=== PATIENT | male | born 1965 | race Caucasian/White ===

== ENCOUNTER 2023-08-06 15:25 | Inpatient (IN) ==
--- NOTE | 2023-08-06 15:31 | ED Triage Note ---
Date of Service August 06, 2023 Provider in Triage Author: Jamie Griffin History of Present Illness This patient was briefly evaluated while in triage. An abbreviated physical exam was performed. This patient is a 58-year-old Male who presents to the ED for evaluation of blood in his urine. Patient has a history of bladder cancer. The patient was seen at [facility], and they recommended emergency surgery. The patient was admitted, and had multiple blood transfusions because of his blood loss, and was discharged on Thursday. Patient recently had a Montanez catheter placed this past Thursday night. Patient reports penis pain, rating his discomfort a 9 out of 10. Physical Exam CONSTITUTIONAL: Healthy and well nourished. HEENT: No scleral icterus or conjunctival injection. RESPIRATORY: Clear to auscultation bilaterally with no wheezing, crackles, rhonchi or stridor. CARDIOVASCULAR: Regular rate and rhythm with no murmurs, rubs or gallops. GASTROINTESTINAL: Bowel sounds present in all quadrants. INTEGUMENTARY: No rash or other significant dermatologic conditions noted. HEMATOLOGIC: No ecchymosis or petechiae. PSYCHIATRIC: Positive affect. NEUROLOGIC: No focal neurologic deficits noted. Initial orders for labs and / or imaging were placed and patient was placed in the waiting area until a bed is available. Please see further documentation for the full ED course.
[2023-08-06 17:02] LABS: Basophils # (auto) 0.12 K/uL (0.00-0.20); Basophils % (auto) 1.2 %; Eosinophils # (auto) 0.39 K/uL (0.00-0.50); Eosinophils % (auto) 3.7 %; Hematocrit (blood only) 34.2 % (42.0-52.0); Hemoglobin 10.9 g/dl (14.0-18.0); Immature Granulocytes # (auto) 0.02 K/uL (0.01-0.20); Immature Granulocytes % (auto) 0.2 %; Lymphocytes # (auto) 1.06 K/uL (1.20-3.40); Lymphocytes % (auto) 10.2 %; Mean Corpuscular Hemoglobin 27.9 pg (25.0-34.0); Mean Corpuscular Hgb Conc 31.9 g/dL (32.0-36.0); Mean Corpuscular Volume 87.7 fL (80.0-100.0); Monocytes # (auto) 1.08 K/uL (0.11-0.59); Monocytes % (auto) 10.4 %; Neutrophils # (auto) 7.75 K/uL (1.40-6.50); Neutrophils % (auto) 74.3 %; Platelet Count 376 K/uL (130-400); RDW Coefficient of Variation 15.4 % (11.5-14.5); RDW Standard Deviation 48.2 fL (36.4-46.3); White Blood Count 10.42 K/ul (4.8-10.8)
[2023-08-06 17:07] LABS: Albumin Globulin Ratio 1.3 (0.9-2); Albumin Level 4.1 gm/dl (3.4-5.0); Bilirubin,Total 0.4 mg/dl (0.2-1.0); Est GFR (African American) 76.3 ml/min; Est GFR (Non-African American) 65.8 ml/min; Globulin 3.1 gm/dl (2.5-4.0); Potassium 4.3 mmol/L (3.5-5.1); Total Protein 7.2 gm/dl (6.0-8.3)
[2023-08-06 17:17] LABS: Troponin I High Sensitivity 1300.4 pg/ml (0-20)
[2023-08-06 18:27] LABS: INR 0.9 (0.9-1.1); Partial Thromboplastin Time 28 Seconds (21-31); Prothrombin Time 10.3 Seconds (9.0-12.0)
[2023-08-06] MEDS ORDERED: HYDROCODONE/ACETAMOPHEN 5/325MG TAB PO STA (19:50)
[2023-08-06] MEDS ORDERED: LABETALOL HCL IV 5 MG/ML 20ML IV STA (19:50)
--- NOTE | 2023-08-06 20:07 | History & Physical Report ---
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 Elevated troponin Acute ECG Changes admit to PCU Patient presented withtroponin of 1300, 2-hour repeat was 1061 EKG with anterior lateral T wave inversion in V3 to V6 Recent hospitalization at [facility] with again troponin elevation at 35,000 and EKG change in setting of acute anemia with a hemoglobin of 5 requiring PRBC transfusion x 4 T wave inversion more pronounced ? If related to recent demand ischemia event Patient's last episode of chest pain was when he was hospitalized at [facility] on day of admission Since then he has not experienced any chest pain or shortness of breath Given hematuria unable to initiate IV heparin therapy He is on aspirin and Plavix at baseline due to ? PAD, this has been held for 6 days due to hematuria He remains on metoprolol and lisinopril Will obtain echocardiogram, cycle troponins and consult cardiology ED provider discussed with interventional cardiology as well as [facility] recommended further intermission and work up risks factors include, FH, HTN, HLD, T2DM Will place n.p.o. after midnight event procedure in a.m. Hematuria (ongoing for 3 months) Chronic Reyna catheter, POA Known bladder cancer Will need to obtain records from [facility] Patient wishes for a second opinion, states he previously underwent surgical treatment for bladder cancer but no further intervention Is being told he needs chemotherapy and is not sure he wants to go through with this Again requesting second opinion, will consult [facility] urology Insulin-dependent T2DM Unknown A1c, obtain in a.m. Lantus/NovoLog per protocol Acute blood loss anemia in setting of hematuria, POA Hemoglobin stable at 10 Recently received PRBC transfusion x 4 at OSH follow H/H HTN continue lisinopril, metoprolol give 5mg IV labetolol x 1 now in ED HLD continue statin lipid panel in a.m. ? PAD Hx of carotid endarterectomy in 2018 pt reports receiving an angioplasty type procedure at [facility] were numerous stents were placed he states he is currently on ASA/Plavix which has been on hold for 6 days due to hematuria Charcot Luma tooth Disease had leg braces he utilizes at bedside no acute issue DVT ppx: SCDS FULL CODE PCP: Juvencio Abebe, unassigned Dispo: admit to PCU Pt was seen and examined in collaboration with Dr. Alaniz, please see addendum A total of 95 minutes was spent coordinating, documenting, and providing care for this patient excluding time spent in the performance of separately billed services. This included personally viewing all current laboratories and imaging studies, medication reconciliation, outpatient chart review, and discussion with specialists. Will obtain records from [facility] in a.m. 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 Prior to today patient previously sought care at [facility]. He states over the last 3 months he has been having hematuria. He states that his urologist keeps telling him he needs chemotherapy, but he has been unhappy with his care and is currently pursuing a second opinion. 6 days ago on Thursday he noted significant blood clots coming out of his urinary catheter and also was experiencing some chest heaviness, nausea and shortness of breath. He therefore presented to [facility] emergency department where he was hospitalized and discharged 2 days ago on 08/04/2023. He was subsequently found to be significantly anemic with a hemoglobin of 5. He required transfer to [facility] in which he did receive 4 units of PRBCs. Per ED provider who has access to [facility] records patient had elevated troponin during this hospital stay but did not undergo any coronary intervention due to high risk and hematuria. He states he had a second episode of chest pain during ER evaluation in [place] whenever he was placed in CT scanner and was told to hold his breath for 7 seconds. He developed intense substernal chest pressure that did not resolve until he was receiving his second unit of PRBCs. Since being discharged from [facility] he initially did notice some clearance of his hematuria however over the last 2 days his urine has become more dark and did have a blood clot in his catheter this morning. He denies experiencing any chest pain since discharge from hospital. He denies any chest pain with exertion, shortness of breath at rest or with exertion, diaphoresis, nausea, vomiting, fever, chills, sweats, URI symptoms, abdominal pain, hematemesis, melena or hematochezia. In ED patient was significantly hypertensive on arrival. His hemoglobin is stable at 10.9. He did have significant elevation in troponin at 1300 with subsequent T wave inversions noted anterior laterally and V3 to V6. Again he denied any chest pain. ED provider did discuss with interventional cardiology as well as [facility] cardiology and given hematuria no heparin initiation was recommended. Patient also states that he has been off his aspirin and Plavix for 1 week as he was told to hold this medication. He states he takes this medication due to receiving stents in his lower extremities. Allergies Allergy/AdvReac Type Severity Reaction Status Date / Time No Known Allergies Allergy Unverified 08/06/23 18:57 Home Medications Medication Instructions Recorded Confirmed Type acetaminophen 300 mg-codeine 30 mg 1 tab PO Q6H PRN moderate to 08/06/23 08/06/23 History tablet severe pain aspirin 81 mg tablet,delayed 81 mg PO DAILY 08/06/23 08/06/23 History release atorvastatin 40 mg tablet 40 mg PO HS 08/06/23 08/06/23 History clopidogrel 75 mg tablet 75 mg PO DAILY 08/06/23 08/06/23 History insulin glargine 100 unit/mL (3 25 unit subcut HS 08/06/23 08/06/23 History mL) subcutaneous pen (Lantus Solostar U-100 Insulin) insulin glargine 100 unit/mL (3 40 unit subcut DAILY 08/06/23 08/06/23 History mL) subcutaneous pen (Lantus Solostar U-100 Insulin) levothyroxine 25 mcg tablet 25 mcg PO DAILY 08/06/23 08/06/23 History lisinopril 30 mg tablet 30 mg PO DAILY 08/06/23 08/06/23 History metoprolol succinate 50 mg 50 mg PO DAILY 08/06/23 08/06/23 History tablet,extended release 24 hr tamsulosin 0.4 mg capsule 0.4 mg PO PM 08/06/23 08/06/23 History Past Med/Surg History Medical History (Updated 08/06/23 @ 20:23 by Hali Salcedo PA-C) Hypothyroidism Bladder cancer 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 HLD (hyperlipidemia) HTN (hypertension) Xvkxtii-Avabt-Igcqe disease Surgical History (Updated 08/06/23 @ 20:01 by Hali Salcedo PA-C) History of laryngoscopy History of carotid endarterectomy Hx of hammer toe correction Family History (Updated 08/06/23 @ 20:01 by Hali Salcedo PA-C) Mother Coronary heart disease 50-60s CABG Father Coronary heart disease [place] in 40s Social History (Updated 08/06/23 @ 20:03 by Hali Salcedo PA-C) Smoking Status: Former smoker Smoking End Date: 2011; Hx Alcohol Use: Yes Alcohol type: hard liquor Alcohol Intake Frequency: 2-4 x/Month Hx Substance Use: Yes Non-Prescribed Medications: Marijuana Last Used Substance: Hours (ago) Preferred Language: Macedonian Communication Ability: Effective English Drawer Required: No Beliefs That Will Affect Care: None marital status: Single Current Living Situation: Family Current Living Situation Comment: lives with father and daughter current occupational status: disabled Other Information That Helps Us Care for You: No Feels Safe at Home: Yes Safety Concerns: Feels Safe At This Time Review of Systems Review of Systems: All systems reviewed & are unremarkable except as noted in HPI & below Physical Exam Physical Exam: Constitutional: WD/WN, vitals as above, NAD, sitting up in bed, pleasant, conversing easily Head: Normocephalic, Atraumatic Eyes: PERRL, conjunctivae normal, anicteric sclerae ENMT: external ear and nose normal, oropharynx normal Neck: trachea midline, no thyromegaly normal visual inspection Respiratory: normal respiratory effort, lungs clear to auscultation, no wheeze, rales, rhonchi. Normal insp/exp effort, no accessory muscle use Cardiovascular: RRR, no murmur, no edema Vessels: no JVD or carotid bruit Chest: normal inspection of chest Abdomen: normal bowel sounds, soft, nontender, no hepatosplenomegaly Musculoskeletal: no cyanosis or clubbing, +CMT deformities, AROM x 4 Skin: no rashes, warm and dry normal turgor Neurologic: PERRL, EOMI, accommodation nl, no face palsy, no dysarthria CN's II-XI intact bilaterally and moves all extremities Psychiatric: A+Ox3, euthymic affect Lymphatic: no cervical or axillary lymphadenopathy : +reyna cath with perez colored urine Results & Data Results & Data Vital Signs (Past 12 Hours) Vital Signs Temp Pulse Pulse Resp BP BP Pulse Ox 08/06/23 19:33 91 H 08/06/23 19:00 91 H 18 176/98 H 98 08/06/23 17:25 94 H 18 190/99 H 97 08/06/23 16:35 86 18 99 08/06/23 15:52 90 18 153/104 H 100 08/06/23 15:46 95 H 08/06/23 15:27 36.5 C 101 H 20 116/83 97 O2 Del Method 08/06/23 19:33 08/06/23 19:00 Room Air 08/06/23 17:25 08/06/23 16:35 08/06/23 15:52 08/06/23 15:46 08/06/23 15:27 Room Air ECG Additional Comments: I have independently reviewed and interpreted patient's admitting EKG which revealed: Normal sinus rhythm with a ventricular to 94 bpm, T wave depressions in leads V3 to V5, QTc 542 MS, flat ST segment in V6 COVID-19 Results Results COVID-19 Adm Lab Results: RBC 3.50 M/uL (4.70-6.10) L 08/07/23 WBC 8.28 K/ul (4.8-10.8) 08/07/23 Hgb 9.8 g/dl (14.0-18.0) L 08/07/23 Hct 30.5 % (42.0-52.0) L 08/07/23 Plt Count 314 K/uL (130-400) 08/07/23 Neutrophils (%) (Auto) 72.9 % 08/07/23 Lymphocytes (%) (Auto) 10.3 % 08/07/23 Monocytes # (Auto) 0.88 K/uL (0.11-0.59) H 08/07/23 Eosinophils # (Auto) 0.34 K/uL (0.00-0.50) 08/07/23 Immature Granulocyte % (Auto) 0.4 % 08/07/23 Neutrophils # (Auto) 6.04 K/uL (1.40-6.50) 08/07/23 Lymphocytes # (Auto) 0.85 K/uL (1.20-3.40) L 08/07/23 Monocytes # (Auto) 0.88 K/uL (0.11-0.59) H 08/07/23 Eosinophils # (Auto) 0.34 K/uL (0.00-0.50) 08/07/23 Basophils # (Auto) 0.14 K/uL (0.00-0.20) 08/07/23 Immature Granulocyte # (Auto) 0.03 K/uL (0.01-0.20) 4 Na 135 mmol/L (136-145) L 08/06/23 K 4.3 mmol/L (3.5-5.1) 08/06/23 Cl 102 mmol/L (98-107) 08/06/23 CO2 24 mmol/L (21-32) 08/06/23 Anion Gap 9 (3-11) 08/06/23 BUN 24 mg/dl (6-23) H 08/06/23 Creatinine 1.20 mg/dl (0.6-1.4) 08/06/23 BUN/Creatinine Ratio 20.0 (10-20) 08/06/23 Glucose Level 212 mg/dl (70-99(Fasting)) H 08/06/23 Ca 10.0 mg/dl (8.6-10.3) 08/06/23 Total Bilirubin 0.4 mg/dl (0.2-1.0) 08/06/23 AST/SGOT 21 U/L (13-39) 08/06/23 ALT/SGPT 18 U/L (7-52) 08/06/23 Alkaline Phosphatase 79 U/L (34-104) 08/06/23 Total Protein 7.2 gm/dl (6.0-8.3) 08/06/23 Albumin 4.1 gm/dl (3.4-5.0) 08/06/23 Globulin 3.1 gm/dl (2.5-4.0) 08/06/23 Albumin/Globulin Ratio 1.3 (0.9-2) 08/06/23 PTT 28 Seconds (21-31) 08/06/23 INR 0.9 (0.9-1.1) 08/06/23 Triglycerides Level Pending 08/07/23 Chest X-Ray 08/06/23 Code Status & VTE Plan Code Status FULL CODE VTE Prophylaxis Plan VTE Prophylaxis will be ordered: No Reason for no VTE drug order: Contraindicated Supervising Physician Co-Signing Physician Notes Pt seen and examined by myself, Oly Alaniz MD on the day of service. Care was coordinated with Hali Salcedo PA-C. 58yoM with PMHx significant for bladder cancer with chronic hematuria presenting for noted clots and found to have an elevated troponin. Pt states that he has been following with [facility] and was not satisfied with care there so he wanted to follow up with Dr. Méndez based on the advice of friends. States he has an appointment set up for followup but started noting that he had blood clots in his urine so presented to the ED. Reportedly, pt's troponin was very elevated at [facility] and per pt noted trop level today is actually a decrease. States he was told about this there and was evaluated by cardiologists. On exam, alert, oriented, no acute distress. RRR, abdomen tender. Elevated trop: Cardiology consulted, echo, will hold on IV heparin given hematuria. trend trop until downtrending. Obtain records Hematuria, bladder cancer[place] Urology consult per pt request, appreciate recs. Monitor H/H. Obtain records. Otherwise as above.
[2023-08-06] MEDS ORDERED: MAGNESIUM HYDROXIDE SUSP 30 ML UDC PO PRN (22:30)
[2023-08-06] MEDS ORDERED: ACETAMINOPHEN 325 MG TAB PO PRN (22:30)
[2023-08-06] MEDS ORDERED: ALUMINUM/MAGNESIUM SUSP 30 ML UDC PO PRN (22:30)
[2023-08-06] MEDS ORDERED: DEXTROSE 50% 50 ML SYRINGE IV PRN (22:30)
[2023-08-06] MEDS ORDERED: CARBOHYDRATES FOR HYPOGLYCEMIA PO PRN (22:30)
[2023-08-06] MEDS ORDERED: GLUCAGON FOR INJ 1 MG VIAL SQ PRN (22:30)
[2023-08-06] MEDS ORDERED: GLUCOSE 10 TAB/TUBE PO PRN (22:30)
[2023-08-06] MEDS ORDERED: POLYETHYLENE (MIRALAX) 17 GM PACK PO PRN (22:30)
[2023-08-06] MEDS ORDERED: ONDANSETRON INJ 2 MG/ML 2 ML VIAL IV PRN (22:30)
[2023-08-06] MEDS ORDERED: GLUCOSE 40% GEL 15 GM TUBE PO PRN (22:30)
[2023-08-06] MEDS: INSULIN ASPART PER UNIT CHARGE SC SCH (23:07)
[2023-08-06] MEDS: LANTUS PER UNIT CHARGE SQ SCH (23:08)
[2023-08-06] MEDS: ATORVASTATIN 40 MG TAB PO SCH (23:12)
[2023-08-06] MEDS: TAMSULOSIN HCL 0.4 MG CAP PO SCH (23:12)
[2023-08-07] MEDS: LEVOTHYROXINE SODIUM 25 MCG TABLET PO SCH (05:20)
[2023-08-07 06:39] LABS: Basophils # (auto) 0.14 K/uL (0.00-0.20); Basophils % (auto) 1.7 %; Eosinophils # (auto) 0.34 K/uL (0.00-0.50); Eosinophils % (auto) 4.1 %; Hematocrit (blood only) 30.5 % (42.0-52.0); Hemoglobin 9.8 g/dl (14.0-18.0); Immature Granulocytes # (auto) 0.03 K/uL (0.01-0.20); Immature Granulocytes % (auto) 0.4 %; Lymphocytes # (auto) 0.85 K/uL (1.20-3.40); Lymphocytes % (auto) 10.3 %; Mean Corpuscular Hgb Conc 32.1 g/dL (32.0-36.0); Mean Corpuscular Volume 87.1 fL (80.0-100.0); Mean Platelet Volume 10.5 fL (9.4-12.4); Monocytes # (auto) 0.88 K/uL (0.11-0.59); Monocytes % (auto) 10.6 %; Neutrophils # (auto) 6.04 K/uL (1.40-6.50); Neutrophils % (auto) 72.9 %; Platelet Count 314 K/uL (130-400); RDW Coefficient of Variation 15.3 % (11.5-14.5); RDW Standard Deviation 48.1 fL (36.4-46.3); White Blood Count 8.28 K/ul (4.8-10.8)
[2023-08-07 07:13] LABS: Albumin Globulin Ratio 1.5 (0.9-2); Albumin Level 3.5 gm/dl (3.4-5.0); BUN Creatinine Ratio 22.5 (10-20); Bilirubin,Total 0.4 mg/dl (0.2-1.0); Calcium 9.4 mg/dl (8.6-10.3); Chol HDL Ratio 2.6 (0-5); Creatinine Clr Calc Pharmacy 96.4 ml/min; Est GFR (African American) 92.8 ml/min; Est GFR (Non-African American) 80.1 ml/min; Globulin 2.3 gm/dl (2.5-4.0); Magnesium 1.7 mg/dl (1.7-2.4); Total Protein 5.8 gm/dl (6.0-8.3)
[2023-08-07 07:41] LABS: Estimated Average Glucose 123 mg/dl; Hemoglobin A1C 5.9 % (4.5-5.6)
[2023-08-07] MEDS: lisinopril 10 MG TAB PO SCH (08:03)
[2023-08-07] MEDS: METOPROLOL SUCC 50MG EXT REL TAB PO SCH (08:04)
--- NOTE | 2023-08-07 08:10 | XRay Report ---
SINGLE VIEW CHEST CLINICAL HISTORY: Elevated troponin. FINDINGS: An AP, portable, upright chest radiograph is correlated with PET/CT dated 10/22/2011. The ca rdiomediastinal silhouette is unremarkable. Emphysema and chronic interstitial thickening is similar to previous. There is bibasilar scarring/atelectasis. The lungs and pleural spaces are otherwise reed r. No pneumothorax is seen. The bony thorax is grossly intact. IMPRESSION: Emphysematous change with no active disease in the chest. ACT 112: Negative or not required by law. Electronically signed by: Christopher Mean M.D. 08/07/2023 8:08 AM
--- NOTE | 2023-08-07 09:09 | Urology Consultation ---
Date of Consultation August 07, 2023 Assessment & Plan (1) Hematuria: (2) Bladder cancer: 58 yo/M admitted for hematuria and elevated troponin. Urology consulted for hematuria, bladder cancer Patient has known bladder cancer status post resection, follows with Urology Ongoing hematuria for 3 months with recent worsening, clot burden and symptomatic [facility] Lab[facility] 1.02, no leukocytosis, hemoglobin 9.8recommend continue to trend H&H and transfuse as needed No UA or urine culture at this time Montanez catheter present on admissionpatent and draining yellow urine with slight blood tinge during exam today Urine appears to be clearing Okay for nursing to hand irrigate catheter as needed for clot obstruction Recommend monitor catheterif urine remains clear then can do voiding trial prior to discharge or can arrange outpatient voiding trial Regarding his bladder cancer, we will need prior urology records and pathology to reviewrecommend outpatient follow-up No acute intervention at this time Patient would like to transition his care to [facility] urologywill arrange f/u with our service will follow peripherally History of Present Illness Attending Physician: Cy Liu MD History of Present Illness This is a 58-year-old male with past medical history of type 2 diabetes, hypertension, hyperlipidemia, Keogsfl-Dygpz-Mwlbf disease, hypothyroidism, 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 On arrival, he was afebrile, hypertensive. Labs showed WBC 10.42, hemoglobin 10.9, sodium 135, creatinine 1.2, troponin 1300.4. Workup in the ED revealed elevated troponin and abnormal EKG. He was admitted to medicine for further evaluation and management. Urology is consulted for hematuria, bladder cancer. Patient reports hematuria ongoing for 3 months. He has known bladder cancer s/p resection in September 2022. He follows with [facility] urology, but has been unhappy with care and would like to transfer care to [facility]. Recently hospitalized at for difficulty voiding, hematuria and symptomatic anemia requiring transfusions, 4 units of PRBCs. He was also noted to have elevated troponin at . He had a 3 way Montanez catheter placed and was on CBI per his report. He was discharged from with Montanez catheter. He is on aspirin and Plavix which has been held for the past 6-7 days. He does not know the pathology of his bladder cancer. He was told he needed chemotherapy. He has not undergone any additional treatment since his resection. Currently denies flank, abdominal or suprapubic pain. Denies nausea, vomiting, fever or chills. Montanez patent and draining yellow urine with slight blood tinge. History of tobacco use: 2 ppd for 20+ years, quit in 2011. Now uses marijuana. Allergies Allergy/AdvReac Type Severity Reaction Status Date / Time No Known Allergies Allergy Unverified 08/06/23 18:57 Home Medications Medication Instructions Recorded Confirmed Type acetaminophen 300 mg-codeine 30 mg 1 tab PO Q6H PRN moderate to 08/06/23 08/06/23 History tablet severe pain aspirin 81 mg tablet,delayed 81 mg PO DAILY 08/06/23 08/06/23 History release atorvastatin 40 mg tablet 40 mg PO HS 08/06/23 08/06/23 History clopidogrel 75 mg tablet 75 mg PO DAILY 08/06/23 08/06/23 History insulin glargine 100 unit/mL (3 25 unit subcut HS 08/06/23 08/06/23 History mL) subcutaneous pen (Lantus Solostar U-100 Insulin) insulin glargine 100 unit/mL (3 40 unit subcut DAILY 08/06/23 08/06/23 History mL) subcutaneous pen (Lantus Solostar U-100 Insulin) levothyroxine 25 mcg tablet 25 mcg PO DAILY 08/06/23 08/06/23 History lisinopril 30 mg tablet 30 mg PO DAILY 08/06/23 08/06/23 History metoprolol succinate 50 mg 50 mg PO DAILY 08/06/23 08/06/23 History tablet,extended release 24 hr tamsulosin 0.4 mg capsule 0.4 mg PO PM 08/06/23 08/06/23 History Patient History Medical History Hypothyroidism Bladder cancer 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 HLD (hyperlipidemia) HTN (hypertension) Vwctudq-Gjglz-Jvcan disease Surgical History History of laryngoscopy History of carotid endarterectomy Hx of hammer toe correction Family History Mother Coronary heart disease 50-60s CABG Father Coronary heart disease [place] in 40s Social History Smoking Status: Former smoker Smoking End Date: 2011; Hx Alcohol Use: Yes Alcohol type: hard liquor Alcohol Intake Frequency: 2-4 x/Month Hx Substance Use: Yes Non-Prescribed Medications: Marijuana Last Used Substance: Hours (ago) Preferred Language: Malaysian Communication Ability: Effective Cephalometric Technician Required: No Beliefs That Will Affect Care: None marital status: Single Current Living Situation: Family Current Living Situation Comment: lives with father and daughter current occupational status: disabled Other Information That Helps Us Care for You: No Feels Safe at Home: Yes Safety Concerns: Feels Safe At This Time Review of Systems Review of Systems: All systems reviewed & are unremarkable except as noted in HPI & below Physical Exam Constitutional: well developed and well nourished; no acute distress Respiratory: normal respiratory effort; no respiratory distress and no labored breathing Gastrointestinal (Abdomen): Inspection/Auscultation: abdomen normal to ins pection Percussion/Palpation: abdomen soft; abdomen nontender Musculoskeletal: Head/Neck/Chest: normocephalic Neurologic: awake Psychiatric: Orientation: alert and oriented x 3 Genitourinary: Montanez patent and draining yellow urine with slight blood-tinge Results & Data Vital Signs (Past 12 Hours) Vital Signs Temp Pulse Pulse Resp BP Pulse Ox O2 Del Method 08/07/23 08:05 36.4 C L 61 19 116/76 96 Room Air 08/07/23 03:46 37.4 C 87 109/61 98 Room Air 08/06/23 23:02 37.1 C 88 141/74 H 98 Room Air 08/06/23 22:48 36.6 C 92 H 18 160/78 H 97 Room Air 08/06/23 21:59 96 H PG Care Time/CCT Total # of Minutes Spent Total Time Spent with Patient: Total time spent is greater than 50% in coordination of care (as documented) at patient's floor/unit and/or counseling patient: Coding Level of Care Code 03417 IN/OBS CONSULT LVL 4,60M Diagnoses Hematuria R31.9 Bladder cancer C67.9
[2023-08-07] MEDS: ACETAMINOPHEN W/CODEINE #3 1 TAB PO PRN ×3 (09:38→23:01)
[2023-08-07] MEDS: INSULIN ASPART PER UNIT CHARGE SC SCH ×4 (09:44→21:11)
[2023-08-07] MEDS: LANTUS PER UNIT CHARGE SQ SCH ×2 (09:45→21:12)
--- NOTE | 2023-08-07 12:23 | Cardiology Consultation ---
Date of Consultation August 07, 2023 Assessment & Plan (1) Abnormal ECG: (2) Elevated troponin: (3) Hematuria: (4) HTN (hypertension): (5) HLD (hyperlipidemia): Plan Assessment: Patient is a 58 year-old male with complex cancer history that presented for evaluation of ongoing hematuria. Recent hospitalization 1 week prior for gross hematuria and HgB of 5 requiring transfusion. Asked to be seen by cardiology due to ongoing elevated troponins and abnormal EKG findings. Plan: 1. Abnormal EKG 2.Elevated Troponin -Patient with reports of an abnormal EKG one week prior during a hospitalization at [facility] suggestive of inverted T waves. We have not been able to personally review this EKG. Repeat EKG shows NSR with ST-T wave changes suggestive of anterolateral ischemia. -No personal history of CAD, but significant family history of CAD -Troponin elevation here likely a continued downtrend to signficant elevation one week ago during prior hospitalization and s/t demand ischemia in regards to profound anemia. -discussed with patient concerns of EKG findings in conjunction with his other health issues and family history. -Given hematuria, his ASA and Plavix are on hold and complicate invasive management of potential CAD. -will obtain echocardiogram today to assess overall structrue and function, assessment of wall motion abnormality. -NPO until after echo to determine if invasive cardiac workup is indicated at this time or may be done at a later date. -continue Toprol xl, Lisinopril and Atorvastatin at this time as part of GDMT 3. HTN -At target. Continue Toprol xl and Lisinopril at this time. 4. HLD: -Continue Atorvastatin at this time. Will provide further recommendations pending echocardiogram. Case has been discussed with Dr. Daugherty. Further recommendations regarding plan of care as per his assessment. I spent a total of 30 minutes on the date of service in preparation, delivery, documentation of the care provided to the patient excluding any time spent in the performance of separately billed services. MARY Kraft [facility] Supervising Physician Co-Signing Physician Notes Attending attestation: Case reviewed with the advanced practitioner. I have personally performed a history and physical examination on the patient. I have reviewed the advanced practitioner's documentation on the date of service referenced in note, and I agree with, and take responsibility for the plan of care. Subjective: Patinet without chest discomfort since having experienced it while having a CT scan at within the [facility] a week ago. Exam: Cardiovascular: Regular rhythm, no murmurs, no edema Data: EKG tracing performed 08/07/2023 and interpret independently: Sinus rhythm 89 bpm with marked T wave abnormality in the precordial leads V1 to V6 consistent with anterolateral ischemia, more pronounced than the previous EKG. T wave inversions also noted in the high lateral leads I and aVL. Echocardiogram reveals a small focal apical wall motion abnormality, with preserved ejection fraction range of 55 to 60%. Mild aortic valve sclerosis without stenosis noted, grade 1 diastolic dysfunction, no previous available for comparison. Impression/ Plan: Recurrent bladder carcinoma with recent gross hematuria, has had indwelling Montanez catheter for 1 week Non-STEMI * Patient without anginal symptoms at present or since those observed last Thursday, 1 week ago * Patient notes both parents having had myocardial infarction's, his mother had bypass surgery and multiple coronary interventions per his description * He had previously been on dual antiplatelet therapy with aspirin and clopidogrel, presumably for treatment for his carotid disease having had previous carotid endarterectomy * Patient had presented a week ago with gross hematuria, profound anemia in the setting of dual antiplatelet therapy with aspirin clopidogrel, and he has been off of these agents for a week. * We do not have the patient's previous EKG available for comparison, but attempts are underway to obtain records and the patient has signed a records release consent. * Recommend ongoing conservative medication therapy. Cardiac catheterization and PCI would require the patient to go back on dual antiplatelet therapy and I would anticipate recurrent to severe symptomatic anemia would occur. * Continue metoprolol succinate 50 mg daily, lisinopril 30 mg daily, atorvastatin 40 mg daily. * Holding antiplatelet therapy. * Case discussed with Dr. Prado for the purpose of coordination of care I spent a total of 20minutes coordinating, documenting, and providing care for this patient excluding time spent in the performance of separately billed services or time spent by another provider. Fabian Daugherty DO History of Present Illness Reason for Consultation: Elevated troponin and EKG changes. 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 Patient's states that he has had hematuria for several weeks, but one week ago, he could visualize a large blood clot at the opening to her urethra and was not able to urinate. He initially presented to [facility] ER for further evaluation as well as chest pain that had started that day. He described the pain as a pressure and burning with no other associated symptoms. He was told that his troponin levels were elevated (35,000), had an "abnormal EKG" (not available for review) and a hemoglobin of 5 g/dl. Patient received two units of PRBC's prior to being transferred to [facility] where he received two additional units of blood (4 total). Patient reported that his chest pain resolved after the 2nd unit of blood. Patient denies any prior CAD, but has a significant family history of CAD both in parents and siblings. Review of telemetry demonstrates SR rates 80's-90's. EKG on admission demonstrates NSR with ST-T wave abnormality in anterolateral leads. Patient denies chest pain, pressure, palpations, shortness of breath, PND, pre- syncope, syncope or edema Allergies Allergy/AdvReac Type Severity Reaction Status Date / Time No Known Allergies Allergy Unverified 08/06/23 18:57 Home Medications Medication Instructions Recorded Confirmed Type acetaminophen 300 mg-codeine 30 mg 1 tab PO Q6H PRN moderate to 08/06/23 History tablet severe pain aspirin 81 mg tablet,delayed 81 mg PO DAILY 08/06/23 08/06/23 History release atorvastatin 40 mg tablet 40 mg PO HS 08/06/23 08/06/23 History clopidogrel 75 mg tablet 75 mg PO DAILY 08/06/23 08/06/23 History insulin glargine 100 unit/mL (3 25 unit subcut HS 08/06/23 08/06/23 History mL) subcutaneous pen (Lantus Solostar U-100 Insulin) insulin glargine 100 unit/mL (3 40 unit subcut DAILY 08/06/23 08/06/23 History mL) subcutaneous pen (Lantus Solostar U-100 Insulin) levothyroxine 25 mcg tablet 25 mcg PO DAILY 08/06/23 08/06/23 History lisinopril 30 mg tablet 30 mg PO DAILY 08/06/23 08/06/23 History metoprolol succinate 50 mg 50 mg PO DAILY 08/06/23 08/06/23 History tablet,extended release 24 hr tamsulosin 0.4 mg capsule 0.4 mg PO PM 08/06/23 08/06/23 History Patient History Medical History Hypothyroidism Bladder cancer 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 HLD (hyperlipidemia) HTN (hypertension) Porwpdk-Nsvoy-Nmpxi disease Surgical History History of laryngoscopy History of carotid endarterectomy Hx of hammer toe correction Family History Mother Coronary heart disease 50-60s CABG Father Coronary heart disease [place] in 40s Social History Smoking Status: Former smoker Smoking End Date: 2011; Hx Alcohol Use: Yes Alcohol type: hard liquor Alcohol Intake Frequency: 2-4 x/Month Hx Substance Use: Yes Non-Prescribed Medications: Marijuana Last Used Substance: Hours (ago) Preferred Language: Slovak Communication Ability: Effective Storage Battery Inspector And Tester Required: No Beliefs That Will Affect Care: None marital status: Single Current Living Situation: Family Current Living Situation Comment: lives with father and daughter current occupational status: disabled Other Information That Helps Us Care for You: No Feels Safe at Home: Yes Safety Concerns: Feels Safe At This Time Review of Systems Review of Systems: All systems reviewed & are unremarkable except as noted in HPI & below Physical Exam Constitutional: well developed and well nourished; no acute distress Neck: normal visual inspection and trachea midline Respiratory: normal respiratory effort, lungs clear to auscultation Cardiovascular: RRR, no murmur, no edema Heart Sounds: normal S1 and normal S2 Vessels: no JVD Skin: no rashes, warm and dry Psychiatric: A+Ox3, euthymic affect Genitourinary: perez tinge urine noted in the Montanez catheter Results & Data Vital Signs (Past 12 Hours) Vital Signs Temp Pulse Resp BP Pulse Ox O2 Del Method 08/07/23 11:44 37.1 C 76 18 109/64 99 Room Air 08/07/23 08:05 36.4 C L 61 19 116/76 96 Room Air 08/07/23 03:46 37.4 C 87 109/61 98 Room Air Laboratory Results Cardiac Enzymes 08/06/23 08/06/23 08/07/23 Range/Units 15:45 18:26 00:19 AST 21 (13-39) U/L Troponin I High Sens 1300.4 H* 1061.2 H* 993.9 H* (0-20) pg/ml 08/07/23 Range/Units 06:15 AST 13 (13-39) U/L Troponin I High Sens 974.4 H* (0-20) pg/ml Coagulation 08/06/23 Range/Units 17:31 PT 10.3 (9.0-12.0) Seconds APTT 28 (21-31) Seconds Lipids 08/07/23 Range/Units 06:15 Triglycerides 105 (0-150) mg/dl Cholesterol 88 (0-200) mg/dl HDL Cholesterol 34 mg/dl Cholesterol/HDL Ratio 2.6 (0-5) CBC 08/06/23 08/07/23 Range/Units 15:45 06:11 WBC 10.42 8.28 (4.8-10.8) K/ul RBC 3.90 L 3.50 L (4.70-6.10) M/uL Hgb 10.9 L 9.8 L (14.0-18.0) g/dl Hct 34.2 L 30.5 L (42.0-52.0) % Plt Count 376 314 (130-400) K/uL Neut # (Auto) 7.75 H 6.04 (1.40-6.50) K/uL Lymph # (Auto) 1.06 L 0.85 L (1.20-3.40) K/uL Leslie # (Auto) 1.08 H 0.88 H (0.11-0.59) K/uL Eos # (Auto) 0.39 0.34 (0.00-0.50) K/uL Baso # (Auto) 0.12 0.14 (0.00-0.20) K/uL Comprehensive Metabolic Panel 08/06/23 08/07/23 Range/Units 15:45 06:15 Sodium 135 L 140 (136-145) mmol/L Potassium 4.3 4.0 (3.5-5.1) mmol/L Chloride 102 108 H (98-107) mmol/L Carbon Dioxide 24 25 (21-32) mmol/L BUN 24 H 23 (6-23) mg/dl Creatinine 1.20 1.02 (0.6-1.4) mg/dl Glucose 212 H 107 H (70-99(Fasting)) mg/dl Calcium 10.0 9.4 (8.6-10.3) mg/dl AST 21 13 (13-39) U/L ALT 18 13 (7-52) U/L Alkaline Phosphatase 79 69 (34-104) U/L Total Protein 7.2 5.8 L (6.0-8.3) gm/dl Albumin 4.1 3.5 (3.4-5.0) gm/dl Intake and Output 08/06/23 08/07/23 08/07/23 22:59 06:59 14:59 Intake Total 250 / 250 Output Total 850 / 850 Balance -600 / -600 Intake: Oral 250 / 250 Output: Urine 200 / 200 Urine Amount (Catheter) 650 / 650 Montanez/Indwelling 650 / 650 Other: Weight 109.1 kg 109.1 kg Weight Measurement Method Chair Scale Built in [facility]
--- NOTE | 2023-08-07 14:44 | Hospitalist Progress Note ---
Date of Service August 07, 2023 Assessment & Plan (1) Elevated troponin: (2) Abnormal ECG: (3) Hematuria: (4) Bladder cancer: (5) Insulin dependent type 2 diabetes mellitus: (6) HLD (hyperlipidemia): (7) HTN (hypertension): (8) Dnmrjzv-Njaeu-Ltfyn disease: Plan This is a 58-year-old male who has significant past medical history 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 Elevated troponin NSTEMI Patient presented with hematuria. No chest pain or shortness of breath. High sensitive troponin on admission 1300; down trended. EKG admission personally reviewed; normal sinus rhythm with lateral T wave inversion in V3 to V6 Echocardiogram shows small focal wall motion abnormality limited to the left ventricular apex. EF of 55 to 60% Given hematuria, recent hospitalization with severe anemia requiring multiple transfusions; patient was started on anticoagulation. Aspirin and Plavix currently on hold; will likely restart aspirin tomorrow a.m. Continue on metoprolol, lisinopril and Lipitor. Continue telemonitoring. Repeat EKG in AM. Awaiting records from outside hospital. Hematuria (ongoing for 3 months) Chronic Reyna catheter, POA Known bladder cancer History of bladder cancer status post surgery last year. Patient started having hematuria in past 3 months. Urology evaluated the patient; no intervention at the moment. Recommended to monitor catheter; if urine remains clear; voiding trial prior to discharge. Urology service to arrange follow-up. Insulin-dependent T2DM HbA1c of 5.9% Well-controlled Continue insulin inpatient Acute blood loss anemia in setting of hematuria, POA Hemoglobin stable at 9-10 Recently received PRBC transfusion x 4 at OSH follow H/H HTN continue lisinopril, metoprolol HLD continue statin ? PAD Hx of carotid endarterectomy in 2018 pt reports receiving an angioplasty type procedure at [facility] were numerous stents were placed he states he is currently on ASA/Plavix which has been on hold for 6 days due to hematuria Charcot Luma tooth Disease had leg braces he utilizes at bedside no acute issue DVT ppx: SCDS FULL CODE PCP: Juvencio Abebe, unassigned Dispo: admit to PCU Time spent evaluating patient, direct bedside care, chart review, placing orders, interpretation of diagnostic studies, discussion with consultants, patient, and family members, as well as other required patient management activities is 50 minutes Please note the above document was generated using voice recognition software. It may contain grammatical, syntax or spelling errors. Any formal questions or concerns about the content, text or information contained within the body of this dictation should be directly addressed to the provider for clarification Admission and Anticipated Discharge Date Admission Date: August 06, 2023 Subjective Seen and examined at bedside. He is comfortably lying in the bed; not in distress. Reyna in place with clear reddish urine; no clots. Review of Systems Review of Systems: All systems reviewed & are unremarkable except as noted in Subjective Physical Exam Physical Exam: Constitutional: WD/WN, vitals as above, NAD, sitting up in bed, pleasant, conversing easily Respiratory: normal respiratory effort, lungs clear to auscultation, no wheeze, rales, rhonchi. Normal insp/exp effort, no accessory muscle use Cardiovascular: RRR, no murmur, no edema Vessels: no JVD or carotid bruit Chest: normal inspection of chest Abdomen: normal bowel sounds, soft, nontender, no hepatosplenomegaly Musculoskeletal: no cyanosis or clubbing, +CMT deformities, AROM x 4 Skin: no rashes, warm and dry normal turgor Neurologic: PERRL, EOMI, accommodation nl, no face palsy, no dysarthria CN's II-XI intact bilaterally and moves all extremities Psychiatric: A+Ox3, euthymic affect Lymphatic: no cervical or axillary lymphadenopathy : +reyna cath with perez colored urine Results & Data Results & Data Vital Signs (Past 12 Hours) Vital Signs Temp Pulse Resp BP Pulse Ox O2 Del Method 08/07/23 11:44 37.1 C 76 18 109/64 99 Room Air 08/07/23 08:05 36.4 C L 61 19 116/76 96 Room Air 08/07/23 03:46 37.4 C 87 109/61 98 Room Air
[2023-08-07] MEDS: TAMSULOSIN HCL 0.4 MG CAP PO SCH (21:12)
[2023-08-07] MEDS: ATORVASTATIN 40 MG TAB PO SCH (21:13)
[2023-08-08] MEDS: ACETAMINOPHEN W/CODEINE #3 1 TAB PO PRN ×2 (05:41→21:43)
[2023-08-08] MEDS: LEVOTHYROXINE SODIUM 25 MCG TABLET PO SCH (05:41)
[2023-08-08 06:19] LABS: Hematocrit (blood only) 30.6 % (42.0-52.0); Hemoglobin 9.9 g/dl (14.0-18.0); Mean Corpuscular Hgb Conc 32.4 g/dL (32.0-36.0); Mean Corpuscular Volume 86.7 fL (80.0-100.0); Platelet Count 320 K/uL (130-400); RDW Coefficient of Variation 15.2 % (11.5-14.5); RDW Standard Deviation 48.4 fL (36.4-46.3); Red Blood Count 3.53 M/uL (4.70-6.10); White Blood Count 6.34 K/ul (4.8-10.8)
[2023-08-08 06:20] LABS: Basophils # (auto) 0.13 K/uL (0.00-0.20); Basophils % (auto) 2.1 %; Eosinophils # (auto) 0.34 K/uL (0.00-0.50); Eosinophils % (auto) 5.4 %; Immature Granulocytes # (auto) 0.02 K/uL (0.01-0.20); Immature Granulocytes % (auto) 0.3 %; Lymphocytes # (auto) 1.11 K/uL (1.20-3.40); Lymphocytes % (auto) 17.5 %; Mean Platelet Volume 10.9 fL (9.4-12.4); Monocytes # (auto) 0.78 K/uL (0.11-0.59); Monocytes % (auto) 12.3 %; Neutrophils # (auto) 3.96 K/uL (1.40-6.50); Neutrophils % (auto) 62.4 %
--- NOTE | 2023-08-08 06:27 | Electrocardiogram Report ---
Test Reason : Blood Pressure : / mmHG Vent. Rate : 094 BPM Atrial Rate : 094 BPM P-R Int : 190 ms QRS Dur : 100 ms QT Int : 362 ms P-R-T Axes : 062 064 270 degrees QTc Int : 452 ms Normal sinus rhythm Abnormal ECG No previous ECGs available Confirmed by Benson Garcia ([id number]) on 08/08/2023 6:27:08 AM Referred By: REFERRED SELF Confirmed By:Benson Garcia
[2023-08-08 06:38] LABS: BUN Creatinine Ratio 26.3 (10-20); Calcium 9.1 mg/dl (8.6-10.3); Creatinine Clr Calc Pharmacy 103.5 ml/min; Est GFR (African American) 101.1 ml/min; Est GFR (Non-African American) 87.3 ml/min
[2023-08-08] MEDS: lisinopril 10 MG TAB PO SCH (08:00)
[2023-08-08] MEDS: METOPROLOL SUCC 50MG EXT REL TAB PO SCH (08:00)
--- NOTE | 2023-08-08 14:54 | Hospitalist Progress Note ---
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 Elevated troponin NSTEMI Patient presented with hematuria. He was recently admitted in outside hospital with high sensitive troponin of 36,000 on July 31, 2023. No chest pain or shortness of breath. High sensitive troponin on admission 1300; down trended. EKG admission personally reviewed; normal sinus rhythm with lateral T wave inversion in V3 to V6 Echocardiogram shows small focal wall motion abnormality limited to the left ventricular apex. EF of 55 to 60% Given hematuria, recent hospitalization with severe anemia requiring multiple transfusions; patient was not started on anticoagulation. Aspirin restarted. Plavix on hold. Continue on metoprolol, lisinopril and Lipitor. Continue telemonitoring. Hematuria History of bladder cancer Reviewed records from outside hospital History of bladder tumor; underwent TURBT in August 2022. 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 He was hospitalized recently at an outside hospital requiring multiple blood transfusions. Urology evaluated the patient; no intervention at the moment. Recommended to monitor catheter; if urine remains clear; voiding trial prior to discharge. Plan for voiding trial today. Bladder scan to rule out obstruction Possible discharge tomorrow a.m. Urology to arrange follow-up. Insulin-dependent T2DM HbA1c of 5.9% Well-controlled Continue insulin inpatient Acute blood loss anemia in setting of hematuria, POA Hemoglobin stable at 9-10 Recently received PRBC transfusion x 4 at OSH follow H/H HTN continue lisinopril, metoprolol HLD continue statin ? PAD Hx of carotid endarterectomy in 2018 pt reports receiving an angioplasty type procedure at [facility] were numerous stents were placed Resume aspirin. Charcot Luma tooth Disease had leg braces he utilizes at bedside no acute issue DVT ppx: SCDS FULL CODE PCP: Juvencio Abebe, unassigned Dispo: admit to PCU Time spent evaluating patient, direct bedside care, chart review, placing orders, interpretation of diagnostic studies, discussion with consultants, patient, and family members, as well as other required patient management activities is 50 minutes Please note the above document was generated using voice recognition software. It may contain grammatical, syntax or spelling errors. Any formal questions or concerns about the content, text or information contained within the body of this dictation should be directly addressed to the provider for clarification Admission and Anticipated Discharge Date Admission Date: August 06, 2023 Subjective Patient seen and examined at bedside. He is sitting up on the bed; not in distress. Denies abdominal pain, fever, chills or chest pain. Reyna in place draining clear urine. Review of Systems Review of Systems: All systems reviewed & are unremarkable except as noted in Subjective Physical Exam Physical Exam: Constitutional: WD/WN, vitals as above, NAD, sitting up in bed, pleasant, conversing easily Respiratory: normal respiratory effort, lungs clear to auscultation, no wheeze, rales, rhonchi. Normal insp/exp effort, no accessory muscle use Cardiovascular: RRR, no murmur, no edema Vessels: no JVD or carotid bruit Chest: normal inspection of chest Abdomen: normal bowel sounds, soft, nontender, no hepatosplenomegaly Musculoskeletal: no cyanosis or clubbing, +CMT deformities, AROM x 4 Skin: no rashes, warm and dry normal turgor Neurologic: PERRL, EOMI, accommodation nl, no face palsy, no dysarthria CN's II-XI intact bilaterally and moves all extremities Psychiatric: A+Ox3, euthymic affect Lymphatic: no cervical or axillary lymphadenopathy : +reyna cath with perez colored urine Results & Data Results & Data Vital Signs (Past 12 Hours) Vital Signs Temp Pulse Resp BP BP Pulse Ox O2 Del Method 08/08/23 12:37 36.5 C 72 18 154/73 H 98 Room Air 08/08/23 08:07 36.9 C 75 18 142/78 H 97 Room Air 08/08/23 03:08 36.9 C 82 18 114/60 99 Room Air
--- NOTE | 2023-08-08 15:12 | Cardiology Progress Note ---
Date of Service August 08, 2023 Assessment & Plan (1) Abnormal ECG: (2) Elevated troponin: (3) Hematuria: (4) HTN (hypertension): (5) HLD (hyperlipidemia): Plan Assessment: Patient is a 58 year-old male with complex cancer history that presented for evaluation of ongoing hematuria. Recent hospitalization 1 week prior for gross hematuria and HgB of 5 requiring transfusion. Asked to be seen by cardiology due to ongoing elevated troponins and abnormal EKG findings. Plan: 1. Abnormal EKG 2.Elevated Troponin -Patient with reports of an abnormal EKG one week prior during a hospitalization at [facility] suggestive of inverted T waves. We have not been able to personally review this EKG. Repeat EKG shows NSR with ST-T wave changes suggestive of anterolateral ischemia. -No personal history of CAD, but significant family history of CAD -Troponin elevation here likely a continued downtrend to signficant elevation one week ago during prior hospitalization and s/t demand ischemia in regards to profound anemia. -discussed with patient concerns of EKG findings in conjunction with his other health issues and family history. -Given hematuria, his ASA and Plavix are on hold and complicate invasive management of potential CAD. -will obtain echocardiogram today to assess overall structrue and function, assessment of wall motion abnormality. -NPO until after echo to determine if invasive cardiac workup is indicated at this time or may be done at a later date. -continue Toprol xl, Lisinopril and Atorvastatin at this time as part of GDMT 3. HTN -At target. Continue Toprol xl and Lisinopril at this time. 4. HLD: -Continue Atorvastatin at this time. MARY [facility] Cardiology [facility] 08/08/2023 Complex 58-year-old male with known peripheral vascular disease and suspected coronary artery disease after recent hospitalization with profound anemia, hemoglobin 5.2. Patient has had persistent hematuria following diagnosis of bladder carcinoma. Previously on dual antiplatelet therapy which has been on hold Last hospitalization at [facility] 07/31/2023 notable for profound elevation in troponin (greater than 30,000) consistent non-ST segment elevation myocardial infarction possibly demand based ischemia EKGs this admission with marked T wave inversion anteriorly leads with only mild reduction in LV systolic function High risk for recurrent bleeding Recommendations continue medical conservative management. Will increase metoprolol succinate to 50 mg a.m. 25 mg p.m. if blood pressure allows, add oral nitrates in a.m. Consider resumption of aspirin Continue statin Admission and Anticipated Discharge Date Admission Date: August 06, 2023 Subjective Patient was seen and personally examined, chart, telemetry reviewed. Patient denies chest pains or chest discomfort no shortness of breath. Hematuria still present but improving. Telemetry without arrhythmias EKG with persistent T wave inversion anterior precordial leads Physical Exam Constitutional: well developed and well nourished; no acute distress Neck: normal visual inspection and trachea midline Respiratory: normal respiratory effort, lungs clear to auscultation Cardiovascular: RRR, no murmur, no edema Heart Sounds: normal S1 and normal S2 Vessels: no JVD Skin: no rashes, warm and dry Psychiatric: A+Ox3, euthymic affect Results & Data Vital Signs (Past 12 Hours) Vital Signs Temp Pulse Resp BP Pulse Ox O2 Del Method 08/08/23 12:37 36.5 C 72 18 154/73 H 98 Room Air 08/08/23 08:07 36.9 C 75 18 142/78 H 97 Room Air Laboratory Results Laboratory Results - last 24 hr 08/07/23 08/07/23 08/08/23 17:06 20:30 05:26 WBC 6.34 RBC 3.53 L Hgb 9.9 L Hct 30.6 L MCV 86.7 MCH 28.0 MCHC 32.4 RDW Std Deviation 48.4 H RDW Coeff of Carlos Manuel 15.2 H Plt Count 320 MPV 10.9 Immature Gran % (Auto) 0.3 Neut % (Auto) 62.4 Lymph % (Auto) 17.5 [place] % (Auto) 12.3 Eos % (Auto) 5.4 Baso % (Auto) 2.1 Neut # (Auto) 3.96 Lymph # (Auto) 1.11 L [place] # (Auto) 0.78 H Eos # (Auto) 0.34 Baso # (Auto) 0.13 Immature Gran # (Auto) 0.02 Sodium 139 Potassium 4.0 Chloride 107 Carbon Dioxide 25 Anion Gap 7 BUN 25 H Creatinine 0.95 Est Cr Clr Drug Dosing 103.5 Est GFR ( Amer) 101.1 Est GFR (Non-Af Amer) 87.3 BUN/Creatinine Ratio 26.3 H Glucose 96 POC Glucose 162 H 146 H Calcium 9.1 08/08/23 08/08/23 07:58 12:05 WBC RBC Hgb Hct MCV MCH MCHC RDW Std Deviation RDW Coeff of Carlos Manuel Plt Count MPV Immature Gran % (Auto) Neut % (Auto) Lymph % (Auto) [place] % (Auto) Eos % (Auto) Baso % (Auto) Neut # (Auto) Lymph # (Auto) [place] # (Auto) Eos # (Auto) Baso # (Auto) Immature Gran # (Auto) Sodium Potassium Chloride Carbon Dioxide Anion Gap BUN Creatinine Est Cr Clr Drug Dosing Est GFR ( Amer) Est GFR (Non-Af Amer) BUN/Creatinine Ratio Glucose POC Glucose 104 H 186 H Calcium ECG Additional Comments: Normal sinus rhythm at [address] & T wave abnormality, consider anterolateral ischemia Prolonged QT Abnormal ECG When compared with ECG of 07-AUG-2023 05:16, (unconfirmed) No significant change was foun
[2023-08-08] MEDS: LANTUS PER UNIT CHARGE SQ SCH ×2 (16:16→21:44)
[2023-08-08] MEDS: INSULIN ASPART PER UNIT CHARGE SC SCH ×4 (16:16→21:44)
[2023-08-08] MEDS: ASPIRIN 81 MG ECTAB PO SCH (16:17)
--- NOTE | 2023-08-08 18:57 | Electrocardiogram Report ---
Test Reason : Blood Pressure : / mmHG Vent. Rate : 089 BPM Atrial Rate : 089 BPM P-R Int : 192 ms QRS Dur : 106 ms QT Int : 388 ms P-R-T Axes : 066 060 159 degrees QTc Int : 472 ms Poor data quality, interpretation may be adversely affected Normal sinus rhythm Prolonged QT Abnormal ECG When compared with ECG of 06-AUG-2023 15:37, Nonspecific T wave abnormality has replaced inverted T waves in Inferior leads Confirmed by Benson Garcia ([id number]) on 08/08/2023 6:57:05 PM Referred By: REFERRED SELF Confirmed By:Benson Garcia
[2023-08-08] MEDS: TAMSULOSIN HCL 0.4 MG CAP PO SCH (19:40)
[2023-08-08] MEDS: ATORVASTATIN 40 MG TAB PO SCH (19:40)
[2023-08-08] MEDS ORDERED: METOPROLOL SUCC 25MG EXT REL TAB PO SCH (21:00)
[2023-08-09] MEDS: LEVOTHYROXINE SODIUM 25 MCG TABLET PO SCH (05:49)
[2023-08-09 06:15] LABS: Basophils # (auto) 0.11 K/uL (0.00-0.20); Basophils % (auto) 1.8 %; Eosinophils # (auto) 0.29 K/uL (0.00-0.50); Eosinophils % (auto) 4.9 %; Hematocrit (blood only) 32.8 % (42.0-52.0); Hemoglobin 10.3 g/dl (14.0-18.0); Immature Granulocytes # (auto) 0.01 K/uL (0.01-0.20); Immature Granulocytes % (auto) 0.2 %; Lymphocytes # (auto) 1.18 K/uL (1.20-3.40); Lymphocytes % (auto) 19.8 %; Mean Corpuscular Hemoglobin 27.8 pg (25.0-34.0); Mean Corpuscular Hgb Conc 31.4 g/dL (32.0-36.0); Mean Corpuscular Volume 88.6 fL (80.0-100.0); Mean Platelet Volume 10.7 fL (9.4-12.4); Monocytes # (auto) 0.67 K/uL (0.11-0.59); Monocytes % (auto) 11.2 %; Neutrophils % (auto) 62.1 %; Platelet Count 306 K/uL (130-400); RDW Coefficient of Variation 14.8 % (11.5-14.5); RDW Standard Deviation 47.5 fL (36.4-46.3); White Blood Count 5.96 K/ul (4.8-10.8)
--- NOTE | 2023-08-09 06:23 | Electrocardiogram Report ---
Test Reason : Blood Pressure : / mmHG Vent. Rate : 076 BPM Atrial Rate : 076 BPM P-R Int : 184 ms QRS Dur : 104 ms QT Int : 418 ms P-R-T Axes : 053 051 140 degrees QTc Int : 470 ms Poor data quality, interpretation may be adversely affected Normal sinus rhythm Prolonged QT Abnormal ECG When compared with ECG of 07-AUG-2023 05:16, No significant change was found Confirmed by Benson Garcia ([id number]) on 08/09/2023 6:23:41 AM Referred By: REFERRED SELF Confirmed By:Benson Garcia
[2023-08-09 06:35] LABS: BUN Creatinine Ratio 27.7 (10-20); Calcium 9.4 mg/dl (8.6-10.3); Creatinine Clr Calc Pharmacy 99.6 ml/min; Est GFR (African American) 102.4 ml/min; Est GFR (Non-African American) 88.4 ml/min; Potassium 4.2 mmol/L (3.5-5.1)
[2023-08-09] MEDS: lisinopril 10 MG TAB PO SCH (07:57)
[2023-08-09] MEDS: ASPIRIN 81 MG ECTAB PO SCH (07:57)
[2023-08-09] MEDS: METOPROLOL SUCC 50MG EXT REL TAB PO SCH (07:57)
[2023-08-09] MEDS: ACETAMINOPHEN W/CODEINE #3 1 TAB PO PRN (09:16)
[2023-08-09] MEDS: LANTUS PER UNIT CHARGE SQ SCH (12:37)
[2023-08-09] MEDS: INSULIN ASPART PER UNIT CHARGE SC SCH ×2 (12:37→13:12)
--- NOTE | 2023-08-09 13:12 | Hospitalist Progress Note ---
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 Elevated troponin NSTEMI Patient presented with hematuria. He was recently admitted in outside hospital with high sensitive troponin of 36,000 on July 31, 2023. No chest pain or shortness of breath. High sensitive troponin on admission 1300; down trended. EKG admission personally reviewed; normal sinus rhythm with lateral T wave inversion in V3 to V6 Echocardiogram shows small focal wall motion abnormality limited to the left ventricular apex. EF of 55 to 60% Given hematuria, recent hospitalization with severe anemia requiring multiple transfusions; patient was not started on anticoagulation. Aspirin restarted. Plavix on hold. Continue on metoprolol, lisinopril and Lipitor. Continue telemonitoring. Hematuria History of bladder cancer Reviewed records from outside hospital History of bladder tumor; underwent TURBT in August 2022. 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 He was hospitalized recently at an outside hospital requiring multiple blood transfusions. Urology evaluated the patient; no intervention at the moment. Recommended to monitor catheter; if urine remains clear; voiding trial prior to discharge. Plan for voiding trial today. Bladder scan to rule out obstruction Possible discharge tomorrow a.m. Urology to arrange follow-up. Insulin-dependent T2DM HbA1c of 5.9% Well-controlled Continue insulin inpatient Acute blood loss anemia in setting of hematuria, POA Hemoglobin stable at 9-10 Recently received PRBC transfusion x 4 at OSH follow H/H HTN continue lisinopril, metoprolol HLD continue statin ? PAD Hx of carotid endarterectomy in 2018 pt reports receiving an angioplasty type procedure at [facility] were numerous stents were placed Resume aspirin. Charcot Luma tooth Disease had leg braces he utilizes at bedside no acute issue DVT ppx: SCDS FULL CODE PCP: Juvencio Abebe, unassigned Dispo: admit to PCU Time spent evaluating patient, direct bedside care, chart review, placing orders, interpretation of diagnostic studies, discussion with consultants, patient, and family members, as well as other required patient management activities is 50 minutes Please note the above document was generated using voice recognition software. It may contain grammatical, syntax or spelling errors. Any formal questions or concerns about the content, text or information contained within the body of this dictation should be directly addressed to the provider for clarification Admission and Anticipated Discharge Date Admission Date: August 06, 2023 Physical Exam Physical Exam: Constitutional: WD/WN, vitals as above, NAD, sitting up in bed, pleasant, conversing easily Respiratory: normal respiratory effort, lungs clear to auscultation, no wheeze, rales, rhonchi. Normal insp/exp effort, no accessory muscle use Cardiovascular: RRR, no murmur, no edema Vessels: no JVD or carotid bruit Chest: normal inspection of chest Abdomen: normal bowel sounds, soft, nontender, no hepatosplenomegaly Musculoskeletal: no cyanosis or clubbing, +CMT deformities, AROM x 4 Skin: no rashes, warm and dry normal turgor Neurologic: PERRL, EOMI, accommodation nl, no face palsy, no dysarthria CN's II-XI intact bilaterally and moves all extremities Psychiatric: A+Ox3, euthymic affect Lymphatic: no cervical or axillary lymphadenopathy : +reyna cath with perez colored urine Results & Data Results & Data Vital Signs (Past 12 Hours) Vital Signs Temp Pulse Resp BP Pulse Ox O2 Del Method 08/09/23 11:53 36.5 C 74 18 150/79 H 98 Room Air 08/09/23 07:53 36.5 C 71 18 134/73 99 Room Air 08/09/23 02:24 36.5 C 80 18 147/67 H 97 Room Air
--- NOTE | 2023-08-09 13:19 | Discharge Summary ---
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 Prior to today patient previously sought care at [facility]. He states over the last 3 months he has been having hematuria. He states that his urologist keeps telling him he needs chemotherapy, but he has been unhappy with his care and is currently pursuing a second opinion. 6 days ago on Thursday he noted significant blood clots coming out of his urinary catheter and also was experiencing some chest heaviness, nausea and shortness of breath. He therefore presented to [facility] emergency department where he was hospitalized and discharged 2 days ago on 08/04/2023. He was subsequently found to be significantly anemic with a hemoglobin of 5. He required transfer to [facility] in which he did receive 4 units of PRBCs. Per ED provider who has access to [facility] records patient had elevated troponin during this hospital stay but did not undergo any coronary intervention due to high risk and hematuria. He states he had a second episode of chest pain during ER evaluation in [place] whenever he was placed in CT scanner and was told to hold his breath for 7 seconds. He developed intense substernal chest pressure that did not resolve until he was receiving his second unit of PRBCs. Since being discharged from [facility] he initially did notice some clearance of his hematuria however over the last 2 days his urine has become more dark and did have a blood clot in his catheter this morning. He denies experiencing any chest pain since discharge from hospital. He denies any chest pain with exertion, shortness of breath at rest or with exertion, diaphoresis, nausea, vomiting, fever, chills, sweats, URI symptoms, abdominal pain, hematemesis, melena or hematochezia. In ED patient was significantly hypertensive on arrival. His hemoglobin is stable at 10.9. He did have significant elevation in troponin at 1300 with subsequent T wave inversions noted anterior laterally and V3 to V6. Again he denied any chest pain. ED provider did discuss with interventional cardiology as well as [facility] cardiology and given hematuria no heparin initiation was recommended. Patient also states that he has been off his aspirin and Plavix for 1 week as he was told to hold this medication. He states he takes this medication due to receiving stents in his lower extremities. Admission Exam Per Admitting Provider Constitutional: WD/WN, vitals as above, NAD, sitting up in bed, pleasant, conversing easily Head: Normocephalic, Atraumatic Eyes: PERRL, conjunctivae normal, anicteric sclerae ENMT: external ear and nose normal, oropharynx normal Neck: trachea midline, no thyromegaly normal visual inspection Respiratory: normal respiratory effort, lungs clear to auscultation, no wheeze, rales, rhonchi. Normal insp/exp effort, no accessory muscle use Cardiovascular: RRR, no murmur, no edema Vessels: no JVD or carotid bruit Chest: normal inspection of chest Abdomen: normal bowel sounds, soft, nontender, no hepatosplenomegaly Musculoskeletal: no cyanosis or clubbing, +CMT deformities, AROM x 4 Skin: no rashes, warm and dry normal turgor Neurologic: PERRL, EOMI, accommodation nl, no face palsy, no dysarthria CN's II-XI intact bilaterally and moves all extremities Psychiatric: A+Ox3, euthymic affect Lymphatic: no cervical or axillary lymphadenopathy : +reyna cath with perez colored urine Principal Diagnosis NSTEMI Hematuria Discharge Exam Constitutional: WD/WN, vitals as above, NAD, sitting up in bed, pleasant, conversing easily Respiratory: normal respiratory effort, lungs clear to auscultation, no wheeze, rales, rhonchi. Normal insp/exp effort, no accessory muscle use Cardiovascular: RRR, no murmur, no edema Vessels: no JVD or carotid bruit Chest: normal inspection of chest Abdomen: normal bowel sounds, soft, nontender, no hepatosplenomegaly Musculoskeletal: no cyanosis or clubbing, extremities motor strength 5/5 Skin: no rashes, warm and dry normal turgor Neurologic: PERRL, EOMI, accommodation nl, no face palsy, no dysarthria CN's II- XI intact bilaterally and moves all extremities Psychiatric: A+Ox3, euthymic affect Discharge Data Allergies Allergy/AdvReac Type Severity Reaction Status Date / Time No Known Allergies Allergy Unverified 08/06/23 18:57 Consultations 08/06/23 19:47 ED Decision to Admit Stat 08/06/23 19:48 Consult Cardiology Routine Consult Urology Routine 08/06/23 19:58 HIM [Consult Health Information Management] Stat Hospital Course (1) Elevated troponin: (2) Abnormal ECG: (3) Hematuria: (4) Bladder cancer: (5) Insulin dependent type 2 diabetes mellitus: (6) HLD (hyperlipidemia): (7) HTN (hypertension): (8) [id number]-Huksn disease: Plan This is a 58-year-old male who has significant past medical history 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 Elevated troponin NSTEMI Patient presented with hematuria. He was recently admitted in outside hospital with high sensitive troponin of 36,000 on July 31, 2023. No chest pain or shortness of breath. High sensitive troponin on admission 1300; down trended. EKG admission personally reviewed; normal sinus rhythm with lateral T wave inversion in V3 to V6 Echocardiogram shows small focal wall motion abnormality limited to the left ventricular apex. EF of 55 to 60% During the hospitalization;given hematuria, recent hospitalization with severe anemia requiring multiple transfusions; patient was not started on anticoagulation. Metoprolol, lisinopril and Lipitor were continued. Aspirin was restarted on August 08, 2023 Patient was discharged home with instruction to follow-up with PCP Hematuria History of bladder cancer Reviewed records from outside hospital History of bladder tumor; underwent TURBT in August 2022. 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 He was hospitalized recently at an outside hospital requiring multiple blood transfusions. Urology evaluated the patient; no intervention at the moment. Recommended to monitor catheter; if urine remains clear; voiding trial prior to discharge. During the hospitalization, Patient underwent a voiding trial which was successful. No hematuria/clot observed at discharge Patient to follow-up with urology as outpatient. Please note the above document was generated using voice recognition software. It may contain grammatical, syntax or spelling errors. Any formal questions or concerns about the content, text or information contained within the body of this dictation should be directly addressed to the provider for clarification Total Time Total Time Spent Total Time Spent (In Minutes): 45 Total Time Includes: Examination of the Patient, Discharge Planning, Medication Reconciliation, Communication With Other Providers and Other Discharge Plan Discharge Items Patient Disposition: Home - Home Health Services Reason For Visit: HEMATURIA Discharge Diagnosis: NSTEMI Hematuria Activity: Resume your previous activity Non-emergency contact: Primary Care Provider Call non-emergency contact if: you have any medication questions and your symptoms worsen Follow-up/Referrals: Juvencio Abebe [Primary Care Provider] - Diet: Regular Addtl Attending Provider Instructions: You were admitted to the hospital due to blood in your urine. You were evaluated by urology during the hospitalization. The urology PA who saw you in the hospital was Marly Welsh and the urologist was Jermain Andrews. You will need outpatient follow-up for further evaluation. They will call you with an appointment. If you do not receive any call from them; please call at [phone] to schedule appointment. If you start having clots in the urination and have trouble urinating; please seek medical care immediately. You were also evaluated by cardiology during the hospitalization. You were restarted back on aspirin. Please monitor any signs of bleeding while you are on it. The roofing machine operator also recommended that you start taking metoprolol 25 mg at night as well. Please follow-up with her primary care doctor next week. Pending Studies at Discharge: No Stand-Alone Forms: [employer], Smoking Cessation Medications and DC Order Prescriptions: New metoprolol succinate 25 mg Tablet Extended Release 24 Hr 25 mg PO QPM Qty: 30 0RF Continued aspirin [Aspir-81] 81 mg Tablet,Delayed Release (Dr/Ec) 81 mg PO DAILY Rx Instructions: currently on hold atorvastatin 40 mg tablet 40 mg PO HS metoprolol succinate 50 mg tablet extended release 24 hr 50 mg PO DAILY acetaminophen-codeine 300-30 mg tablet 1 tab PO Q6H PRN (Reason: moderate to severe pain) levothyroxine 25 mcg tablet 25 mcg PO DAILY tamsulosin 0.4 mg capsule 0.4 mg PO PM lisinopril 30 mg tablet 30 mg PO DAILY insulin glargine [Lantus Solostar U-100 Insulin] 100 unit/mL (3 mL) insulin pen 40 unit SUBCUT DAILY insulin glargine [Lantus Solostar U-100 Insulin] 100 unit/mL (3 mL) insulin pen 25 unit SUBCUT HS Discontinued clopidogrel 75 mg tablet 75 mg PO DAILY Rx Instructions: currently on hold Discharge Orders: Discharge Order (Routine); Ordered 08/09/23 Ordered By: Cy Liu Admission Data Admit Date/Time: 08/06/23 19:48 Attending Provider: Cy Liu Admit Provider: Oly Mcginnis Primary Care Provider: Juvencio Abebe Other Providers: Brenden Clemente; Cory Corbin; Oly Mcginnis Other Interventions: Discharge Summary Assessment (RN) Last Done: 08/09/23 13:17
--- NOTE | 2023-08-09 16:27 | Cardiology Progress Note ---
Date of Service August 09, 2023 Assessment & Plan (1) Abnormal ECG: (2) Elevated troponin: (3) Hematuria: (4) HTN (hypertension): (5) HLD (hyperlipidemia): Plan Assessment: Patient is a 58 year-old male with complex cancer history that presented for evaluation of ongoing hematuria. Recent hospitalization 1 week prior for gross hematuria and HgB of 5 requiring transfusion. Asked to be seen by cardiology due to ongoing elevated troponins and abnormal EKG findings. Plan: 1. Abnormal EKG 2.Elevated Troponin -Patient with reports of an abnormal EKG one week prior during a hospitalization at [facility] suggestive of inverted T waves. We have not been able to personally review this EKG. Repeat EKG shows NSR with ST-T wave changes suggestive of anterolateral ischemia. -No personal history of CAD, but significant family history of CAD -Troponin elevation here likely a continued downtrend to signficant elevation one week ago during prior hospitalization and s/t demand ischemia in regards to profound anemia. -discussed with patient concerns of EKG findings in conjunction with his other health issues and family history. -Given hematuria, his ASA and Plavix are on hold and complicate invasive management of potential CAD. -will obtain echocardiogram today to assess overall structrue and function, assessment of wall motion abnormality. -NPO until after echo to determine if invasive cardiac workup is indicated at this time or may be done at a later date. -continue Toprol xl, Lisinopril and Atorvastatin at this time as part of GDMT 3. HTN -At target. Continue Toprol xl and Lisinopril at this time. 4. HLD: -Continue Atorvastatin at this time. MARY Kraft [facility] Cardiology [facility] 08/08/2023 Complex 58-year-old male with known peripheral vascular disease and suspected coronary artery disease after recent hospitalization with profound anemia, hemoglobin 5.2. Patient has had persistent hematuria following diagnosis of bladder carcinoma. Previously on dual antiplatelet therapy which has been on hold Last hospitalization at [facility] 07/31/2023 notable for profound elevation in troponin (greater than 30,000) consistent non-ST segment elevation myocardial infarction possibly demand based ischemia EKGs this admission with marked T wave inversion anteriorly leads with only mild reduction in LV systolic function High risk for recurrent bleeding Recommendations continue medical conservative management. Will increase metoprolol succinate to 50 mg a.m. 25 mg p.m. if blood pressure allows, add oral nitrates in a.m. Consider resumption of aspirin Continue statin 08/09/2023 No acute complaints hemodynamically stable. 1. Markedly abnormal EKG ischemia versus stress mediated etiology: Significant troponin elevation during acute hospitalization 1 week prior. Inability to use antiplatelet and anticoagulant therapies limits intervention patient awar 2. Profound anemia secondary to ongoing hematuria, presenting hemoglobin 5.2 at [facility], required 4 unit transfusion Recommendations: Metoprolol succinate increased as 50 mg a.m., 25 mg p.m. Resume aspirin without clopidogrel Cardiology follow-up will be arranged. Patient declines further assessment at [facility] Continue lisinopril and atorvastatin Discussed briefly hematuria and ongoing anticipated issues given bladder carcinoma recommended patient reconsider approach Admission and Anticipated Discharge Date Admission Date: August 06, 2023 Subjective Patient seen and examined, chart, medications, telemetry reviewed Patient request to go home Denies any chest pain shortness of breath or dizziness Voiding trial worked this morning per report No overt bleeding No arrhythmias on telemetry Review of Systems Review of Systems: All systems reviewed & are unremarkable except as noted in Subjective Physical Exam Constitutional: well developed and well nourished; no acute distress Neck: normal visual inspection and trachea midline Respiratory: normal respiratory effort, lungs clear to auscultation Cardiovascular: RRR, no murmur, no edema Heart Sounds: normal S1 and normal S2 Vessels: no JVD Skin: no rashes, warm and dry Psychiatric: A+Ox3, euthymic affect Results & Data Vital Signs (Past 12 Hours) Vital Signs Temp Pulse Resp BP BP Pulse Ox O2 Del Method 08/09/23 13:17 36.5 C 74 18 114/60 150/79 H 98 08/09/23 11:53 36.5 C 74 18 150/79 H 98 Room Air 08/09/23 07:53 36.5 C 71 18 134/73 99 Room Air Laboratory Results Laboratory Results - last 24 hr 08/08/23 08/08/23 08/09/23 17:01 20:57 05:35 WBC 5.96 RBC 3.70 L Hgb 10.3 L Hct 32.8 L MCV 88.6 MCH 27.8 MCHC 31.4 L RDW Std Deviation 47.5 H RDW Coeff of Carlos Manuel 14.8 H Plt Count 306 MPV 10.7 Immature Gran % (Auto) 0.2 Neut % (Auto) 62.1 Lymph % (Auto) 19.8 Haines % (Auto) 11.2 Eos % (Auto) 4.9 Baso % (Auto) 1.8 Neut # (Auto) 3.70 Lymph # (Auto) 1.18 L Haines # (Auto) 0.67 H Eos # (Auto) 0.29 Baso # (Auto) 0.11 Immature Gran # (Auto) 0.01 Sodium 139 Potassium 4.2 Chloride 107 Carbon Dioxide 24 Anion Gap 8 BUN 26 H Creatinine 0.94 Est Cr Clr Drug Dosing 99.6 Est GFR ( Amer) 102.4 Est GFR (Non-Af Amer) 88.4 BUN/Creatinine Ratio 27.7 H Glucose 131 H POC Glucose 176 H 157 H Calcium 9.4 08/09/23 08/09/23 08:02 12:08 WBC RBC Hgb Hct MCV MCH MCHC RDW Std Deviation RDW Coeff of Carlos Manuel Plt Count MPV Immature Gran % (Auto) Neut % (Auto) Lymph % (Auto) Haines % (Auto) Eos % (Auto) Baso % (Auto) Neut # (Auto) Lymph # (Auto) Haines # (Auto) Eos # (Auto) Baso # (Auto) Immature Gran # (Auto) Sodium Potassium Chloride Carbon Dioxide Anion Gap BUN Creatinine Est Cr Clr Drug Dosing Est GFR ( Amer) Est GFR (Non-Af Amer) BUN/Creatinine Ratio Glucose POC Glucose 133 H 243 H Calcium
== END 2023-08-09 15:02 | disposition home health service (06) | DRG 686 ==
LOC: ED 15:25 → 4W 19:48 → SUATTDRO 19:48 → 4W 21:19
DX: Z79.4 Long term (current) use of insulin; R94.31 Abnormal electrocardiogram [ECG] [EKG]; Z93.0 Tracheostomy status; E78.5 Hyperlipidemia, unspecified; Z85.21 Personal history of malignant neoplasm of larynx; I21.4 Non-ST elevation (NSTEMI) myocardial infarction; E11.51 Type 2 diabetes mellitus with diabetic peripheral angiopathy without gangrene; C67.9 Malignant neoplasm of bladder, unspecified; D62 Acute posthemorrhagic anemia; I10 Essential (primary) hypertension; Z92.3 Personal history of irradiation; G60.0 Hereditary motor and sensory neuropathy; R31.0 Gross hematuria

== ENCOUNTER 2024-05-06 12:07 | Inpatient (IN) ==
[2024-05-06 13:13] LABS: Basophils # (auto) 0.09 K/uL (0.00-0.20); Basophils % (auto) 0.9 %; Eosinophils # (auto) 0.02 K/uL (0.00-0.50); Eosinophils % (auto) 0.2 %; Hematocrit (blood only) 40.7 % (42.0-52.0); Immature Granulocytes # (auto) 0.03 K/uL (0.01-0.20); Immature Granulocytes % (auto) 0.3 %; Mean Corpuscular Hemoglobin 30.2 pg (25.0-34.0); Mean Corpuscular Hgb Conc 34.4 g/dL (32.0-36.0); Mean Corpuscular Volume 87.7 fL (80.0-100.0); Mean Platelet Volume 11.7 fL (9.4-12.4); Monocytes # (auto) 0.66 K/uL (0.11-0.59); Monocytes % (auto) 6.6 %; Neutrophils # (auto) 8.41 K/uL (1.40-6.50); Platelet Count 305 K/uL (130-400); RDW Coefficient of Variation 13.4 % (11.5-14.5); RDW Standard Deviation 42.9 fL (36.4-46.3); Red Blood Count 4.64 M/uL (4.70-6.10); White Blood Count 10.01 K/ul (4.8-10.8)
--- NOTE | 2024-05-06 13:28 | Emergency Department Note ---
Impression & Plan HTN (hypertension) ADMIT ED Provider Note HPI: History obtained from patient. The patient is a 58-year-old gentleman with history of Qlskvvq-Spdas-Lnure disease, chronic ambulatory dysfunction, presents the emergency department with weakness and worsening ambulatory dysfunction over the past several weeks. Patient states that he is getting to the point where he cannot even get up and walk around his house. Patient states he has had a diminished appetite, he states he was at an outside hospital emergency room several days ago and ultimately was discharged home after an unremarkable workup. Patient states he does not feel that he is safe at home anymore as he states he worsened just over the past several days since he was at the outside hospital. On arrival here to the ED the patient is hypertensive at 232/130, but otherwise hemodynamically stable, he denies any focal complaint of pain aside from his tailbone where he states he has some pain after recent fall. ROS: - Per HPI Differential Diagnosis: Hypertensive emergency, hypertensive urgency, sepsis, urinary tract infection, pneumonia, acute on chronic ambulatory dysfunction with deconditioning secondary to Xiyyqkd-Oxrtf-Jixmc disease, amongst other potential pathologies. *Outpatient medications and allergy history reviewed. PE: General: Alert, frail-appearing, no acute distress HEENT: Normocephalic, trachea midline Eyes: Extraocular eye movement is intact, no scleral erythema Pulmonary: Clear to auscultation bilaterally, no wheezing Cardio: Regular rate and rhythm GI: Abdomen is soft to palpation : No suprapubic tenderness MSK: No evidence of trauma, lower extremities are slightly contracted with what appears to be mild muscle atrophy Skin: No evidence of rash Neuro: Alert, no focal deficits Psychiatric: Cooperative INDEPENDENT INTERPRETATIONS: monitor technician: (As interpreted by myself): - An order was placed for continuous cardiac monitoring - Patient was noted to be in sinus rhythm with a rate of 95 EKG: (As interpreted by myself): Rate: 121 Rhythm: Sinus tachycardia Intervals: Within normal limits ST changes: No ST elevation Time: 1216 Chest x-ray: (As interpreted by myself): No acute process Interventions provided in ED: -IV labetalol, IV hydralazine Medical Decision Making: IV was established and lab work obtained, patient was placed on potline monitor. Lab work shows no leukocytosis, hemoglobin is normal, platelet count is normal, CMP shows elevated glucose at 361, there is no anion gap elevation, magnesium is slightly low at 1.6, troponin is mildly elevated at 21 however this is lower than the patient's previous levels. Procalcitonin is low as well suggesting against systemic sepsis. Urinalysis is questionable for infection, will send for culture. Patient's blood pressure did downtrend somewhat here with IV labetalol and IV hydralazine however remains elevated. Chest x-ray does not show evidence of pneumonia, x-ray imaging of the pelvis does not show any evidence of fracture. Patient states that he does not feel comfortable with discharge home as he feels he needs admitted for PT/OT. Given this in addition to his hypertension, hypomagnesemia, and mildly elevated troponin, he will be placed for admission. His EKG does not show any acute ischemic changes, patient denies any chest pain, low suspicion for ACS. I discussed the patient's presentation with the on-call hospitalist for [facility], Dr. Thomas, and the patient was placed for admission in stable condition. Following our discussion, Dr. Thomas will add on antibiotics for presumed urinary tract infection upon admission. Consultants/Discussions held with other healthcare providers: -Hospitalist, Dr. Thomas Disposition discussion held by myself with: -Patient * CRITICAL CARE TIME: ( 37 ) minutes -Stabilization of hypertensive urgency requiring IV antihypertensives for improvement in initial blood pressure of 232/130, time spent the bedside, interpretation of diagnostic studies, discussion with other healthcare providers and arrangement of admission. Diagnosis: 1. Hypertensive urgency, acute 2. Acute on chronic ambulatory dysfunction 3. Elevated high-sensitivity troponin 4. Hypomagnesemia, acute Disposition: Admission Ori Enrique DO Emergency Medicine Past Med/Surg History Problem List (Updated 05/06/24 @ 18:01 by Ori Enrique DO) HTN (hypertension) (Acute) Peripheral artery disease History of non-ST elevation myocardial infarction (NSTEMI) DM type 2 (diabetes mellitus, type 2) Hyperglycemia Complicated UTI (urinary tract infection) Hypertensive urgency Lower extremity weakness Encounter for pre-operative examination Medical History History of carotid artery disease Left CEA listed per PAT RN phone interview but per review of [facility] records, Right CEA was done in 2018 (not left) Arthritis History of kidney stones Hematuria Ongoing issue Anemia NSTEMI (non-ST elevated myocardial infarction) 07/2023- medically managed Follows with S cardio Hypothyroidism Bladder cancer Follows with PCP 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 (A-port placed for chemo and feeding tube placed - subsequent removal) Insulin dependent type 2 diabetes mellitus HLD (hyperlipidemia) HTN (hypertension) Gybbmsr-Qvcvw-Ylhkp disease Surgical History History of esophagogastroduodenoscopy (EGD) History of colonoscopy History of removal of Port-a-Cath History of cystoscopy stone removal H/O transurethral resection of bladder tumor (TURBT) x2 History of tooth extraction History of cataract surgery R/L History of intravascular stent placement Bilateral legs PH Darrell Hx of tracheostomy (~2011) Subsequent reversal- 04/2012 History of bladder surgery Tumor removed, Dr. Hall - PHD Cysto, TURBT (09/22/23): LMA supreme + iGel attempted, unable to seal for ventilation > MAC#3, ETT 7.5 at [facility] History of laryngoscopy History of carotid endarterectomy Left side listed per PAT RN phone interview but per review of [facility] records, Right CEA was done in 2018 (not left) Hx of hammer toe correction Multiple toes (x7) Family History Mother Coronary heart disease 50-60s CABG Father Coronary heart disease [place] in 40s Other No family history of adverse response to anesthesia Social History Smoking Status: Never smoker Tobacco Type: Cigarettes Cigarettes Per Day: 2 PPD; Second Hand Exposure: Yes; Do You Dip or Chew Tobacco: No; Hx Alcohol Use: Yes Alcohol type: hard liquor Alcohol Intake Frequency: 2-4 x/Month Hx Substance Use: Yes Non-Prescribed Medications: Marijuana Last Used Substance: Hours (ago) Last Used Substance Other:: this morning>advised Preferred Language: Chilean Communication Ability: Effective Nuclear Medicine Physician Required: No Beliefs That Will Affect Care: None marital status: Single Current Living Situation: Family Current Living Situation Comment: father and daughter current occupational status: disabled Feels Safe at Home: Yes Assistive Devices: Brace/Splint/Immobilizer Allergies Allergies Allergy/AdvReac Type Severity Reaction Status Date / Time No Known Allergies Allergy Verified 02/09/24 07:01 Home Meds Home Medications Medication Instructions Recorded Confirmed insulin glargine 100 unit/mL (3 25 unit subcut HS 08/06/23 05/06/24 mL) subcutaneous pen (Lantus Solostar U-100 Insulin) insulin glargine 100 unit/mL (3 40 unit subcut QAM 08/06/23 05/06/24 mL) subcutaneous pen (Lantus Solostar U-100 Insulin) lisinopril 30 mg tablet 30 mg PO QAM 08/06/23 05/06/24 metoprolol succinate 50 mg 50 mg PO QAM 08/06/23 05/06/24 tablet,extended release 24 hr tamsulosin 0.4 mg capsule 0.4 mg PO PM 08/06/23 05/06/24 ferrous sulfate 325 mg (65 mg 325 mg PO UD 09/07/23 05/06/24 iron) tablet (Iron (ferrous sulfate)) Previous Rx's Medication Instructions Recorded metoprolol succinate 25 mg 25 mg PO QPM #30 tabs 08/09/23 tablet,extended release 24 hr Results & Data (ED) Vital Signs Vital Signs - 24 hr 05/06/24 11:56 05/06/24 11:56 05/06/24 11:56 Temperature 36.8 C Temperature Source Oral Pulse Rate 119 H Pulse Rate [Apical] Pulse Rhythm Regular Pulse Rhythm [Apical] Pulse Strength Normal Pulse Strength [Apical] Respiratory Rate 22 22 Respiratory Effort / Characteristics Non-Labored Spontaneous Non-Labored Spontaneous Respiratory Depth Normal Normal Respiratory Pattern Regular Blood Pressure 232/130 H Blood Pressure [Right Arm] Blood Pressure Mean 164 Blood Pressure Mean [Right Arm] Blood Pressure Position Lying Blood Pressure Position [Right Arm] Pulse Oximetry 99 99 99 Oxygen Delivery Method Room Air Room Air Room Air Sepsis Recent Fever Within 48 Hours No Sepsis New/Unexplained Change in Mental Status No Sepsis Action Taken by Nursing No Action Required 05/06/24 12:37 05/06/24 12:46 05/06/24 12:46 Temperature Temperature Source Pulse Rate 115 H 80 Pulse Rate [Apical] Pulse Rhythm Regular Pulse Rhythm [Apical] Pulse Strength Pulse Strength [Apical] Respiratory Rate 20 Respiratory Effort / Characteristics Respiratory Depth Respiratory Pattern Blood Pressure Blood Pressure [Right Arm] Blood Pressure Mean Blood Pressure Mean [Right Arm] Blood Pressure Position Blood Pressure Position [Right Arm] Pulse Oximetry 98 98 Oxygen Delivery Method Room Air Room Air Sepsis Recent Fever Within 48 Hours Sepsis New/Unexplained Change in Mental Status Sepsis Action Taken by Nursing 05/06/24 13:19 05/06/24 13:19 05/06/24 13:38 Temperature Temperature Source Pulse Rate 112 H 115 H Pulse Rate [Apical] Pulse Rhythm Regular Pulse Rhythm [Apical] Pulse Strength Pulse Strength [Apical] Respiratory Rate 20 20 Respiratory Effort / Characteristics Non-Labored Spontaneous Respiratory Depth Normal Respiratory Pattern Regular Blood Pressure 192/110 H Blood Pressure [Right Arm] 189/113 H Blood Pressure Mean Blood Pressure Mean [Right Arm] 138 Blood Pressure Position Blood Pressure Position [Right Arm] Lying Pulse Oximetry 96 96 Oxygen Delivery Method Room Air Room Air Sepsis Recent Fever Within 48 Hours Sepsis New/Unexplained Change in Mental Status Sepsis Action Taken by Nursing 05/06/24 14:01 05/06/24 14:03 05/06/24 14:15 Temperature Temperature Source Pulse Rate 86 Pulse Rate [Apical] 92 H 91 H Pulse Rhythm Pulse Rhythm [Apical] Pulse Strength Pulse Strength [Apical] Respiratory Rate 19 18 Respiratory Effort / Characteristics Non-Labored Spontaneous Non-Labored Respiratory Depth Normal Normal Respiratory Pattern Regular Regular Blood Pressure 196/106 H Blood Pressure [Right Arm] 175/101 H 197/99 H Blood Pressure Mean Blood Pressure Mean [Right Arm] 125 131 Blood Pressure Position Blood Pressure Position [Right Arm] Pulse Oximetry 99 97 Oxygen Delivery Method Room Air Sepsis Recent Fever Within 48 Hours Sepsis New/Unexplained Change in Mental Status Sepsis Action Taken by Nursing 05/06/24 14:30 05/06/24 14:33 05/06/24 16:00 Temperature Temperature Source Pulse Rate Pulse Rate [Apical] 86 98 H Pulse Rhythm Pulse Rhythm [Apical] Regular Regular Pulse Strength Pulse Strength [Apical] Normal Normal Respiratory Rate 18 22 Respiratory Effort / Characteristics Non-Labored Spontaneous Non-Labored Spontaneous Respiratory Depth Normal Normal Respiratory Pattern Regular Regular Blood Pressure Blood Pressure [Right Arm] 188/106 H 178/94 H Blood Pressure Mean Blood Pressure Mean [Right Arm] 133 122 Blood Pressure Position Blood Pressure Position [Right Arm] Lying Lying Pulse Oximetry 98 98 96 Oxygen Delivery Method Room Air Room Air Room Air Sepsis Recent Fever Within 48 Hours Sepsis New/Unexplained Change in Mental Status Sepsis Action Taken by Nursing 05/06/24 16:54 Temperature Temperature Source Pulse Rate 102 H Pulse Rate [Apical] Pulse Rhythm Pulse Rhythm [Apical] Pulse Strength Pulse Strength [Apical] Respiratory Rate Respiratory Effort / Characteristics Respiratory Depth Respiratory Pattern Blood Pressure Blood Pressure [Right Arm] Blood Pressure Mean Blood Pressure Mean [Right Arm] Blood Pressure Position Blood Pressure Position [Right Arm] Pulse Oximetry Oxygen Delivery Method Sepsis Recent Fever Within 48 Hours Sepsis New/Unexplained Change in Mental Status Sepsis Action Taken by Nursing Laboratory Data 05/06/24 12:46 05/06/24 12:46 Lab Results 05/06/24 05/06/24 05/06/24 Range/Units 12:46 13:45 14:13 WBC 10.01 (4.8-10.8) K/ul RBC 4.64 L (4.70-6.10) M/uL Hgb 14.0 (14.0-18.0) g/dl Hct 40.7 L (42.0-52.0) % MCV 87.7 (80.0-100.0) fL MCH 30.2 (25.0-34.0) pg MCHC 34.4 (32.0-36.0) g/dL RDW Std Deviation 42.9 (36.4-46.3) fL RDW Coeff of Carlos Manuel 13.4 (11.5-14.5) % Plt Count 305 (130-400) K/uL MPV 11.7 (9.4-12.4) fL Immature Gran % (Auto) 0.3 % Neut % (Auto) 84.0 % Lymph % (Auto) 8.0 % [place] % (Auto) 6.6 % Eos % (Auto) 0.2 % Baso % (Auto) 0.9 % Neut # (Auto) 8.41 H (1.40-6.50) K/uL Lymph # (Auto) 0.80 L (1.20-3.40) K/uL [place] # (Auto) 0.66 H (0.11-0.59) K/uL Eos # (Auto) 0.02 (0.00-0.50) K/uL Baso # (Auto) 0.09 (0.00-0.20) K/uL Immature Gran # (Auto) 0.03 (0.01-0.20) K/uL PT 10.3 (9.0-12.0) Seconds INR 0.9 (0.9-1.1) APTT 28 (21-31) Seconds PTT Ratio 1.0 Sodium 135 L (136-145) mmol/L Potassium 4.1 (3.5-5.1) mmol/L Chloride 102 (98-107) mmol/L Carbon Dioxide 23 (21-32) mmol/L Anion Gap 10 (3-11) BUN 30 H (6-23) mg/dl Creatinine 1.14 (0.6-1.4) mg/dl Est Cr Clr Drug Dosing 86.5 ml/min eGFR 74.09 BUN/Creatinine Ratio 26.3 H (10-20) Glucose 361 H* (70-99(Fasting)) mg/dl Lactate 1.3 (0.4-2.0) mmol/L Calcium 9.8 (8.6-10.3) mg/dl Magnesium 1.6 L (1.7-2.4) mg/dl Total Bilirubin 0.6 (0.2-1.0) mg/dl Direct Bilirubin 0.1 (0-0.2) mg/dl AST 15 (13-39) U/L ALT 15 (7-52) U/L Alkaline Phosphatase 135 H (34-104) U/L Troponin I High Sens 21.5 H (0-20) pg/ml Total Protein 7.7 (6.0-8.3) gm/dl Albumin 4.4 (3.4-5.0) gm/dl Globulin 3.3 (2.5-4.0) gm/dl Albumin/Globulin Ratio 1.3 (0.9-2) Procalcitonin 0.02 (0-0.5) ng/ml Urine Color Yellow Urine Appearance Clear (Clear) Urine pH 5.5 (4.5-7.5) Ur Specific [place] 1.025 (1.000-1.030) Urine Protein 2+ H (Negative) Urine Glucose (UA) 3+ H (Negative) Urine Ketones 1+ H (Negative) Urine Blood 3+ H (Negative) Urine Nitrite Negative (Negative) Urine Bilirubin Negative (Negative) Urine Urobilinogen Negative (Negative) Ur Leukocyte Esterase Trace H (Negative) Urine WBC (Auto) >50 H (0-5) /hpf Urine RBC (Auto) 11-20 H (0-2) /hpf U Hyaline Cast (Auto) 3-5 H (0-2) /lpf U Epithel Cells (Auto) 0-2 (0-2) /hpf Urine Bacteria (Auto) 2+ H (None Seen) 05/06/24 Range/Units 14:44 WBC (4.8-10.8) K/ul RBC (4.70-6.10) M/uL Hgb (14.0-18.0) g/dl Hct (42.0-52.0) % MCV (80.0-100.0) fL MCH (25.0-34.0) pg MCHC (32.0-36.0) g/dL RDW Std Deviation (36.4-46.3) fL RDW Coeff of Carlos Manuel (11.5-14.5) % Plt Count (130-400) K/uL MPV (9.4-12.4) fL Immature Gran % (Auto) % Neut % (Auto) % Lymph % (Auto) % [place] % (Auto) % Eos % (Auto) % Baso % (Auto) % Neut # (Auto) (1.40-6.50) K/uL Lymph # (Auto) (1.20-3.40) K/uL [place] # (Auto) (0.11-0.59) K/uL Eos # (Auto) (0.00-0.50) K/uL Baso # (Auto) (0.00-0.20) K/uL Immature Gran # (Auto) (0.01-0.20) K/uL PT (9.0-12.0) Seconds INR (0.9-1.1) APTT (21-31) Seconds PTT Ratio Sodium (136-145) mmol/L Potassium (3.5-5.1) mmol/L Chloride (98-107) mmol/L Carbon Dioxide (21-32) mmol/L Anion Gap (3-11) BUN (6-23) mg/dl Creatinine (0.6-1.4) mg/dl Est Cr Clr Drug Dosing ml/min eGFR BUN/Creatinine Ratio (10-20) Glucose (70-99(Fasting)) mg/dl Lactate (0.4-2.0) mmol/L Calcium (8.6-10.3) mg/dl Magnesium (1.7-2.4) mg/dl Total Bilirubin (0.2-1.0) mg/dl Direct Bilirubin (0-0.2) mg/dl AST (13-39) U/L ALT (7-52) U/L Alkaline Phosphatase (34-104) U/L Troponin I High Sens 24.9 H (0-20) pg/ml Total Protein (6.0-8.3) gm/dl Albumin (3.4-5.0) gm/dl Globulin (2.5-4.0) gm/dl Albumin/Globulin Ratio (0.9-2) Procalcitonin (0-0.5) ng/ml Urine Color Urine Appearance (Clear) Urine pH (4.5-7.5) Ur Specific [place] (1.000-1.030) Urine Protein (Negative) Urine Glucose (UA) (Negative) Urine Ketones (Negative) Urine Blood (Negative) Urine Nitrite (Negative) Urine Bilirubin (Negative) Urine Urobilinogen (Negative) Ur Leukocyte Esterase (Negative) Urine WBC (Auto) (0-5) /hpf Urine RBC (Auto) (0-2) /hpf U Hyaline Cast (Auto) (0-2) /lpf U Epithel Cells (Auto) (0-2) /hpf Urine Bacteria (Auto) (None Seen) Administered Medications Discontinued Medications Hydralazine HCl (Hydralazine Hcl 20 Mg/Ml Vial) 10 mg IV NOW STA Stop: 05/06/24 15:21 Last Admin: 05/06/24 15:34 Dose: 10 mg Documented By: STACIE Magnesium Sulfate/Dextrose (Magnesium Sulfate / D5w) 1 gm in 100 mls @ 100 mls/hr IV NOW STA Stop: 05/06/24 16:23 Last Infusion: 05/06/24 17:06 Dose: Infused Documented By: Admin: 05/06/24 15:37 Dose: 100 mls/hr Documented By: STACIE Labetalol HCl (Labetalol Hcl Iv 5 Mg/Ml 20ml) 10 mg IV NOW STA Stop: 05/06/24 13:26 Last Admin: 05/06/24 13:38 Dose: 10 mg Documented By: STACIE Imaging Data Radiologist's Impression: Chest X-Ray 05/06/24 13:19 XR chest 1V portable HISTORY: 58 years-old Male Sepsis COMPARISON: 08/06/2023 TECHNIQUE: AP view of the chest FINDINGS: Cardiac silhouette is normal. No pneumothorax or pleural effusion. Mild chronic interstitial coarsening at the lung bases. No airspace consolidation typical for pneumonia. Degenerative changes of the shoulders and spine. IMPRESSION: No acute process. ACT 112: Negative or not required by law. The above report was generated using voice recognition software. It may contain grammatical, syntax or spelling errors. Electronically signed by: Teo Zavaleta M.D. 05/06/2024 2:11 PM Pelvis X-Ray 05/06/24 13:28 XR pelvis 1-2V routine CLINICAL HISTORY: fall COMPARISON: PET/CT October 22, 2011. FINDINGS: Bilateral iliac stents are incidentally noted. Sacroiliac joints and symphysis pubis are intact. There are no fractures within the pelvis or hips. There is mild joint space narrowing and moderate osteophytosis of both hips. IMPRESSION: No fractures within the pelvis or hips. ACT 112: Negative or not required by law. Electronically signed by: Rolando Knowles M.D. 05/06/2024 1:54 PM Discharge Plan Visit Data Chief Complaint: Weakness Stated Complaint: WEAKNESS ED Provider: Ori Enrique Discharge Problem: HTN (hypertension) Patient Disposition: Admitted As Inpatient Discharge Instructions Interventions: ED Discharge Assessment Last Done: 05/06/24 17:47 Forms Stand Alone Forms: [facility] [place] Prescriptions Prescriptions: No Action ferrous sulfate [Iron (ferrous sulfate)] 325 mg (65 mg iron) Tablet 325 mg PO UD Rx Instructions: Mon-Thu-Thu metoprolol succinate 50 mg tablet extended release 24 hr 50 mg PO QAM tamsulosin 0.4 mg capsule 0.4 mg PO PM lisinopril 30 mg tablet 30 mg PO QAM insulin glargine [Lantus Solostar U-100 Insulin] 100 unit/mL (3 mL) insulin pen 40 unit SUBCUT QAM insulin glargine [Lantus Solostar U-100 Insulin] 100 unit/mL (3 mL) insulin pen 25 unit SUBCUT HS metoprolol succinate 25 mg Tablet Extended Release 24 Hr 25 mg PO QPM Qty: 30 0RF Referrals Referrals: Juvencio Abebe [Primary Care Provider] - Discharge Problem: HTN (hypertension) Qualifiers: Hypertension type: unspecified Qualified Code(s): I10 - Essential (primary) hypertension
[2024-05-06 13:29] LABS: Albumin Globulin Ratio 1.3 (0.9-2); Albumin Level 4.4 gm/dl (3.4-5.0); BUN Creatinine Ratio 26.3 (10-20); Bilirubin,Total 0.6 mg/dl (0.2-1.0); Calcium 9.8 mg/dl (8.6-10.3); Creatinine Clr Calc Pharmacy 86.5 ml/min; Globulin 3.3 gm/dl (2.5-4.0); Potassium 4.1 mmol/L (3.5-5.1); Total Protein 7.7 gm/dl (6.0-8.3)
[2024-05-06 13:37] LABS: INR 0.9 (0.9-1.1); Partial Thromboplastin Time 28 Seconds (21-31); Prothrombin Time 10.3 Seconds (9.0-12.0)
[2024-05-06] MEDS: LABETALOL HCL IV 5 MG/ML 20ML IV STA (13:38)
--- NOTE | 2024-05-06 13:56 | XRay Report ---
XR pelvis 1-2V routine CLINICAL HISTORY: fall COMPARISON: PET/CT October 22, 2011. FINDINGS: Bilateral iliac stents are incidentally noted. Sacroiliac joints and symphysis pubis are i ntact. There are no fractures within the pelvis or hips. There is mild joint space narrowing and mode rate osteophytosis of both hips. IMPRESSION: No fractures within the pelvis or hips. ACT 112: Negative or not required by law. Electronically signed by: Rolando Knowles M.D. 05/06/2024 1:54 PM
[2024-05-06 13:57] LABS: Appearance Urine Clear (Clear); Bacteria Urine Automated 2+ (None Seen); Bilirubin Urine Negative (Negative); Blood Urine 3+ (Negative); Color Urine Yellow; Epithelial Cell Urine Auto 0-2 /hpf (0-2); Glucose Urine UA 3+ (Negative); Ketones Urine 1+ (Negative); Leukocyte Esterase Urine Trace (Negative); Nitrite Urine Negative (Negative); Protein Urine 2+ (Negative); Specific Gravity Urine 1.025 (1.000-1.030); Urobilinogen Urine Negative (Negative); WBC Urine Automated >50 /hpf (0-5); pH Urine 5.5 (4.5-7.5)
[2024-05-06 13:57] LABS: Bilirubin Direct 0.1 mg/dl (0-0.2); Magnesium 1.6 mg/dl (1.7-2.4)
[2024-05-06 14:03] LABS: Troponin I High Sensitivity 21.5 pg/ml (0-20)
--- NOTE | 2024-05-06 14:12 | XRay Report ---
XR chest 1V portable HISTORY: 58 years-old Male Sepsis COMPARISON: 08/06/2023 TECHNIQUE: AP view of the chest FINDINGS: Cardiac silhouette is normal. No pneumothorax or pleural effusion. Mild chronic interstitial coarseni ng at the lung bases. No airspace consolidation typical for pneumonia. Degenerative changes of the sh oulders and spine. IMPRESSION: No acute process. ACT 112: Negative or not required by law. The above report was generated using voice recognition software. It may contain grammatical, syntax o r spelling errors. Electronically signed by: Teo Zavaleta M.D. 05/06/2024 2:11 PM
[2024-05-06] MEDS: hydrALAZINE HCL 20 MG/ML VIAL IV STA (15:34)
[2024-05-06] MEDS: MAGNESIUM SULFATE / D5W 1 GM/100 ML BAG IV STA (15:37)
--- NOTE | 2024-05-06 17:19 | History & Physical Report ---
Date of Service May 06, 2024 Assessment & Plan (1) Lower extremity weakness: (2) Hypertensive urgency: (3) Complicated UTI (urinary tract infection): (4) Hyperglycemia: (5) DM type 2 (diabetes mellitus, type 2): (6) History of non-ST elevation myocardial infarction (NSTEMI): (7) Peripheral artery disease: Plan: 58-year-old male with history of NSTEMI, peripheral artery disease, diabetes type 2, hypertension, RCA stenosis, Olibewm-Corqt-Ivwqr disease, bladder cancer, ongoing chemotherapy, status post resection, history of supraglottic cancer, hypothyroidism, presenting with generalized weakness times few days. Generalized weakness Mostly pronounced in the bilateral lower extremities Rule out CVA in light of hypertensive urgency CT head ordered Possible underlying urinary tract infection In the setting of bladder cancer, currently undergoing chemotherapy Urine culture: Pending Blood culture: Pending IV cefepime ordered Recurrent falls Likely secondary to underlying Gnvoitx-Fgijb-Uijmj disease Bilateral knee x-rays ordered Will need PT and OT evaluation Hypertensive urgency Has not been taking usual lisinopril and metoprolol due to nausea for the past few days Resume lisinopril and metoprolol As needed hydralazine Hyperglycemia History of diabetes type 2 Patient reports he has not been taking his usual insulin Lantus 40 units in a.m., 25 units at at bedtime due to weakness Resume above regimen Insulin sliding scale Pharmacy glycemic consult Mild troponin elevation History of NSTEMI earlier this year History of peripheral arterial disease, RCA stenosis Denies chest pain, cardiac symptoms Troponin 20, 24, third troponin ordered previously EKG no signs of acute ischemia or infarct Echocardiogram ordered Was prescribed with Lipitor 40 mg and aspirin 81 mg but was discontinued as per patient due to history of hematuria Bladder cancer Currently undergoing chemotherapy 5 out of 6 sessions Follows with [facility] urology group Missed appointment last Thursday due to weakness History of supraglottic cancer Resolved as per patient Hypothyroidism Patient supposed to be taking levothyroxine 25 mcg daily but has not been taking this medication for unknown reasons Check TSH History of Present Illness Chief Complaint: Weakness x few days Primary Care Provider: Juvencio Abebe 58-year-old male with history of NSTEMI, peripheral artery disease, diabetes type 2, hypertension, RCA stenosis, Aoamgzw-Rykbn-Easvl disease, bladder cancer, ongoing chemotherapy, status post resection, history of supraglottic cancer, hypothyroidism, presenting with generalized weakness times few days. Patient states he lives with his father at home, and is usually able to ambulate with no assistive device even with his Bztoyly-Smobm-Pketr disease. He is currently undergoing chemotherapy for bladder cancer at the [facility] physician prescription urology clinic. He has completed 5 out of 6 chemotherapy sessions. He had a fall 2 weeks ago after his right knee gave out which patient states has been flaring up intermittently after a ligament tear on that knee. He did not seek medical attention for that episode. However for the past few days, he has experienced progressive generalized weakness, more pronounced on his bilateral lower extremities. He was supposed to have a 6 to chemo session at the neurology clinic last Thursday but was unable to make it to that appointment due to weakness. Patient also not able to take his usual medications due to nausea. 2 days ago, patient presented to [facility] for above symptoms. As per patient, no clear cause of his weakness was found. He was offered inpatient observation but patient declined and was discharged home. Since that time, patient has had persistent lower extremity weakness prompting consult to [facility] ER. At the ER, patient received afebrile, with blood pressure of systolic 190s, blood glucose 360s. He was given labetalol and hydralazine IV. On my exam, patient seen resting in bed, comfortable, not in distress, pleasant, cooperative. Denies active headache, dizziness, shortness of breath, chest pain, palpitations, nausea. Denies any other new focal neurologic deficits. Allergies Allergy/AdvReac Type Severity Reaction Status Date / Time No Known Allergies Allergy Verified 02/09/24 07:01 Home Medications Medication Instructions Recorded Confirmed Type insulin glargine 100 unit/mL (3 25 unit subcut 08/06/23 05/06/24 History mL) subcutaneous pen (Lantus Solostar U-100 Insulin) insulin glargine 100 unit/mL (3 40 unit subcut QAM 08/06/23 05/06/24 History mL) subcutaneous pen (Lantus Solostar U-100 Insulin) lisinopril 30 mg tablet 30 mg PO QAM 08/06/23 05/06/24 History metoprolol succinate 50 mg 50 mg PO QAM 08/06/23 05/06/24 History tablet,extended release 24 hr tamsulosin 0.4 mg capsule 0.4 mg PO PM 08/06/23 05/06/24 History metoprolol succinate 25 mg 25 mg PO QPM #30 tabs 08/09/23 05/06/24 Rx tablet,extended release 24 hr ferrous sulfate 325 mg (65 mg 325 mg PO UD 09/07/23 05/06/24 History iron) tablet (Iron (ferrous sulfate)) Past Med/Surg History Problem List (Updated 05/06/24 @ 18:01 by Ori Enrique DO) HTN (hypertension) (Acute) Peripheral artery disease History of non-ST elevation myocardial infarction (NSTEMI) DM type 2 (diabetes mellitus, type 2) Hyperglycemia Complicated UTI (urinary tract infection) Hypertensive urgency Lower extremity weakness Encounter for pre-operative examination Medical History History of carotid artery disease Left CEA listed per PAT RN phone interview but per review of [facility] records, Right CEA was done in 2017 (not left) Arthritis History of kidney stones Hematuria Ongoing issue Anemia NSTEMI (non-ST elevated myocardial infarction) 07/2023- medically managed Follows with [facility] Hypothyroidism Bladder cancer Follows with PCP 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 (A-port placed for chemo and feeding tube placed - subsequent removal) Insulin dependent type 2 diabetes mellitus HLD (hyperlipidemia) HTN (hypertension) Kgnijqn-Optuc-Otwkj disease Surgical History History of esophagogastroduodenoscopy (EGD) History of colonoscopy History of removal of Port-a-Cath History of cystoscopy stone removal H/O transurethral resection of bladder tumor (TURBT) x2 History of tooth extraction History of cataract surgery R/L History of intravascular stent placement Bilateral legs PH Darrell Hx of tracheostomy (~2011) Subsequent reversal- 04/2012 History of bladder surgery Tumor removed, Dr. Hall - PHD Cysto, TURBT (09/22/23): LMA supreme + iGel attempted, unable to seal for ventilation > MAC#3, ETT 7.5 at [facility] History of laryngoscopy History of carotid endarterectomy Left side listed per PAT RN phone interview but per review of [facility] records, Right CEA was done in 2018 (not left) Hx of hammer toe correction Multiple toes (x7) Family History Mother Coronary heart disease 50-60s CABG Father Coronary heart disease MD in 40s Other No family history of adverse response to anesthesia Social History Smoking Status: Never smoker Tobacco Type: Cigarettes Cigarettes Per Day: 2 PPD; Second Hand Exposure: Yes; Do You Dip or Chew Tobacco: No; Hx Alcohol Use: Yes Alcohol type: hard liquor Alcohol Intake Frequency: 2-4 x/Month Hx Substance Use: Yes Non-Prescribed Medications: Marijuana Last Used Substance: Hours (ago) Last Used Substance Other:: this morning>advised Preferred Language: Welsh Communication Ability: Effective [employer] Required: No Beliefs That Will Affect Care: None marital status: Single Current Living Situation: Family Current Living Situation Comment: father and daughter current occupational status: disabled Feels Safe at Home: Yes Assistive Devices: Brace/Splint/Immobilizer Review of Systems Review of Systems: all noted and negative except for above Physical Exam Physical Exam: General- oriented x 3, not in distress, speaks in sentences with no effort or accessory muscle use Head- atraumatic Eyes- PERRL, EOMI, anicteric ENT- oropharynx clear Neck- supple, no JVD, no adenopathy, no thyromegaly; carotids +2/2, no bruits appreciated Lungs- clear to auscultation bilaterally, no rales/wheezes Heart- normal rate, regular rhythm; no murmur, no gallop, no rub appreciated Abdomen- normal bowel sounds, nondistended, soft, nontender, no masses or hepatosplenomegaly Extremities- no pretibial edema, no calf tenderness; peripheral pulses intact Neuro- alert, oriented x 3; CN 2-12 grossly intact; motor 5/5 bilaterally;sensation 100% on all extremities; no other gross focal neurologic deficits Skin- warm & dry Results & Data Results & Data Vital Signs (Past 12 Hours) Vital Signs Temp Pulse Pulse Resp BP BP Pulse Ox 05/06/24 16:54 102 H 05/06/24 16:00 98 H 22 178/94 H 96 05/06/24 14:33 98 05/06/24 14:30 86 18 188/106 H 98 05/06/24 14:15 91 H 18 197/99 H 97 05/06/24 14:03 92 H 19 175/101 H 99 05/06/24 14:01 86 196/106 H 05/06/24 13:38 115 H 192/110 H 05/06/24 13:19 20 189/113 H 96 05/06/24 13:19 112 H 20 96 05/06/24 12:46 80 20 98 05/06/24 12:46 98 05/06/24 12:37 115 H 05/06/24 11:56 22 99 05/06/24 11:56 99 05/06/24 11:56 36.8 C 119 H 22 232/130 H 99 O2 Del Method 05/06/24 16:54 05/06/24 16:00 Room Air 05/06/24 14:33 Room Air 05/06/24 14:30 Room Air 05/06/24 14:15 05/06/24 14:03 Room Air 05/06/24 14:01 05/06/24 13:38 05/06/24 13:19 Room Air 05/06/24 13:19 Room Air 05/06/24 12:46 Room Air 05/06/24 12:46 Room Air 05/06/24 12:37 05/06/24 11:56 Room Air 05/06/24 11:56 Room Air 05/06/24 11:56 Room Air all noted and reviewed including below Laboratory Results all noted and reviewed including below Code Status & VTE Plan VTE Prophylaxis Plan VTE Prophylaxis will be ordered: Yes
--- NOTE | 2024-05-06 17:55 | Electrocardiogram Report ---
Test Reason : Blood Pressure : */* mmHG Vent. Rate : 121 BPM Atrial Rate : 121 BPM P-R Int : 178 ms QRS Dur : 94 ms QT Int : 330 ms P-R-T Axes : 74 62 5 degrees QTcB Int : 468 ms Sinus tachycardia Nonspecific ST and T wave abnormality Abnormal ECG When compared with ECG of 08-Aug-2023 06:25, Vent. rate has increased by 45 bpm T wave inversion no longer evident in Anterolateral leads Confirmed by Low Shore ([id number]) on 05/06/2024 5:55:21 PM Referred By: Confirmed By: Low Shore
[2024-05-06] MEDS ORDERED: CARBOHYDRATES FOR HYPOGLYCEMIA PO PRN (18:14)
[2024-05-06] MEDS ORDERED: GLUCOSE 40% GEL 15 GM TUBE PO PRN (18:14)
[2024-05-06] MEDS ORDERED: PHARMACY GLYCEMIC MGMT CONSULT PRN (18:14)
[2024-05-06] MEDS ORDERED: GLUCAGON FOR INJ 1 MG VIAL SQ PRN (18:14)
[2024-05-06] MEDS ORDERED: DEXTROSE 50% 50 ML SYRINGE IV PRN (18:14)
[2024-05-06] MEDS ORDERED: GLUCOSE 10 TAB/TUBE PO PRN (18:14)
[2024-05-06] MEDS: INSULIN ASPART PER UNIT CHARGE SC STA (18:18)
[2024-05-06] MEDS: lisinopril 10 MG TAB PO STA (18:18)
[2024-05-06] MEDS ORDERED: INSULIN ASPART PER UNIT CHARGE SC SCH (18:25)
[2024-05-06] MEDS: CEFEPIME 2000MG 2,000 MG/20 ML SYR IV SCH (19:55)
[2024-05-06] MEDS: TAMSULOSIN HCL 0.4 MG CAP PO SCH (20:41)
[2024-05-06] MEDS: METOPROLOL SUCC 25MG EXT REL TAB PO SCH (20:41)
[2024-05-06] MEDS ORDERED: NON-FORMULARY MEDICATION (Insulin Glargine [Lantus Solostar U-100 Insulin] 100 unit/mL (3 SQ SCH (21:00)
[2024-05-06] MEDS: LANTUS PER UNIT CHARGE SC ONE (21:55)
[2024-05-06] MEDS: INSULIN ASPART PER UNIT CHARGE SC SCH (21:56)
[2024-05-07] MEDS: ACETAMINOPHEN 325 MG TAB PO PRN (01:21)
[2024-05-07] MEDS: oxyCODONE HCL IR 5 MG TAB (IMMEDIATE RELEASE) PO PRN (01:21)
[2024-05-07] MEDS: INSULIN ASPART PER UNIT CHARGE SC SCH (02:36)
[2024-05-07] MEDS: lisinopril 10 MG TAB PO SCH (07:39)
[2024-05-07] MEDS: METOPROLOL SUCC 50MG EXT REL TAB PO SCH (07:39)
[2024-05-07 08:47] LABS: Basophils # (auto) 0.07 K/uL (0.00-0.20); Eosinophils # (auto) 0.11 K/uL (0.00-0.50); Eosinophils % (auto) 1.6 %; Hematocrit (blood only) 38.5 % (42.0-52.0); Hemoglobin 12.9 g/dl (14.0-18.0); Immature Granulocytes # (auto) 0.02 K/uL (0.01-0.20); Immature Granulocytes % (auto) 0.3 %; Lymphocytes # (auto) 1.06 K/uL (1.20-3.40); Lymphocytes % (auto) 15.1 %; Mean Corpuscular Hemoglobin 30.1 pg (25.0-34.0); Mean Corpuscular Hgb Conc 33.5 g/dL (32.0-36.0); Mean Platelet Volume 11.2 fL (9.4-12.4); Monocytes # (auto) 0.55 K/uL (0.11-0.59); Monocytes % (auto) 7.8 %; Neutrophils # (auto) 5.23 K/uL (1.40-6.50); Neutrophils % (auto) 74.2 %; Platelet Count 282 K/uL (130-400); RDW Coefficient of Variation 13.9 % (11.5-14.5); RDW Standard Deviation 45.6 fL (36.4-46.3); Red Blood Count 4.28 M/uL (4.70-6.10); White Blood Count 7.04 K/ul (4.8-10.8)
[2024-05-07] MEDS ORDERED: NON-FORMULARY MEDICATION (Insulin Glargine [Lantus Solostar U-100 Insulin] 100 unit/mL (3 SQ SCH (09:00)
[2024-05-07 09:06] LABS: BUN Creatinine Ratio 28.3 (10-20); Calcium 9.2 mg/dl (8.6-10.3); Creatinine Clr Calc Pharmacy 91.4 ml/min; Potassium 3.9 mmol/L (3.5-5.1)
[2024-05-07 09:20] LABS: Thyroid Stimulating Hormone 3.793 uIu/ml (0.300-4.500)
[2024-05-07] MEDS: LANTUS PER UNIT CHARGE SC SCH (09:29)
--- NOTE | 2024-05-07 10:03 | Pharmacy Report ---
Pharmacy Glycemic Short Note 2 - Date of Service May 07, 2024 - Glycemic Short BSG Results (Last 24 hours): 05/06/24 05/06/24 05/07/24 12:46 20:49 02:19 Glucose 361 H* POC Glucose 306 H* 153 H 05/07/24 05/07/24 08:12 08:21 Glucose 239 H POC Glucose 219 H OUTPATIENT ANTIDIABETIC REGIMEN: * Lantus 40 units QAM, 25 units QHS * A1c 5.9% 08/07/23, repeat ordered ASSESSMENT: * 58 yo M, PMH of NSTEMI, PAD, DM type 2, HTN, RCA stenosis, Sozddve-Fkbtt-Xyyou disease, bladder cancer, ongoing chemotherapy, status post resection, history of supraglottic cancer, hypothyroidism, presenting with generalized weakness times few days. * Pt manages diabetes with basal insulin only, pt reports not taking lately d/t weakness. * Blood sugar of 306mg/dl on admission, received 20 units basal and 8 units bolus last night, blood sugar down to 153mg/dl at 0200, now up to 239mg/dl this AM. * Will continue basal bolus insulin and titrate to goal blood sugar. PLAN FOR INPATIENT GLYCEMIC CONTROL: * Basal insulin * Lantus 15 units SQ BID * Bolus insulin * NovoLog per scale ACHS or Q6hrs while NPO * Goal Range: Low 120 mg/dL - High 150 mg/dL - higher range d/t weakness * Correction Factor: 20 mg/dL/unit * Nutritional / Prandial insulin per carb ratio of 1 unit per 7 grams CHO consumed
[2024-05-07 10:05] LABS: A calco-baum cmplx NotReported Not Detected (NotDetected); Bact fragilis Not Reported Not Detected (NotDetected); Blood Culture Id Panel See PCR Comment (NotDetected); C auris Not Reported Not Detected (NotDetected); Calbicans Not Reported Not Detected (NotDetected); Candida glabrata Not Reported Not Detected (NotDetected); Candida krusei Not Reported Not Detected (NotDetected); Cneoformans/gatti Not Reported Not Detected (NotDetected); Cparapsilosis Not Reported Not Detected (NotDetected); E cloacae compx Not Reported Not Detected (NotDetected); Efaecalis Not Reported Not Detected (NotDetected); Efaecium Not Reported Not Detected (NotDetected); Enterobacterales Not Reported Not Detected (NotDetected); Escherichia coli Not Reported Not Detected (NotDetected); H influenzae Not Reported Not Detected (NotDetected); K aerogenes Not Reported Not Detected (NotDetected); Koxytoca Not Reported Not Detected (NotDetected); Kpneumoniae grp Not Reported Not Detected (NotDetected); Lmonocyt Not Reported Not Detected (NotDetected); N meningitidis Not Reported Not Detected (NotDetected); P aeruginosa Not Reported Not Detected (NotDetected); Proteus spp Not Reported Not Detected (NotDetected); Salmonella spp Not Reported Not Detected (NotDetected); Staph lugdunensis Not Reported Not Detected (NotDetected); Staph spp. Not Reported Not Detected (NotDetected); Staphaureus Not Reported Not Detected (NotDetected); Staphepi Not Reported Not Detected (NotDetected); Stenmaltophilia Not Reported Not Detected (NotDetected); Strep agal(GrpB) Not Reported Not Detected (NotDetected); Strep pneum Not Reported Not Detected (NotDetected); Strep pyog (GrpA) Not Reported Not Detected (NotDetected); Strep spp Not Reported DETECTED (NotDetected)
--- NOTE | 2024-05-07 10:09 | Hospitalist Progress Note ---
Date of Service May 07, 2024 Assessment & Plan (1) Lower extremity weakness: (2) Hypertensive urgency: (3) Complicated UTI (urinary tract infection): (4) Hyperglycemia: (5) DM type 2 (diabetes mellitus, type 2): (6) History of non-ST elevation myocardial infarction (NSTEMI): (7) Peripheral artery disease: Plan 58-year-old male with history of NSTEMI, peripheral artery disease, diabetes type 2, hypertension, RCA stenosis, Fhzxaas-Jagej-Svcia disease, bladder cancer, ongoing chemotherapy, status post resection, history of supraglottic cancer, hypothyroidism, presenting with generalized weakness for the past few days. Notes it feels like he is not able to walk. Complicated UTI Possible Bacteremia UA suggestive of infection Urine Cx currently growing E faecalis Blood cultures 1/4 bottles currently growing gram positive cocci, with serology noting strep. Likely contaminant IV Cefepime switched to IV Ampicillin Follow cx and adjust abx as needed Continue to monitor Generalized weakness Recurrent falls Mostly pronounced in the bilateral lower extremities Likely in setting of above and likely secondary to underlying Opkzyus-Rcprx-Vokkm disease Head CT unremarkable Knee xrays noting OA Pelvic xray without fracture PT/OT Hypertensive urgency BPs in 200s on admission Has not been taking usual lisinopril and metoprolol due to nausea for the past few days Resume lisinopril and metoprolol As needed hydralazine, with parameters Adjust as needed Hyperglycemia History of diabetes type 2 Patient reports he has not been taking his usual insulin Lantus 40 units in a.m., 25 units at at bedtime due to weakness Resume above regimen Insulin sliding scale Pharmacy glycemic consult Mild troponin elevation History of NSTEMI earlier this year History of peripheral arterial disease, RCA stenosis Denies chest pain, cardiac symptoms Troponin 20, 24,47, will trend until downtrending EKG no signs of acute ischemia or infarct Echocardiogram ordered on admission, pending Was prescribed with Lipitor 40 mg and aspirin 81 mg but was discontinued as per patient due to history of hematuria Bladder cancer Currently undergoing chemotherapy 5 out of 6 sessions Follows with [facility] Missed appointment last Thursday due to weakness Will need followup History of supraglottic cancer Resolved as per patient Hypothyroidism Patient supposed to be taking levothyroxine 25 mcg daily but has not been taking this medication for unknown reasons TSH normal Diet: DMII, HH DVT prophylaxis: heparin SQ Dispo: [facility] Admission and Anticipated Discharge Date Admission Date: May 06, 2024 Subjective pt was seen sitting up in bed. notes an extensive course of N/V and no appetite. States he is not able to tolerate food. Review of Systems Review of Systems: All systems reviewed & are unremarkable except as noted in Subjective Physical Exam Physical Exam: General: Alert, oriented. Psych: Appropriate mood and affect Neuro: difficulty with movements in the bed HEENT: NC/AT CV: RRR Resp: Breath sounds clear bilaterally, no increased effort of breathing Abdomen: Soft, nontender Extremities: No edema in lower extremities bilaterally. Results & Data Results & Data Vital Signs (Past 12 Hours) Vital Signs Temp Pulse Pulse Resp BP BP Pulse Ox 05/07/24 07:41 05/07/24 07:28 37.3 C 85 18 173/94 H 97 05/07/24 05:36 83 05/07/24 03:44 36.7 C 98 H 20 92/55 L 98 05/07/24 00:14 36.8 C 102 H 20 114/77 98 O2 Del Method 05/07/24 07:41 Room Air 05/07/24 07:28 Room Air 05/07/24 05:36 05/07/24 03:44 Room Air 05/07/24 00:14 Room Air Diagnostic Findings Chest X-Ray 05/06/24 13:19 XR chest 1V portable HISTORY: 58 years-old Male Sepsis COMPARISON: 08/06/2023 TECHNIQUE: AP view of the chest FINDINGS: Cardiac silhouette is normal. No pneumothorax or pleural effusion. Mild chronic interstitial coarsening at the lung bases. No airspace consolidation typical for pneumonia. Degenerative changes of the shoulders and spine. IMPRESSION: No acute process. ACT 112: Negative or not required by law. The above report was generated using voice recognition software. It may contain grammatical, syntax or spelling errors. Electronically signed by: Teo Zavaleta M.D. 05/06/2024 2:11 PM Pelvis X-Ray 05/06/24 13:28 XR pelvis 1-2V routine CLINICAL HISTORY: fall COMPARISON: PET/CT October 22, 2011. FINDINGS: Bilateral iliac stents are incidentally noted. Sacroiliac joints and symphysis pubis are intact. There are no fractures within the pelvis or hips. There is mild joint space narrowing and moderate osteophytosis of both hips. IMPRESSION: No fractures within the pelvis or hips. ACT 112: Negative or not required by law. Electronically signed by: Rolando Knowles M.D. 05/06/2024 1:[address] 05/06/24 16:52 CT head/brain wo con CLINICAL HISTORY: 58 years-old Male with weakness, r/o UTI. Acute weakness TECHNIQUE: Multiple axial CT images of the head were obtained without contrast. A dose lowering technique was utilized adhering to the principles of ALARA. CT DOSE: 625.8 mGy.cm COMPARISON: None. FINDINGS: No acute intracranial hemorrhage, midline shift, intracranial mass, hydrocephalus, territorial ischemia or abnormal extra-axial collection. Involutional changes with density suggestive of chronic microvascular ischemic disease. The calvarium is intact. Paranasal sinuses are generally clear. Small right mastoid effusion. IMPRESSION: No acute intracranial abnormality. ACT 112: Negative or not required by law. The above report was generated using voice recognition software. It may contain grammatical, syntax or spelling errors. Electronically signed by: Teo Zavaleta M.D. 05/07/2024 10:26 AM Knee X-Ray 05/06/24 16:52 XR knee RT 1 or 2V routine, XR knee LT 1 or 2V routine HISTORY: 58 years-old Male fall, r/o fracture acute bilateral knee pain status post fall COMPARISON: None TECHNIQUE: 2 views of the bilateral knees FINDINGS: Right-mild compartmental osteoarthritis. Demineralized appearance of the bones. Mild tricompartmental osteoarthritis with trace joint effusion. No acute fracture or dislocation identified. LEFT-mild tricompartmental osteoarthritis. Demineralized appearance of the bones. Mild tricompartmental osteoarthritis. No large joint effusion. IMPRESSION: Mild osteoarthritis without acute fracture or dislocation. ACT 112: Negative or not required by law. The above report was generated using voice recognition software. It may contain grammatical, syntax or spelling errors. Electronically signed by: Teo Zavaleta M.D. 05/07/2024 10:59 AM Knee X-Ray 05/06/24 16:52 XR knee RT 1 or 2V routine, XR knee LT 1 or 2V routine HISTORY: 58 years-old Male fall, r/o fracture acute bilateral knee pain status post fall COMPARISON: None TECHNIQUE: 2 views of the bilateral knees FINDINGS: Right-mild compartmental osteoarthritis. Demineralized appearance of the bones. Mild tricompartmental osteoarthritis with trace joint effusion. No acute fracture or dislocation identified. LEFT-mild tricompartmental osteoarthritis. Demineralized appearance of the bones. Mild tricompartmental osteoarthritis. No large joint effusion.
[2024-05-07 10:19] LABS: Streptococcus spp DETECTED (NotDetected)
--- NOTE | 2024-05-07 10:28 | CT Scan Report ---
CT head/brain wo con CLINICAL HISTORY: 58 years-old Male with weakness, r/o UTI. Acute weakness TECHNIQUE: Multiple axial CT images of the head were obtained without contrast. A dose lowering tech nique was utilized adhering to the principles of ALARA. CT DOSE: 625.8 mGy.cm COMPARISON: None. FINDINGS: No acute intracranial hemorrhage, midline shift, intracranial mass, hydrocephalus, territorial ischem ia or abnormal extra-axial collection. Involutional changes with density suggestive of chronic microv ascular ischemic disease. The calvarium is intact. Paranasal sinuses are generally clear. Small right mastoid effusion. IMPRESSION: No acute intracranial abnormality. ACT 112: Negative or not required by law. The above report was generated using voice recognition software. It may contain grammatical, syntax o r spelling errors. Electronically signed by: Teo Zavaleta M.D. 05/07/2024 10:26 AM
[2024-05-07 10:41] LABS: Estimated Average Glucose 192 mg/dl; Hemoglobin A1C 8.3 % (4.5-5.6)
--- NOTE | 2024-05-07 11:01 | XRay Report ---
XR knee RT 1 or 2V routine, XR knee LT 1 or 2V routine HISTORY: 58 years-old Male fall, r/o fracture acute bilateral knee pain status post fall COMPARISON: None TECHNIQUE: 2 views of the bilateral knees FINDINGS: Right-mild compartmental osteoarthritis. Demineralized appearance of the bones. Mild tricompartmental osteoarthritis with trace joint effusion. No acute fracture or dislocation identified. LEFT-mild tricompartmental osteoarthritis. Demineralized appearance of the bones. Mild tricompartment al osteoarthritis. No large joint effusion. IMPRESSION: Mild osteoarthritis without acute fracture or dislocation. ACT 112: Negative or not required by law. The above report was generated using voice recognition software. It may contain grammatical, syntax o r spelling errors. Electronically signed by: Teo Zavaleta M.D. 05/07/2024 10:59 AM
[2024-05-07 14:25] LABS: A calco-baum cmplx NotReported Not Detected (NotDetected); Bact fragilis Not Reported Not Detected (NotDetected); Blood Culture Id Panel See PCR Comment (NotDetected); C auris Not Reported Not Detected (NotDetected); Calbicans Not Reported Not Detected (NotDetected); Candida glabrata Not Reported Not Detected (NotDetected); Candida krusei Not Reported Not Detected (NotDetected); Cneoformans/gatti Not Reported Not Detected (NotDetected); Cparapsilosis Not Reported Not Detected (NotDetected); E cloacae compx Not Reported Not Detected (NotDetected); Efaecalis Not Reported Not Detected (NotDetected); Efaecium Not Reported Not Detected (NotDetected); Enterobacterales Not Reported Not Detected (NotDetected); Escherichia coli Not Reported Not Detected (NotDetected); H influenzae Not Reported Not Detected (NotDetected); K aerogenes Not Reported Not Detected (NotDetected); Koxytoca Not Reported Not Detected (NotDetected); Kpneumoniae grp Not Reported Not Detected (NotDetected); Lmonocyt Not Reported Not Detected (NotDetected); N meningitidis Not Reported Not Detected (NotDetected); P aeruginosa Not Reported Not Detected (NotDetected); Proteus spp Not Reported Not Detected (NotDetected); Salmonella spp Not Reported Not Detected (NotDetected); Staph lugdunensis Not Reported Not Detected (NotDetected); Staph spp. Not Reported DETECTED (NotDetected); Staphaureus Not Reported Not Detected (NotDetected); Staphepi Not Reported DETECTED (NotDetected); Staphylococcus spp. DETECTED (NotDetected); Stenmaltophilia Not Reported Not Detected (NotDetected); Strep agal(GrpB) Not Reported Not Detected (NotDetected); Strep pneum Not Reported Not Detected (NotDetected); Strep pyog (GrpA) Not Reported Not Detected (NotDetected); Strep spp Not Reported Not Detected (NotDetected); mecAC Resistant Gene Not Detected (NotDetected)
[2024-05-07 14:46] LABS: Staphylococcus epidermidis DETECTED (NotDetected)
[2024-05-07] MEDS ORDERED: AMPICILLIN 2,000 MG in SODIUM CHLORIDE 0.9% 50 ML IV SCH (15:00)
[2024-05-07] MEDS: AMPICILLIN 2,000 MG in SODIUM CHLOR 0.9% MINI-B 100 ML IV SCH (15:29)
[2024-05-07] MEDS: PROMETHAZINE 6.25 MG/50.25 ML BAG IV PRN (19:31)
[2024-05-07] MEDS: HEPARIN SOD 5,000 UNIT/0.5 ML VIAL SQ SCH (21:27)
[2024-05-08 04:14] LABS: Basophils # (auto) 0.09 K/uL (0.00-0.20); Basophils % (auto) 1.1 %; Eosinophils # (auto) 0.09 K/uL (0.00-0.50); Eosinophils % (auto) 1.1 %; Hematocrit (blood only) 36.6 % (42.0-52.0); Hemoglobin 12.2 g/dl (14.0-18.0); Immature Granulocytes # (auto) 0.03 K/uL (0.01-0.20); Immature Granulocytes % (auto) 0.4 %; Lymphocytes # (auto) 1.28 K/uL (1.20-3.40); Lymphocytes % (auto) 15.6 %; Mean Corpuscular Hemoglobin 30.1 pg (25.0-34.0); Mean Corpuscular Hgb Conc 33.3 g/dL (32.0-36.0); Mean Corpuscular Volume 90.4 fL (80.0-100.0); Mean Platelet Volume 11.3 fL (9.4-12.4); Monocytes # (auto) 0.73 K/uL (0.11-0.59); Monocytes % (auto) 8.9 %; Neutrophils # (auto) 5.98 K/uL (1.40-6.50); Neutrophils % (auto) 72.9 %; Platelet Count 244 K/uL (130-400); RDW Coefficient of Variation 14.2 % (11.5-14.5); RDW Standard Deviation 46.8 fL (36.4-46.3); Red Blood Count 4.05 M/uL (4.70-6.10)
[2024-05-08 04:29] LABS: Albumin Globulin Ratio 1.2 (0.9-2); Albumin Level 3.5 gm/dl (3.4-5.0); BUN Creatinine Ratio 29.4 (10-20); Bilirubin,Total 0.4 mg/dl (0.2-1.0); Calcium 9.1 mg/dl (8.6-10.3); Creatinine Clr Calc Pharmacy 81.4 ml/min; Globulin 2.9 gm/dl (2.5-4.0); Magnesium 1.8 mg/dl (1.7-2.4); Phosphorus 3.3 mg/dl (2.5-4.9); Potassium 3.8 mmol/L (3.5-5.1); Total Protein 6.4 gm/dl (6.0-8.3)
[2024-05-08 04:39] LABS: Troponin I High Sensitivity 22.7 pg/ml (0-20)
[2024-05-08] MEDS: LANTUS PER UNIT CHARGE SC SCH (08:42)
--- NOTE | 2024-05-08 09:40 | Pharmacy Report ---
Pharmacy Glycemic Short Note 2 - Date of Service May 08, 2024 - Glycemic Short BSG Results (Last 24 hours): 05/07/24 05/07/24 05/07/24 12:17 17:11 20:25 Glucose POC Glucose 203 H 124 H 76 05/08/24 05/08/24 03:30 08:18 Glucose 218 H POC Glucose 202 H OUTPATIENT ANTIDIABETIC REGIMEN: * Lantus 40 units QAM, 25 units QHS * A1c 5.9% 08/07/23, 8.3% 05/07/24 ASSESSMENT: 05/08 * Pt still very weak, feels he cannot walk. ID consult and echo ordered. * HS basal held last night for BSG 76mg/dl, resulting in hyperglycemia this morning. Will just give basal in AM only today, continue loosened NovoLog parameters. 05/07 * 58 yo M, PMH of NSTEMI, PAD, DM type 2, HTN, RCA stenosis, Vdbibbo-Dcyjy-Dwcuy disease, bladder cancer, ongoing chemotherapy, status post resection, history of supraglottic cancer, hypothyroidism, presenting with generalized weakness times few days. * Pt manages diabetes with basal insulin only, pt reports not taking lately d/t weakness. * Blood sugar of 306mg/dl on admission, received 20 units basal and 8 units bolus last night, blood sugar down to 153mg/dl at 0200, now up to 239mg/dl this AM. * Will continue basal bolus insulin and titrate to goal blood sugar. PLAN FOR INPATIENT GLYCEMIC CONTROL: * Basal insulin * Lantus 30 units SQ Daily * Bolus insulin * NovoLog per scale ACHS or Q6hrs while NPO * Goal Range: Low 120 mg/dL - High 150 mg/dL - higher range d/t weakness * Correction Factor: 25 mg/dL/unit * Nutritional / Prandial insulin per carb ratio of 1 unit per 8 grams CHO consumed
[2024-05-08] MEDS: cefTRIAXone SODIUM 2,000 MG/50 ML BAG IV SCH (09:51)
[2024-05-08] MEDS: DAPTOmycin 525 MG in SYRINGE 0 ML IV SCH (11:19)
--- NOTE | 2024-05-08 12:17 | Hospitalist Progress Note ---
Date of Service May 08, 2024 Assessment & Plan (1) Lower extremity weakness: (2) Hypertensive urgency: (3) Complicated UTI (urinary tract infection): (4) Hyperglycemia: (5) DM type 2 (diabetes mellitus, type 2): (6) History of non-ST elevation myocardial infarction (NSTEMI): (7) Peripheral artery disease: Plan 58-year-old male with history of NSTEMI, peripheral artery disease, diabetes type 2, hypertension, RCA stenosis, Wdmstuz-Snwel-Abjev disease, bladder cancer, ongoing chemotherapy, status post resection, history of supraglottic cancer, hypothyroidism, presenting with generalized weakness for the past few days. Notes it feels like he is not able to walk. Complicated UTI Gram Positive Bacteremia UA suggestive of infection Urine Cx currently growing E faecalis Blood cultures 1/4 bottles currently growing strep mitis/oralis, 2 out of 4 bottles growing staph epidermidis Repeat blood cultures ordered on 05/08/2024 Echo with noted EF 55 to 60%, mild concentric left ventricular hypertrophy, sigmoid septum, normal right ventricle function and size, no overt vegetations Consider DAPHNE IV Cefepime switched to IV Ampicillin before blood cultures further defined --> switched to IV daptomycin and Rocephin on 05/08/2024 Infectious disease consulted, appreciate further recs Patient currently hemodynamically stable Continue to monitor Generalized weakness Recurrent falls Mostly pronounced in the bilateral lower extremities Likely in setting of above and likely secondary to underlying Hyxydqg-Mfsnw-Ixosk disease Head CT unremarkable Knee xrays noting OA Pelvic xray without fracture PT/OT Hypertensive urgency BPs in 200s on admission Has not been taking usual lisinopril and metoprolol due to nausea for the past few days Resume lisinopril and metoprolol---> however will hold lisinopril in the setting of severe infection to avoid progression to a septic shock picture As needed hydralazine, with parameters Adjust as needed Hyperglycemia History of diabetes type 2 Patient reports he has not been taking his usual insulin Lantus 40 units in a.m., 25 units at at bedtime due to weakness Resume above regimen Insulin sliding scale Pharmacy glycemic consult Mild troponin elevation History of NSTEMI earlier this year History of peripheral arterial disease, RCA stenosis Denies chest pain, cardiac symptoms Troponin 20, 24,47, will trend until downtrending EKG no signs of acute ischemia or infarct Echocardiogram ordered on admission, pending Was prescribed with Lipitor 40 mg and aspirin 81 mg but was discontinued as per patient due to history of hematuria Bladder cancer Currently undergoing chemotherapy 5 out of 6 sessions Follows with [facility] Missed appointment last Thursday due to weakness Will need followup History of supraglottic cancer Resolved as per patient Hypothyroidism Patient supposed to be taking levothyroxine 25 mcg daily but has not been taking this medication for unknown reasons TSH normal Diet: DMII, HH DVT prophylaxis: heparin SQ Dispo: PT/OT ordered for further recs Admission and Anticipated Discharge Date Admission Date: May 06, 2024 Subjective Patient was seen laying in bed States he is still feeling weak and having difficulty with movements, even in bed Denies any fevers, chills or night sweats Also noting some new back pain but states he believes it is related to him laying in bed Discussion with patient that his blood cultures are now positive. Also discussed need to see cardiology and have an echo completed. Agreeable WAs already aware of his antibiotics were changed, lots of questions answered Review of Systems Review of Systems: All systems reviewed & are unremarkable except as noted in Subjective Physical Exam Physical Exam: General: Alert, oriented. Psych: Appropriate mood and affect Neuro: difficulty with movements in the bed HEENT: NC/AT CV: RRR Resp: Breath sounds clear bilaterally, no increased effort of breathing Abdomen: Soft, nontender Extremities: No edema in lower extremities bilaterally. Results & Data Results & Data Vital Signs (Past 12 Hours) Vital Signs Temp Pulse Pulse Resp BP Pulse Ox O2 Del Method 05/08/24 11:12 36.5 C 77 18 99/65 L 97 Room Air 05/08/24 07:35 Room Air 05/08/24 07:25 36.6 C 85 18 155/93 H 97 Room Air 05/08/24 05:44 71 05/08/24 03:44 37.1 C 82 20 119/76 98 Room Air
[2024-05-08] MEDS: SODIUM CHLORIDE 0.9% 1,000 ML IV SCH (14:33)
[2024-05-09] MEDS ORDERED: KETOROLAC TROMETHAMINE 15 MG/ML VIAL IV PRN (02:10)
--- NOTE | 2024-05-09 02:15 | Communication Note ---
Date of Service: May 09, 2024
[2024-05-09] MEDS: KETOROLAC TROMETHAMINE 15 MG/ML VIAL IV STA (02:34)
[2024-05-09] MEDS: OLANZapine 5 MG TABLET PO PRN (02:34)
[2024-05-09] MEDS ORDERED: MELATONIN 3 MG TAB PO PRN (04:05)
[2024-05-09 06:01] LABS: Basophils % (auto) 1.8 %; Eosinophils # (auto) 0.12 K/uL (0.00-0.50); Eosinophils % (auto) 2.1 %; Hemoglobin 11.7 g/dl (14.0-18.0); Immature Granulocytes # (auto) 0.02 K/uL (0.01-0.20); Immature Granulocytes % (auto) 0.4 %; Lymphocytes # (auto) 1.36 K/uL (1.20-3.40); Lymphocytes % (auto) 24.1 %; Mean Corpuscular Hemoglobin 30.4 pg (25.0-34.0); Mean Corpuscular Hgb Conc 33.4 g/dL (32.0-36.0); Mean Corpuscular Volume 90.9 fL (80.0-100.0); Mean Platelet Volume 11.3 fL (9.4-12.4); Monocytes # (auto) 0.57 K/uL (0.11-0.59); Monocytes % (auto) 10.1 %; Neutrophils # (auto) 3.47 K/uL (1.40-6.50); Neutrophils % (auto) 61.5 %; Platelet Count 243 K/uL (130-400); RDW Coefficient of Variation 14.2 % (11.5-14.5); RDW Standard Deviation 47.4 fL (36.4-46.3); Red Blood Count 3.85 M/uL (4.70-6.10); White Blood Count 5.64 K/ul (4.8-10.8)
[2024-05-09 06:27] LABS: Albumin Globulin Ratio 1.3 (0.9-2); Albumin Level 3.5 gm/dl (3.4-5.0); BUN Creatinine Ratio 27.6 (10-20); Bilirubin,Total 0.3 mg/dl (0.2-1.0); Calcium 8.7 mg/dl (8.6-10.3); Creatinine Clr Calc Pharmacy 72.3 ml/min; Globulin 2.6 gm/dl (2.5-4.0); Magnesium 1.7 mg/dl (1.7-2.4); Phosphorus 3.9 mg/dl (2.5-4.9); Total Protein 6.1 gm/dl (6.0-8.3)
[2024-05-09] MEDS: FERROUS SULFATE 325 MG TAB PO SCH (09:06)
[2024-05-09] MEDS: LORazepam 0.5 MG TAB PO PRN (09:06)
--- NOTE | 2024-05-09 11:38 | Hospitalist Progress Note ---
Date of Service May 09, 2024 Assessment & Plan (1) Lower extremity weakness: (2) Hypertensive urgency: (3) Complicated UTI (urinary tract infection): (4) Hyperglycemia: (5) DM type 2 (diabetes mellitus, type 2): (6) History of non-ST elevation myocardial infarction (NSTEMI): (7) Peripheral artery disease: Plan 58-year-old male with history of NSTEMI, peripheral artery disease, diabetes type 2, hypertension, RCA stenosis, Wximyga-Amhrp-Idbsg disease, bladder cancer, ongoing chemotherapy, status post resection, history of supraglottic cancer, hypothyroidism, presenting with generalized weakness for the past few days. Notes it feels like he is not able to walk. Complicated UTI Gram Positive Bacteremia UA suggestive of infection Urine Cx currently growing E faecalis Blood cultures 1/4 bottles currently growing strep mitis/oralis, 2 out of 4 bottles growing staph epidermidis Repeat blood cultures ordered on 05/08/2024, NGTD Echo with noted EF 55 to 60%, mild concentric left ventricular hypertrophy, sigmoid septum, normal right ventricle function and size, no overt vegetations Consider DAPHNE IV Cefepime switched to IV Ampicillin before blood cultures further defined --> switched to IV daptomycin and Rocephin on 05/08/2024 Infectious disease consulted, appreciate further recs. Recommended/stated the following: "I agree with IV daptomycin to cover the Staph epidermidis and strep mitis/oralis. Please discontinue IV ceftriaxone. We will follow up on the repeat blood culture from 05/08 by tomorrow and decide on final antibiotic plan. My concern for urinary tract infection remains low; regardless, the E faecalis will be covered by daptomycin. Thank you for consulting Infectious Disease. We will continue to follow." Patient currently hemodynamically stable Continue to monitor Generalized weakness Recurrent falls Charcot Luma Tooth disease Mostly pronounced in the bilateral lower extremities Likely in setting of above and likely secondary to underlying Xboqyug-Cuysv-Ygayc disease Head CT unremarkable Knee xrays noting OA Pelvic xray without fracture PT/OT Hypertensive urgency BPs in 200s on admission Has not been taking usual lisinopril and metoprolol due to nausea for the past few days Resume lisinopril and metoprolol---> however will hold lisinopril in the setting of severe infection to avoid progression to a septic shock picture As needed hydralazine, with parameters Adjust as needed Hyperglycemia History of diabetes type 2 Patient reports he has not been taking his usual insulin Lantus 40 units in a.m., 25 units at at bedtime due to weakness Resume above regimen Insulin sliding scale Pharmacy glycemic consult Mild troponin elevation History of NSTEMI earlier this year History of peripheral arterial disease, RCA stenosis Denies chest pain, cardiac symptoms Troponin 20, 24,47, will trend until downtrending EKG no signs of acute ischemia or infarct Echocardiogram ordered on admission, pending Was prescribed with Lipitor 40 mg and aspirin 81 mg but was discontinued as per patient due to history of hematuria Bladder cancer Currently undergoing chemotherapy 5 out of 6 sessions Follows with [facility] urology group Missed appointment last Thursday due to weakness Will need followup History of supraglottic cancer Resolved as per patient Hypothyroidism Patient supposed to be taking levothyroxine 25 mcg daily but has not been taking this medication for unknown reasons TSH normal Diet: DMII, HH DVT prophylaxis: heparin SQ Dispo: PT/OT ordered for further recs, recommending acute rehab Admission and Anticipated Discharge Date Admission Date: May 06, 2024 Subjective patient was seen in the a.m. States he was not happy with a particular nurses aide overnight. Per physician overnight, patient was asking to leave and that patient had listened in on [employer] discussion with his roommate and was now scared that providers and staff thought that he was going to . on further discussion with patient, he states that he is a fighter and that he wants to live. He does note that he is thinking about not continuing with chemotherapy. discussion with patient that his team is not "advising ". Discussion that he has a serious infection in his blood and that it would not be whittington to leave at this time. does not want to switch rooms at this time. Patient agreeable to staying at this time. Review of Systems Review of Systems: All systems reviewed & are unremarkable except as noted in Subjective Physical Exam Physical Exam: General: Alert, oriented. Psych: Appropriate mood and affect Neuro: difficulty with movements in the bed HEENT: NC/AT CV: RRR Resp: Breath sounds clear bilaterally, no increased effort of breathing Abdomen: Soft, nontender Extremities: No edema in lower extremities bilaterally. Results & Data Results & Data Vital Signs (Past 12 Hours) Vital Signs Temp Pulse Pulse Resp BP Pulse Ox O2 Del Method 05/09/24 09:31 Room Air 05/09/24 07:28 36.8 C 78 18 116/71 96 Room Air 05/09/24 07:16 76 05/09/24 02:50 36.7 C 76 20 132/79 97 Room Air
--- NOTE | 2024-05-09 14:23 | Infectious Disease Consult ---
Date of Service May 09, 2024 Telehealth Information I performed this visit using a real-time telehealth connection between my location and the patients location ([facility]). After connecting through interactive tele-video, patient was identified by name and date of and/or wristband check.Patient (or authorized healthcare pharmacy sales representative) was informed that this was a telemedicine visit and it was being conducted confidentially over secure lines. My office door was closed and no one else was present in the room with me.Patient (or authorized healthcare pharmacy sales representative) provided consent to proceed with the visit, expressed an understanding of privacy and security of the telemedicine visit, and gave permission to have a hospital pharmacy sales representative in the room in order to assist with the visit and to conduct portions of the visit, as needed. I informed the patient (or authorized healthcare pharmacy sales representative) that I reviewed their record and presented the opportunity for them to ask any questions regarding the visit today. The patient agreed to participate. Assessment & Plan (1) Coagulase negative Staphylococcus bacteremia: (2) Streptococcal bacteremia: (3) Prostate cancer: Plan: On Chemotherapy Plan I agree with IV daptomycin to cover the Staph epidermidis and strep mitis/oralis. Please discontinue IV ceftriaxone. We will follow up on the repeat blood culture from 05/08 by tomorrow and decide on final antibiotic plan. My concern for urinary tract infection remains low; regardless, the E faecalis will be covered by daptomycin. Thank you for consulting Infectious Disease. We will continue to follow. History of Present Illness History of Present Illness Mr. salazar is a 58-year-old man with medical history of CAD and non-STEMI, peripheral arterial disease, HTN, type 2 diabetes, Charcot Luma tooth disease and prostate cancer status post TURBT (and currently on chemotherapy) and history of supraglottic cancer who was admitted to [facility] on 05/06/2024 because of progressive generalized weakness for the last few days prior to presentation. Around 2 days prior to presentation, he presented to an outside hospital with workup showing no clear etiology of his weakness. He was offered to be admitted to complete workup; however, he declined. Since his weakness continued to worsen, he decided to come to the emergency department at [facility]. On presentation, he was afebrile but tachycardic at 119 and hypertensive at 232/130. His initial workup was not impressive except for UA showing more than 50 WBCs and 2+ bacteria. Soon after admission, blood culture came back positive for coagulase-negative Staph and Streptococcus. ID team was consulted for further recommendations and to help guide antibiotic treatment. Allergies Allergy/AdvReac Type Severity Reaction Status Date / Time No Known Allergies Allergy Verified 02/09/24 07:01 Home Medications Medication Instructions Recorded Confirmed Type insulin glargine 100 unit/mL (3 25 unit subcut HS 08/06/23 05/06/24 History mL) subcutaneous pen (Lantus Solostar U-100 Insulin) insulin glargine 100 unit/mL (3 40 unit subcut QAM 08/06/23 05/06/24 History mL) subcutaneous pen (Lantus Solostar U-100 Insulin) lisinopril 30 mg tablet 30 mg PO QAM 08/06/23 05/06/24 History metoprolol succinate 50 mg 50 mg PO QAM 08/06/23 05/06/24 History tablet,extended release 24 hr tamsulosin 0.4 mg capsule 0.4 mg PO PM 08/06/23 05/06/24 History metoprolol succinate 25 mg 25 mg PO QPM #30 tabs 08/09/23 05/06/24 Rx tablet,extended release 24 hr ferrous sulfate 325 mg (65 mg 325 mg PO UD 09/07/23 05/06/24 History iron) tablet (Iron (ferrous sulfate)) Patient History Medical History History of carotid artery disease Left CEA listed per PAT RN phone interview but per review of [facility] records, Right CEA was done in 2017 (not left) Arthritis History of kidney stones Hematuria Ongoing issue Anemia NSTEMI (non-ST elevated myocardial infarction) 07/2023- medically managed Follows with [facility] Hypothyroidism Bladder cancer Follows with PCP 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 (A-port placed for chemo and feeding tube placed - subsequent removal) Insulin dependent type 2 diabetes mellitus HLD (hyperlipidemia) HTN (hypertension) Iyvdzul-Ytlxx-Igrkq disease Surgical History History of esophagogastroduodenoscopy (EGD) History of colonoscopy History of removal of Port-a-Cath History of cystoscopy stone removal H/O transurethral resection of bladder tumor (TURBT) x2 History of tooth extraction History of cataract surgery R/L History of intravascular stent placement Bilateral legs PH Darrell Hx of tracheostomy (~2011) Subsequent reversal- 04/2012 History of bladder surgery Tumor removed, Dr. Hall - PHD Cysto, TURBT (09/22/23): LMA supreme + iGel attempted, unable to seal for ventilation > MAC#3, ETT 7.5 at [facility] History of laryngoscopy History of carotid endarterectomy Left side listed per PAT RN phone interview but per review of [facility] records, Right CEA was done in 2018 (not left) Hx of hammer toe correction Multiple toes (x7) Family History Mother Coronary heart disease 50-60s CABG Father Coronary heart disease SC in 40s Other No family history of adverse response to anesthesia Social History Smoking Status: Former smoker Tobacco Type: Cigarettes Cigarettes Per Day: 2 PPD; Smoking End Date: 04/16/2012; Second Hand Exposure: Yes; Do You Dip or Chew Tobacco: No; Hx Alcohol Use: No Hx Substance Use: Yes Non-Prescribed Medications: Marijuana Last Used Substance: Hours (ago) Last Used Substance Other:: this morning>advised Preferred Language: Upper Sorbian Communication Ability: Effective Poker Room Manager Required: No Beliefs That Will Affect Care: None marital status: Single Current Living Situation: Family Current Living Situation Comment: lives with dad and daughter current occupational status: disabled Other Information That Helps Us Care for You: No Feels Safe at Home: Yes Safety Concerns: Feels Safe At This Time Assistive Devices: Brace/Splint/Immobilizer, Cane and Walker Assistive Devices Comment: States he is normally able to ambulate but has not been able to since Thu. Review of Systems neg except for what was mentioned in H&P. Physical Exam Couldn't be performed as the encounter was conducted via telemed. Results & Data Vital Signs (Past 12 Hours) Vital Signs Temp Pulse Pulse Resp BP Pulse Ox O2 Del Method 05/09/24 14:00 89 05/09/24 11:45 36.5 C 95 H 20 100/61 98 Room Air 05/09/24 09:31 Room Air 05/09/24 07:28 36.8 C 78 18 116/71 96 Room Air 05/09/24 07:16 76 05/09/24 02:50 36.7 C 76 20 132/79 97 Room Air Laboratory Results Microbiology: 05/06: 2 of 4 bottles of blood culture growing staph epidermidis 05/06: 1 of 4 bottles of blood culture growing strep mitis/oralis 05/06: Urine culture growing Enterococcus faecalis Diagnostic Findings Echocardiogram on 05/08: Left ventricular systolic function within normal limits with ejection fraction 55-60%. No overt vegetations noted.
[2024-05-10 06:50] LABS: Basophils # (auto) 0.09 K/uL (0.00-0.20); Basophils % (auto) 1.6 %; Eosinophils # (auto) 0.19 K/uL (0.00-0.50); Eosinophils % (auto) 3.3 %; Hematocrit (blood only) 33.4 % (42.0-52.0); Hemoglobin 11.1 g/dl (14.0-18.0); Immature Granulocytes # (auto) 0.02 K/uL (0.01-0.20); Immature Granulocytes % (auto) 0.3 %; Lymphocytes # (auto) 1.36 K/uL (1.20-3.40); Lymphocytes % (auto) 23.4 %; Mean Corpuscular Hemoglobin 30.5 pg (25.0-34.0); Mean Corpuscular Hgb Conc 33.2 g/dL (32.0-36.0); Mean Corpuscular Volume 91.8 fL (80.0-100.0); Mean Platelet Volume 11.5 fL (9.4-12.4); Monocytes # (auto) 0.53 K/uL (0.11-0.59); Monocytes % (auto) 9.1 %; Neutrophils # (auto) 3.61 K/uL (1.40-6.50); Neutrophils % (auto) 62.3 %; Platelet Count 238 K/uL (130-400); RDW Coefficient of Variation 14.3 % (11.5-14.5); RDW Standard Deviation 48.3 fL (36.4-46.3); Red Blood Count 3.64 M/uL (4.70-6.10)
[2024-05-10 07:28] LABS: Albumin Globulin Ratio 1.4 (0.9-2); Albumin Level 3.3 gm/dl (3.4-5.0); BUN Creatinine Ratio 37.3 (10-20); Bilirubin,Total 0.3 mg/dl (0.2-1.0); Calcium 8.8 mg/dl (8.6-10.3); Creatinine Clr Calc Pharmacy 69.5 ml/min; Globulin 2.4 gm/dl (2.5-4.0); Magnesium 1.8 mg/dl (1.7-2.4); Phosphorus 4.1 mg/dl (2.5-4.9); Potassium 4.1 mmol/L (3.5-5.1); Total Protein 5.7 gm/dl (6.0-8.3)
--- NOTE | 2024-05-10 11:37 | Hospitalist Progress Note ---
Date of Service May 10, 2024 Assessment & Plan (1) Lower extremity weakness: (2) Hypertensive urgency: (3) Complicated UTI (urinary tract infection): (4) Hyperglycemia: (5) DM type 2 (diabetes mellitus, type 2): (6) History of non-ST elevation myocardial infarction (NSTEMI): (7) Peripheral artery disease: Plan 58-year-old male with history of NSTEMI, peripheral artery disease, diabetes type 2, hypertension, RCA stenosis, Ewelvts-Fcfol-Qatcz disease, bladder cancer, ongoing chemotherapy, status post resection, history of supraglottic cancer, hypothyroidism, presenting with generalized weakness for the past few days. Notes it feels like he is not able to walk. Complicated UTI Gram Positive Bacteremia UA suggestive of infection Urine Cx currently growing E faecalis Blood cultures 1/4 bottles currently growing strep mitis/oralis, 2 out of 4 bottles growing staph epidermidis Repeat blood cultures ordered on 05/08/2024, NGTD Echo with noted EF 55 to 60%, mild concentric left ventricular hypertrophy, sigmoid septum, normal right ventricle function and size, no overt vegetations Consider DAPHNE IV Cefepime switched to IV Ampicillin before blood cultures further defined --> switched to IV daptomycin and Rocephin on 05/08/2024 Infectious disease consulted, appreciate further recs. Recommended/stated the following: "I agree with IV daptomycin to cover the Staph epidermidis and strep mitis/oralis. Please discontinue IV ceftriaxone. We will follow up on the repeat blood culture from 05/08 by tomorrow and decide on final antibiotic plan. My concern for urinary tract infection remains low; regardless, the E faecalis will be covered by daptomycin. Thank you for consulting Infectious Disease. We will continue to follow." Patient currently hemodynamically stable Continue to monitor 05/10/2024: patient was threatening to leave AMA. Patient states that he wants to "go home and ." Patient is also upset that he was not able to void today because he was not a [facility] resident. States that he will not be able to live like this. Discussion with patient of risks of leaving AMA with a noted bacteremia requiring IV antibiotics at this time. Patient did sign AMA paperwork but later stated that he will stay. psychiatry consult placed. Palliative care consult also placed and discussed with palliative care provider who states she will see the patient tomorrow along with patient's family friend whose opinion patient states he respects. Generalized weakness Recurrent falls Charcot Luma Tooth disease Mostly pronounced in the bilateral lower extremities Likely in setting of above and likely secondary to underlying Gfvlzhp-Xbbjl-Coyiq disease Head CT unremarkable Knee xrays noting OA Pelvic xray without fracture PT/OT Hypertensive urgency BPs in 200s on admission Has not been taking usual lisinopril and metoprolol due to nausea for the past few days Resume lisinopril and metoprolol---> however will hold lisinopril in the setting of severe infection to avoid progression to a septic shock picture As needed hydralazine, with parameters Adjust as needed Hyperglycemia History of diabetes type 2 Patient reports he has not been taking his usual insulin Lantus 40 units in a.m., 25 units at at bedtime due to weakness Resume above regimen Insulin sliding scale Pharmacy glycemic consult Mild troponin elevation History of NSTEMI earlier this year History of peripheral arterial disease, RCA stenosis Denies chest pain, cardiac symptoms Troponin 20, 24,47, will trend until downtrending EKG no signs of acute ischemia or infarct Echocardiogram ordered on admission, pending Was prescribed with Lipitor 40 mg and aspirin 81 mg but was discontinued as per patient due to history of hematuria Bladder cancer Currently undergoing chemotherapy 5 out of 6 sessions Follows with [facility] Missed appointment last Thursday due to weakness Will need followup History of supraglottic cancer Resolved as per patient Hypothyroidism Patient supposed to be taking levothyroxine 25 mcg daily but has not been taking this medication for unknown reasons TSH normal Diet: DMII, HH DVT prophylaxis: heparin SQ Dispo: PT/OT ordered for further recs, recommending acute rehab Admission and Anticipated Discharge Date Admission Date: May 06, 2024 Subjective Patient was seen multiple times today Initially stating that he wanted to get up and start moving. States he is feeling better weakness has improved. Later called to bedside as patient was concerned that he had a stroke on admission because he feels weaker on one side or when compared to the other. Discussion with patient that admitting head CT did not show acute stroke. Later called back to bedside once more as patient was threatening to leave AMA. Patient states that he wants to "go home and ." Patient is also upset that he was not able to void today because he was not a [facility] resident. States that he will not be able to live like this. Discussion with patient of risks of leaving AMA with a noted bacteremia requiring IV antibiotics at this time. Patient did sign AMA paperwork but later stated that he will stay. Review of Systems Review of Systems: All systems reviewed & are unremarkable except as noted in Subjective Physical Exam Physical Exam: General: Alert, oriented. Psych: Appropriate mood and affect Neuro: difficulty with movements in the bed HEENT: NC/AT CV: RRR Resp: Breath sounds clear bilaterally, no increased effort of breathing Abdomen: Soft, nontender Extremities: No edema in lower extremities bilaterally. hand deformities noted Results & Data Results & Data Vital Signs (Past 12 Hours) Vital Signs Temp Pulse Pulse Resp BP Pulse Ox O2 Del Method 05/10/24 10:41 36.8 C 84 16 141/74 H 99 Room Air 05/10/24 08:18 Room Air 05/10/24 07:45 36.5 C 70 16 155/80 H 95 Room Air 05/10/24 07:03 66 05/10/24 03:04 36.4 C L 72 18 150/79 H 96 Room Air
--- NOTE | 2024-05-10 13:55 | Pharmacy Report ---
Pharmacy Glycemic Short Note 2 - Date of Service May 10, 2024 - Glycemic Short BSG Results (Last 24 hours): 05/09/24 05/09/24 05/10/24 16:58 20:04 06:17 Glucose 168 H POC Glucose 114 H 120 H 05/10/24 05/10/24 07:55 12:15 Glucose POC Glucose 157 H 232 H OUTPATIENT ANTIDIABETIC REGIMEN: * Lantus 40 units QAM, 25 units QHS * A1c 5.9% 08/07/23, 8.3% 05/07/24 ASSESSMENT: 05/10 * 47 units of insulin total were given yesterday--30units were basal and 17 units were bolus. * Fasting BSG this morning was 157mg/dL so the basal insulin is to remain the same. * Lunch BSG has been elevated so the breakfast bolus parameters were tightened starting tomorrow. The remaining meals/hs bolus parameters will remain as is. * Blood cultures grew Strep and Staph--ID consulted and recommended Daptomycin for treatment (day #3). * Weakness and appetite appear to be improving so BSG goal range decreased back to 110-140 mg/dL 05/08 * Pt still very weak, feels he cannot walk. ID consult and echo ordered. * HS basal held last night for BSG 76mg/dl, resulting in hyperglycemia this morning. Will just give basal in AM only today, continue loosened NovoLog parameters. 05/07 * 58 yo M, PMH of NSTEMI, PAD, DM type 2, HTN, RCA stenosis, Zprcgza-Sphoi-Aqgqf disease, bladder cancer, ongoing chemotherapy, status post resection, history of supraglottic cancer, hypothyroidism, presenting with generalized weakness times few days. * Pt manages diabetes with basal insulin only, pt reports not taking lately d/t weakness. * Blood sugar of 306mg/dl on admission, received 20 units basal and 8 units bolus last night, blood sugar down to 153mg/dl at 0200, now up to 239mg/dl this AM. * Will continue basal bolus insulin and titrate to goal blood sugar. PLAN FOR INPATIENT GLYCEMIC CONTROL: * Basal insulin * Lantus 30 units SQ Daily * Bolus insulin * NovoLog per scale ACHS or Q6hrs while NPO * Goal Range: Low 110 mg/dL - High 140mg/dL * Breakfast Correction Factor: 20 mg/dL/unit; Lunch, dinner, and HS correction factor 25 mg/dL/unit * Breakfast Nutritional / Prandial insulin per carb ratio of 1 unit per 6 grams CHO consumed; Lunch, dinner, and HS 1 units per 8 gramc CHO consumed.
[2024-05-10] MEDS: INSULIN ASPART PER UNIT CHARGE SC SCH (18:03)
[2024-05-11] MEDS: hydrALAZINE HCL 20 MG/ML VIAL IV PRN (02:59)
[2024-05-11] MEDS: INSULIN ASPART PER UNIT CHARGE SC SCH (09:07)
[2024-05-11] MEDS: LANTUS PER UNIT CHARGE SC SCH (09:07)
--- NOTE | 2024-05-11 13:51 | Pharmacy Report ---
Pharmacy Glycemic Short Note 2 - Date of Service May 11, 2024 - Glycemic Short BSG Results (Last 24 hours): 05/10/24 05/10/24 05/11/24 17:06 20:20 08:01 POC Glucose 128 H 184 H 191 H 05/11/24 12:11 POC Glucose 142 H OUTPATIENT ANTIDIABETIC REGIMEN: * Lantus 40 units QAM, 25 units QHS * A1c 5.9% 08/07/23, 8.3% 05/07/24 ASSESSMENT: 05/21 * Patient received total of 56 units of insulin yesterday, of which 30 units were basal insulin * Fasting BSG elevated at 191 mg/dL - will titrate up basal insulin to 35 units daily * No change to CF/CR - will continue with tighter parameters for breakfast and looser rest of the day 05/10 * 47 units of insulin total were given yesterday--30units were basal and 17 units were bolus. * Fasting BSG this morning was 157mg/dL so the basal insulin is to remain the same. * Lunch BSG has been elevated so the breakfast bolus parameters were tightened starting tomorrow. The remaining meals/hs bolus parameters will remain as is. * Blood cultures grew Strep and Staph--ID consulted and recommended Daptomycin for treatment (day #3). * Weakness and appetite appear to be improving so BSG goal range decreased back to 110-140 mg/dL 05/08 * Pt still very weak, feels he cannot walk. ID consult and echo ordered. * HS basal held last night for BSG 76mg/dl, resulting in hyperglycemia this morning. Will just give basal in AM only today, continue loosened NovoLog parameters. 05/07 * 58 yo M, PMH of NSTEMI, PAD, DM type 2, HTN, RCA stenosis, Bnekcwk-Lupfh-Aqvwp disease, bladder cancer, ongoing chemotherapy, status post resection, history of supraglottic cancer, hypothyroidism, presenting with generalized weakness times few days. * Pt manages diabetes with basal insulin only, pt reports not taking lately d/t weakness. * Blood sugar of 306mg/dl on admission, received 20 units basal and 8 units bolus last night, blood sugar down to 153mg/dl at 0200, now up to 239mg/dl this AM. * Will continue basal bolus insulin and titrate to goal blood sugar. PLAN FOR INPATIENT GLYCEMIC CONTROL: * Basal insulin * Lantus 35 units SQ Daily * Bolus insulin * NovoLog per scale ACHS or Q6hrs while NPO * Goal Range: Low 110 mg/dL - High 140mg/dL * Breakfast Correction Factor: 20 mg/dL/unit; Lunch, dinner, and HS correction factor 25 mg/dL/unit * Breakfast Nutritional / Prandial insulin per carb ratio of 1 unit per 6 grams CHO consumed; Lunch, dinner, and HS 1 units per 8 grams CHO consumed.
--- NOTE | 2024-05-11 14:55 | Hospitalist Progress Note ---
Date of Service May 11, 2024 Assessment & Plan (1) Lower extremity weakness: (2) Hypertensive urgency: (3) Complicated UTI (urinary tract infection): (4) Hyperglycemia: (5) DM type 2 (diabetes mellitus, type 2): (6) History of non-ST elevation myocardial infarction (NSTEMI): (7) Peripheral artery disease: Plan Mr. Hardy is a 58-year-old male with history of NSTEMI, peripheral artery disease, diabetes type 2, hypertension, RCA stenosis, Vbjessc-Rhuss-Rfzin disease, bladder cancer, ongoing chemotherapy, status post resection, history of supraglottic cancer, hypothyroidism, presenting with generalized weakness for the past few days. Patient found with stap epi bacteremia and UA + for e faecalis. Patient reports R>L LE weakness. Will obtain repeat CT head to assess for subacute stroke given timeline/chronicity. No other neurologic symptoms. Pending ID final recs for dispo to SNF. #Complicated UTI #Staph epidermidis/strep mitis/oralis bacteremia UA suggestive of infection, Urine Cx currently growing E faecalis Blood cultures 1/4 bottles currently growing strep mitis/oralis, 2 out of 4 bottles growing staph epidermidis Repeat blood cultures ordered on 05/08/2024, NGTD Echo with noted EF 55 to 60%, mild concentric left ventricular hypertrophy, sigmoid septum, normal right ventricle function and size, no overt vegetations Infectious disease consulted Continued on Daptomycin IV Pending final recommendations CPK in am #Generalized weakness #Recurrent falls #Charcot Luma Tooth disease Mostly pronounced in the bilateral lower extremities, reports R>L Likely in setting of above and likely secondary to underlying Ioosmbo-Dpnwb-Arvfl disease Head CT unremarkable Knee xrays noting OA Pelvic xray without fracture PT/OT #Hypertensive urgency *resolved BPs in 200s on admission Has not been taking usual lisinopril and metoprolol due to nausea for the past few days Continue Metoprolol 50mg/25mg Continue lisinopril 30mg qam #Uncontrolled DMTII A1C 8.2 Patient reports he has not been taking his usual insulin Lantus 40 units in a.m., 25 units at at bedtime due to weakness glargine 35U qdaily SSI; Pharmacy glycemic consult #Mild troponin elevation History of NSTEMI earlier this year History of peripheral arterial disease, RCA stenosis Denies chest pain, cardiac symptoms Troponin 20, 24,47, will trend until downtrending EKG no signs of acute ischemia or infarct Echocardiogram 55-60%, no vegetations noted #Bladder cancer Currently undergoing chemotherapy 5 out of 6 sessions Follows with [facility] Missed appointment last Thursday due to weakness Will need followup #History of supraglottic cancer Resolved as per patient #Hypothyroidism Patient supposed to be taking levothyroxine 25 mcg daily but has not been taking this medication for unknown reasons TSH normal Diet: DMII, HH DVT prophylaxis: heparin SQ Dispo: PT/OT ordered for further recs, recommending acute rehab Admission and Anticipated Discharge Date Admission Date: May 06, 2024 Subjective NAEO Reports feeling somewhat better, but weak in his left leg Physical Exam Constitutional: WD/WN, vitals as above Respiratory: normal respiratory effort, lungs clear to auscultation Cardiovascular: RRR, no murmur, no edema Neurologic: LLE 5/5, RLE 4-5/5--seemingly effort Results & Data Results & Data Vital Signs (Past 12 Hours) Vital Signs Temp Pulse Pulse Resp BP BP Pulse Ox 05/11/24 14:00 97 H 05/11/24 12:17 36.5 C 97 H 20 133/75 97 05/11/24 07:35 36.3 C L 91 H 16 144/76 H 97 05/11/24 07:00 81 05/11/24 03:40 76 116/70 O2 Del Method 05/11/24 14:00 05/11/24 12:17 Room Air 05/11/24 07:35 Room Air 05/11/24 07:00 05/11/24 03:40 Medications Administered Home Medications Medication Instructions Recorded Confirmed Last Taken insulin glargine 100 unit/mL (3 25 unit subcut 08/06/23 05/06/24 02/08/24 21:00 mL) subcutaneous pen (Lantus 25 units Solostar U-100 Insulin) insulin glargine 100 unit/mL (3 40 unit subcut [facility] 08/06/23 05/06/24 02/08/24 07:30 mL) subcutaneous pen (Lantus 40 units Solostar U-100 Insulin) lisinopril 30 mg tablet 30 mg PO [facility] 08/06/23 05/06/24 02/08/24 07:30 metoprolol succinate 50 mg 50 mg PO QAM 08/06/23 05/06/24 02/09/24 05:30 tablet,extended release 24 hr tamsulosin 0.4 mg capsule 0.4 mg PO PM 08/06/23 05/06/24 02/08/24 21:00 metoprolol succinate 25 mg 25 mg PO QPM #30 tabs 08/09/23 05/06/24 02/08/24 21:00 tablet,extended release 24 hr ferrous sulfate 325 mg (65 mg 325 mg PO UD 09/07/23 05/06/24 02/08/24 21:00 iron) tablet (Iron (ferrous sulfate)) Active Medications Generic Name Dose Route Start Last Admin Trade Name Freq PRN Reason Stop Dose Admin Acetaminophen 650 mg 05/06/24 18:14 05/09/24 09:59 Acetaminophen 325 Mg Tab PO 06/05/24 18:13 650 mg Q4H PRN Administration Pain or Fever Ferrous Sulfate 325 mg 05/09/24 09:00 05/11/24 07:37 Ferrous Sulfate 325 Mg Tab PO 06/08/24 08:59 325 mg [id number] LAURENT Administration Heparin Sodium (Porcine) 5,000 units 05/07/24 21:00 05/11/24 07:42 Heparin Sod 5,000 Unit/0.5 Ml Vial SQ 06/06/24 20:59 5,000 units Q12 LAURENT Administration Hydralazine HCl 5 mg 05/06/24 18:14 05/11/24 02:59 Hydralazine Hcl 20 Mg/Ml Vial IV 06/05/24 18:13 5 mg Q6H PRN Administration systolic bp > 160 Promethazine HCl 6.25 mg in 50.25 mls @ 201 mls/hr 05/07/24 14:36 05/08/24 14:07 Phenergan IV 06/06/24 14:35 Infused Q6H PRN Infusion Nausea And Vomiting Daptomycin 525 mg/ Syringe 10.5 mls @ 5.25 mls/min 05/08/24 10:00 05/11/24 07:40 IV 05/22/24 09:59 5.25 mls/min Q24H LAURENT Administration Protocol Insulin Aspart 0 units 05/11/24 07:30 05/11/24 09:07 Insulin Aspart Per Unit Charge SC 06/10/24 07:29 13 units [id number] LAURENT Administration Insulin Aspart 0 units 05/10/24 16:30 05/11/24 12:39 Insulin Aspart Per Unit Charge ND 06/09/24 16:29 5 units 1130,1630,2100 LAURENT Administration Insulin Glargine 35 units 05/11/24 09:00 05/11/24 09:07 Lantus Per Unit Charge ND 06/10/24 08:59 35 units DAILY LAURENT Administration Protocol Lisinopril 30 mg 05/07/24 09:00 05/08/24 07:54 Lisinopril 10 Mg Tab PO 06/06/24 08:59 30 mg QAM LAURENT Administration Lorazepam 0.5 mg 05/09/24 04:05 05/09/24 09:06 Lorazepam 0.5 Mg Tab PO 06/08/24 04:04 0.5 mg TID PRN Administration Anxiety Metoprolol Succinate 50 mg 05/07/24 09:00 05/11/24 07:37 Metoprolol Succ 50mg Ext Rel Tab PO 06/06/24 08:59 50 mg QAM LAURENT Administration Metoprolol Succinate 25 mg 05/06/24 21:00 05/10/24 19:23 Metoprolol Succ 25mg Ext Rel Tab PO 06/05/24 20:59 25 mg QPM LAURENT Administration Tamsulosin HCl 0.4 mg 05/06/24 21:00 05/10/24 19:23 Tamsulosin Hcl 0.4 Mg Cap PO 06/05/24 20:59 0.4 mg PM LAURENT Administration
--- NOTE | 2024-05-11 15:26 | CT Scan Report ---
CT OF THE HEAD WITHOUT CONTRAST CLINICAL HISTORY: weakness/intermittent confusion COMPARISON STUDY: Head CT May 06, 2024. CT DOSE: 688.24 mGy.cm TECHNIQUE: Helical axial images of the head were obtained without IV contrast. Automated exposure con trol was utilized for the study. A dose lowering technique was utilized adhering to the principles o f ALARA. FINDINGS: No acute intracranial hemorrhage, midline shift or mass effect is present. The ventricular system is unremarkable. The basal cisterns are patent. No extra-axial collections are present. There are no findings to suggest acute dural sinus thrombosis or acute territorial infarct. No significant calvarial abnormalities are present. A small amount of fluid within the right mastoid air cells is un changed. IMPRESSION: No acute intracranial findings. ACT 112: Negative or not required by law. Electronically signed by: Rolando Knowles M.D. 05/11/2024 3:24 PM
--- NOTE | 2024-05-11 15:54 | Infectious Disease Progress Nt ---
Date of Service May 11, 2024 Telehealth Information This is a non-billable note Assessment & Plan (1) Streptococcal bacteremia: (2) Coagulase negative Staphylococcus bacteremia: (3) Complicated UTI (urinary tract infection): Plan: I have discussed the case w/ Kyra who I is taking care of the patient at [facility]. The patient does not have any obvious source to explain coagulase negative Staphylococcal bacteremia: perhaps, this simply represents contamination. Is the Streptococcus (1 of 4 bottles) a real pathogen? Not sure but it can be a pathogen but again w/ no obvious source. Per Kyra, the patient does not have any obvious source including the oropharyngeal area. The patient recevied cefepime since admission (05/06) which was later changed to daptomycin on 05/08 to cover the amp-S Enterococcus in urine as well. Although it is unclear if the patient truly has UTI, pyuria was noted on admission. The patient does not have any evidence of skin infection or odontogenic infection per chart review. TTE un remarkable. He does not have any vascular device in place. Bacteremia clearly promptly on 05/08. I recommend the followin. Stop daptomycin 2. Start augmentin ER 2000 mg po bid w/ last dose on 05/19/24 Augmentin will cover all the bacteria found. Results & Data Vital Signs (Past 12 Hours) Vital Signs Temp Pulse Pulse Resp BP BP Pulse Ox 05/11/24 15:46 36.6 C 97 H 18 187/78 H 96 05/11/24 14:00 97 H 05/11/24 12:17 36.5 C 97 H 20 133/75 97 05/11/24 07:35 36.3 C L 91 H 16 144/76 H 97 05/11/24 07:00 81 O2 Del Method 05/11/24 15:46 Room Air 05/11/24 14:00 05/11/24 12:17 Room Air 05/11/24 07:35 Room Air 05/11/24 07:00
[2024-05-11] MEDS: oxyCODONE HCL IR 5 MG TAB (IMMEDIATE RELEASE) PO PRN (16:27)
[2024-05-11] MEDS: AMOXICILLIN/CLAVULANATE 500 MG TAB PO SCH (17:21)
--- NOTE | 2024-05-11 19:49 | Palliative Care Consultation ---
Date of Consultation May 11, 2024 Assessment & Plan (1) Cancer related pain: oxycodone 10mg po q4h prn/Hold for somnolence or RR less than 14; please document RR with each dose administration. bowel regimen reinforced (2) Advanced care planning/counseling discussion: Met with Christian at bedside face to face for 30min for acp discussion He is struggling with his cancer and tells me the cancer keeps coming back and chemo is not really helping. he feels he does not want to continue more chemo because he thinks it is fruitless. However he also notes that he is more depressed and frustrated by politics. We discussed some options for the future before rushing to a "no more chemo" decision and he agreed to a trial of rehab vs home PT if he is felt to be safe for home DC. we discussed pain mgt and he expressed worry of addiction but struggles with severe pain. We spoke about addiction and signs/symptoms. I reassured him that uncontrolled cancer pain is not an addiction risk and the goal of therapy is to relieve pain and improve QOL. He was agreeable to following in OP Pall med clinic. (3) Lower extremity weakness: (4) Prostate cancer: (5) Weakness generalized: Plan As above Thank you for allowing us to participate in the ongoing care of this patient. Please page with any additional concerns. Brian Quesada DNP Director, Palliative Medicine History of Present Illness Reason for Consultation: cancer pain, goals of care Attending Physician: Kyra Haque MD History of Present Illness Mr. Hardy has been admitted with weakness and severe cancer pain He has bladder cancer, along with Luma Charcot Tooth disease. He is struggling with weakness, cancer pain, depression He has been using hydrocodone 1 tab BID at home but says it does not relieve pain but he was told if "he takes more than 2 tabs daily then he will be an addict and need drug rehab" he has some issues with constipation and does not use a bowel regimen Appetite is ok some near falls feels he does not want more chemo Allergies Allergy/AdvReac Type Severity Reaction Status Date / Time No Known Allergies Allergy Verified 02/09/24 07:01 Home Medications Medication Instructions Recorded Confirmed Type insulin glargine 100 unit/mL (3 25 unit subcut HS 08/06/23 05/06/24 History mL) subcutaneous pen (Lantus Solostar U-100 Insulin) insulin glargine 100 unit/mL (3 40 unit subcut QAM 08/06/23 05/06/24 History mL) subcutaneous pen (Lantus Solostar U-100 Insulin) lisinopril 30 mg tablet 30 mg PO QAM 08/06/23 05/06/24 History metoprolol succinate 50 mg 50 mg PO QAM 08/06/23 05/06/24 History tablet,extended release 24 hr tamsulosin 0.4 mg capsule 0.4 mg PO PM 08/06/23 05/06/24 History metoprolol succinate 25 mg 25 mg PO QPM #30 tabs 08/09/23 05/06/24 Rx tablet,extended release 24 hr ferrous sulfate 325 mg (65 mg 325 mg PO UD 09/07/23 05/06/24 History iron) tablet (Iron (ferrous sulfate)) Patient History Medical History History of carotid artery disease Left CEA listed per PAT RN phone interview but per review of [facility] records, Right CEA was done in 2017 (not left) Arthritis History of kidney stones Hematuria Ongoing issue Anemia NSTEMI (non-ST elevated myocardial infarction) 07/2023- medically managed Follows with [facility] cardio Hypothyroidism Bladder cancer Follows with PCP 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 (A-port placed for chemo and feeding tube placed - subsequent removal) Insulin dependent type 2 diabetes mellitus HLD (hyperlipidemia) HTN (hypertension) Lnqefat-Hquqg-Nmtkm disease Surgical History History of esophagogastroduodenoscopy (EGD) History of colonoscopy History of removal of Port-a-Cath History of cystoscopy stone removal H/O transurethral resection of bladder tumor (TURBT) x2 History of tooth extraction History of cataract surgery R/L History of intravascular stent placement Bilateral legs PH Darrell Hx of tracheostomy (~2011) Subsequent reversal- 04/2012 History of bladder surgery Tumor removed, Dr. Hall - PHD Cysto, TURBT (09/22/23): LMA supreme + iGel attempted, unable to seal for ventilation > MAC#3, ETT 7.5 at [facility] History of laryngoscopy History of carotid endarterectomy Left side listed per PAT RN phone interview but per review of [facility] records, Right CEA was done in 2018 (not left) Hx of hammer toe correction Multiple toes (x7) Family History Mother Coronary heart disease 50-60s CABG Father Coronary heart disease [place] in 40s Other No family history of adverse response to anesthesia Social History Smoking Status: Former smoker Tobacco Type: Cigarettes Cigarettes Per Day: 2 PPD; Smoking End Date: 04/16/2012; Second Hand Exposure: Yes; Do You Dip or Chew Tobacco: No; Hx Alcohol Use: No Hx Substance Use: Yes Non-Prescribed Medications: Marijuana Last Used Substance: Hours (ago) Last Used Substance Other:: this morning>advised Preferred Language: Chinese Communication Ability: Effective Melting Operator Required: No Beliefs That Will Affect Care: None marital status: Single Current Living Situation: Family Current Living Situation Comment: lives with dad and daughter current occupational status: disabled Other Information That Helps Us Care for You: No Feels Safe at Home: Yes Safety Concerns: Feels Safe At This Time Assistive Devices: Brace/Splint/Immobilizer, Cane and Walker Assistive Devices Comment: States he is normally able to ambulate but has not been able to since Thu. Review of Systems Review of Systems: All systems reviewed & are unremarkable except as noted in Subjective Physical Exam Physical Exam: chronically ill NCAT, perrla, eomi's neck supple, no gross JVD Chest diminished S1s2 abd distended, BS+, generalized TTP BLE weakness, +edema +contractures, joint deformities skin pale, sactt ecchymoses AAOx3 Results & Data Vital Signs (Past 12 Hours) Vital Signs Temp Pulse Pulse Resp BP BP Pulse Ox 05/11/24 19:26 36.5 C 88 18 159/76 H 96 05/11/24 16:37 164/94 H 05/11/24 16:25 180/98 H 05/11/24 15:46 36.6 C 97 H 18 187/78 H 96 05/11/24 14:00 97 H 05/11/24 12:17 36.5 C 97 H 20 133/75 97 O2 Del Method 05/11/24 19:26 Room Air 05/11/24 16:37 05/11/24 16:25 05/11/24 15:46 Room Air 05/11/24 14:00 05/11/24 12:17 Room Air Laboratory Results 05/11/24 05/11/24 05/11/24 Range/Units 19:58 17:00 12:11 WBC (4.8-10.8) K/ul RBC (4.70-6.10) M/uL Hgb (14.0-18.0) g/dl Hct (42.0-52.0) % MCV (80.0-100.0) fL MCH (25.0-34.0) pg MCHC (32.0-36.0) g/dL RDW Std Deviation (36.4-46.3) fL RDW Coeff of Carlos Manuel (11.5-14.5) % Plt Count (130-400) K/uL MPV (9.4-12.4) fL Immature Gran % (Auto) % Neut % (Auto) % Lymph % (Auto) % Moore % (Auto) % Eos % (Auto) % Baso % (Auto) % Neut # (Auto) (1.40-6.50) K/uL Lymph # (Auto) (1.20-3.40) K/uL Moore # (Auto) (0.11-0.59) K/uL Eos # (Auto) (0.00-0.50) K/uL Baso # (Auto) (0.00-0.20) K/uL Immature Gran # (Auto) (0.01-0.20) K/uL PT (9.0-12.0) Seconds INR (0.9-1.1) APTT (21-31) Seconds PTT Ratio Sodium (136-145) mmol/L Potassium (3.5-5.1) mmol/L Chloride (98-107) mmol/L Carbon Dioxide (21-32) mmol/L Anion Gap (3-11) BUN (6-23) mg/dl Creatinine (0.6-1.4) mg/dl Est Cr Clr Drug Dosing ml/min eGFR BUN/Creatinine Ratio (10-20) Glucose (70-99(Fasting)) mg/dl POC Glucose 132 H 134 H 142 H (70-99) mg/dl Estimat Average Glucose mg/dl Hemoglobin A1c (4.5-5.6) % Lactate (0.4-2.0) mmol/L Calcium (8.6-10.3) mg/dl Phosphorus (2.5-4.9) mg/dl Magnesium (1.7-2.4) mg/dl Total Bilirubin (0.2-1.0) mg/dl Direct Bilirubin (0-0.2) mg/dl AST (13-39) U/L ALT (7-52) U/L Alkaline Phosphatase (34-104) U/L Troponin I High Sens (0-20) pg/ml Total Protein (6.0-8.3) gm/dl Albumin (3.4-5.0) gm/dl Globulin (2.5-4.0) gm/dl Albumin/Globulin Ratio (0.9-2) Procalcitonin (0-0.5) ng/ml TSH (0.300-4.500) uIu/ml Urine Color Urine Appearance (Clear) Urine pH (4.5-7.5) Ur Specific [place] (1.000-1.030) Urine Protein (Negative) Urine Glucose (UA) (Negative) Urine Ketones (Negative) Urine Blood (Negative) Urine Nitrite (Negative) Urine Bilirubin (Negative) Urine Urobilinogen (Negative) Ur Leukocyte Esterase (Negative) Urine WBC (Auto) (0-5) /hpf Urine RBC (Auto) (0-2) /hpf U Hyaline Cast (Auto) (0-2) /lpf U Epithel Cells (Auto) (0-2) /hpf Urine Bacteria (Auto) (None Seen) Staphylococcus sp PCR (NotDetected) mecA/C-Methicil Resis Gene (NotDetected) Staph epidermidis (PCR) (NotDetected) Streptococcus sp PCR (NotDetected) Bld Cult ID Panel PCR (NotDetected) 05/11/24 05/10/24 05/10/24 Range/Units 08:01 20:20 17:06 WBC (4.8-10.8) K/ul RBC (4.70-6.10) M/uL Hgb (14.0-18.0) g/dl Hct (42.0-52.0) % MCV (80.0-100.0) fL MCH (25.0-34.0) pg MCHC (32.0-36.0) g/dL RDW Std Deviation (36.4-46.3) fL RDW Coeff of Carlos Manuel (11.5-14.5) % Plt Count (130-400) K/uL MPV (9.4-12.4) fL Immature Gran % (Auto) % Neut % (Auto) % Lymph % (Auto) % Moore % (Auto) % Eos % (Auto) % Baso % (Auto) % Neut # (Auto) (1.40-6.50) K/uL Lymph # (Auto) (1.20-3.40) K/uL Moore # (Auto) (0.11-0.59) K/uL Eos # (Auto) (0.00-0.50) K/uL Baso # (Auto) (0.00-0.20) K/uL Immature Gran # (Auto) (0.01-0.20) K/uL PT (9.0-12.0) Seconds INR (0.9-1.1) APTT (21-31) Seconds PTT Ratio Sodium (136-145) mmol/L Potassium (3.5-5.1) mmol/L Chloride (98-107) mmol/L Carbon Dioxide (21-32) mmol/L Anion Gap (3-11) BUN (6-23) mg/dl Creatinine (0.6-1.4) mg/dl Est Cr Clr Drug Dosing ml/min eGFR BUN/Creatinine Ratio (10-20) Glucose (70-99(Fasting)) mg/dl POC Glucose 191 H 184 H 128 H (70-99) mg/dl Estimat Average Glucose mg/dl Hemoglobin A1c (4.5-5.6) % Lactate (0.4-2.0) mmol/L Calcium (8.6-10.3) mg/dl Phosphorus (2.5-4.9) mg/dl Magnesium (1.7-2.4) mg/dl Total Bilirubin (0.2-1.0) mg/dl Direct Bilirubin (0-0.2) mg/dl AST (13-39) U/L ALT (7-52) U/L Alkaline Phosphatase (34-104) U/L Troponin I High Sens (0-20) pg/ml Total Protein (6.0-8.3) gm/dl Albumin (3.4-5.0) gm/dl Globulin (2.5-4.0) gm/dl Albumin/Globulin Ratio (0.9-2) Procalcitonin (0-0.5) ng/ml TSH (0.300-4.500) uIu/ml Urine Color Urine Appearance (Clear) Urine pH (4.5-7.5) Ur Specific [place] (1.000-1.030) Urine Protein (Negative) Urine Glucose (UA) (Negative) Urine Ketones (Negative) Urine Blood (Negative) Urine Nitrite (Negative) Urine Bilirubin (Negative) Urine Urobilinogen (Negative) Ur Leukocyte Esterase (Negative) Urine WBC (Auto) (0-5) /hpf Urine RBC (Auto) (0-2) /hpf U Hyaline Cast (Auto) (0-2) /lpf U Epithel Cells (Auto) (0-2) /hpf Urine Bacteria (Auto) (None Seen) Staphylococcus sp PCR (NotDetected) mecA/C-Methicil Resis Gene (NotDetected) Staph epidermidis (PCR) (NotDetected) Streptococcus sp PCR (NotDetected) Bld Cult ID Panel PCR (NotDetected) 05/10/24 05/10/24 05/10/24 Range/Units 12:15 07:55 06:17 WBC 5.80 (4.8-10.8) K/ul RBC 3.64 L (4.70-6.10) M/uL Hgb 11.1 L (14.0-18.0) g/dl Hct 33.4 L (42.0-52.0) % MCV 91.8 (80.0-100.0) fL MCH 30.5 (25.0-34.0) pg MCHC 33.2 (32.0-36.0) g/dL RDW Std Deviation 48.3 H (36.4-46.3) fL RDW Coeff of Carlos Manuel 14.3 (11.5-14.5) % Plt Count 238 (130-400) K/uL MPV 11.5 (9.4-12.4) fL Immature Gran % (Auto) 0.3 % Neut % (Auto) 62.3 % Lymph % (Auto) 23.4 % Moore % (Auto) 9.1 % Eos % (Auto) 3.3 % Baso % (Auto) 1.6 % Neut # (Auto) 3.61 (1.40-6.50) K/uL Lymph # (Auto) 1.36 (1.20-3.40) K/uL Moore # (Auto) 0.53 (0.11-0.59) K/uL Eos # (Auto) 0.19 (0.00-0.50) K/uL Baso # (Auto) 0.09 (0.00-0.20) K/uL Immature Gran # (Auto) 0.02 (0.01-0.20) K/uL PT (9.0-12.0) Seconds INR (0.9-1.1) APTT (21-31) Seconds PTT Ratio Sodium 138 (136-145) mmol/L Potassium 4.1 (3.5-5.1) mmol/L Chloride 107 (98-107) mmol/L Carbon Dioxide 22 (21-32) mmol/L Anion Gap 9 (3-11) BUN 53 H (6-23) mg/dl Creatinine 1.42 H (0.6-1.4) mg/dl Est Cr Clr Drug Dosing 69.5 ml/min eGFR 56.92 BUN/Creatinine Ratio 37.3 H (10-20) Glucose 168 H (70-99(Fasting)) mg/dl POC Glucose 232 H 157 H (70-99) mg/dl Estimat Average Glucose mg/dl Hemoglobin A1c (4.5-5.6) % Lactate (0.4-2.0) mmol/L Calcium 8.8 (8.6-10.3) mg/dl Phosphorus 4.1 (2.5-4.9) mg/dl Magnesium 1.8 (1.7-2.4) mg/dl Total Bilirubin 0.3 (0.2-1.0) mg/dl Direct Bilirubin (0-0.2) mg/dl AST 10 L (13-39) U/L ALT 9 (7-52) U/L Alkaline Phosphatase 87 (34-104) U/L Troponin I High Sens (0-20) pg/ml Total Protein 5.7 L (6.0-8.3) gm/dl Albumin 3.3 L (3.4-5.0) gm/dl Globulin 2.4 L (2.5-4.0) gm/dl Albumin/Globulin Ratio 1.4 (0.9-2) Procalcitonin (0-0.5) ng/ml TSH (0.300-4.500) uIu/ml Urine Color Urine Appearance (Clear) Urine pH (4.5-7.5) Ur Specific [place] (1.000-1.030) Urine Protein (Negative) Urine Glucose (UA) (Negative) Urine Ketones (Negative) Urine Blood (Negative) Urine Nitrite (Negative) Urine Bilirubin (Negative) Urine Urobilinogen (Negative) Ur Leukocyte Esterase (Negative) Urine WBC (Auto) (0-5) /hpf Urine RBC (Auto) (0-2) /hpf U Hyaline Cast (Auto) (0-2) /lpf U Epithel Cells (Auto) (0-2) /hpf Urine Bacteria (Auto) (None Seen) Staphylococcus sp PCR (NotDetected) mecA/C-Methicil Resis Gene (NotDetected) Staph epidermidis (PCR) (NotDetected) Streptococcus sp PCR (NotDetected) Bld Cult ID Panel PCR (NotDetected) 05/09/24 05/09/24 05/09/24 Range/Units 20:04 16:58 12:04 WBC (4.8-10.8) K/ul RBC (4.70-6.10) M/uL Hgb (14.0-18.0) g/dl Hct (42.0-52.0) % MCV (80.0-100.0) fL MCH (25.0-34.0) pg MCHC (32.0-36.0) g/dL RDW Std Deviation (36.4-46.3) fL RDW Coeff of Carlos Manuel (11.5-14.5) % Plt Count (130-400) K/uL MPV (9.4-12.4) fL Immature Gran % (Auto) % Neut % (Auto) % Lymph % (Auto) % Moore % (Auto) % Eos % (Auto) % Baso % (Auto) % Neut # (Auto) (1.40-6.50) K/uL Lymph # (Auto) (1.20-3.40) K/uL Moore # (Auto) (0.11-0.59) K/uL Eos # (Auto) (0.00-0.50) K/uL Baso # (Auto) (0.00-0.20) K/uL Immature Gran # (Auto) (0.01-0.20) K/uL PT (9.0-12.0) Seconds INR (0.9-1.1) APTT (21-31) Seconds PTT Ratio Sodium (136-145) mmol/L Potassium (3.5-5.1) mmol/L Chloride (98-107) mmol/L Carbon Dioxide (21-32) mmol/L Anion Gap (3-11) BUN (6-23) mg/dl Creatinine (0.6-1.4) mg/dl Est Cr Clr Drug Dosing ml/min eGFR BUN/Creatinine Ratio (10-20) Glucose (70-99(Fasting)) mg/dl POC Glucose 120 H 114 H 200 H (70-99) mg/dl Estimat Average Glucose mg/dl Hemoglobin A1c (4.5-5.6) % Lactate (0.4-2.0) mmol/L Calcium (8.6-10.3) mg/dl Phosphorus (2.5-4.9) mg/dl Magnesium (1.7-2.4) mg/dl Total Bilirubin (0.2-1.0) mg/dl Direct Bilirubin (0-0.2) mg/dl AST (13-39) U/L ALT (7-52) U/L Alkaline Phosphatase (34-104) U/L Troponin I High Sens (0-20) pg/ml Total Protein (6.0-8.3) gm/dl Albumin (3.4-5.0) gm/dl Globulin (2.5-4.0) gm/dl Albumin/Globulin Ratio (0.9-2) Procalcitonin (0-0.5) ng/ml TSH (0.300-4.500) uIu/ml Urine Color Urine Appearance (Clear) Urine pH (4.5-7.5) Ur Specific [place] (1.000-1.030) Urine Protein (Negative) Urine Glucose (UA) (Negative) Urine Ketones (Negative) Urine Blood (Negative) Urine Nitrite (Negative) Urine Bilirubin (Negative) Urine Urobilinogen (Negative) Ur Leukocyte Esterase (Negative) Urine WBC (Auto) (0-5) /hpf Urine RBC (Auto) (0-2) /hpf U Hyaline Cast (Auto) (0-2) /lpf U Epithel Cells (Auto) (0-2) /hpf Urine Bacteria (Auto) (None Seen) Staphylococcus sp PCR (NotDetected) mecA/C-Methicil Resis Gene (NotDetected) Staph epidermidis (PCR) (NotDetected) Streptococcus sp PCR (NotDetected) Bld Cult ID Panel PCR (NotDetected) 05/09/24 05/09/24 05/08/24 Range/Units 07:56 05:20 20:13 WBC 5.64 (4.8-10.8) K/ul RBC 3.85 L (4.70-6.10) M/uL Hgb 11.7 L (14.0-18.0) g/dl Hct 35.0 L (42.0-52.0) % MCV 90.9 (80.0-100.0) fL MCH 30.4 (25.0-34.0) pg MCHC 33.4 (32.0-36.0) g/dL RDW Std Deviation 47.4 H (36.4-46.3) fL RDW Coeff of Carlos Manuel 14.2 (11.5-14.5) % Plt Count 243 (130-400) K/uL MPV 11.3 (9.4-12.4) fL Immature Gran % (Auto) 0.4 % Neut % (Auto) 61.5 % Lymph % (Auto) 24.1 % Moore % (Auto) 10.1 % Eos % (Auto) 2.1 % Baso % (Auto) 1.8 % Neut # (Auto) 3.47 (1.40-6.50) K/uL Lymph # (Auto) 1.36 (1.20-3.40) K/uL Moore # (Auto) 0.57 (0.11-0.59) K/uL Eos # (Auto) 0.12 (0.00-0.50) K/uL Baso # (Auto) 0.10 (0.00-0.20) K/uL Immature Gran # (Auto) 0.02 (0.01-0.20) K/uL PT (9.0-12.0) Seconds INR (0.9-1.1) APTT (21-31) Seconds PTT Ratio Sodium 138 (136-145) mmol/L Potassium 4.0 (3.5-5.1) mmol/L Chloride 107 (98-107) mmol/L Carbon Dioxide 23 (21-32) mmol/L Anion Gap 8 (3-11) BUN 37 H (6-23) mg/dl Creatinine 1.34 (0.6-1.4) mg/dl Est Cr Clr Drug Dosing 72.3 ml/min eGFR 61.02 BUN/Creatinine Ratio 27.6 H (10-20) Glucose 166 H (70-99(Fasting)) mg/dl POC Glucose 162 H 208 H (70-99) mg/dl Estimat Average Glucose mg/dl Hemoglobin A1c (4.5-5.6) % Lactate (0.4-2.0) mmol/L Calcium 8.7 (8.6-10.3) mg/dl Phosphorus 3.9 (2.5-4.9) mg/dl Magnesium 1.7 (1.7-2.4) mg/dl Total Bilirubin 0.3 (0.2-1.0) mg/dl Direct Bilirubin (0-0.2) mg/dl AST 11 L (13-39) U/L ALT 10 (7-52) U/L Alkaline Phosphatase 98 (34-104) U/L Troponin I High Sens (0-20) pg/ml Total Protein 6.1 (6.0-8.3) gm/dl Albumin 3.5 (3.4-5.0) gm/dl Globulin 2.6 (2.5-4.0) gm/dl Albumin/Globulin Ratio 1.3 (0.9-2) Procalcitonin (0-0.5) ng/ml TSH (0.300-4.500) uIu/ml Urine Color Urine Appearance (Clear) Urine pH (4.5-7.5) Ur Specific [place] (1.000-1.030) Urine Protein (Negative) Urine Glucose (UA) (Negative) Urine Ketones (Negative) Urine Blood (Negative) Urine Nitrite (Negative) Urine Bilirubin (Negative) Urine Urobilinogen (Negative) Ur Leukocyte Esterase (Negative) Urine WBC (Auto) (0-5) /hpf Urine RBC (Auto) (0-2) /hpf U Hyaline Cast (Auto) (0-2) /lpf U Epithel Cells (Auto) (0-2) /hpf Urine Bacteria (Auto) (None Seen) Staphylococcus sp PCR (NotDetected) mecA/C-Methicil Resis Gene (NotDetected) Staph epidermidis (PCR) (NotDetected) Streptococcus sp PCR (NotDetected) Bld Cult ID Panel PCR (NotDetected) 05/08/24 05/08/24 05/08/24 Range/Units 17:16 13:35 12:12 WBC (4.8-10.8) K/ul RBC (4.70-6.10) M/uL Hgb (14.0-18.0) g/dl Hct (42.0-52.0) % MCV (80.0-100.0) fL MCH (25.0-34.0) pg MCHC (32.0-36.0) g/dL RDW Std Deviation (36.4-46.3) fL RDW Coeff of Carlos Manuel (11.5-14.5) % Plt Count (130-400) K/uL MPV (9.4-12.4) fL Immature Gran % (Auto) % Neut % (Auto) % Lymph % (Auto) % Moore % (Auto) % Eos % (Auto) % Baso % (Auto) % Neut # (Auto) (1.40-6.50) K/uL Lymph # (Auto) (1.20-3.40) K/uL Moore # (Auto) (0.11-0.59) K/uL Eos # (Auto) (0.00-0.50) K/uL Baso # (Auto) (0.00-0.20) K/uL Immature Gran # (Auto) (0.01-0.20) K/uL PT (9.0-12.0) Seconds INR (0.9-1.1) APTT (21-31) Seconds PTT Ratio Sodium (136-145) mmol/L Potassium (3.5-5.1) mmol/L Chloride (98-107) mmol/L Carbon Dioxide (21-32) mmol/L Anion Gap (3-11) BUN (6-23) mg/dl Creatinine (0.6-1.4) mg/dl Est Cr Clr Drug Dosing ml/min eGFR BUN/Creatinine Ratio (10-20) Glucose (70-99(Fasting)) mg/dl POC Glucose 197 H 137 H 144 H (70-99) mg/dl Estimat Average Glucose mg/dl Hemoglobin A1c (4.5-5.6) % Lactate (0.4-2.0) mmol/L Calcium (8.6-10.3) mg/dl Phosphorus (2.5-4.9) mg/dl Magnesium (1.7-2.4) mg/dl Total Bilirubin (0.2-1.0) mg/dl Direct Bilirubin (0-0.2) mg/dl AST (13-39) U/L ALT (7-52) U/L Alkaline Phosphatase (34-104) U/L Troponin I High Sens (0-20) pg/ml Total Protein (6.0-8.3) gm/dl Albumin (3.4-5.0) gm/dl Globulin (2.5-4.0) gm/dl Albumin/Globulin Ratio (0.9-2) Procalcitonin (0-0.5) ng/ml TSH (0.300-4.500) uIu/ml Urine Color Urine Appearance (Clear) Urine pH (4.5-7.5) Ur Specific [place] (1.000-1.030) Urine Protein (Negative) Urine Glucose (UA) (Negative) Urine Ketones (Negative) Urine Blood (Negative) Urine Nitrite (Negative) Urine Bilirubin (Negative) Urine Urobilinogen (Negative) Ur Leukocyte Esterase (Negative) Urine WBC (Auto) (0-5) /hpf Urine RBC (Auto) (0-2) /hpf U Hyaline Cast (Auto) (0-2) /lpf U Epithel Cells (Auto) (0-2) /hpf Urine Bacteria (Auto) (None Seen) Staphylococcus sp PCR (NotDetected) mecA/C-Methicil Resis Gene (NotDetected) Staph epidermidis (PCR) (NotDetected) Streptococcus sp PCR (NotDetected) Bld Cult ID Panel PCR (NotDetected) 05/08/24 05/08/24 05/07/24 Range/Units 08:18 03:30 20:25 WBC 8.20 (4.8-10.8) K/ul RBC 4.05 L (4.70-6.10) M/uL Hgb 12.2 L (14.0-18.0) g/dl Hct 36.6 L (42.0-52.0) % MCV 90.4 (80.0-100.0) fL MCH 30.1 (25.0-34.0) pg MCHC 33.3 (32.0-36.0) g/dL RDW Std Deviation 46.8 H (36.4-46.3) fL RDW Coeff of Carlos Manuel 14.2 (11.5-14.5) % Plt Count 244 (130-400) K/uL MPV 11.3 (9.4-12.4) fL Immature Gran % (Auto) 0.4 % Neut % (Auto) 72.9 % Lymph % (Auto) 15.6 % Moore % (Auto) 8.9 % Eos % (Auto) 1.1 % Baso % (Auto) 1.1 % Neut # (Auto) 5.98 (1.40-6.50) K/uL Lymph # (Auto) 1.28 (1.20-3.40) K/uL Moore # (Auto) 0.73 H (0.11-0.59) K/uL Eos # (Auto) 0.09 (0.00-0.50) K/uL Baso # (Auto) 0.09 (0.00-0.20) K/uL Immature Gran # (Auto) 0.03 (0.01-0.20) K/uL PT (9.0-12.0) Seconds INR (0.9-1.1) APTT (21-31) Seconds PTT Ratio Sodium 136 (136-145) mmol/L Potassium 3.8 (3.5-5.1) mmol/L Chloride 105 (98-107) mmol/L Carbon Dioxide 23 (21-32) mmol/L Anion Gap 8 (3-11) BUN 35 H (6-23) mg/dl Creatinine 1.19 (0.6-1.4) mg/dl Est Cr Clr Drug Dosing 81.4 ml/min eGFR 70.37 BUN/Creatinine Ratio 29.4 H (10-20) Glucose 218 H (70-99(Fasting)) mg/dl POC Glucose 202 H 76 (70-99) mg/dl Estimat Average Glucose mg/dl Hemoglobin A1c (4.5-5.6) % Lactate (0.4-2.0) mmol/L Calcium 9.1 (8.6-10.3) mg/dl Phosphorus 3.3 (2.5-4.9) mg/dl Magnesium 1.8 (1.7-2.4) mg/dl Total Bilirubin 0.4 (0.2-1.0) mg/dl Direct Bilirubin (0-0.2) mg/dl AST 11 L (13-39) U/L ALT 11 (7-52) U/L Alkaline Phosphatase 105 H (34-104) U/L Troponin I High Sens 22.7 H D (0-20) pg/ml Total Protein 6.4 (6.0-8.3) gm/dl Albumin 3.5 (3.4-5.0) gm/dl Globulin 2.9 (2.5-4.0) gm/dl Albumin/Globulin Ratio 1.2 (0.9-2) Procalcitonin (0-0.5) ng/ml TSH (0.300-4.500) uIu/ml Urine Color Urine Appearance (Clear) Urine pH (4.5-7.5) Ur Specific [place] (1.000-1.030) Urine Protein (Negative) Urine Glucose (UA) (Negative) Urine Ketones (Negative) Urine Blood (Negative) Urine Nitrite (Negative) Urine Bilirubin (Negative) Urine Urobilinogen (Negative) Ur Leukocyte Esterase (Negative) Urine WBC (Auto) (0-5) /hpf Urine RBC (Auto) (0-2) /hpf U Hyaline Cast (Auto) (0-2) /lpf U Epithel Cells (Auto) (0-2) /hpf Urine Bacteria (Auto) (None Seen) Staphylococcus sp PCR (NotDetected) mecA/C-Methicil Resis Gene (NotDetected) Staph epidermidis (PCR) (NotDetected) Streptococcus sp PCR (NotDetected) Bld Cult ID Panel PCR (NotDetected) 05/07/24 05/07/24 05/07/24 Range/Units 17:11 12:17 08:21 WBC (4.8-10.8) K/ul RBC (4.70-6.10) M/uL Hgb (14.0-18.0) g/dl Hct (42.0-52.0) % MCV (80.0-100.0) fL MCH (25.0-34.0) pg MCHC (32.0-36.0) g/dL RDW Std Deviation (36.4-46.3) fL RDW Coeff of Carlos Manuel (11.5-14.5) % Plt Count (130-400) K/uL MPV (9.4-12.4) fL Immature Gran % (Auto) % Neut % (Auto) % Lymph % (Auto) % Moore % (Auto) % Eos % (Auto) % Baso % (Auto) % Neut # (Auto) (1.40-6.50) K/uL Lymph # (Auto) (1.20-3.40) K/uL Moore # (Auto) (0.11-0.59) K/uL Eos # (Auto) (0.00-0.50) K/uL Baso # (Auto) (0.00-0.20) K/uL Immature Gran # (Auto) (0.01-0.20) K/uL PT (9.0-12.0) Seconds INR (0.9-1.1) APTT (21-31) Seconds PTT Ratio Sodium (136-145) mmol/L Potassium (3.5-5.1) mmol/L Chloride (98-107) mmol/L Carbon Dioxide (21-32) mmol/L Anion Gap (3-11) BUN (6-23) mg/dl Creatinine (0.6-1.4) mg/dl Est Cr Clr Drug Dosing ml/min eGFR BUN/Creatinine Ratio (10-20) Glucose (70-99(Fasting)) mg/dl POC Glucose 124 H 203 H 219 H (70-99) mg/dl Estimat Average Glucose mg/dl Hemoglobin A1c (4.5-5.6) % Lactate (0.4-2.0) mmol/L Calcium (8.6-10.3) mg/dl Phosphorus (2.5-4.9) mg/dl Magnesium (1.7-2.4) mg/dl Total Bilirubin (0.2-1.0) mg/dl Direct Bilirubin (0-0.2) mg/dl AST (13-39) U/L ALT (7-52) U/L Alkaline Phosphatase (34-104) U/L Troponin I High Sens (0-20) pg/ml Total Protein (6.0-8.3) gm/dl Albumin (3.4-5.0) gm/dl Globulin (2.5-4.0) gm/dl Albumin/Globulin Ratio (0.9-2) Procalcitonin (0-0.5) ng/ml TSH (0.300-4.500) uIu/ml Urine Color Urine Appearance (Clear) Urine pH (4.5-7.5) Ur Specific [place] (1.000-1.030) Urine Protein (Negative) Urine Glucose (UA) (Negative) Urine Ketones (Negative) Urine Blood (Negative) Urine Nitrite (Negative) Urine Bilirubin (Negative) Urine Urobilinogen (Negative) Ur Leukocyte Esterase (Negative) Urine WBC (Auto) (0-5) /hpf Urine RBC (Auto) (0-2) /hpf U Hyaline Cast (Auto) (0-2) /lpf U Epithel Cells (Auto) (0-2) /hpf Urine Bacteria (Auto) (None Seen) Staphylococcus sp PCR (NotDetected) mecA/C-Methicil Resis Gene (NotDetected) Staph epidermidis (PCR) (NotDetected) Streptococcus sp PCR (NotDetected) Bld Cult ID Panel PCR (NotDetected) 05/07/24 05/07/24 05/06/24 Range/Units 08:12 02:19 21:38 WBC 7.04 (4.8-10.8) K/ul RBC 4.28 L (4.70-6.10) M/uL Hgb 12.9 L (14.0-18.0) g/dl Hct 38.5 L (42.0-52.0) % MCV 90.0 (80.0-100.0) fL MCH 30.1 (25.0-34.0) pg MCHC 33.5 (32.0-36.0) g/dL RDW Std Deviation 45.6 (36.4-46.3) fL RDW Coeff of Carlos Manuel 13.9 (11.5-14.5) % Plt Count 282 (130-400) K/uL MPV 11.2 (9.4-12.4) fL Immature Gran % (Auto) 0.3 % Neut % (Auto) 74.2 % Lymph % (Auto) 15.1 % Moore % (Auto) 7.8 % Eos % (Auto) 1.6 % Baso % (Auto) 1.0 % Neut # (Auto) 5.23 (1.40-6.50) K/uL Lymph # (Auto) 1.06 L (1.20-3.40) K/uL Moore # (Auto) 0.55 (0.11-0.59) K/uL Eos # (Auto) 0.11 (0.00-0.50) K/uL Baso # (Auto) 0.07 (0.00-0.20) K/uL Immature Gran # (Auto) 0.02 (0.01-0.20) K/uL PT (9.0-12.0) Seconds INR (0.9-1.1) APTT (21-31) Seconds PTT Ratio Sodium 136 (136-145) mmol/L Potassium 3.9 (3.5-5.1) mmol/L Chloride 105 (98-107) mmol/L Carbon Dioxide 22 (21-32) mmol/L Anion Gap 9 (3-11) BUN 30 H (6-23) mg/dl Creatinine 1.06 (0.6-1.4) mg/dl Est Cr Clr Drug Dosing 91.4 ml/min eGFR 80.84 BUN/Creatinine Ratio 28.3 H (10-20) Glucose 239 H (70-99(Fasting)) mg/dl POC Glucose 153 H (70-99) mg/dl Estimat Average Glucose 192 mg/dl Hemoglobin A1c 8.3 H (4.5-5.6) % Lactate (0.4-2.0) mmol/L Calcium 9.2 (8.6-10.3) mg/dl Phosphorus (2.5-4.9) mg/dl Magnesium (1.7-2.4) mg/dl Total Bilirubin (0.2-1.0) mg/dl Direct Bilirubin (0-0.2) mg/dl AST (13-39) U/L ALT (7-52) U/L Alkaline Phosphatase (34-104) U/L Troponin I High Sens 47.3 H D (0-20) pg/ml Total Protein (6.0-8.3) gm/dl Albumin (3.4-5.0) gm/dl Globulin (2.5-4.0) gm/dl Albumin/Globulin Ratio (0.9-2) Procalcitonin (0-0.5) ng/ml TSH 3.793 (0.300-4.500) uIu/ml Urine Color Urine Appearance (Clear) Urine pH (4.5-7.5) Ur Specific [place] (1.000-1.030) Urine Protein (Negative) Urine Glucose (UA) (Negative) Urine Ketones (Negative) Urine Blood (Negative) Urine Nitrite (Negative) Urine Bilirubin (Negative) Urine Urobilinogen (Negative) Ur Leukocyte Esterase (Negative) Urine WBC (Auto) (0-5) /hpf Urine RBC (Auto) (0-2) /hpf U Hyaline Cast (Auto) (0-2) /lpf U Epithel Cells (Auto) (0-2) /hpf Urine Bacteria (Auto) (None Seen) Staphylococcus sp PCR (NotDetected) mecA/C-Methicil Resis Gene (NotDetected) Staph epidermidis (PCR) (NotDetected) Streptococcus sp PCR (NotDetected) Bld Cult ID Panel PCR (NotDetected) 05/06/24 05/06/24 05/06/24 Range/Units 20:49 18:34 18:22 WBC (4.8-10.8) K/ul RBC (4.70-6.10) M/uL Hgb (14.0-18.0) g/dl Hct (42.0-52.0) % MCV (80.0-100.0) fL MCH (25.0-34.0) pg MCHC (32.0-36.0) g/dL RDW Std Deviation (36.4-46.3) fL RDW Coeff of Carlos Manuel (11.5-14.5) % Plt Count (130-400) K/uL MPV (9.4-12.4) fL Immature Gran % (Auto) % Neut % (Auto) % Lymph % (Auto) % Moore % (Auto) % Eos % (Auto) % Baso % (Auto) % Neut # (Auto) (1.40-6.50) K/uL Lymph # (Auto) (1.20-3.40) K/uL Moore # (Auto) (0.11-0.59) K/uL Eos # (Auto) (0.00-0.50) K/uL Baso # (Auto) (0.00-0.20) K/uL Immature Gran # (Auto) (0.01-0.20) K/uL PT (9.0-12.0) Seconds INR (0.9-1.1) APTT (21-31) Seconds PTT Ratio Sodium (136-145) mmol/L Potassium (3.5-5.1) mmol/L Chloride (98-107) mmol/L Carbon Dioxide (21-32) mmol/L Anion Gap (3-11) BUN (6-23) mg/dl Creatinine (0.6-1.4) mg/dl Est Cr Clr Drug Dosing ml/min eGFR BUN/Creatinine Ratio (10-20) Glucose (70-99(Fasting)) mg/dl POC Glucose 306 H* (70-99) mg/dl Estimat Average Glucose mg/dl Hemoglobin A1c (4.5-5.6) % Lactate (0.4-2.0) mmol/L Calcium (8.6-10.3) mg/dl Phosphorus (2.5-4.9) mg/dl Magnesium (1.7-2.4) mg/dl Total Bilirubin (0.2-1.0) mg/dl Direct Bilirubin (0-0.2) mg/dl AST (13-39) U/L ALT (7-52) U/L Alkaline Phosphatase (34-104) U/L Troponin I High Sens (0-20) pg/ml Total Protein (6.0-8.3) gm/dl Albumin (3.4-5.0) gm/dl Globulin (2.5-4.0) gm/dl Albumin/Globulin Ratio (0.9-2) Procalcitonin (0-0.5) ng/ml TSH (0.300-4.500) uIu/ml Urine Color Urine Appearance (Clear) Urine pH (4.5-7.5) Ur Specific [place] (1.000-1.030) Urine Protein (Negative) Urine Glucose (UA) (Negative) Urine Ketones (Negative) Urine Blood (Negative) Urine Nitrite (Negative) Urine Bilirubin (Negative) Urine Urobilinogen (Negative) Ur Leukocyte Esterase (Negative) Urine WBC (Auto) (0-5) /hpf Urine RBC (Auto) (0-2) /hpf U Hyaline Cast (Auto) (0-2) /lpf U Epithel Cells (Auto) (0-2) /hpf Urine Bacteria (Auto) (None Seen) Staphylococcus sp PCR DETECTED A (NotDetected) mecA/C-Methicil Resis Gene Not Detected (NotDetected) Staph epidermidis (PCR) DETECTED A (NotDetected) Streptococcus sp PCR DETECTED A (NotDetected) Bld Cult ID Panel PCR See PCR Comment See PCR Comment (NotDetected) 05/06/24 05/06/24 05/06/24 Range/Units 14:44 14:13 13:45 WBC (4.8-10.8) K/ul RBC (4.70-6.10) M/uL Hgb (14.0-18.0) g/dl Hct (42.0-52.0) % MCV (80.0-100.0) fL MCH (25.0-34.0) pg MCHC (32.0-36.0) g/dL RDW Std Deviation (36.4-46.3) fL RDW Coeff of Carlos Manuel (11.5-14.5) % Plt Count (130-400) K/uL MPV (9.4-12.4) fL Immature Gran % (Auto) % Neut % (Auto) % Lymph % (Auto) % Moore % (Auto) % Eos % (Auto) % Baso % (Auto) % Neut # (Auto) (1.40-6.50) K/uL Lymph # (Auto) (1.20-3.40) K/uL Moore # (Auto) (0.11-0.59) K/uL Eos # (Auto) (0.00-0.50) K/uL Baso # (Auto) (0.00-0.20) K/uL Immature Gran # (Auto) (0.01-0.20) K/uL PT (9.0-12.0) Seconds INR (0.9-1.1) APTT (21-31) Seconds PTT Ratio Sodium (136-145) mmol/L Potassium (3.5-5.1) mmol/L Chloride (98-107) mmol/L Carbon Dioxide (21-32) mmol/L Anion Gap (3-11) BUN (6-23) mg/dl Creatinine (0.6-1.4) mg/dl Est Cr Clr Drug Dosing ml/min eGFR BUN/Creatinine Ratio (10-20) Glucose (70-99(Fasting)) mg/dl POC Glucose (70-99) mg/dl Estimat Average Glucose mg/dl Hemoglobin A1c (4.5-5.6) % Lactate 1.3 (0.4-2.0) mmol/L Calcium (8.6-10.3) mg/dl Phosphorus (2.5-4.9) mg/dl Magnesium (1.7-2.4) mg/dl Total Bilirubin (0.2-1.0) mg/dl Direct Bilirubin (0-0.2) mg/dl AST (13-39) U/L ALT (7-52) U/L Alkaline Phosphatase (34-104) U/L Troponin I High Sens 24.9 H (0-20) pg/ml Total Protein (6.0-8.3) gm/dl Albumin (3.4-5.0) gm/dl Globulin (2.5-4.0) gm/dl Albumin/Globulin Ratio (0.9-2) Procalcitonin 0.02 (0-0.5) ng/ml TSH (0.300-4.500) uIu/ml Urine Color Yellow Urine Appearance Clear (Clear) Urine pH 5.5 (4.5-7.5) Ur Specific [place] 1.025 (1.000-1.030) Urine Protein 2+ H (Negative) Urine Glucose (UA) 3+ H (Negative) Urine Ketones 1+ H (Negative) Urine Blood 3+ H (Negative) Urine Nitrite Negative (Negative) Urine Bilirubin Negative (Negative) Urine Urobilinogen Negative (Negative) Ur Leukocyte Esterase Trace H (Negative) Urine WBC (Auto) >50 H (0-5) /hpf Urine RBC (Auto) 11-20 H (0-2) /hpf U Hyaline Cast (Auto) 3-5 H (0-2) /lpf U Epithel Cells (Auto) 0-2 (0-2) /hpf Urine Bacteria (Auto) 2+ H (None Seen) Staphylococcus sp PCR (NotDetected) mecA/C-Methicil Resis Gene (NotDetected) Staph epidermidis (PCR) (NotDetected) Streptococcus sp PCR (NotDetected) Bld Cult ID Panel PCR (NotDetected) 05/06/24 Range/Units 12:46 WBC 10.01 (4.8-10.8) K/ul RBC 4.64 L (4.70-6.10) M/uL Hgb 14.0 (14.0-18.0) g/dl Hct 40.7 L (42.0-52.0) % MCV 87.7 (80.0-100.0) fL MCH 30.2 (25.0-34.0) pg MCHC 34.4 (32.0-36.0) g/dL RDW Std Deviation 42.9 (36.4-46.3) fL RDW Coeff of Carlos Manuel 13.4 (11.5-14.5) % Plt Count 305 (130-400) K/uL MPV 11.7 (9.4-12.4) fL Immature Gran % (Auto) 0.3 % Neut % (Auto) 84.0 % Lymph % (Auto) 8.0 % Moore % (Auto) 6.6 % Eos % (Auto) 0.2 % Baso % (Auto) 0.9 % Neut # (Auto) 8.41 H (1.40-6.50) K/uL Lymph # (Auto) 0.80 L (1.20-3.40) K/uL Moore # (Auto) 0.66 H (0.11-0.59) K/uL Eos # (Auto) 0.02 (0.00-0.50) K/uL Baso # (Auto) 0.09 (0.00-0.20) K/uL Immature Gran # (Auto) 0.03 (0.01-0.20) K/uL PT 10.3 (9.0-12.0) Seconds INR 0.9 (0.9-1.1) APTT 28 (21-31) Seconds PTT Ratio 1.0 Sodium 135 L (136-145) mmol/L Potassium 4.1 (3.5-5.1) mmol/L Chloride 102 (98-107) mmol/L Carbon Dioxide 23 (21-32) mmol/L Anion Gap 10 (3-11) BUN 30 H (6-23) mg/dl Creatinine 1.14 (0.6-1.4) mg/dl Est Cr Clr Drug Dosing 86.5 ml/min eGFR 74.09 BUN/Creatinine Ratio 26.3 H (10-20) Glucose 361 H* (70-99(Fasting)) mg/dl POC Glucose (70-99) mg/dl Estimat Average Glucose mg/dl Hemoglobin A1c (4.5-5.6) % Lactate (0.4-2.0) mmol/L Calcium 9.8 (8.6-10.3) mg/dl Phosphorus (2.5-4.9) mg/dl Magnesium 1.6 L (1.7-2.4) mg/dl Total Bilirubin 0.6 (0.2-1.0) mg/dl Direct Bilirubin 0.1 (0-0.2) mg/dl AST 15 (13-39) U/L ALT 15 (7-52) U/L Alkaline Phosphatase 135 H (34-104) U/L Troponin I High Sens 21.5 H (0-20) pg/ml Total Protein 7.7 (6.0-8.3) gm/dl Albumin 4.4 (3.4-5.0) gm/dl Globulin 3.3 (2.5-4.0) gm/dl Albumin/Globulin Ratio 1.3 (0.9-2) Procalcitonin (0-0.5) ng/ml TSH (0.300-4.500) uIu/ml Urine Color Urine Appearance (Clear) Urine pH (4.5-7.5) Ur Specific [place] (1.000-1.030) Urine Protein (Negative) Urine Glucose (UA) (Negative) Urine Ketones (Negative) Urine Blood (Negative) Urine Nitrite (Negative) Urine Bilirubin (Negative) Urine Urobilinogen (Negative) Ur Leukocyte Esterase (Negative) Urine WBC (Auto) (0-5) /hpf Urine RBC (Auto) (0-2) /hpf U Hyaline Cast (Auto) (0-2) /lpf U Epithel Cells (Auto) (0-2) /hpf Urine Bacteria (Auto) (None Seen) Staphylococcus sp PCR (NotDetected) mecA/C-Methicil Resis Gene (NotDetected) Staph epidermidis (PCR) (NotDetected) Streptococcus sp PCR (NotDetected) Bld Cult ID Panel PCR (NotDetected) Diagnostic Findings Chest X-Ray 05/06/24 13:19 XR chest 1V portable HISTORY: 58 years-old Male Sepsis COMPARISON: 08/06/2023 TECHNIQUE: AP view of the chest FINDINGS: Cardiac silhouette is normal. No pneumothorax or pleural effusion. Mild chronic interstitial coarsening at the lung bases. No airspace consolidation typical for pneumonia. Degenerative changes of the shoulders and spine. IMPRESSION: No acute process. ACT 112: Negative or not required by law. The above report was generated using voice recognition software. It may contain grammatical, syntax or spelling errors. Electronically signed by: Teo Zavaleta M.D. 05/06/2024 2:11 PM Pelvis X-Ray 05/06/24 13:28 XR pelvis 1-2V routine CLINICAL HISTORY: fall COMPARISON: PET/CT October 22, 2011. FINDINGS: Bilateral iliac stents are incidentally noted. Sacroiliac joints and symphysis pubis are intact. There are no fractures within the pelvis or hips. There is mild joint space narrowing and moderate osteophytosis of both hips. IMPRESSION: No fractures within the pelvis or hips. ACT 112: Negative or not required by law. Electronically signed by: Rolando Knowles M.D. 05/06/2024 1:[address] 05/06/24 16:52 CT head/brain wo con CLINICAL HISTORY: 58 years-old Male with weakness, r/o UTI. Acute weakness TECHNIQUE: Multiple axial CT images of the head were obtained without contrast. A dose lowering technique was utilized adhering to the principles of ALARA. CT DOSE: 625.8 mGy.cm COMPARISON: None. FINDINGS: No acute intracranial hemorrhage, midline shift, intracranial mass, hydrocephalus, territorial ischemia or abnormal extra-axial collection. Involutional changes with density suggestive of chronic microvascular ischemic disease. The calvarium is intact. Paranasal sinuses are generally clear. Small right mastoid effusion. IMPRESSION: No acute intracranial abnormality. ACT 112: Negative or not required by law. The above report was generated using voice recognition software. It may contain grammatical, syntax or spelling errors. Electronically signed by: Teo Zavaleta M.D. 05/07/2024 10:26 AM Knee X-Ray 05/06/24 16:52 XR knee RT 1 or 2V routine, XR knee LT 1 or 2V routine HISTORY: 58 years-old Male fall, r/o fracture acute bilateral knee pain status post fall COMPARISON: None TECHNIQUE: 2 views of the bilateral knees FINDINGS: Right-mild compartmental osteoarthritis. Demineralized appearance of the bones. Mild tricompartmental osteoarthritis with trace joint effusion. No acute fracture or dislocation identified. LEFT-mild tricompartmental osteoarthritis. Demineralized appearance of the bones. Mild tricompartmental osteoarthritis. No large joint effusion. IMPRESSION: Mild osteoarthritis without acute fracture or dislocation. ACT 112: Negative or not required by law. The above report was generated using voice recognition software. It may contain grammatical, syntax or spelling errors. Electronically signed by: Teo Zavaleta M.D. 05/07/2024 10:59 AM Knee X-Ray 05/06/24 16:52 XR knee RT 1 or 2V routine, XR knee LT 1 or 2V routine HISTORY: 58 years-old Male fall, r/o fracture acute bilateral knee pain status post fall COMPARISON: None TECHNIQUE: 2 views of the bilateral knees FINDINGS: Right-mild compartmental osteoarthritis. Demineralized appearance of the bones. Mild tricompartmental osteoarthritis with trace joint effusion. No acute fracture or dislocation identified. LEFT-mild tricompartmental osteoarthritis. Demineralized appearance of the bones. Mild tricompartmental osteoarthritis. No large joint effusion. IMPRESSION: Mild osteoarthritis without acute fracture or dislocation. ACT 112: Negative or not required by law. The above report was generated using voice recognition software. It may contain grammatical, syntax or spelling errors. Electronically signed by: Teo Zavaleta M.D. 05/07/2024 10:[address] 05/11/24 14:13 CT OF THE HEAD WITHOUT CONTRAST CLINICAL HISTORY: weakness/intermittent confusion COMPARISON STUDY: Head CT May 06, 2024. CT DOSE: 688.24 mGy.cm TECHNIQUE: Helical axial images of the head were obtained without IV contrast. Automated exposure control was utilized for the study. A dose lowering technique was utilized adhering to the principles of ALARA. FINDINGS: No acute intracranial hemorrhage, midline shift or mass effect is present. The ventricular system is unremarkable. The basal cisterns are patent. No extra-axial collections are present. There are no findings to suggest acute dural sinus thrombosis or acute territorial infarct. No significant calvarial abnormalities are present. A small amount of fluid within the right mastoid air cells is unchanged. IMPRESSION: No acute intracranial findings. ACT 112: Negative or not required by law. Electronically signed by: Rolando Knowles M.D. 05/11/2024 3:24 PM PG Care Time/CCT Total # of Minutes Spent Total Time Spent with Patient: Total time spent is greater than 50% in coordination of care (as documented) at patient's floor/unit and/or counseling patient: I spent 90 minutes overall addressing this case: 15 min in medical data review/discussion with referring provider(s) and/or preparation for the visit 15 min in direct interaction with the patient/exam 30 min in Advance Care Planning/Goals of Care discussions as detailed above in note (must be >16min) 15 min in subsequent review and synthesis of assessment and plan 15 min communicating with other providers regarding the patient's case:primary team Advanced Care Planning [id number] Advanced Care Planning 30 [place] [address] IN/OBS CONSULT LVL 4,60M (25 - SIGNIFICANT, SEPARATELY IDENTIFIABLE ) Patient Type New Medical Decision Making High Complexity Diagnoses Cancer related pain G89.3 Advanced care planning/counseling discussion Z71.89 Lower extremity weakness R29.898 Prostate cancer C61 Weakness generalized R53.1 Additional Codes Advanced Care Planning - 49998 Advanced Care Planning 30 Min: [id number] Advanced Care Planning 30 Min ([id number])
[2024-05-12 05:49] LABS: Hematocrit (blood only) 34.4 % (42.0-52.0); Hemoglobin 11.3 g/dl (14.0-18.0); Mean Corpuscular Hemoglobin 30.2 pg (25.0-34.0); Mean Corpuscular Hgb Conc 32.8 g/dL (32.0-36.0); Mean Platelet Volume 11.6 fL (9.4-12.4); Platelet Count 265 K/uL (130-400); RDW Coefficient of Variation 14.5 % (11.5-14.5); RDW Standard Deviation 48.8 fL (36.4-46.3); Red Blood Count 3.74 M/uL (4.70-6.10); White Blood Count 5.29 K/ul (4.8-10.8)
[2024-05-12 06:05] LABS: Albumin Globulin Ratio 1.4 (0.9-2); Albumin Level 3.6 gm/dl (3.4-5.0); BUN Creatinine Ratio 39.1 (10-20); Bilirubin,Total 0.3 mg/dl (0.2-1.0); Calcium 9.6 mg/dl (8.6-10.3); Creatinine Clr Calc Pharmacy 75.7 ml/min; Globulin 2.6 gm/dl (2.5-4.0); Potassium 4.4 mmol/L (3.5-5.1); Total Protein 6.2 gm/dl (6.0-8.3)
[2024-05-12 07:58] VITALS: RESP 16; TEMP 97.5
[2024-05-12 11:55] VITALS: BP 108/78; O2SAT 96
--- NOTE | 2024-05-12 12:27 | Hospitalist Progress Note ---
Date of Service May 12, 2024 Assessment & Plan (1) Lower extremity weakness: (2) Hypertensive urgency: (3) Complicated UTI (urinary tract infection): (4) Hyperglycemia: (5) DM type 2 (diabetes mellitus, type 2): (6) History of non-ST elevation myocardial infarction (NSTEMI): (7) Peripheral artery disease: Plan Mr. Hardy is a 58-year-old male with history of NSTEMI, peripheral artery disease, diabetes type 2, hypertension, RCA stenosis, Vlzurfe-Vyajw-Hpadg disease, bladder cancer, ongoing chemotherapy, status post resection, history of supraglottic cancer, hypothyroidism, presenting with generalized weakness for the past few days. Patient found with stap epi bacteremia and UA + for e faecalis. Patient reports R>L LE weakness. CT head without signs of stoke development. Patient otherwise unchanged. Portacath removed 02/2024. Unclear etiology of bacteremia, no obvious source. Discussed case extensively over phone with Dr. Larson on 05/11 with plans for high dose Augmentin until 05/19/2024. Pending dispo plans with CM #Complicated UTI #Staph epidermidis/strep mitis/oralis bacteremia UA suggestive of infection, Urine Cx currently growing E faecalis Blood cultures 1/4 bottles currently growing strep mitis/oralis, 2 out of 4 bottles growing staph epidermidis Repeat blood cultures ordered on 05/08/2024, NGTD Echo with noted EF 55 to 60%, mild concentric left ventricular hypertrophy, sigmoid septum, normal right ventricle function and size, no overt vegetations Infectious disease consulted Discontinue dapto Started PO augmentin 2000mg BIDM 05/11-05/19 #Generalized weakness #Recurrent falls #Charcot Luma Tooth disease Mostly pronounced in the bilateral lower extremities, reports R>L Likely in setting of above and likely secondary to underlying Pnthuwh-Icrdi-Quqai disease Head CT unremarkable Knee xrays noting OA Pelvic xray without fracture PT/OT: rehab #Hypertensive urgency *resolved BPs in 200s on admission Has not been taking usual lisinopril and metoprolol due to nausea for the past few days Continue Metoprolol 50mg/25mg hold lisinopril 30mg qam #Uncontrolled DMTII A1C 8.2 Patient reports he has not been taking his usual insulin Lantus 40 units in a.m., 25 units at at bedtime due to weakness glargine 35U qdaily SSI; Pharmacy glycemic consult #Mild troponin elevation History of NSTEMI earlier this year History of peripheral arterial disease, RCA stenosis Denies chest pain, cardiac symptoms Troponin 20, 24,47, will trend until downtrending EKG no signs of acute ischemia or infarct Echocardiogram 55-60%, no vegetations noted #Bladder cancer Currently undergoing chemotherapy 5 out of 6 sessions Follows with [facility] Missed appointment last Thursday due to weakness Will need followup #History of supraglottic cancer Resolved as per patient #Hypothyroidism Patient supposed to be taking levothyroxine 25 mcg daily but has not been taking this medication for unknown reasons TSH normal Diet: DMII, HH DVT prophylaxis: heparin SQ Dispo: PT/OT ordered for further recs, recommending acute rehab Admission and Anticipated Discharge Date Admission Date: May 06, 2024 Subjective NAEO Reports a little unsettled stomach after meds this am but otherwise no other acute concerns Physical Exam Constitutional: WD/WN, vitals as above Respiratory: normal respiratory effort, lungs clear to auscultation Cardiovascular: RRR, no murmur, no edema Results & Data Results & Data Vital Signs (Past 12 Hours) Vital Signs Temp Pulse Pulse Resp BP Pulse Ox O2 Del Method 05/12/24 11:54 36.4 C L 84 16 108/78 96 Room Air 05/12/24 07:57 36.4 C L 71 16 130/70 95 Room Air 05/12/24 07:00 72 05/12/24 03:44 36.9 C 79 18 97/62 L 97 Room Air Laboratory Results Short CBC 05/12/24 Range/Units 05:23 WBC 5.29 (4.8-10.8) K/ul Hgb 11.3 L (14.0-18.0) g/dl Hct 34.4 L (42.0-52.0) % Plt Count 265 (130-400) K/uL BMP 05/12/24 05:23 Sodium 138 Potassium 4.4 Chloride 108 H Carbon Dioxide 22 BUN 50 H Creatinine 1.28 Glucose 171 H Calcium 9.6 Liver Function 05/12/24 Range/Units 05:23 Total Bilirubin 0.3 (0.2-1.0) mg/dl AST 14 (13-39) U/L ALT 11 (7-52) U/L Alkaline Phosphatase 96 (34-104) U/L Albumin 3.6 (3.4-5.0) gm/dl Medications Administered Home Medications Medication Instructions Recorded Confirmed Last Taken insulin glargine 100 unit/mL (3 25 unit subcut 08/06/23 05/06/24 02/08/24 21:00 mL) subcutaneous pen (Lantus 25 units Solostar U-100 Insulin) insulin glargine 100 unit/mL (3 40 unit subcut [facility] 08/06/23 05/06/24 02/08/24 07:30 mL) subcutaneous pen (Lantus 40 units Solostar U-100 Insulin) lisinopril 30 mg tablet 30 mg PO [facility] 08/06/23 05/06/24 02/08/24 07:30 metoprolol succinate 50 mg 50 mg PO [facility] 08/06/23 05/06/24 02/09/24 05:30 tablet,extended release 24 hr tamsulosin 0.4 mg capsule 0.4 mg PO PM 08/06/23 05/06/24 02/08/24 21:00 metoprolol succinate 25 mg 25 mg PO QPM #30 tabs 08/09/23 05/06/24 02/08/24 21:00 tablet,extended release 24 hr ferrous sulfate 325 mg (65 mg 325 mg PO UD 09/07/23 05/06/24 02/08/24 21:00 iron) tablet (Iron (ferrous sulfate)) Active Medications Generic Name Dose Route Start Last Admin Trade Name Freq PRN Reason Stop Dose Admin Acetaminophen 650 mg 05/06/24 18:14 05/09/24 09:59 Acetaminophen 325 Mg Tab PO 06/05/24 18:13 650 mg Q4H PRN Administration Pain or Fever Amoxicillin/Clavulanate Potassium 4 tab 05/11/24 17:00 05/12/24 07:29 Amoxicillin/Clavulanate 500 Mg Tab PO 05/19/24 16:59 4 tab BIDM [facility] Administration Protocol Ferrous Sulfate 325 mg 05/09/24 09:00 05/11/24 07:37 Ferrous Sulfate 325 Mg Tab PO 06/08/24 08:59 325 mg [id number]@[id number] [facility] Administration Heparin Sodium (Porcine) 5,000 units 05/07/24 21:00 05/12/24 07:32 Heparin Sod 5,000 Unit/0.5 Ml Vial SQ 06/06/24 20:59 5,000 units Q12 [facility] Administration Hydralazine HCl 5 mg 05/06/24 18:14 05/11/24 16:28 Hydralazine Hcl 20 Mg/Ml Vial IV 06/05/24 18:13 5 mg Q6H PRN Administration systolic bp > 160 Promethazine HCl 6.25 mg in 50.25 mls @ 201 mls/hr 05/07/24 14:36 05/12/24 08:55 Phenergan IV 06/06/24 14:35 Infused Q6H PRN Infusion Nausea And Vomiting Insulin Aspart 0 units 05/11/24 07:30 05/12/24 08:52 Insulin Aspart Per Unit Charge SC 06/10/24 07:29 3 units DAILY@0730 [facility] Administration Insulin Aspart 0 units 05/10/24 16:30 05/12/24 12:36 Insulin Aspart Per Unit Charge SC 06/09/24 16:29 8 units 1130,1630,2100 [facility] Administration Insulin Glargine 35 units 05/11/24 09:00 05/12/24 08:51 Lantus Per Unit Charge SC 06/10/24 08:59 35 units DAILY [facility] Administration Protocol Lisinopril 30 mg 05/07/24 09:00 05/08/24 07:54 Lisinopril 10 Mg Tab PO 06/06/24 08:59 30 mg QAM [facility] Administration Lorazepam 0.5 mg 05/09/24 04:05 05/09/24 09:06 Lorazepam 0.5 Mg Tab PO 06/08/24 04:04 0.5 mg TID PRN Administration Anxiety Metoprolol Succinate 50 mg 05/07/24 09:00 05/12/24 07:29 Metoprolol Succ 50mg Ext Rel Tab PO 06/06/24 08:59 50 mg QAM [facility] Administration Metoprolol Succinate 25 mg 05/06/24 21:00 05/11/24 20:01 Metoprolol Succ 25mg Ext Rel Tab PO 06/05/24 20:59 25 mg QPM [facility] Administration Oxycodone HCl 10 mg 05/11/24 12:54 05/12/24 00:03 Oxycodone Hcl Ir 5 Mg Tab (Immediate Release) PO 05/21/24 01:01 10 mg Q4H PRN Administration Pain,dyspnea Tamsulosin HCl 0.4 mg 05/06/24 21:00 05/11/24 20:01 Tamsulosin Hcl 0.4 Mg Cap PO 06/05/24 20:59 0.4 mg PM [facility] Administration
--- NOTE | 2024-05-12 14:50 | Discharge Summary ---
Discharge Summary Date of Service May 12, 2024 Principal Dx & Hospital Course #1 = Principal Diagnosis (1) Lower extremity weakness: (2) Hypertensive urgency: (3) Complicated UTI (urinary tract infection): (4) Hyperglycemia: (5) DM type 2 (diabetes mellitus, type 2): (6) History of non-ST elevation myocardial infarction (NSTEMI): (7) Peripheral artery disease: Plan Mr. Hardy is a 58-year-old male with history of NSTEMI, peripheral artery disease, diabetes type 2, hypertension, RCA stenosis, Ujjshjh-Vfwqg-Xobdb disease, bladder cancer, ongoing chemotherapy, status post resection, history of supraglottic cancer, hypothyroidism, presenting with generalized weakness for the past few days. Patient found with stap epi bacteremia and UA + for e faecalis. Patient also reports R>L LE weakness. CT head without signs of stoke development. Portacath removed 02/2024. Unclear etiology of bacteremia, no obvious source. Discussed case extensively over phone with Dr. Larson on 05/11 with plans for high dose Augmentin until 05/19/2024. Patient with liable blood pressures. Home lisinorpil held. Patient with better glucose control--home glargine adjusted to 25U BID. Patient to discharge to SNF for rehab. #Complicated UTI #Staph epidermidis/strep mitis/oralis bacteremia UA suggestive of infection, Urine Cx currently growing E faecalis Blood cultures 1/4 bottles currently growing strep mitis/oralis, 2 out of 4 bottles growing staph epidermidis Repeat blood cultures ordered on 05/08/2024, NGTD Echo with noted EF 55 to 60%, mild concentric left ventricular hypertrophy, sigmoid septum, normal right ventricle function and size, no overt vegetations Infectious disease consulted Discontinue dapto continue PO augmentin 2000mg BIDM 05/11-05/19 #Generalized weakness #Recurrent falls #Charcot Luma Tooth disease Mostly pronounced in the bilateral lower extremities, reports R>L Likely in setting of above and likely secondary to underlying Uwtmqbn-Ulxlh-Pyjre disease Head CT unremarkable Knee xrays noting OA Pelvic xray without fracture PT/OT: rehab #Hypertensive urgency *resolved BPs in 200s on admission Has not been taking usual lisinopril and metoprolol due to nausea for the past few days Continue Metoprolol 50mg/25mg hold lisinopril 30mg qam #Uncontrolled DMTII A1C 8.2 discharged with 25mg BID glargine #Mild troponin elevation History of NSTEMI earlier this year History of peripheral arterial disease, RCA stenosis Denies chest pain, cardiac symptoms Troponin 20, 24,47, will trend until downtrending EKG no signs of acute ischemia or infarct Echocardiogram 55-60%, no vegetations noted #Bladder cancer Currently undergoing chemotherapy 5 out of 6 sessions Follows with [facility] urology group Missed appointment last Thursday due to weakness Will need followup #History of supraglottic cancer Resolved as per patient #Hypothyroidism Patient supposed to be taking levothyroxine 25 mcg daily but has not been taking this medication for unknown reasons TSH normal Notes For Next Care Provider Medication Changes From Visit Hold lisinopril 30mg daily--consider resumption of lower dose if necessary Reduced glargine to 25U BID Admission HPI Per Admitting Provider 58-year-old male with history of NSTEMI, peripheral artery disease, diabetes type 2, hypertension, RCA stenosis, Lrnkrmz-Cjskh-Bpiev disease, bladder cancer, ongoing chemotherapy, status post resection, history of supraglottic cancer, hypothyroidism, presenting with generalized weakness times few days. Patient states he lives with his father at home, and is usually able to ambulate with no assistive device even with his Jfjwkek-Jrssx-Omzjg disease. He is currently undergoing chemotherapy for bladder cancer at the [facility] physician prescription urology clinic. He has completed 5 out of 6 chemotherapy sessions. He had a fall 2 weeks ago after his right knee gave out which patient states has been flaring up intermittently after a ligament tear on that knee. He did not seek medical attention for that episode. However for the past few days, he has experienced progressive generalized weakness, more pronounced on his bilateral lower extremities. He was supposed to have a 6 to chemo session at the neurology clinic last Thursday but was unable to make it to that appointment due to weakness. Patient also not able to take his usual medications due to nausea. 2 days ago, patient presented to [facility] for above symptoms. As per patient, no clear cause of his weakness was found. He was offered inpatient observation but patient declined and was discharged home. Since that time, patient has had persistent lower extremity weakness prompting consult to [facility] ER. At the ER, patient received afebrile, with blood pressure of systolic 190s, blood glucose 360s. He was given labetalol and hydralazine IV. On my exam, patient seen resting in bed, comfortable, not in distress, pleasant, cooperative. Denies active headache, dizziness, shortness of breath, chest pain, palpitations, nausea. Denies any other new focal neurologic deficits. Admission Exam Per Admitting Provider General- oriented x 3, not in distress, speaks in sentences with no effort or accessory muscle use Head- atraumatic Eyes- PERRL, EOMI, anicteric ENT- oropharynx clear Neck- supple, no JVD, no adenopathy, no thyromegaly; carotids +2/2, no bruits appreciated Lungs- clear to auscultation bilaterally, no rales/wheezes Heart- normal rate, regular rhythm; no murmur, no gallop, no rub appreciated Abdomen- normal bowel sounds, nondistended, soft, nontender, no masses or hepatosplenomegaly Extremities- no pretibial edema, no calf tenderness; peripheral pulses intact Neuro- alert, oriented x 3; CN 2-12 grossly intact; motor 5/5 bilaterally;sensation 100% on all extremities; no other gross focal neurologic deficits Skin- warm & dry Discharge Exam Constitutional WD/WN, vitals as above Respiratory normal respiratory effort, lungs clear to auscultation Cardiovascular RRR, no murmur, no edema Updated Medication List Medication Instructions Recorded Confirmed Type insulin glargine 100 unit/mL (3 25 unit subcut HS 08/06/23 05/06/24 History mL) subcutaneous pen (Lantus Solostar U-100 Insulin) lisinopril 30 mg tablet 30 mg PO QAM 08/06/23 05/06/24 History metoprolol succinate 50 mg 50 mg PO QAM 08/06/23 05/06/24 History tablet,extended release 24 hr tamsulosin 0.4 mg capsule 0.4 mg PO PM 08/06/23 05/06/24 History metoprolol succinate 25 mg 25 mg PO QPM #30 tabs 08/09/23 05/06/24 Rx tablet,extended release 24 hr ferrous sulfate 325 mg (65 mg 325 mg PO UD 09/07/23 05/06/24 History iron) tablet (Iron (ferrous sulfate)) amoxicillin 500 mg-potassium 4 tab PO BIDM 7 days #56 tabs 05/12/24 Rx clavulanate 125 mg tablet insulin glargine 100 unit/mL (3 25 unit (0.25 mL) subcut QAM #0 mL 05/12/24 05/06/24 Rx mL) subcutaneous pen (Lantus Solostar U-100 Insulin) lorazepam 0.5 mg tablet 0.5 mg PO TID PRN anxiety 7 days 05/12/24 Rx #21 tabs oxycodone 5 mg tablet 10 mg (2 x 5 mg) PO Q4H PRN pain 05/12/24 Rx 15 days #84 tabs Hospital Stay Data Consultations 05/06/24 15:35 ED Decision to Admit Stat 05/08/24 08:30 Consult Infectious Diseases Routine 05/10/24 11:36 Consult Palliative Care Routine 05/11/24 09:11 Consult Behavioral Health Liaison Routine Diagnostic Imagining Performed 05/06/24 16:52 CT head/brain wo con Stat 05/11/24 14:13 CT head/brain wo con Routine Pending Results Patient Have Any Pending Studies at Discharge: No Discharge Instructions Given to Patient (Per Discharging Provider) You were admitted for weakness and found to have infection in urine and concern for blood infection. You were treated with IV antibiotics and then transitioned to oral Augmentin. You will continued Augmentin 2000mg (4 tablets) two times a day until 05/19/2024. Change your insulin 25U two times daily. Please hold your lisinopril at this time. Total Time Total Time Spent Total Time Spent (In Minutes): 45
[2024-05-12 14:56] VITALS: PULSE 98
== END 2024-05-12 15:57 | DRG 690 ==
LOC: ED 12:07 → 2W 16:52 → SUATTDRO 16:52 → 2W 17:47
DX: R53.1 Weakness; C61 Malignant neoplasm of prostate; I10 Essential (primary) hypertension; Z85.89 Personal history of malignant neoplasm of other organs and systems; C67.9 Malignant neoplasm of bladder, unspecified; E03.9 Hypothyroidism, unspecified; E11.610 Type 2 diabetes mellitus with diabetic neuropathic arthropathy; G60.0 Hereditary motor and sensory neuropathy; I16.0 Hypertensive urgency; G89.3 Neoplasm related pain (acute) (chronic); I25.2 Old myocardial infarction; E11.51 Type 2 diabetes mellitus with diabetic peripheral angiopathy without gangrene; R29.6 Repeated falls; Z79.4 Long term (current) use of insulin; R79.89 Other specified abnormal findings of blood chemistry; B95.7 Other staphylococcus as the cause of diseases classified elsewhere; R26.2 Difficulty in walking, not elsewhere classified; B95.5 Unspecified streptococcus as the cause of diseases classified elsewhere; N39.0 Urinary tract infection, site not specified; E83.42 Hypomagnesemia; R78.81 Bacteremia; E11.65 Type 2 diabetes mellitus with hyperglycemia

== ENCOUNTER 2024-05-27 11:35 | Inpatient (IN) ==
--- NOTE | 2024-05-27 11:46 | Emergency Department Note ---
Impression & Plan Elevated troponin ADMIT ED Provider Note HPI: History obtained from patient. The patient is a 59-year-old gentleman with history of hypertension, peripheral vascular disease, Eqhzgcy-Rkcvz-Homue disease, type 2 diabetes, presents the emergency department with a chief complaint of nausea and vomiting that began last evening. Patient is currently at an inpatient rehabilitation facility and became ill last night. Patient states he has had tended 15 episodes of yellow- colored emesis since his symptoms began. Patient states he has also been having darker colored urine. Patient denies any current abdominal pain. Patient denies any chest pain or shortness of breath. Per EMS report the patient was hypoxic at 88% in the field and was placed on nasal cannula oxygen. On arrival here to the ED the patient is stable on 2 L nasal cannula oxygen, patient is initially hypertensive but otherwise hemodynamically stable. ROS: - Per HPI Differential Diagnosis: Viral gastroenteritis, acute cholecystitis, small bowel obstruction, acute appendicitis, diverticulitis, acute coronary syndrome, amongst other potential pathologies. *Outpatient medications and allergy history reviewed. 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 Lab work shows a mild leukocytosis at 13.12, hemoglobin is stable at 13.2, platelet count is normal, CMP does not show any evidence of any critical findings, glucose is mildly elevated at 231, there is no evidence of any anion gap elevation, initial high-sensitivity troponin is mildly elevated at 40.5, EKG per my interpretation shows sinus tachycardia without any acute ischemic changes. Delta troponin is elevated at 65.6. On my reassessment patient was taken off of nasal cannula oxygen without any evidence of hypoxia, he denies any current chest pain or shortness of breath, will add chest x-ray given elevation in troponin and reported hypoxia in the field. Will also add viral panel testing. CT imaging of the abdomen pelvis here in the ED does not show any evidence of any bowel obstruction or acute surgical pathology. There is mention of some bladder wall thickening on CT imaging, urinalysis was obtained and does not show any evidence of infection. Given the patient's underlying history of peripheral vascular disease with uptrending troponin in the setting of nausea and vomiting, I feel he should be admitted for observation. I believe at this point his symptoms are possibly secondary to a viral gastroenteritis and troponin may be secondary to demand ischemia but given his history and believe he warrants admission. I discussed the patient's presentation with the on-call midlevel provider for [facility] and the patient was admitted to the hospitalist service of Dr. Ontiveros for further management. Patient was in agreement for admission and he was admitted in stable condition. Consultants/Discussions held with other healthcare providers: -Hospitalist, Dr. Ontiveros Disposition discussion held by myself with: -Patient Diagnosis: 1. Nausea and vomiting, acute 2. Elevated high-sensitivity troponin level, acute 3. History of peripheral vascular disease 4. Leukocytosis, acute, nonspecific Disposition: Admission Ori Enrique DO Emergency Medicine Past Med/Surg History Problem List (Updated 05/27/24 @ 14:56 by Ori Enrique DO) Elevated troponin (Acute) Advanced care planning/counseling discussion Cancer related pain Prostate cancer Streptococcal bacteremia Coagulase negative Staphylococcus bacteremia HTN (hypertension) (Acute) Peripheral artery disease History of non-ST elevation myocardial infarction (NSTEMI) DM type 2 (diabetes mellitus, type 2) Hyperglycemia Complicated UTI (urinary tract infection) Hypertensive urgency Lower extremity weakness Encounter for pre-operative examination Medical History History of carotid artery disease Left CEA listed per PAT RN phone interview but per review of [facility] records, Right CEA was done in 2018 (not left) Arthritis History of kidney stones Hematuria Ongoing issue Anemia NSTEMI (non-ST elevated myocardial infarction) 07/2023- medically managed Follows with S cardio Hypothyroidism Bladder cancer Follows with PCP 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 (A-port placed for chemo and feeding tube placed - subsequent removal) Insulin dependent type 2 diabetes mellitus HLD (hyperlipidemia) HTN (hypertension) Tssgind-Gaypn-Aaabp disease Surgical History History of esophagogastroduodenoscopy (EGD) History of colonoscopy History of removal of Port-a-Cath History of cystoscopy stone removal H/O transurethral resection of bladder tumor (TURBT) x2 History of tooth extraction History of cataract surgery R/L History of intravascular stent placement Bilateral legs PH Darrell Hx of tracheostomy (~2011) Subsequent reversal- 04/2012 History of bladder surgery Tumor removed, Dr. Hall - PHD Cysto, TURBT (09/22/23): LMA supreme + iGel attempted, unable to seal for ventilation > MAC#3, ETT 7.5 at [facility] History of laryngoscopy History of carotid endarterectomy Left side listed per PAT RN phone interview but per review of [facility] records, Right CEA was done in 2018 (not left) Hx of hammer toe correction Multiple toes (x7) Family History Mother Coronary heart disease 50-60s CABG Father Coronary heart disease ID in 40s Other No family history of adverse response to anesthesia Social History Smoking Status: Former smoker Tobacco Type: Cigarettes Cigarettes Per Day: 2 PPD; Second Hand Exposure: Yes; Do You Dip or Chew Tobacco: No; Hx Alcohol Use: No Hx Substance Use: Yes Non-Prescribed Medications: Marijuana Last Used Substance: Hours (ago) Last Used Substance Other:: this morning>advised Preferred Language: Romansh Communication Ability: Effective Returner Required: No Beliefs That Will Affect Care: None marital status: Single Current Living Situation: Family Current Living Situation Comment: lives with dad and daughter current occupational status: disabled Feels Safe at Home: Yes Assistive Devices: Brace/Splint/Immobilizer, Cane and Walker Allergies Allergies Allergy/AdvReac Type Severity Reaction Status Date / Time No Known Allergies Allergy Verified 02/09/24 07:01 Home Meds Home Medications Medication Instructions Recorded Confirmed insulin glargine 100 unit/mL (3 25 unit subcut HS 08/06/23 05/06/24 mL) subcutaneous pen (Lantus Solostar U-100 Insulin) lisinopril 30 mg tablet 30 mg PO QAM 08/06/23 05/06/24 metoprolol succinate 50 mg 50 mg PO QAM 08/06/23 05/06/24 tablet,extended release 24 hr tamsulosin 0.4 mg capsule 0.4 mg PO PM 08/06/23 05/06/24 ferrous sulfate 325 mg (65 mg 325 mg PO UD 09/07/23 05/06/24 iron) tablet (Iron (ferrous sulfate)) Previous Rx's Medication Instructions Recorded metoprolol succinate 25 mg 25 mg PO QPM #30 tabs 08/09/23 tablet,extended release 24 hr insulin glargine 100 unit/mL (3 25 unit (0.25 mL) subcut QAM #0 mL 05/12/24 mL) subcutaneous pen (Lantus Solostar U-100 Insulin) Results & Data (ED) Vital Signs Vital Signs - 24 hr 05/27/24 11:46 05/27/24 11:47 05/27/24 12:13 Temperature 37.6 C Temperature Source Oral Pulse Rate 118 H 117 H 107 H Pulse Rate [Apical] Pulse Rhythm [Apical] Respiratory Rate 24 25 H Respiratory Effort / Characteristics Respiratory Depth Blood Pressure 178/97 H Blood Pressure [Right Arm] Blood Pressure Mean 124 Blood Pressure Mean [Right Arm] Pulse Oximetry 94 97 Oxygen Delivery Method Room Air Room Air Oxygen Flow Rate 3 Sepsis Recent Fever Within 48 Hours No Sepsis New/Unexplained Change in Mental Status N/A Sepsis Action Taken by Nursing Physician Notified 05/27/24 13:18 05/27/24 15:00 Temperature Temperature Source Pulse Rate Pulse Rate [Apical] 92 H 86 Pulse Rhythm [Apical] Regular Respiratory Rate 19 20 Respiratory Effort / Characteristics Non-Labored Respiratory Depth Normal Blood Pressure Blood Pressure [Right Arm] 179/100 H 161/83 H Blood Pressure Mean Blood Pressure Mean [Right Arm] 126 109 Pulse Oximetry 98 94 Oxygen Delivery Method Nasal Cannula Room Air Oxygen Flow Rate 2 Sepsis Recent Fever Within 48 Hours Sepsis New/Unexplained Change in Mental Status Sepsis Action Taken by Nursing Laboratory Data 05/27/24 12:02 11/22/24 12:02 Lab Results 05/27/24 05/27/24 05/27/24 Range/Units 12:02 12:10 13:47 WBC 13.12 H (4.8-10.8) K/ul RBC 4.39 L (4.70-6.10) M/uL Hgb 13.2 L (14.0-18.0) g/dl Hct 38.7 L (42.0-52.0) % MCV 88.2 (80.0-100.0) fL MCH 30.1 (25.0-34.0) pg MCHC 34.1 (32.0-36.0) g/dL RDW Std Deviation 44.9 (36.4-46.3) fL RDW Coeff of Carlos Manuel 13.8 (11.5-14.5) % Plt Count 221 (130-400) K/uL MPV 11.4 (9.4-12.4) fL Immature Gran % (Auto) 0.4 % Neut % (Auto) 95.1 % Lymph % (Auto) 1.7 % [place] % (Auto) 2.5 % Eos % (Auto) 0.0 % Baso % (Auto) 0.3 % Neut # (Auto) 12.48 H (1.40-6.50) K/uL Lymph # (Auto) 0.22 L (1.20-3.40) K/uL [place] # (Auto) 0.33 (0.11-0.59) K/uL Eos # (Auto) 0.00 (0.00-0.50) K/uL Baso # (Auto) 0.04 (0.00-0.20) K/uL Immature Gran # (Auto) 0.05 (0.01-0.20) K/uL Toxic Vacuolation 2+ PT 10.9 (9.0-12.0) Seconds INR 1.0 (0.9-1.1) Sodium 137 (136-145) mmol/L Potassium 3.6 (3.5-5.1) mmol/L Chloride 100 (98-107) mmol/L Carbon Dioxide 26 (21-32) mmol/L Anion Gap 11 (3-11) BUN 20 (6-23) mg/dl Creatinine 0.92 (0.6-1.4) mg/dl Est Cr Clr Drug Dosing 108.1 ml/min eGFR 95.23 BUN/Creatinine Ratio 21.7 H (10-20) Glucose 231 H (70-99(Fasting)) mg/dl Calcium 9.5 (8.6-10.3) mg/dl Total Bilirubin 1.0 (0.2-1.0) mg/dl AST 14 (13-39) U/L ALT 13 (7-52) U/L Alkaline Phosphatase 86 (34-104) U/L Troponin I High Sens 40.1 H 65.6 H* D (0-20) pg/ml Total Protein 7.3 (6.0-8.3) gm/dl Albumin 3.9 (3.4-5.0) gm/dl Globulin 3.4 (2.5-4.0) gm/dl Albumin/Globulin Ratio 1.1 (0.9-2) Lipase 5 L (11-82) U/L Urine Color Urine Appearance (Clear) Urine pH (4.5-7.5) Ur Specific [place] (1.000-1.030) Urine Protein (Negative) Urine Glucose (UA) (Negative) Urine Ketones (Negative) Urine Blood (Negative) Urine Nitrite (Negative) Urine Bilirubin (Negative) Urine Urobilinogen (Negative) Ur Leukocyte Esterase (Negative) Urine WBC (Auto) (0-5) /hpf Urine RBC (Auto) (0-2) /hpf U Hyaline Cast (Auto) (0-2) /lpf U Epithel Cells (Auto) (0-2) /hpf Urine Bacteria (Auto) (None Seen) SARS-CoV-2, RNA, NAAT NEGATIVE (NEGATIVE) 05/27/24 Range/Units 14:40 WBC (4.8-10.8) K/ul RBC (4.70-6.10) M/uL Hgb (14.0-18.0) g/dl Hct (42.0-52.0) % MCV (80.0-100.0) fL MCH (25.0-34.0) pg MCHC (32.0-36.0) g/dL RDW Std Deviation (36.4-46.3) fL RDW Coeff of Carlos Manuel (11.5-14.5) % Plt Count (130-400) K/uL MPV (9.4-12.4) fL Immature Gran % (Auto) % Neut % (Auto) % Lymph % (Auto) % [place] % (Auto) % Eos % (Auto) % Baso % (Auto) % Neut # (Auto) (1.40-6.50) K/uL Lymph # (Auto) (1.20-3.40) K/uL [place] # (Auto) (0.11-0.59) K/uL Eos # (Auto) (0.00-0.50) K/uL Baso # (Auto) (0.00-0.20) K/uL Immature Gran # (Auto) (0.01-0.20) K/uL Toxic Vacuolation PT (9.0-12.0) Seconds INR (0.9-1.1) Sodium (136-145) mmol/L Potassium (3.5-5.1) mmol/L Chloride (98-107) mmol/L Carbon Dioxide (21-32) mmol/L Anion Gap (3-11) BUN (6-23) mg/dl Creatinine (0.6-1.4) mg/dl Est Cr Clr Drug Dosing ml/min eGFR BUN/Creatinine Ratio (10-20) Glucose (70-99(Fasting)) mg/dl Calcium (8.6-10.3) mg/dl Total Bilirubin (0.2-1.0) mg/dl AST (13-39) U/L ALT (7-52) U/L Alkaline Phosphatase (34-104) U/L Troponin I High Sens (0-20) pg/ml Total Protein (6.0-8.3) gm/dl Albumin (3.4-5.0) gm/dl Globulin (2.5-4.0) gm/dl Albumin/Globulin Ratio (0.9-2) Lipase (11-82) U/L Urine Color Yellow Urine Appearance Clear (Clear) Urine pH 7.5 (4.5-7.5) Ur Specific [place] 1.041 H (1.000-1.030) Urine Protein 3+ H (Negative) Urine Glucose (UA) 2+ H (Negative) Urine Ketones 1+ H (Negative) Urine Blood Negative (Negative) Urine Nitrite Negative (Negative) Urine Bilirubin Negative (Negative) Urine Urobilinogen Negative (Negative) Ur Leukocyte Esterase Negative (Negative) Urine WBC (Auto) 0-5 (0-5) /hpf Urine RBC (Auto) 0-2 (0-2) /hpf U Hyaline Cast (Auto) 0-2 (0-2) /lpf U Epithel Cells (Auto) 0-2 (0-2) /hpf Urine Bacteria (Auto) None Seen (None Seen) SARS-CoV-2, RNA, NAAT (NEGATIVE) Administered Medications Discontinued Medications Sodium Chloride (Nss) 1,000 mls @ 999 mls/hr IV .Q1H1M ONE Stop: 05/27/24 12:44 Last Infusion: 05/27/24 13:48 Dose: Infused Documented By: Admin: 05/27/24 12:39 Dose: 999 mls/hr Documented By: MAU Ioversol (Optiray 320 100ml) 94 ml IV ONCE ONE Stop: 05/27/24 13:11 Last Admin: 05/27/24 13:10 Dose: 94 ml Documented By: EDK Imaging Data Radiologist's Impression: Abdomen/Pelvis CT 05/27/24 12:07 CT OF THE ABDOMEN AND PELVIS WITH CONTRAST CLINICAL HISTORY: Nausea and vomiting. COMPARISON STUDY: PET/CT October 22, 2011. TECHNIQUE: Following IV administration of 94 mL of Optiray, axial images of the abdomen and pelvis were obtained from the lung bases to the proximal femurs. Images were reviewed in the axial, sagittal, and coronal planes. IV contrast was administered without complication. Automated exposure control was utilized for the study. A dose lowering technique was utilized adhering to the principles of ALARA. CT DOSE: 1462.64 mGy.cm FINDINGS: No pneumatosis, free air or portal venous gas is present. There are gallstones within the gallbladder. There is no evidence for acute cholecystitis. Liver, spleen, adrenal glands and pancreas are unremarkable. Water attenuation 2.5 cm left renal lesion represents a cyst. A few subcentimeter left renal lesions are too small to characterize. There are symmetric bilateral perinephric fluid. There is no hydronephrosis. There are no urinary calculi. There is no evidence for a bowel obstruction. The appendix is normal. There is a large amount stool within the rectum and moderate amount of stool within the colon. There is extensive aortoiliac atherosclerotic plaque. Although suboptimally assessed on this exam, the bilateral iliac artery stents appear patent. There is no lymphadenopathy. There are no fluid collections. IMPRESSION: 1. No evidence for a bowel obstruction. No bowel wall thickening. 2. Large amount of stool within the rectum and moderate amount of stool within the colon. 3. Cholelithiasis. No evidence for acute cholecystitis. 4. Symmetric bilateral perinephric fluid which is of doubtful significance. Mild body wall edema. ACT 112: Negative or not required by law. Electronically signed by: Rolando Knowles M.D. 05/27/2024 1:39 PM Discharge Plan Visit Data Chief Complaint: Vomiting Stated Complaint: VOMITING ED Provider: Ori Enrique Discharge Problem: Elevated troponin Forms Stand Alone Forms: [facility] [employer] Prescriptions Prescriptions: No Action ferrous sulfate [Iron (ferrous sulfate)] 325 mg (65 mg iron) Tablet 325 mg PO UD Rx Instructions: Mon-Thu-Thu insulin glargine [Lantus Solostar U-100 Insulin] 100 unit/mL (3 mL) insulin pen 25 unit SUBCUT QAM Qty: 0 0RF metoprolol succinate 50 mg tablet extended release 24 hr 50 mg PO QAM tamsulosin 0.4 mg capsule 0.4 mg PO PM lisinopril 30 mg tablet 30 mg PO QAM Hold Instructions: resume if BP consistently greater than 140 insulin glargine [Lantus Solostar U-100 Insulin] 100 unit/mL (3 mL) insulin pen 25 unit SUBCUT HS metoprolol succinate 25 mg Tablet Extended Release 24 Hr 25 mg PO QPM Qty: 30 0RF Referrals Referrals: Juvencio Abebe [Primary Care Provider] -
[2024-05-27 12:26] LABS: Hematocrit (blood only) 38.7 % (42.0-52.0); Hemoglobin 13.2 g/dl (14.0-18.0); Mean Corpuscular Hemoglobin 30.1 pg (25.0-34.0); Mean Corpuscular Hgb Conc 34.1 g/dL (32.0-36.0); Mean Corpuscular Volume 88.2 fL (80.0-100.0); Mean Platelet Volume 11.4 fL (9.4-12.4); Platelet Count 221 K/uL (130-400); RDW Coefficient of Variation 13.8 % (11.5-14.5); RDW Standard Deviation 44.9 fL (36.4-46.3); Red Blood Count 4.39 M/uL (4.70-6.10); White Blood Count 13.12 K/ul (4.8-10.8)
[2024-05-27] MEDS: SODIUM CHLORIDE 0.9% 1,000 ML IV ONE (12:39)
[2024-05-27 12:43] LABS: Albumin Globulin Ratio 1.1 (0.9-2); Albumin Level 3.9 gm/dl (3.4-5.0); BUN Creatinine Ratio 21.7 (10-20); Calcium 9.5 mg/dl (8.6-10.3); Creatinine Clr Calc Pharmacy 108.1 ml/min; Globulin 3.4 gm/dl (2.5-4.0); Potassium 3.6 mmol/L (3.5-5.1); Total Protein 7.3 gm/dl (6.0-8.3)
[2024-05-27 12:44] LABS: Basophils # (auto) 0.04 K/uL (0.00-0.20); Basophils % (auto) 0.3 %; Immature Granulocytes # (auto) 0.05 K/uL (0.01-0.20); Immature Granulocytes % (auto) 0.4 %; Lymphocytes # (auto) 0.22 K/uL (1.20-3.40); Lymphocytes % (auto) 1.7 %; Monocytes # (auto) 0.33 K/uL (0.11-0.59); Monocytes % (auto) 2.5 %; Neutrophils # (auto) 12.48 K/uL (1.40-6.50); Neutrophils % (auto) 95.1 %; Toxic Vacuolation 2+
[2024-05-27 12:48] LABS: Troponin I High Sensitivity 40.1 pg/ml (0-20)
[2024-05-27 12:50] LABS: Prothrombin Time 10.9 Seconds (9.0-12.0)
[2024-05-27] MEDS: OPTIRAY 320 100ml IV ONE (13:10)
--- NOTE | 2024-05-27 13:40 | CT Scan Report ---
CT OF THE ABDOMEN AND PELVIS WITH CONTRAST CLINICAL HISTORY: Nausea and vomiting. COMPARISON STUDY: PET/CT October 22, 2011. TECHNIQUE: Following IV administration of 94 mL of Optiray, axial images of the abdomen and pelvis we re obtained from the lung bases to the proximal femurs. Images were reviewed in the axial, sagittal, and coronal planes. IV contrast was administered without complication. Automated exposure control wa s utilized for the study. A dose lowering technique was utilized adhering to the principles of ALARA . CT DOSE: 1462.64 mGy.cm FINDINGS: No pneumatosis, free air or portal venous gas is present. There are gallstones within the g allbladder. There is no evidence for acute cholecystitis. Liver, spleen, adrenal glands and pancreas are unremarkable. Water attenuation 2.5 cm left renal lesion represents a cyst. A few subcentimeter l eft renal lesions are too small to characterize. There are symmetric bilateral perinephric fluid. The re is no hydronephrosis. There are no urinary calculi. There is no evidence for a bowel obstruction. The appendix is normal. There is a large amount stool within the rectum and moderate amount of stool within the colon. There is extensive aortoiliac atherosclerotic plaque. Although suboptimally assesse d on this exam, the bilateral iliac artery stents appear patent. There is no lymphadenopathy. There a re no fluid collections. IMPRESSION: 1. No evidence for a bowel obstruction. No bowel wall thickening. 2. Large amount of stool within the rectum and moderate amount of stool within the colon. 3. Cholelithiasis. No evidence for acute cholecystitis. 4. Symmetric bilateral perinephric fluid which is of doubtful significance. Mild body wall edema. ACT 112: Negative or not required by law. Electronically signed by: Rolando Knowles M.D. 05/27/2024 1:39 PM
--- NOTE | 2024-05-27 14:40 | Electrocardiogram Report ---
Test Reason : Blood Pressure : */* mmHG Vent. Rate : 116 BPM Atrial Rate : 116 BPM P-R Int : 170 ms QRS Dur : 96 ms QT Int : 332 ms P-R-T Axes : 66 55 96 degrees QTcB Int : 461 ms Sinus tachycardia Nonspecific ST and T wave abnormality Abnormal ECG When compared with ECG of 06-May-2024 12:16, ST more depressed Lateral leads Nonspecific T wave abnormality no longer evident in Inferior leads Confirmed by Besnon Garcia ([id number]) on 05/27/2024 2:40:03 PM Referred By: Confirmed By: Benson Garcia
[2024-05-27 15:05] LABS: Appearance Urine Clear (Clear); Bacteria Urine Automated None Seen (None Seen); Bilirubin Urine Negative (Negative); Blood Urine Negative (Negative); Cast Urine Automated 0-2 /lpf (0-2); Color Urine Yellow; Epithelial Cell Urine Auto 0-2 /hpf (0-2); Glucose Urine UA 2+ (Negative); Ketones Urine 1+ (Negative); Leukocyte Esterase Urine Negative (Negative); Nitrite Urine Negative (Negative); Protein Urine 3+ (Negative); RBC Urine Automated 0-2 /hpf (0-2); Specific Gravity Urine 1.041 (1.000-1.030); Urobilinogen Urine Negative (Negative); WBC Urine Automated 0-5 /hpf (0-5); pH Urine 7.5 (4.5-7.5)
--- NOTE | 2024-05-27 15:07 | History & Physical Report ---
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 Nausea/Vomiting, Possible Viral Gastroenteritis: Technically meets SIRS criteria given tachycardia, transient tachypnea and WBC>12k. BioFire, CXR negative. CTAP notes mild bladder wall thickening however UA is negative. No overt source of infection at this time however his procalcitonin is significantly elevated at 18.9 on admission. Lactate pending. Urine and blood cultures pending. Chest CTA pending. S/p 1L NSS in the ED. Will give an additional 1L NSS. Continue symptomatic manag ement, hold off on ABX for now. Liquid diet ordered, however can advance MYRIAM. Repeat CXR in AM. 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 He was previously on 2L via nasal cannula upon arrival to the ED but has since been saturating well on room air. Patient without any respiratory complaints except for a mild nonproductive cough. CXR personally reviewed and unremarkable except for mild atelectasis. Encourage incentive spirometry. Venous doppler US BLE pending given 1-2+ BLE edema on exam. Chest CTA also pending as per above. Elevated Troponin: Initial troponin 40.1 --> repeat troponin 65.6; EKG personally reviewed and without any overt ischemic changes. Likely demand ischemia at this time. Echo from prior admission reviewed. Patient is without chest pain/cardiac complaints. Will obtain limited echo and trend troponin Q6H. Daily EKG x 2. EKG with chest pain PRN. Stool Retention on CTAP: Large amount of stool burden in the rectum/colon on CTAP. Bowel regimen on board; continue to monitor, maybe benefit from repeat imaging. Uncontrolled Insulin-Dependent DM Type II: Basal/bolus regimen while inpatient. BSG checks ACHS. Most recent Hgb A1c was 8.3% last admission. Glycemic pharmacy consulted. Bladder Cancer: Patient follows with [facility]; he has decided to NOT undergo his last session of chemotherapy. He has an upcoming appointment with Dr. Méndez on 06/08/2024. Other Chronic Medical Conditions: BPH/HTN --> Can continue home medications for these specific conditions, including his lisinopril as his BP has been mildly elevated since arrival. DVT Prophylaxis: SQ Heparin Code Status: FULL CODE PCP: Juvencio Abebe MD Disposition: Admit to Med/Tele - Patient is coming in from [facility], anticipated discharge date uncertain at this time depending on the patient's clinical progression. PT/OT evals pending. Patient seen in collaboration with Dr. Ontiveros. Please see addendum. I spent a total of 75 minutes coordinating, documenting, and providing care for this patient excluding time spent in the performance of separately billed services. This included personally reviewing all current laboratories and imaging studies, medical reconciliation, outpatient chart review and discussion with specialists. This chart was completed in part utilizing Speech Voice Recognition Software. Grammatical errors, random word insertions, pronoun errors, and incomplete sentences are an occasional consequence of this system due to software limitations, ambient noise, and hardware issues. Any formal questions or concerns about the content, text, or information contained within the body of this dictation should be directly addressed to the provider for clarification. 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 History obtained from the patient and associated chart review. Of note, patient was recently admitted under our service (05/06/2024-05/12/2024) prior to being discharged to [facility] for rehabilitation services. He had presented at the time of generalized weakness and was found to have a complicated UTI in addition to bacteremia. Urine culture from 05/06/2024 grew Enterococcus faecalis and 2/4 blood cultures grew Staphylococcus epidermis. 1/4 blood cultures grew Streptococcus mitis/oralis grp (repeat blood cultures on 05/08/2024 were negative). He was seen and evaluated by infectious disease. He was on IV antibiotics before being transitioned to a high-dose oral Augmentin course at time of discharge. He completed the Augmentin course on 05/19/2024. Patient has been experiencing nausea and vomiting since last night after dinner, he reports approximately 15 or more episodes of vomiting with his last one being earlier this morning around 11AM. Denies any abdominal pain or fever, but does endorse some mild chills. However, according to documentation from [facility], the patient reportedly had a fever of 102F this morning. He has been tolerating some sips of water since this morning. He denies any hematemesis or diarrhea. His WBC count is elevated at 13k on admission. Also of note, his troponin was initially elevated at 40.1 --> repeat troponin bumped up to 65.6; patient denies any chest pain or cardiac symptoms at this time. He was noted to be mildly hypoxic (unsure of exact SpO2) per EMS en route to the ED and was placed on 2L via nasal cannula. Patient denies ever being short of breath. He is now saturating well on room air in the ED. He has a mild cough but it is nonproductive. He denies any sinus or chest congestion. He reports that he has been feeling good up until now following his most recent discharge as per above. He does have chronic back pain at baseline for which he is on chronic opioids for. He endorses regular bowel movements over the past couple of days although his CTAP notes a good amount of stool retention. Last bowel movement was this morning. Allergies Allergy/AdvReac Type Severity Reaction Status Date / Time No Known Allergies Allergy Verified 02/09/24 07:01 Home Medications Medication Instructions Recorded Confirmed Type insulin glargine 100 unit/mL (3 25 unit subcut HS 08/06/23 05/27/24 History mL) subcutaneous pen (Lantus Solostar U-100 Insulin) lisinopril 30 mg tablet 30 mg PO QAM 08/06/23 05/27/24 History metoprolol succinate 50 mg 50 mg PO QAM 08/06/23 05/27/24 History tablet,extended release 24 hr tamsulosin 0.4 mg capsule 0.4 mg PO PM 08/06/23 05/27/24 History metoprolol succinate 25 mg 25 mg PO QPM #30 tabs 08/09/23 05/27/24 Rx tablet,extended release 24 hr ferrous sulfate 325 mg (65 mg 325 mg PO UD 09/07/23 05/27/24 History iron) tablet (Iron (ferrous sulfate)) insulin glargine 100 unit/mL (3 25 unit (0.25 mL) subcut QAM #0 mL 05/12/24 05/27/24 Rx mL) subcutaneous pen (Lantus Solostar U-100 Insulin) Past Med/Surg History Problem List Hypoxia Nausea and vomiting Elevated troponin (Acute) Advanced care planning/counseling discussion Cancer related pain Prostate cancer Streptococcal bacteremia Coagulase negative Staphylococcus bacteremia HTN (hypertension) (Acute) Peripheral artery disease History of non-ST elevation myocardial infarction (NSTEMI) DM type 2 (diabetes mellitus, type 2) Hyperglycemia Complicated UTI (urinary tract infection) Hypertensive urgency Lower extremity weakness Encounter for pre-operative examination Medical History Weakness generalized History of carotid artery disease Left CEA listed per PAT RN phone interview but per review of [facility] records, Right CEA was done in 2018 (not left) Arthritis History of kidney stones Hematuria Ongoing issue Anemia NSTEMI (non-ST elevated myocardial infarction) 07/2023- medically managed Follows with [facility] Hypothyroidism Bladder cancer Follows with PCP 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 (A-port placed for chemo and feeding tube placed - subsequent removal) Insulin dependent type 2 diabetes mellitus HLD (hyperlipidemia) HTN (hypertension) Wzjjvgh-Bzujo-Zwqex disease Surgical History History of esophagogastroduodenoscopy (EGD) History of colonoscopy History of removal of Port-a-Cath History of cystoscopy stone removal H/O transurethral resection of bladder tumor (TURBT) x2 History of tooth extraction History of cataract surgery R/L History of intravascular stent placement Bilateral legs PH Darrell Hx of tracheostomy (~2011) Subsequent reversal- 04/2012 History of bladder surgery Tumor removed, Dr. Hall - PHD Cysto, TURBT (09/22/23): LMA supreme + iGel attempted, unable to seal for ventilation > MAC#3, ETT 7.5 at [facility] History of laryngoscopy History of carotid endarterectomy Left side listed per PAT RN phone interview but per review of [facility] records, Right CEA was done in 2018 (not left) Hx of hammer toe correction Multiple toes (x7) Family History Mother Coronary heart disease 50-60s CABG Father Coronary heart disease OR in 40s Other No family history of adverse response to anesthesia Social History Smoking Status: Former smoker Tobacco Type: Cigarettes Cigarettes Per Day: 2 PPD; Second Hand Exposure: Yes; Do You Dip or Chew Tobacco: No; Hx Alcohol Use: No Hx Substance Use: Yes Non-Prescribed Medications: Marijuana Last Used Substance: Hours (ago) Last Used Substance Other:: this morning>advised Preferred Language: German Communication Ability: Effective Pickling Operator Required: No Beliefs That Will Affect Care: None marital status: Single Current Living Situation: Family Current Living Situation Comment: lives with dad and daughter current occupational status: disabled Feels Safe at Home: Yes Assistive Devices: Brace/Splint/Immobilizer, Cane and Walker Review of Systems Review of Systems: At least ten systems reviewed and negative, except as noted in the HPI. Physical Exam Physical Exam: General: NAD, sitting up in bed, pleasant, appears rather tired but conversing appropriately. A+Ox3, euthymic affect. HEENT: Normocephalic, atraumatic. Conjunctivae normal, anicteric sclerae. External ear and nose normal, oropharynx somewhat dry. Respiratory: Normal respiratory effort, lungs clear to auscultation throughout, no wheeze/rales/rhonchi. No accessory muscle use. Cardiovascular: Regular rate, rhythm, normal peripheral pulses, 1-2+ BLE edema. Vessels: No JVD. Abdomen/GI: Normal bowel sounds, mildly distended but soft, nontender to palpation in all quadrants. Extremities/Musculoskeletal: No cyanosis or clubbing, extremities motor strength not tested, moves all extremities. Neurologic: No overt focal deficits, CN's II-XI not formally tested but appear grossly intact bilaterally. Skin: No rashes, mildly pale skin coloration, warm/dry. Results & Data Results & Data Vital Signs (Past 12 Hours) Vital Signs Temp Pulse Pulse Resp BP BP Pulse Ox 05/27/24 15:00 86 20 161/83 H 94 05/27/24 13:18 92 H 19 179/100 H 98 05/27/24 12:13 107 H 25 H 97 05/27/24 11:47 37.6 C 117 H 24 178/97 H 94 05/27/24 11:46 118 H O2 Del Method O2 Flow Rate 05/27/24 15:00 Room Air 05/27/24 13:18 Nasal Cannula 2 05/27/24 12:13 Room Air 3 05/27/24 11:47 Room Air 05/27/24 11:46 Laboratory Results Short CBC 05/27/24 Range/Units 12:02 WBC 13.12 H (4.8-10.8) K/ul Hgb 13.2 L (14.0-18.0) g/dl Hct 38.7 L (42.0-52.0) % Plt Count 221 (130-400) K/uL BMP 05/27/24 12:02 Sodium 137 Potassium 3.6 Chloride 100 Carbon Dioxide 26 BUN 20 Creatinine 0.92 Glucose 231 H Calcium 9.5 Liver Function 05/27/24 Range/Units 12:02 Total Bilirubin 1.0 (0.2-1.0) mg/dl AST 14 (13-39) U/L ALT 13 (7-52) U/L Alkaline Phosphatase 86 (34-104) U/L Albumin 3.9 (3.4-5.0) gm/dl Urine 05/27/24 Range/Units 14:40 Urine Color Yellow Urine Appearance Clear (Clear) Urine pH 7.5 (4.5-7.5) Ur Specific Huger 1.041 H (1.000-1.030) Urine Protein 3+ H (Negative) Urine Glucose (UA) 2+ H (Negative) Diagnostic Findings Abdomen/Pelvis CT 05/27/24 12:07 CT OF THE ABDOMEN AND PELVIS WITH CONTRAST CLINICAL HISTORY: Nausea and vomiting. COMPARISON STUDY: PET/CT October 22, 2011. TECHNIQUE: Following IV administration of 94 mL of Optiray, axial images of the abdomen and pelvis were obtained from the lung bases to the proximal femurs. Images were reviewed in the axial, sagittal, and coronal planes. IV contrast was administered without complication. Automated exposure control was utilized for the study. A dose lowering technique was utilized adhering to the principles of ALARA. CT DOSE: 1462.64 mGy.cm FINDINGS: No pneumatosis, free air or portal venous gas is present. There are gallstones within the gallbladder. There is no evidence for acute cholecystitis. Liver, spleen, adrenal glands and pancreas are unremarkable. Water attenuation 2.5 cm left renal lesion represents a cyst. A few subcentimeter left renal lesions are too small to characterize. There are symmetric bilateral perinephric fluid. There is no hydronephrosis. There are no urinary calculi. There is no evidence for a bowel obstruction. The appendix is normal. There is a large amount stool within the rectum and moderate amount of stool within the colon. There is extensive aortoiliac atherosclerotic plaque. Although suboptimally assessed on this exam, the bilateral iliac artery stents appear patent. There is no lymphadenopathy. There are no fluid collections. IMPRESSION: 1. No evidence for a bowel obstruction. No bowel wall thickening. 2. Large amount of stool within the rectum and moderate amount of stool within the colon. 3. Cholelithiasis. No evidence for acute cholecystitis. 4. Symmetric bilateral perinephric fluid which is of doubtful significance. Mild body wall edema. ACT 112: Negative or not required by law. Electronically signed by: Rolando Knowles M.D. 05/27/2024 1:39 PM Medications Administered Discontinued Medications Sodium Chloride (Nss) 1,000 mls @ 999 mls/hr IV .Q1H1M ONE Stop: 05/27/24 12:44 Last Infusion: 05/27/24 13:48 Dose: Infused Documented By: Admin: 05/27/24 12:39 Dose: 999 mls/hr Documented By: MAU Ioversol (Optiray 320 100ml) 94 ml IV ONCE ONE Stop: 05/27/24 13:11 Last Admin: 05/27/24 13:10 Dose: 94 ml Documented By: EDK Code Status & VTE Plan Code Status FULL CODE Supervising Physician Co-Signing Physician Notes Attending addendum: The patient was seen and examined in emergency room He has been complaining of nausea and vomiting since last night after dinner without any abdominal pain and/or distention. She has a documented fever in [facility] of 10 troponins Fahrenheit and compla ins to mild chills Denies any shortness of breath but initially required 2 L to maintain saturation No other significant symptoms On examination Lying in bed without any acute distress Hemodynamically stable Chestclear to auscultate bilaterally Abdomenbenign, soft, bowel sound present and no masses Extremitiesno edema CNSalert, awake and oriented x 3. No focal sensory and motor deficit appre ciated His admission labs, EKG and imaging studies reviewed No CT evidence of embolism and/or consolidation. CTA showed possible anterior bladder wall abnormality with evidence of urachus Nausea vomiting could be secondary to gastritis/bladder wall abnormality with UTI/cystitis Procalcitonin remains elevated without any definitive infection at this time Blood and urine cultures have been sent will await report before starting any antibiotic Agree with assessment and plan as outlined above by Celeste Nevarez PA-C and take the full responsibility of the care in the hospital Dr Obie Ontiveros (1) Nausea and vomiting Vomiting type: unspecified Qualified Code(s): R11.2 - Nausea with vomiting, unspecified
--- NOTE | 2024-05-27 15:32 | XRay Report ---
XR chest 1V portable CLINICAL HISTORY: N/V, hypoxia COMPARISON STUDY: Chest radiograph May 06, 2024. FINDINGS: There is no pneumothorax or pleural effusion. Mild left basilar opacities favor atelectasis . There is no consolidation to suggest pneumonia. Cardiomediastinal silhouette is stable. There is no evidence for pulmonary edema. IMPRESSION: No acute cardiopulmonary findings. No change in appearance of the chest. ACT 112: Negative or not required by law. Electronically signed by: Rolando Knowles M.D. 05/27/2024 3:30 PM
[2024-05-27 16:22] LABS: Adenovirus PCR Not Detected (NotDetected); Bordetella parapertussis PCR Not Detected (NotDetected); Bordetella pertussis PCR Not Detected (NotDetected); Chlamydia pneumoniae PCR Not Detected (NotDetected); Coronavirus 229E PCR Not Detected (NotDetected); Coronavirus CoV-2 (COVID19)PCR Not Detected (NotDetected); Coronavirus HKU1 PCR Not Detected (NotDetected); Coronavirus NL63 PCR Not Detected (NotDetected); Coronavirus OC43PCR Not Detected (NotDetected); Human Metapneumovirus PCR Not Detected (NotDetected); Influenza A PCR Not Detected (NotDetected); Influenza B PCR Not Detected (NotDetected); Mycoplasma pneumoniae PCR Not Detected (NotDetected); Parainfluenza Virus 1 PCR Not Detected (NotDetected); Parainfluenza Virus 2 PCR Not Detected (NotDetected); Parainfluenza Virus 3 PCR Not Detected (NotDetected); Parainfluenza Virus 4 PCR Not Detected (NotDetected); Respiratory Syncytial VirusPCR Not Detected (NotDetected); Rhinovirus/Enterovirus PCR Not Detected (NotDetected)
[2024-05-27] MEDS: OPTIRAY 320 125ml IV ONE (17:07)
[2024-05-27] MEDS: SODIUM CHLORIDE 0.9% 1,000 ML IV SCH (17:31)
[2024-05-27] MEDS: lisinopril 10 MG TAB PO ONE (17:33)
--- NOTE | 2024-05-27 17:45 | CT Scan Report ---
EXAM: CT Angiography Chest With Intravenous Contrast INDICATION: Hypoxia. TECHNIQUE: Axial computed tomographic angiography images of the chest with intravenous contrast. Sagittal and coronal reformatted images were created and reviewed. This CT exam was performed using one or more of the following dose reduction techniques: automated exposure control, adjustment of the mA and/or kV according to patient size, and/or use of iterative reconstruction technique. MIP reconstructed images were created and reviewed. CONTRAST: 116ml of Optiray 320 was administered intravenously. COMPARISON: No relevant prior studies available. FINDINGS: Pulmonary arteries: No abnormality noted. No pulmonary embolism. Aorta: There is mild scattered atherosclerotic calcification in the aorta and branches. The mid to distal left common carotid artery is narrowed by approximately 50% with circumferential mixed plaque. Lungs and pleural spaces: 3 mm right upper lobe noncalcified pulmonary nodule series 3 image 60. There is a 2 mm pleural-based right upper lobe nodule image 61. 3 mm right middle lobe noncalcified nodule image 37. There is minimal scattered zonal hyperinflation and airway thickening typical of chronic obstructive disease. There is linear atelectasis in the lung bases. No significant effusion. Heart: There is left ventricular hypertrophy and mild cardiomegaly. There is dense left anterior coronary calcification. There is mild calcification of the aortic valve. No significant pericardial effusion. No evidence of RV dysfunction. Bones/joints: There is a left C7 vertebral body sclerotic nodule. Similar noted left T2. Degenerative changes noted in the spine. Soft tissues: No abnormality noted. Lymph nodes: No abnormality noted. No enlarged lymph nodes. IMPRESSION: 1. No pulmonary embolus or aortic dissection. 2. Left ventricular hypertrophy and dense left anterior coronary calcification. 3. There is significant mixed plaque with approximately 50% luminal narrowing of the mid to distal left common carotid artery. ACT 112: Negative or not required by law. Electronically signed by Taniya Gonzales 05-27-2024 5:45 PM
--- NOTE | 2024-05-27 18:59 | Ultrasound Report ---
EXAM: US Duplex Bilateral Lower Extremities Veins INDICATION: Hypoxia. TECHNIQUE: Real-time duplex ultrasound scan of the bilateral lower extremity veins integrating B-mode two-dimensional vascular structure, Doppler spectral analysis, color flow Doppler imaging and compression. COMPARISON: No relevant prior studies available. FINDINGS: Right deep veins: No DVT in the right common femoral, femoral or popliteal veins. The veins demonstrate normal color flow, are normally compressible, with normal phasic flow and/or augmentation response. Right superficial veins: No abnormality noted. No thrombus in the visualized right great saphenous vein. Left deep veins: No DVT in the left common femoral, femoral or popliteal veins. The veins demonstrate normal color flow, are normally compressible, with normal phasic flow and/or augmentation response. Left superficial veins: No abnormality noted. No thrombus in the visualized left great saphenous vein. Soft tissues: Mild diffuse bilateral subcutaneous edema noted. No fluid collection identified. Lymph nodes: There are shotty reactive bilateral inguinal lymph nodes. IMPRESSION: No deep venous thrombosis of either lower extremity. ACT 112: Negative or not required by law. Electronically signed by Tanyia Gonzales 05-27-2024 6:58 PM
[2024-05-27] MEDS ORDERED: GLUCAGON FOR INJ 1 MG VIAL SQ PRN (19:35)
[2024-05-27] MEDS ORDERED: DEXTROSE 50% 50 ML SYRINGE IV PRN (19:35)
[2024-05-27] MEDS ORDERED: ONDANSETRON INJ 2 MG/ML 2 ML VIAL IV PRN (19:35)
[2024-05-27] MEDS ORDERED: PHARMACY GLYCEMIC MGMT CONSULT PRN (19:35)
[2024-05-27] MEDS ORDERED: GLUCOSE 10 TAB/TUBE PO PRN (19:35)
[2024-05-27] MEDS ORDERED: GLUCOSE 40% GEL 15 GM TUBE PO PRN (19:35)
[2024-05-27] MEDS ORDERED: ACETAMINOPHEN 325 MG TAB PO PRN (19:35)
[2024-05-27] MEDS ORDERED: MAGNESIUM HYDROXIDE SUSP 30 ML UDC PO PRN (19:35)
[2024-05-27] MEDS ORDERED: CARBOHYDRATES FOR HYPOGLYCEMIA PO PRN (19:35)
[2024-05-27] MEDS: HEPARIN SOD 5,000 UNIT/0.5 ML VIAL SQ SCH (20:26)
[2024-05-27] MEDS: DOCUSATE SODIUM 100 MG CAP PO SCH (20:26)
[2024-05-27] MEDS: TAMSULOSIN HCL 0.4 MG CAP PO SCH (20:26)
[2024-05-27] MEDS: METOPROLOL SUCC 25MG EXT REL TAB PO SCH (20:26)
[2024-05-27] MEDS: FERROUS SULFATE 325 MG TAB PO SCH (20:26)
[2024-05-27] MEDS: INSULIN ASPART PER UNIT CHARGE SC SCH (20:55)
--- NOTE | 2024-05-27 21:04 | Pharmacy Report ---
Pharmacy Glycemic Short Note 2 - Date of Service May 27, 2024 - Glycemic Short BSG Results (Last 24 hours): 05/27/24 05/27/24 12:02 20:42 Glucose 231 H POC Glucose 156 H OUTPATIENT ANTIDIABETIC REGIMEN: * LANTUS 25 UNITS BID ASSESSMENT: * 05/27 59 year old male came to the hospital because of hypoxia, nausea and vomiting. patient is DM type 2 PLAN FOR INPATIENT GLYCEMIC CONTROL: * Hold outpatient oral diabetes medications * Basal insulin * Lantus 16 units SQ BID * Bolus insulin * NovoLog per scale ACHS or Q6hrs while NPO * Goal Range: Low 110 mg/dL - High 160 mg/dL * Correction Factor: 20 mg/dL/unit * Nutritional / Prandial insulin per carb ratio of 1 unit per 6 grams CHO consumed
[2024-05-27] MEDS: LANTUS PER UNIT CHARGE SQ SCH (21:37)
[2024-05-28 02:37] LABS: BUN Creatinine Ratio 23.7 (10-20); Calcium 8.9 mg/dl (8.6-10.3); Creatinine Clr Calc Pharmacy 106.9 ml/min; Magnesium 1.6 mg/dl (1.7-2.4); Phosphorus 2.9 mg/dl (2.5-4.9); Potassium 3.5 mmol/L (3.5-5.1)
[2024-05-28 06:33] LABS: Hematocrit (blood only) 34.5 % (42.0-52.0); Hemoglobin 11.8 g/dl (14.0-18.0); Mean Corpuscular Hemoglobin 30.4 pg (25.0-34.0); Mean Corpuscular Hgb Conc 34.2 g/dL (32.0-36.0); Mean Corpuscular Volume 88.9 fL (80.0-100.0); Mean Platelet Volume 11.8 fL (9.4-12.4); Platelet Count 223 K/uL (130-400); RDW Coefficient of Variation 13.9 % (11.5-14.5); RDW Standard Deviation 45.6 fL (36.4-46.3); Red Blood Count 3.88 M/uL (4.70-6.10); White Blood Count 11.45 K/ul (4.8-10.8)
--- NOTE | 2024-05-28 07:21 | Electrocardiogram Report ---
Test Reason : Blood Pressure : */* mmHG Vent. Rate : 83 BPM Atrial Rate : 83 BPM P-R Int : 180 ms QRS Dur : 98 ms QT Int : 392 ms P-R-T Axes : 61 38 71 degrees QTcB Int : 460 ms Normal sinus rhythm Normal ECG When compared with ECG of 27-May-2024 11:41, ST no longer depressed in Lateral leads Confirmed by [place] ([id number]) on 05/28/2024 7:21:14 AM Referred By: [facility] Confirmed By: Low Shore
--- NOTE | 2024-05-28 07:36 | XRay Report ---
XR chest 1V portable CLINICAL HISTORY: Repeat s/p IVF resuscitation COMPARISON STUDY: Chest radiograph and chest CT May 27, 2024. FINDINGS: Lung volumes are normal. Left basilar densities represent atelectasis. There is no pneumoth orax or pleural effusion. Cardiac size is normal. Mediastinal contours are normal. There is no eviden ce for pulmonary edema. IMPRESSION: No acute cardiopulmonary findings. No evidence for pulmonary edema. ACT 112: Negative or not required by law. Electronically signed by: Rolando Knowles M.D. 05/28/2024 7:34 AM
[2024-05-28] MEDS: POLYETHYLENE (MIRALAX) 17 GM PACK PO SCH (08:34)
[2024-05-28] MEDS: METOPROLOL SUCC 50MG EXT REL TAB PO SCH (08:34)
[2024-05-28] MEDS: lisinopril 10 MG TAB PO SCH (08:34)
--- OUTSIDE RECORDS SUMMARY | 2024-05-28 11:25 | External Medical Summary | Summary of Care ---
Author Name Unknown Organization [facility] Address [address] [place] [address] Phone [phone] Care Team Providers Care Pediatric Clinical Dietician Name Role Phone Juvencio Abebe MD Primary Care Provider + [phone] Encounter Details Date Type Department Care Team (Late st Contact Info) Description 05/27/2024 Orders Only [facility] [address] [place] [address] Genoveva Fisher PA-C [address] [place] [address] Allergies No known active allergiesdocumented as of this encounter (statuses as of 05/27/2024) Medications Lantus SoloStar 100 UNIT/ML Subcutaneous Solution Pen-injector Inject 25 Units under the skin in the morning and 25 Units before bedtime. 15 mL 4 Active Metoprolol Succinate ER 25 MG Oral Tablet Extended Release 24 Hour (Toprol XL) Take 1 Tablet by mouth every evening. 30 Tablet 4 Active Metoprolol Succinate ER 50 MG Oral Tablet Extended Release 24 Hour (toPROL XL) Take 1 Tablet by mouth in the morning. 30 Tablet 4 Active Ondansetron HCl 4 MG Oral Tablet Take 1 Tablet by mouth every 6 hours as needed for Nausea. 20 Tablet 4 Active oxyCODONE HCl 10 MG Oral Tablet (Roxicodone) Take 1 Tablet by mouth every 4 hours as needed for Pain, Severe. 30 Tablet 4 Active Tamsulosin HCl 0.4 MG Oral Capsule (Flomax) Take 1 Capsule by mouth in the morning. 30 Capsule 4 Active Ferrous Sulfate 324 (65 Fe) MG Oral Tablet Delayed Release Take 1 Tablet by mouth once a day on Thursday, Thursday, and Thursday only. 39 Tablet 3 4 Active Tamsulosin HCl 0.4 MG Oral Capsule (Flomax) Take 1 Capsule by mouth in the morning. 05/27/20 Discontinu ed(Refill) Metoprolol Succinate ER 50 MG Oral Tablet Extended Release 24 Hour (toPROL XL) Take 1 Tablet by mouth in the morning. 05/27/20 Discontinu ed(Refill) Ferrous Sulfate 324 (65 Fe) MG Oral Tablet Delayed Release Take 1 Tablet by mouth once a day on Thursday, Thursday, and Thursday only. 39 Tablet 3 4 05/27/20 Discontinu ed(Refill) oxyCODONE HCl 10 MG Oral Tablet (Roxicodone) Take 1 Tablet by mouth every 4 hours as needed for Pain, Severe. 05/27/20 Discontinu ed(Refill) Metoprolol Succinate ER 25 MG Oral Tablet Extended Release 24 Hour (Toprol XL) Take by mouth every evening. 05/27/20 Discontinu ed(Refill) Amoxicillin-Pot Clavulanate ER 1000-62.5 MG Oral Tablet Extended Release 12 Hour (Augmentin XR) Take 2 Tablets by mouth in the morning and 2 Tablets before bedtime. 05/27/20 Discontinu ed(Medicat ion List Clean Up) Lantus SoloStar 100 UNIT/ML Subcutaneous Solution Pen-injector Inject 25 Units under the skin in the morning and 25 Units before bedtime. 4 05/27/20 Discontinu ed(Refill) Ondansetron HCl 4 MG Oral Tablet Take 1 Tablet by mouth every 6 hours as needed for Nausea. 4 05/27/20 Discontinu ed(Refill) documented as of this encounter (statuses as of 05/27/2024) Active Problems Problem Noted Date Diagnosed Date Full code status 05/18/2024 Type 2 diabetes mellitus with diabetic polyneuro tamiko 05/17/2024 Gastro-esophageal reflux disease without esophag itis 05/17/2024 Opioid use, unspecified, uncomplicated Pressure injury of left foot, unstageable 2023 History of non-ST elevation myocardial infarctio n (NSTEMI) 05/13/2024 PVD (peripheral vascular disease) 05/13/2024 Bladder cancer 05/13/2024 Acquired hypothyroidism 05/13/2024 Prostate cancer 05/13/2024 Coronary artery disease invo lving [place] coronary artery of [place] heart without angina pectoris 05/13/2024 HTN, goal below 140/90 2024 Type 2 diabetes mellitus wit h hemoglobin A1c goal of less than 8.0% 2024 Renal calculus 2024 History of tobacco use 2024 Marijuana use 2024 History of alcohol use 2024 History of carotid endarterectomy 2024 Iron deficiency anemia 2024 Food insecurity 08/17/2023 Overview: Per [facility] Protocol Asymptomatic stenosis of right carotid artery 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:Clinical:Stage III(T3, N1, M0) - Signed by Stevan Cook MD on 05/24/2013 Zjwzvuk-Wefiq-Pwgkx disease 10/29/2011 documented as of this encounter (statuses as of 05/27/2024) Resolved Problems Problem Noted Date Diagnosed Date Resolved Date Tracheostomy status 03/02/2012 11/27/19 16 Malignant neoplasm of supraglottis 12/17/2011 2024 Dehydration 12/17/2011 2024 CINV (chemotherapy-induced n ausea and vomiting) 12/17/2011 11/27/2015 Encounter for antineoplastic chemotherapy 11/18/2011 11/27/2015 ADVANCE DIRECTIVE INFORMATION 11/13/2011 05/09/2024 Overview (11/13/2011): Pt does not have AD, has info HTN, goal to be determined 10/29/2011 1 07/12/2023 Diabetes mellitus 10/29/2011 2024 documented as of this encounter (statuses as of 05/27/2024) Social History Tobacco Use Types Packs/Day Years Used Date Smoking Tobacco: Former Cigarettes 2 32 0 10/16/1979 - 10/16/2011 Smokeless Tobacco: Never Alcohol Use Standard Drinks/Week Comments Yes 0 (1 standard drink = 0.6 oz pur e alcohol) occasionally PHQ-2 Answer Date Recorded PHQ Adult Total Score 0 08/10/2023 Hunger Vital Sign Answer Date Recorded Within the past 12 months, y ou worried that your food would run out before you got the money to buy more. Sometimes true Within the past 12 months, t he food you bought just didn't last and you didn't have money to get more. Never true 11/2023 Childcare Answer Date Recorded Do you feel overwhelmed with taking care of a child, family member or friend? No 08/10/2023 Does your family need help f inding childcare? (Household - for ages 0-17 years) Not on file 08/10/2023 Clothing Answer Date Recorded Have you been unable to get clothing when it was really needed? No 08/10/2023 Is your family able to get c lothes or diapers when needed? (Household - for ages 0-17 years) Not on file 08/10/2023 Personal Safety Answer Date Recorded Do you feel unsafe or have concerns for your saf ety? No 08/10/2023 Do you have concerns for you r family's safety? (Household - for ages 0-17 years) Not on file 08/10/2023 Utilities Answer Date Recorded Do you have trouble paying y our heating, water, or electric bill? Yes 08/10/2023 Is your family able to pay t he heat, water, or electric bill? (Household - for ages 0-17 years) Not on file 08/10/2023 Does your family have access to good internet? (Household - for ages 0-17 years) Not on file 08/10/2023 Employment Status Answer Date Recorded Are you unemployed or without regular income? No 08/10/2023 Does the household have a re gular source of income? (Household - for ages 0-17 years) Not on file 08/10/2023 Social Connections Answer Date Recorded How often do you feel lonely or isolated from th ose around you? Never 08/10/2023 Financial Resource Strain Answer Date R ecorded Do you have any trouble payi ng for your medications, or do you think you might in the future? No 08/10/2023 Does your family have troubl e paying for medicine? (Household - for ages 0-17 years) Not on file 08/10/2023 Transportation Needs Answer Date Record ed READ ONLY Do you have troubl e getting a ride to medical visits or work? Never True 08/10/2023 Does your family have a hard time getting a ride to doctors visits? (Household - for ages 0-17 years) Not on file 08/10/2023 Has lack of transportation k ept you from medical appointments, meetings, work, or from getting things needed for daily living? Check all that apply. (Adult - for ages 18 years and over) Not on file 08/10/2023 Do you (or your family) have trouble finding or paying for a ride (transportation)? (Household - for ages 0-17 years) Not on file 08/10/2023 Housing Stability Answer Date Recorded Do you currently live in a s helter or have no steady place to sleep at night? No 08/10/2023 READ ONLY Do you think you a re at risk of becoming homeless? No 08/10/2023 Does your family worry about paying for your home or becoming homeless? (Household - for ages 0-17 years) Not on file 0 08/10/2023 Are you homeless or worried that you might be in the future? (Adult - for ages 18 years and over) Not on file Are you (or your family) shelley eless or worried that you might be in the future? (Household - for ages 0-17 years) Not on file Food Insecurity Answer Date Recorded Do you need food for this week? Yes 08/10/2023 Are you able to get enough f ood for your family? (Household - for ages 0-17 years) Not on file 08/10/2023 Does your family need food t his week? (Household - for ages 0-17 years) Not on file 08/10/2023 Do you always have enough fo od for your family? (Household - for ages 0-17 years) Not on file 08/10/2023 Sex and Gender Information Value Date Recorded Sex Assigned at Not on file Legal Sex Male 5:13 AM EST Gender Identity Not on file Sexual Orientation Not on file documented as of this encounter Functional Status * Are you deaf or do you have serious difficulty hearing? Answer Date of Assessment Author No 07/30/2016 10:41 PM Ilda Dodd RN * Are you blind or do you have serious difficulty seeing, even when wearing glasses? Answer Date of Assessment Author No 07/30/2016 10:41 PM Ilda Dodd RN * Do you have serious difficulty walking or climbing stairs? (5 years old or older) Answer Date of Assessment Author No 07/30/2016 10:41 PM Ilda Dodd RN * Do you have difficulty dressing or bathing? (5 years old or older) Answer Date of Assessment Author No 07/30/2016 10:41 PM Ilda Dodd RN * Because of a physical, mental, or emotional condition, do you have difficulty doing errands alone such as visiting a doctors office or shopping? (15 years old or older) Answer Date of Assessment Author No 07/30/2016 10:41 PM Ilda Dodd RN documented as of this encounter Mental Status * Because of a physical, mental, or emotional condition, do you have serious difficulty concentrating, remembering, or making decisions? (5 years old or older) Answer Entry Date Author No 07/30/2016 10:41 PM Ilda Dodd RN documented in this encounter Plan of Treatment Health Maintenance Due Date Last Done Comments HbA1c 1970 HIV Screening 1979 Albumin/Creatinine Ratio 1982 Diabetic Eye Exam 1982 Diabetic Foot Exam 1982 Hepatitis C Screening 1982 Pneumococcal Vaccine: Pediatrics (0 to 5 Years) and At-Risk Patients (6 to 64 Years) (2 of 2 - PCV) 08/05/2008 08/05/2007 Cologuard 2009 Colonoscopy 2009 Colorectal Cancer Screening 2009 Fecal Occult Blood Test 2009 Sigmoidoscopy 2009 Zoster Vaccines (1 of 2) 2014 COVID-19 Vaccine ( season) 2024 Influenza Vaccine (FLU shot) (#1) 2024 05/17/2008 Depression Screening 08/10/2024 08/10/2023 GFR 05/20/2025 05/20/2024, 05/06, 05/16/2024, Additional history exists DTap/Tdap Vaccines (2 - Td or Tdap) 01/29/2031 01/29/2021 Lung Cancer Screening Completed 03/27/2017 , 11/15/2014, 12/08/2013, Additional history exists HPV (Gardasil) Vaccine Aged Out No lo nger eligible based on patient's age to complete this topic Hepatitis B Vaccine Aged Out No longe r eligible based on patient's age to complete this topic MENINGOCOCCAL (MENACTRA/MENVEO) Aged Out No longer eligible based on patient's age to complete this topic documented as of this encounter Medical Devices Implanted Type Area Moveman Device Identifier Shelf Expiration Date Model / Serial / Lot Patch Xenosure [id number] - [id number] Implanted:Qty: 1 on 07/30/2016 by Ailyn Williamson [place] [facility] [place] Carotid [employer] 12/31/2018 [id number] / / [id number] Description:portion used documented as of this encounter Advance Directives * Full Code (Latest Code Status on File) Date Activated Date Inactivated Comments 07/30/2016 5:33 PM 07/31/2016 2:56 PM This order r eflects the patients wishes and were consensually agreed upon. Care Teams Pediatric Clinical Dietician Relationship Specialty Start Date End Date Juvencio Abebe MD [address] [place] [address] PCP - General Family Medicine 05/05/24 documented as of this encounter
--- OUTSIDE RECORDS SUMMARY | 2024-05-28 11:25 | External Medical Summary | Summary of Care ---
Author Name Unknown Organization [facility] Address [address] [place] [address] Phone [phone] Care Team Providers Care Diesel Engine Fitter Name Role Phone Juvencio Abebe MD Primary Care Provider + [phone] Reason for Visit * Reason Onset Date Comments Skilled Visit 05/24/2024 Encounter Details Date Type Department Care Team (Latest Contact Info) Description 05/24/2024 9:30 AM EST [facility] Visit [facility] [address] [place] [address] Genoveva Fisher PA-C [address] [place] [address] Bacteremia due to Streptococcus*; Coronary artery disease involving [place] coronary artery of [place] heart without angina pectoris; Grhjyqm-Mdvgg-Sichy disease; Bilateral impacted cerumen; Acute otitis externa of left ear, unspecified type Allergies No known active allergiesdocumented as of this encounter (statuses as of 05/24/2024) Medications Tamsulosin HCl 0.4 MG Oral Capsule (Flomax) Take 1 Capsule by mouth in the morning. Active Metoprolol Succinate ER 50 MG Oral Tablet Extended Release 24 Hour (toPROL XL) Take 1 Tablet by mouth in the morning. Active Ferrous Sulfate 324 (65 Fe) MG Oral Tablet Delayed Release Take 1 Tablet by mouth once a day on Thursday, Thursday, and Thursday only. 39 Tablet 3 4 Active oxyCODONE HCl 10 MG Oral Tablet (Roxicodone) Take 1 Tablet by mouth every 4 hours as needed for Pain, Severe. Active Metoprolol Succinate ER 25 MG Oral Tablet Extended Release 24 Hour (Toprol XL) Take by mouth every evening. Active Amoxicillin-Pot Clavulanate ER 1000-62.5 MG Oral Tablet Extended Release 12 Hour (Augmentin XR) Take 2 Tablets by mouth in the morning and 2 Tablets before bedtime. Active Lantus SoloStar 100 UNIT/ML Subcutaneous Solution Pen-injector Inject 25 Units under the skin in the morning and 25 Units before bedtime. 4 Active Ondansetron HCl 4 MG Oral Tablet Take 1 Tablet by mouth every 6 hours as needed for Nausea. 4 Active documented as of this encounter (statuses as of 05/24/2024) Active Problems Problem Noted Date Diagnosed Date [...] cancer 05/13/2024 Coronary artery disease invo lving [place] coronary artery of [place] heart without angina pectoris 05/13/2024 HTN, goal below 140/90 2024 Type 2 diabetes mellitus wit h hemoglobin A1c goal of less than 8.0% 2024 Renal calculus 2024 History of tobacco use 2024 Marijuana use 2024 History of alcohol use 2024 History of carotid endarterectomy 2024 Iron deficiency anemia 2024 Food insecurity 08/17/2023 Overview: Per [facility] Protocol Asymptomatic stenosis of right carotid artery 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:Clinical:Stage III(T3, N1, M0) - Signed by Stevan Cook MD on 05/24/2013 Ydikzbi-Tjmxj-Gnwkt disease 10/29/2011 documented as of this encounter (statuses as of 05/24/2024) Resolved Problems Problem Noted Date Diagnosed Date [...] as of this encounter (statuses as of 05/24/2024) Social History Tobacco Use Types Packs/Day Years [...] Vaccines (1 of 2) 2014 COVID-19 Vaccine (1 - season) 2024 Influenza Vaccine (FLU shot) (#1) [...] this encounter Medical Devices Implanted Type Area Home Care Giver Device Identifier Shelf Expiration Date Model / Serial / Lot Patch Xenosure [id number] - [id number] Implanted:Qty: 1 on 07/30/2016 [place] Ailyn Williamson [place] [facility] [place] Carotid [employer] 12/31/2018 [id number] / / [id number] Description:portion used documented as of this encounter Visit Diagnoses Diagnosis Bacteremia due to Streptococcus- Primary Bacteremia Coronary artery disease involving [place] coronary artery of [place] heart without angina pectoris Dykyyhs-Qkgsj-Fuaau disease Peroneal muscular atrophy Bilateral impacted cerumen Impacted cerumen Acute otitis externa of left ear, unspecified type documented in this encounter Advance Directives * Full Code (Latest Code Status on File) Date Activated Date Inactivated Comments 07/30/2016 5:33 PM 07/31/2016 2:56 PM This order r eflects the patients wishes and were consensually agreed upon. Care Teams Diesel Engine Fitter Relationship Specialty Start Date End Date Juvencio Abebe MD [address] [place] [address] PCP - General Family Medicine 05/05/24 documented as of this encounter
--- OUTSIDE RECORDS SUMMARY | 2024-05-28 11:26 | External Medical Summary ---
Author Name Unknown Address Unknown Organization [id number] [address] [place] [address] Laboratory Report Ordering Provider Test Date Status ELIANE DOWNING 05/20/2024 06:20:00 Final Observation Date Value Abnormality Reference (Units ) Status BUN 05/20/2024 06:20:00 27 Above high normal 6-20 (mg/dL) Final Creatinine 05/20/2024 06:20:00 1.1 0.6-1.2 (mg/dL) Final Glomerular filtration rate/1.73 sq M.predicted [Volume Rate/Area] in Serum, Plasma or Blood by Creatinine-based formula (CKD-EPI) 05/20/2024 06:20:00 80 >=60 (mL/min) Final eGFR is calculated based on the CKD-EPI 2020 equation. Sodium 05/20/2024 06:20:00 139 135-146 (m mol/L) Final Potassium 05/20/2024 06:20:00 5.0 3.5-5.1 (m mol/L) Final Cl 05/20/2024 06:20:00 106 98-107 (mm ol/L) Final CO2 05/20/2024 06:20:00 26 22-32 (mmo l/L) Final Anion gap 05/20/2024 06:20:00 7 7-15 (mmol /L) Final Glucose 05/20/2024 06:20:00 88 70-120 (mg /dL) Final Calcium 05/20/2024 06:20:00 9.7 8.4-10.2 ( mg/dL) Final Performing Location [facility] [address] [place] [address]
--- OUTSIDE RECORDS SUMMARY | 2024-05-28 11:26 | External Medical Summary | Summary of Care ---
Author Name Unknown Organization [facility] Address [address] [place] [address] Phone [phone] Care Team Providers Care Asset Protection Detective Name Role Phone Juvencio Abebe MD Primary Care Provider + [phone] Encounter Details Date Type Department Care Team (Late st Contact Info) Description 05/13/2024 Abstract [facility] [address] [place] [address] Genoveva Fisher PA-C [address] [place] [address] Allergies No known active allergiesdocumented as of this encounter (statuses as of 05/13/2024) Medications Aspirin 81 MG Tablet Take 1 Tablet by mouth in the morning. Active Tamsulosin HCl 0.4 MG Oral Capsule [...] hours as needed for Pain, Severe. Active LORazepam 0.5 MG Oral Tablet (Ativan) Take 1 Tablet by mouth 3 times a day as needed for Anxiety. 4 Active Lantus SoloStar 100 UNIT/ML Subcutaneous Solution Pen-injector Inject 25 Units under the skin at bedtime. Active Metoprolol Succinate ER 25 MG Oral Tablet Extended Release 24 Hour (Toprol XL) Take by mouth every evening. Active Lisinopril 30 MG Oral Tablet Take 1 Tablet by mouth in the morning. Active Amoxicillin-Pot Clavulanate ER 1000-62.5 MG Oral Tablet Extended Release 12 Hour (Augmentin XR) Take 2 Tablets by mouth in the morning and 2 Tablets before bedtime. Active documented as of this encounter (statuses as of 05/13/2024) Active Problems Problem Noted Date Diagnosed Date Non-STEMI (non-ST elevated myocardial infarction ) 05/13/2024 PVD (peripheral vascular disease) 05/13/2024 Bladder cancer 05/13/2024 Acquired hypothyroidism 05/13/2024 Prostate cancer 05/13/2024 Coronary artery disease invo lving [place] coronary artery of [place] heart without angina pectoris 05/13/2024 HTN, goal below 140/90 2024 Type 2 diabetes mellitus wit h hemoglobin A1c goal of less than 8.0% 2024 Renal calculus 2024 History of tobacco use 2024 History of marijuana use 2024 History of alcohol use 2024 History of carotid endarterectomy 2024 Iron deficiency anemia 2024 Food insecurity 08/17/2023 Overview: Per [facility] Protocol Asymptomatic stenosis of right carotid artery 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:Clinical:Stage III(T3, N1, M0) - Signed by Stevan Cook MD on 05/24/2013 Ewfidtw-Jdjvh-Celgc disease 10/29/2011 documented as of this encounter (statuses as of 05/13/2024) Resolved Problems Problem Noted Date Diagnosed Date [...] as of this encounter (statuses as of 05/13/2024) Social History Tobacco Use Types Packs/Day Years [...] of 2) 2014 COVID-19 Vaccine (1 - 2023- season) 2024 Influenza Vaccine (FLU shot) (#1) 2024 05/17/2008 Depression Screening 08/10/2024 08/10/2023 GFR 05/13/2025 05/13/2024, 08/06, 03/30/2017, Additional history exists DTap/Tdap Vaccines (2 - [...] this encounter Medical Devices Implanted Type Area Plush Brusher Device Identifier Shelf Expiration Date Model / Serial / Lot Patch Xenosure [id number] - [id number] Implanted:Qty: 1 on 07/30/2016 by Ailyn Williamson MD at [place] [facility] [place] Right: Carotid [employer] 12/31/2018 E0.8P8 / / [id number] Description:portion used documented as of this encounter Advance Directives * Full Code (Latest Code Status on File) Date Activated Date Inactivated Comments 07/30/2016 5:33 PM 07/31/2016 2:56 PM This order r eflects the patients wishes and were consensually agreed upon. Care Teams Asset Protection Detective Relationship Specialty Start Date End Date Juvencio Abebe MD [address] [place] [id number] PCP - General Family Medicine 05/05/24 documented as of this encounter
--- OUTSIDE RECORDS SUMMARY | 2024-05-28 11:26 | External Medical Summary ---
Author Name Unknown Address Unknown Organization [id number] [address] [place] [address] Laboratory Report Ordering Provider Test Date Status ELIANE DOWNING 05/18/2024 05:26:00 Final Observation Date Value Abnormality Reference (Units ) Status WBC, Total 05/18/2024 05:26:00 5.78 4.00-10.8 0 (K/uL) Final RBC 05/18/2024 05:26:00 3.74 4.50-5.25 (M/uL) Final Hemoglobin 05/18/2024 05:26:00 11.4 Below low normal 14 .0-16.8 (g/dL) Final HCT 05/18/2024 05:26:00 35.8 Below low normal 40. 0-48.4 (%) Final MCV 05/18/2024 05:26:00 95.7 82.0-99.5 (fL) Final MCH 05/18/2024 05:26:00 30.5 27.0-34.0 (pg) Final MCHC 05/18/2024 05:26:00 31.8 32.0-36.0 (g/dL) Final RDW 05/18/2024 05:26:00 14.5 11.5-15.5 (%) Final Platelets 05/18/2024 05:26:00 268 140-400 (K /uL) Final MPV 05/18/2024 05:26:00 13.1 6.6-11.1 ( fL) Final Performing Location [facility] [address] [place] [address]
--- OUTSIDE RECORDS SUMMARY | 2024-05-28 11:26 | External Medical Summary ---
Author Name Unknown Address Unknown Organization [id number] [address] [place] [address] Laboratory Report Ordering Provider Test Date Status ELIANE DOWNING 05/18/2024 05:26:00 Final Observation Date Value Abnormality Reference (Units ) Status BUN 05/18/2024 05:26:00 40 Above high normal 6-20 (mg/dL) Final Creatinine 05/18/2024 05:26:00 1.3 Above high normal 0.6-1.2 (mg/dL) Final Glomerular filtration rate/1.73 sq M.predicted [Volume Rate/Area] in Serum, Plasma or Blood by Creatinine-based formula (CKD-EPI) 05/18/2024 05:26:00 65 >=60 (mL/min) Final eGFR is calculated based on the CKD-EPI 2020 equation. Sodium 05/18/2024 05:26:00 143 135-146 (m mol/L) Final Potassium 05/18/2024 05:26:00 5.2 Above high normal 3. 5-5.1 (mmol/L) Final Cl 05/18/2024 05:26:00 108 Above high normal 98 -107 (mmol/L) Final CO2 05/18/2024 05:26:00 24 22-32 (mmo l/L) Final Anion gap 05/18/2024 05:26:00 11 7-15 (mmol /L) Final Glucose 05/18/2024 05:26:00 127 Above high normal 70 -120 (mg/dL) Final Calcium 05/18/2024 05:26:00 9.8 8.4-10.2 ( mg/dL) Final Performing Location [facility] [address] [place] [address]
--- OUTSIDE RECORDS SUMMARY | 2024-05-28 11:26 | External Medical Summary | Summary of Care ---
Author Name Unknown Organization [facility] Address [address] [place] [address] Phone [phone] Care Team Providers Care Authorization Specialist Name Role Phone Juvencio Abebe MD Primary Care Provider + [phone] Encounter Details Date Type Department Care Team (Late st Contact Info) Description 05/16/2024 Orders Only Lab Mobile Phlebotomy [facility] [address] [place] [address] Ridge Baker MD [address] [place] [address] [place] [address] Anemia*; Bladder cancer (HCC) Allergies No known active allergiesdocumented as of this encounter (statuses as of 05/16/2024) Medications Aspirin 81 MG Tablet Take 1 [...] 25 Units under the skin at bedtime. 4 Active Metoprolol Succinate ER 25 MG [...] as of this encounter (statuses as of 05/16/2024) Active Problems Problem Noted Date Diagnosed Date Non-STEMI (non-ST elevated myocardial infarction ) 05/13/2024 PVD (peripheral vascular disease) 05/13/2024 Bladder cancer 05/13/2024 Acquired hypothyroidism 05/13/2024 Prostate cancer 05/13/2024 Coronary artery disease invo lving [place] coronary artery of [place] heart without angina pectoris 05/13/2024 HTN, goal below 140/90 2024 Type 2 diabetes mellitus wit h hemoglobin A1c goal of less than 8.0% 2024 Renal calculus 2024 History of tobacco use 2024 History of marijuana use 2024 History of alcohol use 2024 History of carotid endarterectomy 2024 Iron deficiency anemia 2024 Food insecurity 08/17/2023 Overview: Per [facility] Protocol Asymptomatic stenosis of right carotid artery 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:Clinical:Stage III(T3, N1, M0) - Signed by Stevan Cook MD on 05/24/2013 Wyzzodu-Dwkxr-Ofbsg disease 10/29/2011 documented as of this encounter (statuses as of 05/16/2024) Resolved Problems Problem Noted Date Diagnosed Date [...] as of this encounter (statuses as of 05/16/2024) Social History Tobacco Use Types Packs/Day Years [...] documented in this encounter Plan of Treatment Upcoming Encounters Date Type Department Care Team (Late st Contact Info) Description 05/16/2024 5:00 AM EST Laboratory Lab Mobile Phlebotomy [facility] [address] [place] [address] [place] [address] Anemia; Bladder cancer (HCC) Scheduled Orders Name Type Priority Associated Diagnoses Orde r Schedule CBC Lab Routine Anemia Bladder cancer (HCC) Expected: 05/16/2024, Expires: 05/16/2025 Health Maintenance Due Date Last Done Comments [...] this encounter Medical Devices Implanted Type Area Optometric Assistant Device Identifier Shelf Expiration Date Model / Serial / Lot Patch Xenosure [id number] - [id number] Implanted:Qty: 1 on 07/30/2016 by Ailyn Williamson MD at [place] [facility] [place] Right: Carotid [employer] 12/31/2018 E0.8P8 / / [id number] Description:portion used documented as of this encounter Visit Diagnoses Diagnosis Anemia Anemia, unspecified Bladder cancer (HCC) Malignant neoplasm of bladder, part unspecified Anemia- Primary Anemia, unspecified Bladder cancer (HCC) Malignant neoplasm of bladder, part unspecified documented in this encounter Advance Directives * Full Code (Latest Code Status on File) Date Activated Date Inactivated Comments 07/30/2016 5:33 PM 07/31/2016 2:56 PM This order r eflects the patients wishes and were consensually agreed upon. Care Teams Authorization Specialist Relationship Specialty Start Date End Date Juvencio Abebe MD [address] [place] [address] PCP - General Family Medicine 05/05/24 documented as of this encounter
--- OUTSIDE RECORDS SUMMARY | 2024-05-28 11:26 | External Medical Summary ---
Author Name Unknown Address Unknown Organization [facility]ORY [place] [address] [place] [address] Laboratory Report Ordering Provider Test Date Status ELIANE DOWNING 05/13/2024 05:34:00 Final Observation Date Value Abnormality Reference (Units ) Status BUN 05/13/2024 05:34:00 42 Above high normal 6-20 (mg/dL) Final Creatinine 05/13/2024 05:34:00 1.0 0.6-1.2 (mg/dL) Final Glomerular filtration rate/1.73 sq M.predicted [Volume Rate/Area] in Serum, Plasma or Blood by Creatinine-based formula (CKD-EPI) 05/13/2024 05:34:00 84 >=60 (mL/min) Final eGFR is calculated based on the CKD-EPI 2020 equation. Sodium 05/13/2024 05:34:00 138 135-146 (m mol/L) Final Potassium 05/13/2024 05:34:00 4.5 3.5-5.1 (m mol/L) Final Cl 05/13/2024 05:34:00 103 98-107 (mm ol/L) Final CO2 05/13/2024 05:34:00 21 Below low normal 22- 32 (mmol/L) Final Anion gap 05/13/2024 05:34:00 14 7-15 (mmol /L) Final Glucose 05/13/2024 05:34:00 142 Above high normal 70 -120 (mg/dL) Final Calcium 05/13/2024 05:34:00 10.4 Above high normal 8. 4-10.2 (mg/dL) Final Performing Location LAB[facility]ATORY [facility] [address] [place] [address]
--- OUTSIDE RECORDS SUMMARY | 2024-05-28 11:26 | External Medical Summary | Summary of Care ---
Author Name Unknown Organization [facility] Address [address] [place] [address] Phone [phone] Care Team Providers Care Laborer Sawmill Name Role Phone Juvencio Abebe MD Primary Care Provider [phone] Encounter Details Date Type Department Care Team (Late st Contact Info) Description 05/13/2024 Orders Only Lab Mobile Phlebotomy [facility] [address] [employer] [place] [address] Ridge Baker MD [address] [place] [address] [place] [address] Anemia* Allergies No known active allergiesdocumented as of [...] 1 Tablet by mouth in the morning. 4 Active documented as of this encounter (statuses as of 05/13/2024) Active Problems Problem Noted Date Diagnosed Date HTN, goal below 140/90 2024 Type 2 [...] Signed by Stevan Cook MD on 05/24/2013 Rajixwc-Yflgz-Jvagy disease 10/29/2011 documented as of this encounter [...] Team (Late st Contact Info) Description 05/13/2024 5:00 AM EST Laboratory Lab Mobile Phlebotomy [facility] [address] [facility] [place] [address] [place] [address] Arrived 05/13/2024 8:00 AM EST Intermediate Visit [address] [place] [address] Genoveva Fisher PA-C [address] [facility] [place] [address] Scheduled Orders Name Type Priority Associated Diagnoses Orde r Schedule CBC WITH WBC DIFFERENTIAL Lab Routine Anemia Expected: 05/13/2024, Expires: 05/13/2025 BASIC METABOLIC PANEL Lab Routine Anemia Expected: 05/13/2024, Expires: 05/13/2025 Health Maintenance Due Date Last Done Comments [...] (1 of 2) 2014 COVID-19 Vaccine ( - season) 2024 Influenza Vaccine (FLU shot) (#1) 2024 05/17/2008 Depression Screening 08/10/2024 08/10/2023 GFR 08/24/2024 08/24/2023, 03/07, 03/24/2017, Additional history exists DTap/Tdap Vaccines (2 - [...] this encounter Medical Devices Implanted Type Area Marketing Underwriter Device Identifier Shelf Expiration Date Model / Serial / Lot Patch Xenosure [id number] - [id number] Implanted:Qty: 1 on 07/30/2016 by Ailyn Williamson MD at OR [facility] [place] Right: Carotid [employer] 12/31/2018 E0.8P8 / / [id number] Description:portion used documented as of this encounter Visit Diagnoses Diagnosis Anemia- Primary Anemia, unspecified documented in this encounter Advance Directives * Full Code (Latest Code Status on File) Date Activated Date Inactivated Comments 07/30/2016 5:33 PM 07/31/2016 2:56 PM This order r eflects the patients wishes and were consensually agreed upon. Care Teams Laborer Sawmill Relationship Specialty Start Date End Date Juvencio Abebe MD [address] [place] [address] PCP - General Family Medicine 05/05/24 documented as of this encounter
--- OUTSIDE RECORDS SUMMARY | 2024-05-28 11:26 | External Medical Summary | Summary of Care ---
Author Name Unknown Organization [facility] Address [address] [place] [address] Phone [phone] Care Team Providers Care Exceptional Student Education Aide Name Role Phone Juvencio Abebe MD Primary Care Provider [phone] Encounter Details Date Type Department Care Team (Late st Contact Info) Description 05/20/2024 Orders Only Lab Mobile Phlebotomy [facility] [address] [facility] [place] [address] Ridge Baker MD [address] [place] [address] [place] [address] Anemia* Allergies No known active allergiesdocumented as of this encounter (statuses as of 05/20/2024) Medications Tamsulosin HCl 0.4 MG Oral Capsule [...] the morning and 25 Units before bedtime. Active Ondansetron HCl 4 MG Oral Tablet Take 1 Tablet by mouth every 6 hours as needed for Nausea. Active documented as of this encounter (statuses as of 05/20/2024) Active Problems Problem Noted Date Diagnosed Date [...] cancer 05/13/2024 Coronary artery disease invo lving [place] coronary artery of [place] heart without angina pectoris 05/13/2024 HTN, goal [...] Signed by Stevan Cook MD on 05/24/2013 Xuswkbr-Qxrvv-Pwoer disease 10/29/2011 documented as of this encounter (statuses as of 05/20/2024) Resolved Problems Problem Noted Date Diagnosed Date [...] as of this encounter (statuses as of 05/20/2024) Social History Tobacco Use Types Packs/Day Years [...] Care Team (Late st Contact Info) Description 05/20/2024 5:20 AM EST Laboratory Lab Mobile Phlebotomy [facility] [address] [facility] [place] [address] [place] [address] Arrived Scheduled Orders Name Type Priority Associated Diagnoses Orde r Schedule BASIC METABOLIC PANEL Lab Routine Anemia Expected: 05/20/2024, Expires: 05/20/2025 Health Maintenance Due Date Last Done Comments [...] 2024 05/17/2008 Depression Screening 08/10/2024 08/10/2023 GFR 05/18/2025 05/18/2024, 05/06, 05/13/2024, Additional history exists DTap/Tdap Vaccines (2 - [...] this encounter Medical Devices Implanted Type Area Review Scheduling Coordinator Device Identifier Shelf Expiration Date Model / Serial / Lot Patch Xenosure [id number] - [id number] Implanted:Qty: 1 on 07/30/2016 by Ailyn Williamson MD at [place] [facility] [place] Right: Carotid [employer] 12/31/2018 E0.8P8 / / [id number] Description:portion used documented as of this encounter Visit Diagnoses Diagnosis Anemia- Primary Anemia, unspecified documented in this encounter Advance Directives * Full Code (Latest Code Status on File) Date Activated Date Inactivated Comments 07/30/2016 5:33 PM 07/31/2016 2:56 PM This order r eflects the patients wishes and were consensually agreed upon. Care Teams Exceptional Student Education Aide Relationship Specialty Start Date End Date Juvencio Abebe MD [address] [place] [address] PCP - General Family Medicine 05/05/24 documented as of this encounter
--- OUTSIDE RECORDS SUMMARY | 2024-05-28 11:26 | External Medical Summary | Summary of Care ---
Author Name Unknown Organization [facility] Address [address] [place] [address] Phone [phone] Care Team Providers Care Public Works Supervisor Name Role Phone Juvencio Abebe MD Primary Care Provider + [phone] Encounter Details Date Type Department Care Team (Late st Contact Info) Description 05/09/2024 Population Health External Data Unspecified Department Allergies No known active allergiesdocumented as of this encounter (statuses as of 05/09/2024) Medications Medication Sig Dispensed Refills Start Date End Date Status Lisinopril 30 MG Oral Tablet Take 1 Tablet by mouth in the morning. 4 05/13/2016 Active LANTUS SOLOSTAR 100 UNIT/ML SOPN Inject 40 Units under the skin in the morning and 40 Units before bedtime. 25 units at night. 6 02/22/2016 Active Aspirin 81 MG Tablet Take 1 Tablet by mouth in the morning. Active HYDROcodone-Acetamin ophen 5-325 MG Oral Tablet Take 1 Tablet by mouth 2 times a day as needed for Pain, Breakthrough. 0 08/19/2016 Active NOVOLOG FLEXPEN 100 UNIT/ML SOPN 3 01/12/2017 Active ULTICARE MINI PEN NEEDLES 31G X 6 MM MISC USE 3 TIMES A DAILY 3 01/12/2017 Active ONETOUCH ULTRA BLUE STRP TEST 4 TIMES PER DAY (E11.65) 5 02/04/2017 Active Levothyroxine Sodium 25 MCG Oral Tablet (Levoxyl) Take 1 Tablet by mouth daily first thing in the morning. (at least 30 min prior to breakfast or other meds) Active Atorvastatin Calcium 40 MG Oral Tablet (Lipitor) Take 1 Tablet by mouth every evening. Active Tamsulosin HCl 0.4 MG Oral Capsule (Flomax) Take 1 Capsule by mouth in the morning. Active Metoprolol Succinate ER 25 MG Oral Tablet Extended Release 24 Hour (toPROL XL) Take 1 Tablet by mouth every evening. 08/09/2023 Active Metoprolol Succinate ER 50 MG Oral Tablet Extended Release 24 Hour (toPROL XL) Take 1 Tablet by mouth in the morning. Active Ferrous Sulfate 324 (65 Fe) MG Oral Tablet Delayed Release Take 1 Tablet by mouth once a day on Thursday, Thursday, and Thursday only. 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:Clinical:Stage III(T3, N1, M0) - Signed by Stevan Cook MD on 05/24/2013 Cuzchzq-Qyexd-Aobsk disease 10/29/2011 HTN, goal to be determined 10/29/2011 Diabetes mellitus 10/29/2011 documented as of this encounter (statuses as of 05/09/2024) Resolved Problems Problem Noted Date Diagnosed Date Resolved Date Tracheostomy status 03/02/2012 11/27/19 16 CINV (chemotherapy-induced n ausea and vomiting) 12/17/2011 11/27/2015 Encounter for antineoplastic chemotherapy 11/18/2011 11/27/2015 documented as of this encounter (statuses as of 05/09/2024) Social History Tobacco Use Types Packs/Day Years [...] Recorded Sex Assigned at Not on file Gender Identity Not on file Sexual Orientation Not on file Job Start Date Occupation Industry Not on file Not on file Not on file documented as of this encounter Functional Status Functional Status Response Date of Assess ment Are you deaf or do you have serious difficulty h earing? No 07/30/2016 Are you blind or do you have serious difficulty seeing, even when wearing glasses? No 07/30/2016 Do you have serious difficul ty walking or climbing stairs? (5 years old or older) No 07/30/2016 Do you have difficulty dress ing or bathing? (5 years old or older) No 07/30/2016 Because of a physical, menta l, or emotional condition, do you have difficulty doing errands alone such as visiting a doctor s office or shopping? (15 years old or older) No 07/30/19 17 Cognitive Status Response Date of Assessm ent Because of a physical, menta l, or emotional condition, do you have serious difficulty concentrating, remembering, or making decisions? (5 years old or older) No 07/30/2016 documented as of this encounter Plan of Treatment Health Maintenance Due Date Last Done Comments HbA1c 1970 HIV Screening 1979 Albumin/Creatinine Ratio 1982 Diabetic Eye Exam 1982 Diabetic Foot Exam 1982 Hepatitis C Screening 1982 Hepatitis B Vaccine (1 of 3 - 19+ 3-dose series) 1983 Pneumococcal Vaccine: Pediatrics (0 to 5 Years) and At-Risk Patients (6 to 64 Years) (2 of 2 - PCV) 08/05/2008 08/05/2007 Cologuard 2009 Colonoscopy 2009 Colorectal Cancer Screening 2009 Fecal Occult Blood Test 2009 Sigmoidoscopy 2009 Zoster Vaccines (1 of 2) 2014 TSH 11/26/2016 11/27/2015, 11/03, 11/21/2013, Additional history exists COVID-19 Vaccine ( season) 2024 Influenza Vaccine [...] this encounter Medical Devices Implanted Type Area Strap Cutting Machine Operator Device Identifier Shelf Expiration Date Model / Serial / Lot Patch Xenosure [id number] - [id number] Implanted:Qty: 1 on 07/30/2016 by Ailyn Williamson MD at OR [facility] [place] Right: Carotid [employer] 12/31/2018 E0.8P8 / / [id number] Description:portion used documented as of this encounter Advance Directives * Full Code (Latest Code Status on File) Date Activated Date Inactivated Comments 07/30/2016 5:33 PM 07/31/2016 2:56 PM This order r eflects the patients wishes and were consensually agreed upon. Care Teams Public Works Supervisor Relationship Specialty Start Date End Date Juvencio Abebe MD [address] [place] [address] PCP - General Family Medicine 05/05/24 documented as of this encounter
--- OUTSIDE RECORDS SUMMARY | 2024-05-28 11:26 | External Medical Summary ---
Author Name Unknown Address Unknown Organization [facility] [address] [place] [address] Laboratory Report Ordering Provider Test Date Status ELIANE DOWNING 05/16/2024 05:32:00 Final Observation Date Value Abnormality Reference (Units ) Status BUN 05/16/2024 05:32:00 53 Above high normal 6- 20 (mg/dL) Final Results rechecked Creatinine 05/16/2024 05:32:00 2.0 Above high normal 0 .6-1.2 (mg/dL) Final Glomerular filtration rate/1.73 sq M.predicted [Volume Rate/Area] in Serum, Plasma or Blood by Creatinine-based formula (CKD-EPI) 05/16/2024 05:32:00 39 Below low normal >=60 (mL/min ) Final eGFR is calculated based on the CKD-EPI 2020 equation. Sodium 05/16/2024 05:32:00 139 135-146 (m mol/L) Final Potassium 05/16/2024 05:32:00 4.5 3.5-5.1 (m mol/L) Final Cl 05/16/2024 05:32:00 105 98-107 (mm ol/L) Final CO2 05/16/2024 05:32:00 24 22-32 (mmo l/L) Final Anion gap 05/16/2024 05:32:00 10 7-15 (mmol /L) Final Glucose 05/16/2024 05:32:00 110 70-120 (mg /dL) Final Calcium 05/16/2024 05:32:00 9.2 8.4-10.2 ( mg/dL) Final Performing Location LABORATORY [facility] [address] [place] [address]
--- OUTSIDE RECORDS SUMMARY | 2024-05-28 11:26 | External Medical Summary ---
Author Name Unknown Address Unknown Organization [id number] [address] [place] [address] Laboratory Report Ordering Provider Test Date Status ELIANE DOWNING 05/13/2024 05:34:00 Final Observation Date Value Abnormality Reference (Units ) Status WBC, Total 05/13/2024 05:34:00 6.44 4.00-10.8 0 (K/uL) Final RBC 05/13/2024 05:34:00 3.92 4.50-5.25 (M/uL) Final Hemoglobin 05/13/2024 05:34:00 11.8 Below low normal 14 .0-16.8 (g/dL) Final HCT 05/13/2024 05:34:00 36.4 Below low normal 40. 0-48.4 (%) Final MCV 05/13/2024 05:34:00 92.9 82.0-99.5 (fL) Final MCH 05/13/2024 05:34:00 30.1 27.0-34.0 (pg) Final MCHC 05/13/2024 05:34:00 32.4 32.0-36.0 (g/dL) Final RDW 05/13/2024 05:34:00 14.6 11.5-15.5 (%) Final Platelets 05/13/2024 05:34:00 276 140-400 (K /uL) Final MPV 05/13/2024 05:34:00 12.7 6.6-11.1 ( fL) Final Performing Location [facility] [address] [place] [address]
--- OUTSIDE RECORDS SUMMARY | 2024-05-28 11:26 | External Medical Summary ---
Author Name Unknown Address Unknown Organization [facility] [place] [address] [place] [address] Laboratory Report Ordering Provider Test Date Status ELIANE DOWNING 05/18/2024 05:26:00 Final Observation Date Value Abnormality Reference (Units ) Status SYNC LEUKOCYTES IN BLOOD BY AUTOMATED COUNT 05/18/2024 05:26:00 5.78 4.00-10.80 (K/uL) Final Segs 05/18/2024 05:26:00 59.7 40.0-75.0 (%) Final Lymphs % 05/18/2024 05:26:00 24.2 18.0-42.0 (%) Final Monos 05/18/2024 05:26:00 12.3 Above high normal 1.0-11.0 (%) Final Eosinophils 05/18/2024 05:26:00 3.1 0.0-6.0 (%) Final Basos 05/18/2024 05:26:00 0.7 0.0-2.0 (%) Final Absolute Segs 05/18/2024 05:26:00 3.45 1.80-7.70 (K/uL) Final Lymphs, absolute 05/18/2024 05:26:00 1.40 1.00-4.80 (K/ul) Final Monos, Abs 05/18/2024 05:26:00 0.71 0.00-1.10 (K/uL) Final Eos, Abs 05/18/2024 05:26:00 0.18 0.00-0.70 (K/uL) Final Basos, Abs 05/18/2024 05:26:00 0.04 0.00-0.20 (K/uL) Final Performing Location LAB[facility]ATORY [facility] [address] [place] [address]
--- OUTSIDE RECORDS SUMMARY | 2024-05-28 11:26 | External Medical Summary | Summary of Care ---
Author Name Unknown Organization [facility] Address [address] [place] [address] Phone [phone] Care Team Providers Care Bell Ringer Name Role Phone Juvencio Abebe MD Primary Care Provider [phone] Encounter Details Date Type Department Care Team (Late st Contact Info) Description 05/18/2024 Orders Only Lab Mobile Phlebotomy [facility] [address] [place] [address] Ridge Baker MD [address] [place] [address] [place] [address] Anemia*; Bladder cancer (HCC); Malignant neoplasm of urinary bladder (HCC) Allergies No known active allergiesdocumented as of this encounter (statuses as of 05/18/2024) Medications Tamsulosin HCl 0.4 MG Oral Capsule [...] day as needed for Anxiety. 4 Active Metoprolol Succinate ER 25 MG [...] as of this encounter (statuses as of 05/18/2024) Active Problems Problem Noted Date Diagnosed Date Type 2 diabetes mellitus with diabetic polyneuro tamiko 05/17/2024 Gastro-esophageal reflux disease without esophag itis 05/17/2024 Opioid use, unspecified, uncomplicated Pressure injury of left foot, unstageable 2023 History of non-ST elevation myocardial infarctio n (NSTEMI) 05/13/2024 PVD (peripheral vascular disease) 05/13/2024 Bladder cancer 05/13/2024 Acquired hypothyroidism 05/13/2024 Prostate cancer 05/13/2024 Coronary artery disease invo lving [place] coronary artery of [place] heart without angina pectoris 05/13/2024 HTN, goal below 140/90 2024 Type 2 diabetes mellitus wit h hemoglobin A1c goal of less than 8.0% 2024 Renal calculus 2024 History of tobacco use 2024 Marijuana use 2024 History of alcohol use 2024 History of carotid endarterectomy 2024 Iron deficiency anemia 2024 Food insecurity 08/17/2023 Overview: Per [facility] Protocol Asymptomatic stenosis of right carotid artery 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 (Household - for ages [...] Care Team (Late st Contact Info) Description 05/18/2024 5:00 AM EST Laboratory Lab Mobile Phlebotomy [facility] [address] [facility] [place], [place] [id number] [address] [place] [address] Arrived Scheduled Orders Name Type Priority Associated Diagnoses Orde r Schedule CBC WITH WBC DIFFERENTIAL Lab Routine Anemia Bladder cancer (HCC) Malignant neoplasm of urinary bladder (HCC) Expected: 05/18/2024, Expires: 05/18/2025 BASIC METABOLIC PANEL Lab Routine Anemia Bladder cancer (HCC) Malignant neoplasm of urinary bladder (HCC) Expected: 05/18/2024, Expires: 05/18/2025 Health Maintenance Due Date Last Done Comments [...] 2024 05/17/2008 Depression Screening 08/10/2024 08/10/2023 GFR 05/16/2025 05/16/2024, 02/2024, 08/24/2023, Additional history exists DTap/Tdap Vaccines (2 - [...] this encounter Medical Devices Implanted Type Area Senior Business Development Analyst Device Identifier Shelf Expiration Date Model / Serial / Lot Patch Xenosure [id number] - [id number] Implanted:Qty: 1 on 07/30/2016 by Ailyn Williamson MD [place] [facility] [place] Right: Carotid [employer] 12/31/2018 E0.8P8 / / [id number] Description:portion used documented as of this encounter Visit Diagnoses Diagnosis Anemia- Primary Anemia, unspecified Bladder cancer (HCC) Malignant neoplasm of bladder, part unspecified Malignant neoplasm of urinary bladder (HCC) Malignant neoplasm of bladder, part unspecified documented in this encounter Advance Directives * Full Code (Latest Code Status on File) Date Activated Date Inactivated Comments 07/30/2016 5:33 PM 07/31/2016 2:56 PM This order r eflects the patients wishes and were consensually agreed upon. Care Teams Bell Ringer Relationship Specialty Start Date End Date Juvencio Abebe MD [address] [place] [address] PCP - General Family Medicine 05/05/24 documented as of this encounter
--- OUTSIDE RECORDS SUMMARY | 2024-05-28 11:26 | External Medical Summary | Summary of Care ---
Author Name Unknown Organization [facility] Address [address] [place] [address] Phone [phone] Care Team Providers Care Binding End Stitcher Name Role Phone Juvencio Abebe MD Primary Care Provider + [phone] Reason for Visit * Reason Onset Date Comments Skilled Visit 05/18/2024 Encounter Details Date Type Department Care Team (Latest Contact Info) Description 05/18/2024 11:00 AM [facility] Visit [facility] [address] [place] [address] Genoveva Fisher PA-C [address] [place] [address] Bacteremia due to Streptococcus*; RENEE (acute kidney injury) ([facility]); Type 2 diabetes mellitus with diabetic polyneuropathy, with long-term current use of insulin ([facility]); Bbswtxp-Oaprk-Okcdi disease; Malignant neoplasm of urinary bladder, unspecified site ([facility]); Bilateral impacted cerumen Allergies No known active allergiesdocumented as of [...] 6 hours as needed for Nausea. Active LORazepam 0.5 MG Oral Tablet (Ativan) Take 1 Tablet by mouth 3 times a day as needed for Anxiety. 4 05/18/20 24 Discontinu ed(Medicat ion List Clean Up) documented as of this encounter (statuses as [...] cancer 05/13/2024 Coronary artery disease invo lving [place] coronary artery of [place] heart without angina pectoris 05/13/2024 HTN, goal below 140/90 2024 Type 2 diabetes mellitus wit h hemoglobin A1c goal of less than 8.0% 2024 Renal calculus 2024 History of tobacco use 2024 Marijuana use 2024 History of alcohol use 2024 History of carotid endarterectomy 2024 Iron deficiency anemia 2024 Food insecurity 08/17/2023 Overview: Per [facility] Protocol Asymptomatic stenosis of right carotid artery 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 Please see facility medical record for original note. This note is not to be edited or addended in [facility] MD. Editing or addending needs to occur in the facilities medical record. Subjective: Christian Hardy III is a 59 year old male. Patient being seen for skilled visit Chief Complaint Patient presents with Skilled Visit HPI: here for rehabilitation following hospital admission due to bacteremia due to streptococcus. Completing Augmentin course per ID specialty. Afebrile. Pt tolerating Therapy. Vital signs stable. Pthad creatinine Thursday and it was elevated 2.0. with baseline 1.0. repeat creatinine today 1.3. Glucoses remaining stable so far. BP's stable so far Pt frequently complains about not being able to use marijuana which he uses chronically at home. Has CMT which causes him significant symptoms. Pt has hx of active bladder cancer. Went through five treatments so far but did not complete the sixth treatment due to being in hospital and too weak to complete. He is considering whether he wants to pursue last treatment. Follows with Dr Méndez. Pt c/o right ear pain since admitted. Blocked sensation. No otorrhea, chills or fever. CBC Results: Results for orders placed or performed in visit on 05/18/24 CBC Result Value Ref Range WBC 5.78 4.00 - 10.80 K/uL RBC 3.74 4.50 - 5.25 M/uL HGB 11.4 (L) 14.0 - 16.8 g/dL HCT 35.8 (L) 40.0 - 48.4 % MCV 95.7 82.0 - 99.5 fL MCH 30.5 27.0 - 34.0 pg MCHC 31.8 32.0 - 36.0 g/dL RDW 14.5 11.5 - 15.5 % PLT 268 140 - 400 K/uL MPV 13.1 6.6 - 11.1 fL Hemoglobin Results: Lab Results Component Value Date/Time HGB 11.4 (L) 05/18/2024 05:26 AM HGB 10.2 (L) 05/16/2024 05:32 AM HGB 11.8 (L) 05/13/2024 05:34 AM HGB 13.0 (L) 07/22/2016 11:36 AM HGB 14.4 11/27/2015 12:34 PM HGB 13.6 (L) 11/15/2014 09:58 AM Basic Panel Results: Results for orders placed or performed in visit on 05/18/24 BASIC METABOLIC PANEL Result Value Ref Range BUN 40 (H) 6 - 20 mg/dL CREATININE 1.3 (H) 0.6 - 1.2 mg/dL EGFR 65 >=60 mL/min SODIUM 143 135 - 146 mmol/L POTASSIUM 5.2 (H) 3.5 - 5.1 mmol/L CHLORIDE 108 (H) 98 - 107 mmol/L CO2 24 22 - 32 mmol/L ANION GAP 11 7 - 15 mmol/L GLUCOSE 127 (H) 70 - 120 mg/dL CALCIUM 9.8 8.4 - 10.2 mg/dL Creatinine Results: Lab Results Component Value Date/Time CREATININE - [facility] 1.3 (H) 05/18/2024 05:26 AM CREATININE - [facility] 2.0 (H) 05/16/2024 05:32 AM CREATININE - [facility] 1.0 05/13/2024 05:34 AM CREATININE - [facility] 0.9 03/24/2017 11:00 AM CREATININE - [facility] 0.7 07/30/2016 05:45 PM CREATININE - [facility] 0.7 07/22/2016 11:36 AM CREATININE POCT - [facility] 0.8 03/30/2017 02:08 PM Potassium Results: Lab Results Component Value Date/Time POTASSIUM - [facility] 5.2 (H) 05/18/2024 05:26 AM POTASSIUM - [facility] 4.5 05/16/2024 05:32 AM POTASSIUM - [facility] 4.5 05/13/2024 05:34 AM POTASSIUM - [facility] 4.5 03/24/2017 11:00 AM POTASSIUM - [facility] 3.8 07/30/2016 05:45 PM POTASSIUM - [facility] 4.5 07/22/2016 11:36 AM Sodium Results: Lab Results Component Value Date/Time SODIUM - [facility] 143 05/18/2024 05:26 AM SODIUM - [facility] 139 05/16/2024 05:32 AM SODIUM - [facility] 138 05/13/2024 05:34 AM SODIUM - [facility] 140 03/24/2017 11:00 AM SODIUM - [facility] 138 07/30/2016 05:45 PM SODIUM - [facility] 138 07/22/2016 11:36 AM Patient Active Problem List Diagnosis Malignant neoplasm of supraglottis (HCC) Ktrcrul-Tnhjc-Yrhyk disease Asymptomatic stenosis of right carotid artery Food insecurity HTN, goal below 140/90 Type 2 diabetes mellitus with hemoglobin A1c goal of less than 8.0% (HCC) Renal calculus History of tobacco use Marijuana use History of alcohol use History of carotid endarterectomy Iron deficiency anemia History of non-ST elevation myocardial infarction (NSTEMI) PVD (peripheral vascular disease) (HCC) Bladder cancer (HCC) Acquired hypothyroidism Prostate cancer (HCC) Coronary artery disease involving [place] coronary artery of [place] heart without angina pectoris Type 2 diabetes mellitus with diabetic polyneuropathy (HCC) Gastro-esophageal reflux disease without esophagitis Opioid use, unspecified, uncomplicated Pressure injury of left foot, unstageable (HCC) Past Medical History: Diagnosis Date Htpkzvb-Thxdz-Dskza disease 10/29/2011 Diabetes mellitus (HCC) 10/29/2011 HTN, goal to be determined 10/29/2011 Malignant neoplasm of supraglottis (HCC) 10/29/2011 Past Surgical History: Procedure Laterality Date ALVEOPLASTY W/ EXTRACTION 11/14/2011 ALVEOLOPL IN CONJ W EXTRAC - PER QUAD performed by ELINOR FERNÁNDEZ at OR [facility] COLONOSCOPY EGD, FLEXIBLE, PLACE GASTRO TUBE 12/10/2011 UPPER GI ENDOSCOPY WITH PERCUTANEOUS GASTROSTOMY INSERTION performed by YASMEEN WARD at ENDOSCOPY [facility] FOOT/TOE SURGERY NEC HAMMERTYOES RECONSTRUCTED HC TRANSCATH PLACEMENT INTRAVASCULAR STENT,OPEN OR PERC, INC ANGIOPLASTY SAME VESSEL, ADDL VEIN Bilateral INCISION OF WINDPIPE, PLANNED 10/17/2011 INSER TUNN ACC DEV;5 YRS/OLDER 12/02/2011 INSERT TUNNELED CENTRAL VENOUS ACCESS WITH SUBQ PORT performed by MARY JANE HARRISON at RADIOLOGY [facility] INSERTION OF LENS PROSTHESIS Bilateral LARYNGOSCOPY BIOPSY W/SCOPE 10/17/2011 IA CYSTO W/REMOVAL OF LESIONS SMALL REMOV ROLY TYSON FOX ACC DEV,WITH 06/30/2012 REMOVAL TUNNELED CENTRAL VENOUS ACCESS W/WO PORT performed by Jw Galloway MD at RADIOLOGY [facility] REMOVAL OF KIDNEY STONE SURGICAL REMOVAL, ERUPTED TOOTH AND BONE 11/14/2011 SURGICAL EXTRACTION ERUPTED TOOTH performed by ELINOR FERNÁNDEZ at OR [facility] THROMBOENDARECTOMY W/PATCH,NECK INCISION Right 07/30/2016 CAROTID ENDARTERECTOMY performed by Ailyn Williamson MD at OR [facility] Family History Problem Relation Name Age of Onset Coronary Artery disease Mother Coronary Artery disease Father Other (AAA) Other No FmHx of AAA Family Status Relation Status Mo Fa Other (Not Specified) Social History Socioeconomic History Marital status: Single Spouse name: Not on file Number of children: Not on file Years of education: Not on file Highest education level: Not on file Occupational History Not on file Tobacco Use Smoking status: Former Current packs/day: 0.00 Average packs/day: 2.0 packs/day for 32.0 years (64.0 ttl pk-yrs) Types: Cigarettes Start date: 10/16/1979 Quit date: 10/16/2011 Years since quittin.5 Smokeless tobacco: Never Vaping Use Vaping status: Every Day Substances: THC Substance and Sexual Activity Alcohol use: Yes Comment: occasionally Drug use: Yes Types: Marijuana Comment: Per patient - used for pain control. Last use 08/10/23 Sexual activity: Not on file Other Topics Concern Not on file Social History Narrative Not on file Social Needs Financial Resource Strain: Low Risk (08/10/2023) Financial Resource Strain Do you have any trouble paying for your medications, or do you think you might in the future? (Adult - for ages 18 years and over): No Does your family have trouble paying for medicine? (Household - for ages 0-17 years): Not on file Food Insecurity: Food Insecurity Present (08/10/2023) Food Insecurity Do you need food for this week? (Adult - for ages 18 years and over): Yes Are you able to get enough food for your family? (Household - for ages 0-17 years): Not on file Does your family need food this week? (Household - for ages 0-17 years): Not on file Do you always have enough food for your family? (Household - for ages 0-17 years): Not on file Transportation Needs: No Transportation Needs (08/10/2023) Transportation Needs Do you have trouble getting a ride to medical visits or work? (Adult - for ages 18 years and over):Never True Does your family have a hard time getting a ride to doctors visits? (Household - for ages 0-17 years): Not on file Has lack of transportation kept you from medical appointments, meetings, work, or from getting things needed for daily living? Check all that apply. (Adult - for ages 18 years and over): Not on file Do you (or your family) have trouble finding or paying for a ride (transportation)? (Household - for ages 0-17 years): Not on file Social Connections: Socially Integrated (08/10/2023) Social Connections How often do you feel lonely or isolated from those around you? (Adult - for ages 18 years and over): Never Housing Stability: Low Risk (08/10/2023) Housing Stability Do you currently live in a [place] or have no steady place to sleep at night? (Adult - for ages 18 years and over): No Do you think you are at risk of becoming homeless? (Adult - for ages 18 years and over): No Does your family worry about paying for your home or becoming homeless? (Household - for ages 0-17 years): Not on file Are you homeless or worried that you might be in the future? (Adult - for ages 18 years and over): Not on file Are you (or your family) homeless or worried that you might be in the future? (Household - for ages0-17 years): Not on file Review of patient's allergies indicates: No Known Allergies I have reviewed medications and allergies. Please refer to MAR in the facility's medical record forthe most up-to-date medication list as this cannot be edited in EPIC. Review of Systems: Constitutional ROS: No change in weight, less weakness, less fatigue and No fevers, sweats, or chills Eye ROS: No recent significant change in vision, No eye pain, redness, discharge and No diplopia Ear ROS: see HPI Nose ROS: No nasal stuffiness and No significant epistaxis Mouth/Throat ROS: No thrush or No sore throat Neck ROS: No lumps or masses, No swollen glands, No recent swelling in thyroid area and No significant pain in neck Pulmonary ROS: No cough, sputum, or hemoptysis, No wheezing, No shortness of breath and No recent change in breathing Cardiovascular ROS: No chest pain, No shortness of breath, No edema, No palpitations and No syncope Gastrointestinal ROS: No abdominal pain, No change in bowel habits, No significant change in appetite, No nausea, vomiting, diarrhea, or constipation and No dysphagia Musculoskeletal/Extremities ROS: see HPI Skin/Integumentary ROS: No rash and No itching Neurologic ROS: No headaches and No seizures Psychiatric ROS: No depression, No anxiety and No psychosis Sleep: No sleep disorders OBJECTIVE: PHYSICALEXAM: I reviewed the most recent facilities vitals. General: alert, no distress, well nourished and well developed Head: Normocephalic, No masses, lesions, tenderness or abnormalities Eye Exam: Conjunctiva are pink and non-injected, sclera clear Ears: External ears normal. Both canals blocked with cerumen Nose: no mucosal erythema, no mucosal edema, no purulent discharge Oropharynx: no exudate, no erythema, lips, buccal mucosa, and tongue normal and mucous membranes are moist Neck: supple, no adenopathy, non-tender, neck veins flat, trachea midline Lymph: no palpable lymphadenopathy Heart: regular rate & rhythm, no murmurs and no gallops Lungs: normal respiratory rate and rhythm, no chest wall tenderness, lungs clear to auscultation Abdomen: abdomen soft, non-tender, normal bowel sounds and no masses or organomegaly Extremities: CMT both LEs, no edema, no clubbing, no cyanosis Neuro Exam: alert with fluent speech, Skin: skin color, texture, turgor are normal, no rashes or significant lesions ASSESSMENT: Bacteremia due to Streptococcus (Primary) Stable CBC stable Complete Augmentin course as directed Follow with ID as directed RENEE (acute kidney injury) (HCC) Improved creatinine today Repeat BMP on Thursday Type 2 diabetes mellitus with diabetic polyneuropathy, with long-term current use of insulin (HCC) Stable glucoses Continue insulin as directed Sinmcuo-Dlepe-Zjbjv disease Stable Continue with Therapy Malignant neoplasm of urinary bladder, unspecified site (HCC) Completed five courses of chemo Considering whether to complete the sixth course Bilateral impacted cerumen Debrox otic both ears times two days followed by ear irrigation as directed PLAN: Reviewed CBC, BMP, Lytes and Continue present medication(s):as ordered. Usp Home Treatment Given: as above Electronically signed by: Genoveva Fisher PA-C Over 35 minutes were spent in this visit more than half the time was spent counselling or coordinating care. Cosigned by Ridge Baker MD at 05/18/2024 2:08 PM EST documented in this encounter Plan of Treatment [...] this encounter Medical Devices Implanted Type Area General Foundry Worker Device Identifier Shelf Expiration Date Model / Serial / Lot Patch Xenosure [id number] - [id number] Implanted:Qty: 1 on 07/30/2016 by Ailyn Williamson MD at OR [facility] Right: Carotid [employer] 12/31/2018 E0.8P8 / / [id number] Description:portion used documented as of this encounter Visit Diagnoses Diagnosis Bacteremia due to Streptococcus- Primary Bacteremia RENEE (acute kidney injury) (HCC) Acute kidney failure, unspecified Type 2 diabetes mellitus with diabetic polyneuropathy, with long-term current use of insulin (HCC) Evjeiif-Otujx-Suugr disease Peroneal muscular atrophy Malignant neoplasm of urinary bladder, unspecified site (HCC) Bilateral impacted cerumen Impacted cerumen documented in this encounter Advance Directives * Full Code (Latest Code Status on File) Date Activated Date Inactivated Comments 07/30/2016 5:33 PM 07/31/2016 2:56 PM This order r eflects the patients wishes and were consensually agreed upon. Care Teams Binding End Stitcher Relationship Specialty Start Date End Date Juvencio Abebe MD [address] [place] [address] PCP - General Family Medicine 05/05/24 documented as of this encounter
--- OUTSIDE RECORDS SUMMARY | 2024-05-28 11:26 | External Medical Summary | Summary of Care ---
Author Name Unknown Organization [facility] Address [address] [place] [address] Phone [phone] Care Team Providers Care Composite Worker Name Role Phone Juvencio Abebe MD Primary Care Provider + [phone] Reason for Visit * Reason Onset Date Comments Group Home Visit 05/13/2024 Encounter Details Date Type Department Care Team (Latest Contact Info) Description 05/13/2024 8:00 AM EST Group Home Visit [facility] [address] [place] [address] Genoveva Fisher PA-C [address] [place] [address] Bacteremia due to Streptococcus*; Complicated UTI (urinary tract infection); Hypertensive urgency; Coronary artery disease involving [place] coronary artery of [place] heart without angina pectoris; H/O non-ST elevation myocardial infarction (NSTEMI); Sricqds-Buzom-Psmpy disease; Malignant neoplasm of supraglottis (HCC); Prostate cancer ([facility]); Type 2 diabetes mellitus with hemoglobin A1c goal of less than 8.0% ([facility]); History of alcohol use; History of marijuana use; Malignant neoplasm of urinary bladder, unspecified site (HCC); Acquired hypothyroidism Allergies No known active allergiesdocumented as of [...] times a day as needed for Anxiety. 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 (Household - for ages [...] of 2) 2014 COVID-19 Vaccine ( - 2023- season) 2024 Influenza Vaccine (FLU [...] this encounter Medical Devices Implanted Type Area Cloth Printer Device Identifier Shelf Expiration Date Model / Serial / Lot Patch Xenosure [id number] - [id number] Implanted:Qty: 1 on 07/30/2016 by Ailyn Williamson MD at [place] [facility] Right: Carotid [employer] 12/31/2018 E0.8P8 / / [id number] Description:portion used documented as of this encounter Visit Diagnoses Diagnosis Bacteremia due to Streptococcus- Primary Bacteremia Complicated UTI (urinary tract infection) Urinary tract infection, site not specified Hypertensive urgency Unspecified essential hypertension Coronary artery disease involving [place] coronary artery of [place] heart without angina pectoris H/O non-ST elevation myocardial infarction (NSTEMI) Old myocardial infarction Cqdbhox-Nukwn-Uncgx disease 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 Care Teams Composite Worker Relationship Specialty Start Date End Date Juvencio Abebe MD [address] [place] [address] PCP - General Family Medicine 05/05/24 documented as of this encounter
--- OUTSIDE RECORDS SUMMARY | 2024-05-28 11:26 | External Medical Summary ---
Author Name Unknown Address Unknown Organization [id number]:[facility] [address] [place] [address] Laboratory Report Ordering Provider Test Date Status ELIANE DOWNING 05/13/2024 05:34:00 Final Observation Date Value Abnormality Reference (Units ) Status SYNC LEUKOCYTES IN BLOOD BY AUTOMATED COUNT 05/13/2024 05:34:00 6.44 4.00-10.80 (K/uL) Final Segs 05/13/2024 05:34:00 68.3 40.0-75.0 (%) Final Lymphs % 05/13/2024 05:34:00 15.4 Below low normal 18.0-42.0 (%) Final Monos 05/13/2024 05:34:00 12.9 Above high normal 1.0-11.0 (%) Final Eosinophils 05/13/2024 05:34:00 2.2 0.0-6.0 (%) Final Basos 05/13/2024 05:34:00 1.2 0.0-2.0 (%) Final Absolute Segs 05/13/2024 05:34:00 4.40 1.80-7.70 (K/uL) Final Lymphs, absolute 05/13/2024 05:34:00 0.99 Below low normal 1.00-4.80 (K/ul) Final Monos, Abs 05/13/2024 05:34:00 0.83 0.00-1.10 (K/uL) Final Eos, Abs 05/13/2024 05:34:00 0.14 0.00-0.70 (K/uL) Final Basos, Abs 05/13/2024 05:34:00 0.08 0.00-0.20 (K/uL) Final Performing Location [facility] [address] [place] [address]
--- OUTSIDE RECORDS SUMMARY | 2024-05-28 11:26 | External Medical Summary | Summary of Care ---
Author Name Unknown Organization [facility] Address [address] [place] [address] Phone [phone] Care Team Providers Care Supervisor Spinning Name Role Phone Juvencio Abebe MD Primary Care Provider + [phone] Encounter Details Date Type Department Care Team (Late st Contact Info) Description 05/16/2024 Orders Only Lab Mobile [facility]lebot[facility] [address] [facility] [place] [address] Ridge Baker MD [address] [place] [address] [place] [address] Malignant neoplasm of urinary bladder, unspecified site (HCC)*; Iron deficiency anemia Allergies No known active allergiesdocumented as of [...] cancer 05/13/2024 Coronary artery disease invo lving [place] coronary artery of [place] heart without angina pectoris 05/13/2024 HTN, goal [...] Signed by Stevan Cook MD on 05/24/2013 Oyrtrhe-Ffoxp-Dthyz disease 10/29/2011 documented as of this encounter [...] documented in this encounter Plan of Treatment Scheduled Orders Name Type Priority Associated Diagnoses Orde r Schedule BASIC METABOLIC PANEL Lab Routine Malignant neoplasm of urinary bladder, unspecified site (HCC) Iron deficiency anemia Expected: 05/16/2024, Expires: 05/16/2025 Health Maintenance Due [...] this encounter Medical Devices Implanted Type Area Tool Crib Supervisor Device Identifier Shelf Expiration Date Model / Serial / Lot Patch Xenosure [id number] - [id number] Implanted:Qty: 1 on 07/30/2016 by Ailyn Williamson MD [place] [facility] Right: Carotid [employer] 12/31/2018 E0.8P8 / / [id number] Description:portion used documented as of this encounter Visit Diagnoses Diagnosis Malignant neoplasm of urinary bladder, unspecified site (HCC)- Primary Iron deficiency anemia Iron deficiency anemia, unspecified documented in this encounter Advance Directives * Full Code (Latest Code Status on File) Date Activated Date Inactivated Comments 07/30/2016 5:33 PM 07/31/2016 2:56 PM This order r eflects the patients wishes and were consensually agreed upon. Care Teams Supervisor Spinning Relationship Specialty Start Date End Date Juvencio Abebe MD [address] [place] [address] PCP - General Family Medicine 05/05/24 documented as of this encounter
--- OUTSIDE RECORDS SUMMARY | 2024-05-28 11:26 | External Medical Summary | Summary of Care ---
Author Name Unknown Organization [facility] Address [address] [place] [address] Phone [phone] Care Team Providers Care Global Account Executive Name Role Phone Juvencio Abebe MD Primary Care Provider + [phone] Reason for Visit * Reason Onset Date Comments Skilled Visit 05/20/2024 Encounter Details Date Type Department Care Team (Latest Contact Info) Description 05/20/2024 7:30 AM EST Fpc Visit [facility] [address] [place] [address] Genoveva Fisher PA-C [address] [place] [address] Bacteremia due to Streptococcus*; RENEE (acute kidney injury) (HCC); Coronary artery disease involving [place] coronary artery of [place] heart without angina pectoris; Bilateral impacted cerumen; Benqojl-Rnbum-Umvfg disease Allergies No known active allergiesdocumented as of [...] cancer 05/13/2024 Coronary artery disease invo lving [place] coronary artery of [place] heart without angina pectoris 05/13/2024 HTN, goal below 140/90 2024 Type 2 diabetes mellitus wit h hemoglobin A1c goal of less than 8.0% 2024 Renal calculus 2024 History of tobacco use 2024 Marijuana use 2024 History of alcohol use 2024 History of carotid endarterectomy 2024 Iron deficiency anemia 2024 Food insecurity 08/17/2023 Overview: Per [facility] Protocol Asymptomatic stenosis of right carotid artery 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:Clinical:Stage III(T3, N1, M0) - Signed by Stevan Cook MD on 05/24/2013 Tunrmbn-Pjjxr-Onduv disease 10/29/2011 documented as of this encounter [...] this encounter Medical Devices Implanted Type Area Lawn Sprinkler Servicer Device Identifier Shelf Expiration Date Model / Serial / Lot Patch Xenosure [id number] - [id number] Implanted:Qty: 1 on 07/30/2016 by Ailyn Williamson [place] [facility] [place]: Carotid [employer] 12/31/2018 [id number] / / [id number] Description:portion used documented as of this encounter Visit Diagnoses Diagnosis Bacteremia due to Streptococcus- Primary Bacteremia RENEE (acute kidney injury) (HCC) Acute kidney failure, unspecified Coronary artery disease involving [place] coronary artery of [place] heart without angina pectoris Bilateral impacted cerumen Impacted cerumen Pkawvje-Yycqw-Beska disease Peroneal muscular atrophy documented in this encounter Advance Directives * Full Code (Latest Code Status on File) Date Activated Date Inactivated Comments 07/30/2016 5:33 PM 07/31/2016 2:56 PM This order r eflects the patients wishes and were consensually agreed upon. Care Teams Global Account Executive Relationship Specialty Start Date End Date Juvencio Abebe MD [address] [place] [address] PCP - General Family Medicine 05/05/24 documented as of this encounter
--- OUTSIDE RECORDS SUMMARY | 2024-05-28 11:26 | External Medical Summary ---
Author Name Unknown Address Unknown Organization [id number]:[facility]ORY [facility] [address] [place] [address] Laboratory Report Ordering Provider Test Date Status ELIANE DOWNING 05/16/2024 05:32:00 Final Observation Date Value Abnormality Reference (Units ) Status WBC, Total 05/16/2024 05:32:00 5.07 4.00-10.8 0 (K/uL) Final RBC 05/16/2024 05:32:00 3.39 4.50-5.25 (M/uL) Final Hemoglobin 05/16/2024 05:32:00 10.2 Below low normal 14 .0-16.8 (g/dL) Final HCT 05/16/2024 05:32:00 32.4 Below low normal 40. 0-48.4 (%) Final MCV 05/16/2024 05:32:00 95.6 82.0-99.5 (fL) Final MCH 05/16/2024 05:32:00 30.1 27.0-34.0 (pg) Final MCHC 05/16/2024 05:32:00 31.5 32.0-36.0 (g/dL) Final RDW 05/16/2024 05:32:00 14.8 11.5-15.5 (%) Final Platelets 05/16/2024 05:32:00 228 140-400 (K /uL) Final MPV 05/16/2024 05:32:00 12.7 6.6-11.1 ( fL) Final [facility] [address] [place] [address]
--- OUTSIDE RECORDS SUMMARY | 2024-05-28 11:26 | External Medical Summary | Summary of Care ---
Author Name Unknown Organization [facility] Address [address] [place] [address] Phone [phone] Care Team Providers Care Account Executive Trainee Name Role Phone Juvencio Abebe MD Primary Care Provider + [phone] Reason for Visit * Reason Onset Date Comments [facility] Visit - Admission 05/17/2024 Encounter Details Date Type Department Care Team (Latest Contact Info) Description 05/17/2024 8:00 AM EST [facility] Visit [address] [place] [address] Ridge Baker MD [address] [place] [address] [place] [address] Bacteremia due to Streptococcus*; RENEE (acute kidney injury) ([facility]); Type 2 diabetes mellitus with diabetic polyneuropathy, with long-term current use of insulin ([facility]); Malignant neoplasm of urinary bladder, unspecified site ([facility]); Malignant neoplasm of supraglottis ([facility]); Opioid use, unspecified, uncomplicated; PVD (peripheral vascular disease) ([facility]); Osaafvv-Ypryr-Taqub disease; HTN, goal below 140/90; Pressure injury of left foot, unstageable ([facility]); History of non-ST elevation myocardial infarction (NSTEMI); Iron deficiency anemia, unspecified iron deficiency anemia type; Marijuana use; Coronary artery disease involving apache coronary artery of apache heart without angina pectoris; Gastro-esophageal reflux disease without esophagitis Allergies No known active allergiesdocumented as of this encounter (statuses as of 05/17/2024) Medications Tamsulosin HCl 0.4 MG Oral Capsule [...] Thursday, and Thursday only. 39 Tablet 3 08/26/19 Active oxyCODONE HCl 10 MG Oral Tablet (Roxicodone) Take 1 Tablet by mouth every 4 hours as needed for Pain, Severe. Active LORazepam 0.5 MG Oral Tablet (Ativan) Take 1 Tablet by mouth 3 times a day as needed for Anxiety. 05/12/20 Active Metoprolol Succinate ER 25 MG Oral [...] the morning and 25 Units before bedtime. 05/17/20 Active Ondansetron HCl 4 MG Oral Tablet Take 1 Tablet by mouth every 6 hours as needed for Nausea. 05/17/20 Active Aspirin 81 MG Tablet Take 1 Tablet by mouth in the morning. Discontinued([place] rm preference/disc ontinuation) Lantus SoloStar 100 UNIT/ML Subcutaneous Solution Pen-injector Inject 25 Units under the skin at bedtime. 05/12/20 024 Discontinued Lisinopril 30 MG Oral Tablet Take 1 Tablet by mouth in the morning. 05/12/20 Discontinued documented as of this encounter (statuses as of 05/17/2024) Active Problems Problem Noted Date Diagnosed Date Type 2 diabetes mellitus with diabetic polyneuro tamiko 05/17/2024 Gastro-esophageal reflux disease without esophag itis 05/17/2024 Opioid use, unspecified, uncomplicated Pressure injury of left foot, unstageable 2023 History of non-ST elevation myocardial infarctio n (NSTEMI) 05/13/2024 PVD (peripheral vascular disease) 05/13/2024 Bladder cancer 05/13/2024 Acquired hypothyroidism 05/13/2024 Prostate cancer 05/13/2024 Coronary artery disease invo lving apache coronary artery of apache heart without angina pectoris 05/13/2024 HTN, goal [...] Signed by Stevan Cook MD on 05/24/2013 Akdodcm-Jttso-Ooqyh disease 10/29/2011 documented as of this encounter (statuses as of 05/17/2024) Resolved Problems Problem Noted Date Diagnosed Date [...] as of this encounter (statuses as of 05/17/2024) Social History Tobacco Use Types Packs/Day Years [...] documented in this encounter Progress Notes * Ridge Baker MD - 05/17/2024 10:12 AM EST ADMISSION HISTORY and PHYSICAL TRANSITION EVENT: Type: SNF admission Date: May 12 Code Status: Full Code Name: Christian Hardy III Date of : 1965 This note pertains to care provided at [facility]. Please see facility medical record for original note. This note is not to be edited or addended in [employer]. Editing or addending needs to occur in the facilities medical record. S: Christian Hardy III had been admitted to [facility] from [facility] for PT and OT. Recently admitted to [facility] on 05/06/24 because of complicated UTI, bacteremia with Streptococcus, weakness, and hypertensive urgency and was transferred here and admitted on 2024. Patient of Dr. Juvencio Abebe with complicated PMH of CMT, bladder cancer s/p multiple recurrence and recent chemotherapy treatment, h/o of supraglottic cancer and h/o tracheostomy in 2011 with reversal,h/o prostate cancer, PVD, s/p carotid endarterectomy, hypertension, type 2 diabetes mellitus on insulin, ongoing marijuana use, h/o ETOH use, CAD, GERD, history of kidney stones, and chronic opioid use who presented to the ED with generalized weakness for a few days. Patient lives at home with his elderly father and adult son. Patient begun chemotherapy in March for recurrent bladder cancer at the [facility] urology clinic (sees Dr. Méndez) and his last treatment was 04/26/24. Patient states hewas to undergo one more treatment but is not going to have it done because it makes him feel too ill and he was to weak to get to the 6th and final treatment. He was seen at [place] 2 days prior to admission and discharged to home after unrevealing work up. On arrival to the ED, his BP was 190 systolic and his blood sugar was 360. He did report he had not been taking his insulin as prescribed. In the ED, Labs showed WBC of 10.01, Hemoglobin of 14.0, platelets 305, creatinine was 1.14, UA wasgrossly positive, and troponin was 21.5. CXR was negative for acute process. Pelvis x-ray was negative for fractures. Head CT was negative for acute findings. Bilateral knee x-rays showed mild osteoarthritis but otherwise negative. Patient was admitted and started on IV cefepime and then Daptomycin for probable UTI. Urine culturewas positive for Enterococcus faecalis. His blood cultures ended up growing Streptococcus mitis/oralis group and Staphylococcus epidermidis. Repeat blood cultures from 05/08/24 were negative. Echo showed EF 55-60%, mild concentric LVH, sigmoid septum, and no overt vegetations. He was seen by ID and was continued on Daptomycin. On discharge, he was recommended to take Augmentin ER 2000/125 twice daily for 7 more days. His hypertensive urgency resolved and he became hypotensive. His lisinopril was discontinued. His A1C was noted to be 8.2 and he had reportedly not been taking his insulin properly. His sugars became low and his Lantus was changed to 25 units twice daily (instead of 25 units QHS and 40 units QAM). Patient had not been taking levothyroxine 25 mcg for a while and his TSH was normal so it was discontinued. Patient had another head CT on 05/11/24 due to confusion that was again negative for acute changes. Patient was did state he was going to leave AMA on 05/10/24 upon being upset about not being able to vote. He signed AMA paperwork but then decided to stay. Patient was seen by palliative care as he reported he did not want to complete chemotherapy. Patient is not planning on having the last treatment but he remains a full code and is now admitted for PT/OT with plans to return home when able. Along with the antibiotic he was also given lorazepam PRN anxiety, which was a new medication, and oxycodone for pain. Patient does take hydrocodone long-term through his PCP per the PDMP. Patient has expressed to staff some frustration with not being able tosmoke marijuana while admitted here. Patient has podiatry appointment today with Dr. Patel, who he has seen for many years. He notes he has some chronic ulcers of his toes. Labs from yesterday reviewed with patient. His creatinine was 2.0 and was 1.0 on 05/13/24. Patient states he is eating and drinking OK. He denies h/o kidney problems other than kidney stones. He denies any swelling, fevers or sweats but felt cold this morning. Vital signs have been stable. Results for orders placed or performed in visit on 05/16/24 CBC Result Value Ref Range WBC 5.07 4.00 - 10.80 K/uL RBC 3.39 4.50 - 5.25 M/uL HGB 10.2 (L) 14.0 - 16.8 g/dL HCT 32.4 (L) 40.0 - 48.4 % MCV 95.6 82.0 - 99.5 fL MCH 30.1 27.0 - 34.0 pg MCHC 31.5 32.0 - 36.0 g/dL RDW 14.8 11.5 - 15.5 % PLT 228 140 - 400 K/uL MPV 12.7 6.6 - 11.1 fL BASIC METABOLIC PANEL Result Value Ref Range BUN 53 (H) 6 - 20 mg/dL CREATININE 2.0 (H) 0.6 - 1.2 mg/dL EGFR 39 (L) >=60 mL/min SODIUM 139 135 - 146 mmol/L POTASSIUM 4.5 3.5 - 5.1 mmol/L CHLORIDE 105 98 - 107 mmol/L CO2 24 22 - 32 mmol/L ANION GAP 10 7 - 15 mmol/L GLUCOSE 110 70 - 120 mg/dL CALCIUM 9.2 8.4 - 10.2 mg/dL Creatinine Results: Lab Results Component Value Date/Time CREATININE - [facility] 2.0 (H) 05/16/2024 05:32 AM CREATININE - [facility] 1.0 05/13/2024 05:34 AM CREATININE - [facility] 0.9 08/24/2023 11:17 AM CREATININE - [facility] 0.9 03/24/2017 11:00 AM CREATININE - [facility] 0.7 07/30/2016 05:45 PM CREATININE - [facility] 0.7 07/22/2016 11:36 AM CREATININE POCT - [facility] 0.8 03/30/2017 02:08 PM Past Medical History: Patient Active Problem List Diagnosis Malignant neoplasm of supraglottis (HCC) Imjmlve-Jyrde-Cmtxb disease Asymptomatic stenosis of right carotid artery [...] Prostate cancer (HCC) Coronary artery disease involving apache coronary artery of apache heart without angina pectoris Type 2 diabetes mellitus with diabetic polyneuropathy (HCC) Gastro-esophageal reflux disease without esophagitis Opioid use, unspecified, uncomplicated Current Outpatient Medications Medication Sig Dispense Refill Lantus SoloStar 100 UNIT/ML Subcutaneous Solution Pen-injector Inject 25 Units under the skin in the morning and 25 Units before bedtime. Ondansetron HCl 4 MG Oral Tablet Take 1 Tablet by mouth every 6 hours as needed for Nausea. Tamsulosin HCl 0.4 MG Oral Capsule (Flomax) Take 1 Capsule by mouth in the morning. Metoprolol Succinate ER 50 MG Oral Tablet Extended Release 24 Hour (toPROL XL) Take 1 Tablet by mouth in the morning. Ferrous Sulfate 324 (65 Fe) MG Oral Tablet Delayed Release Take 1 Tablet by mouth once a day on Thursday, Thursday, and Thursday only. 39 Tablet 3 oxyCODONE HCl 10 MG Oral Tablet (Roxicodone) Take 1 Tablet by mouth every 4 hours as needed for Pain, Severe. LORazepam 0.5 MG Oral Tablet (Ativan) Take 1 Tablet by mouth 3 times a day as needed for Anxiety. Metoprolol Succinate ER 25 MG Oral Tablet Extended Release 24 Hour (Toprol XL) Take by mouth every evening. Amoxicillin-Pot Clavulanate ER 1000-62.5 MG Oral Tablet Extended Release 12 Hour (Augmentin XR) Take 2 Tablets by mouth in the morning and 2 Tablets before bedtime. No current facility-administered medications for this visit. Review of patient's allergies indicates: No Known Allergies Social History Tobacco Use Smoking status: Former Current packs/day: 0.00 Average packs/day: 2.0 packs/day for 32.0 years (64.0 ttl pk-yrs) Types: Cigarettes Start date: 10/16/1979 Quit date: 10/16/2011 Years since quittin.5 Smokeless tobacco: Never Substance Use Topics Alcohol use: Yes Comment: occasionally Vaping/E-Cigarette Use Vaping/E-Cigarette Use Current Every Day User Vaping/E-Cigarette Substances THC Yes Vaping/E-Cigarette Devices Past Surgical History: Procedure Laterality Date ALVEOPLASTY W/ EXTRACTION 11/14/2011 ALVEOLOPL IN CONJ W EXTRAC - PER QUAD performed by ELINOR FERNÁNDEZ at [place] [facility] COLONOSCOPY EGD, FLEXIBLE, PLACE GASTRO TUBE 12/10/2011 UPPER GI ENDOSCOPY WITH PERCUTANEOUS GASTROSTOMY INSERTION performed by YASMEEN WARD at ENDOSCOPY [facility] FOOT/TOE SURGERY NEC HAMMERTYOES RECONSTRUCTED HC TRANSCATH PLACEMENT INTRAVASCULAR STENT,OPEN OR PERC, INC ANGIOPLASTY SAME VESSEL, ADDL VEIN Bilateral INCISION OF WINDPIPE, PLANNED 10/17/2011 INSER TUNN ACC DEV;5 YRS/OLDER 12/02/2011 INSERT TUNNELED CENTRAL VENOUS ACCESS WITH SUBQ PORT performed by MARY JANE HARRISON at RADIOLOGY [facility] INSERTION OF LENS PROSTHESIS Bilateral LARYNGOSCOPY BIOPSY W/SCOPE 10/17/2011 MI CYSTO W/REMOVAL OF LESIONS SMALL REMOV ROLY TYSON FOX ACC DEV,WITH 06/30/2012 REMOVAL TUNNELED CENTRAL VENOUS ACCESS W/WO PORT performed by Jw Galloway MD at RADIOLOGY [facility] [place] REMOVAL OF KIDNEY STONE SURGICAL REMOVAL, ERUPTED TOOTH AND BONE 11/14/2011 SURGICAL EXTRACTION ERUPTED TOOTH performed by ELINOR FERNÁNDEZ at [place] [facility] THROMBOENDARECTOMY W/PATCH,NECK INCISION Right 07/30/2016 CAROTID ENDARTERECTOMY performed by Ailyn Williamson MD at [place] [facility] Family History Problem Relation Name Age of Onset Coronary Artery disease Mother Coronary Artery disease Father Other (AAA) Other No FmHx of AAA Family Status Relation Status Mo Fa Other (Not Specified) Review of Systems: Constitutional ROS: No change in weight, No fevers, sweats, or chills, and +weakness Eye ROS: No recent significant change in vision and No eye pain, redness, discharge Ear ROS: No ear pain and +hard of hearing Nose ROS: No history of frequent colds or sinusitis, No nasal stuffiness, No history of Hay Fever, and No significant epistaxis Mouth/Throat ROS: No bleeding gums, No thrush, or No sore throat Pulmonary ROS: No cough, sputum, or hemoptysis, No wheezing, No shortness of breath, and No recent change in breathing Cardiovascular ROS: No chest pain, No shortness of breath, No orthopnea, No paroxysmal nocturnal dyspnea, No palpitations, and No syncope Gastrointestinal ROS: No abdominal pain, No change in bowel habits, No significant heartburn, No significant change in appetite, No nausea, vomiting, diarrhea, or constipation, No hematemesis, No blood in stools or black tarry stools, No abdominal bloating or early satiety, and No dysphagia Genito-Urinary Male ROS: No dysuria, No frequency, and +bladder cancer and recent UTI Musculoskeletal/Extremities ROS: +as per HPI Hematologic/Lymphatic ROS: No coagulation disorder, No abnormal bleeding, No chills, No weight loss, and +iron deficiency anemia Skin/Integumentary ROS: No rash and +chronic toe ulcers Neurologic ROS: No headaches, No seizures, and +CMT Endocrine ROS: No heat intolerance, No cold intolerance, and +type 2 diabetes mellitus. Psychiatric ROS: +anxiety ADL skills: dependent Ambulates with walker OBJECTIVE: PHYSICAL EXAM: I reviewed the most recent facilities vitals. Refer to vital signs flowsheet in shelter chart.General: alert, no distress, well nourished, and well developed Head: Normocephalic, No masses, lesions, tenderness or abnormalities Eye Exam: PERRLA, extraocular movements intact, conjunctiva are pink and non- injected, sclera clear Ears: External ears normal Nose: no mucosal erythema, no mucosal edema, no purulent discharge Oropharynx: no exudate, no erythema, lips, buccal mucosa, and tongue normal, and mucous membranes are moist Neck: supple, no adenopathy Heart: regular rate & rhythm, no murmur, and no gallops Lungs: chest symmetric with normal AP diameter, no chest deformities noted, no chest wall tenderness, lungs clear to auscultation Abdomen: abdomen soft, non-tender, normal bowel sounds, and no masses or organomegaly Extremities: no clubbing, no cyanosis, +trace edema bilateral ankles. +claw deformity of bilateral hands Neuro Exam: alert & oriented x 3 with fluent speech ASSESSMENT: Bacteremia due to Streptococcus (Primary)--complete amoxicillin/clavulanate 2000 mg/125 mg twice daily for 7 days as per ID for Streptococcus mitis/oralis in blood cultures. Follow-up CBC tomorrow. RENEE (acute kidney injury) (HCC)--patient appears stable. Encourage oral hydration and repeat BMP tomorrow. Type 2 diabetes mellitus with diabetic polyneuropathy, with long-term current use of insulin ([facility])--continue Lantus 25 units twice daily. Malignant neoplasm of urinary bladder, unspecified site ([facility])--missed the final and 6th chemotherapy treatment due to weakness. Is not planning on having the last treatment done. Follow-up with Dr. Méndez as scheduled. Malignant neoplasm of supraglottis (HCC)--patient reports no active treatment. This was diagnosed in 2011 and treated at that time. Opioid use, unspecified, uncomplicated--patient on chronic hydrocodone per PCP. Is currently on oxycodone per hospital discharge. Will follow-up with PCP after discharge. PVD (peripheral vascular disease) ([facility])--stable. Iireopg-Xubkv-Iiczb disease--stable. HTN, goal below 140/90--continue metoprolol succinate 25 mg at bedtime and 50 mg in AM. His lisinopril was discontinued. Will not restart, especially with RENEE as above. Pressure injury of left foot, chronic--due to CMT and diabetic neuropathy with callus formation/ulcer formation. 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 History of non-ST elevation myocardial infarction (NSTEMI)--stable Iron deficiency anemia, unspecified iron deficiency anemia type--continue ferrous sulfate 325 mg MWF. Marijuana use--ongoing at home. Coronary artery disease involving apache coronary artery of apache heart without angina pectoris Gastro-esophageal reflux disease without esophagitis PLAN: 1. Continue present medication(s): Discontinue medication(s): lorazepam in 14 days. This was a new medication and not safe to be takenchronically with narcotics. Schedule labs: CBC w/diff and BMP 05/18/24. 2. Admission orders, medications, labs, hospital records and care plan reviewed. 3. Rf Engineer consult, Physical Therapy, Occupational Therapy, and Speech Therapy ordered. 4. Care plan reviewed. 5. Advance Directives were discussed: Full Code 6. Senior Care Home Treatment Given: Antibiotic Oral Augmentin 2000/125 mg twice daily Electronically signed by: Ridge Baker MD I spent a total of 40-54 minutes (exact time 53 mins) on the date of service in preparation, delivery, and documentation of the care provided to Christian Hardy III excluding any time spent in the performance of separately billed services or time spent by another provider/QHP. documented in this encounter Plan of Treatment [...] this encounter Medical Devices Implanted Type Area Business Performance Specialist Device Identifier Shelf Expiration Date Model / Serial / Lot Patch [employer]osure [id number] - [id number] Implanted:Qty: 1 on 07/30/2016 by Ailyn Williamson MD at [place] [facility] Right: Carotid [employer] 12/31/2018 E0.8P8 / / [id number] Description:portion used documented as of this encounter Visit Diagnoses Diagnosis Bacteremia due to Streptococcus- Primary Bacteremia RENEE (acute kidney injury) (HCC) Acute kidney failure, unspecified Type 2 diabetes mellitus with diabetic polyneuropathy, with long-term current use of insulin (HCC) Malignant neoplasm of urinary bladder, unspecified site (HCC) Malignant neoplasm of supraglottis (HCC) Malignant neoplasm of supraglottis Opioid use, unspecified, uncomplicated PVD (peripheral vascular disease) (HCC) Peripheral vascular disease, unspecified Nclthoq-Jshhq-Qikvb disease Peroneal muscular atrophy HTN, goal below 140/90 Unspecified essential hypertension Pressure injury of left foot, unstageable (HCC) History of non-ST elevation myocardial infarction (NSTEMI) Old myocardial infarction Iron deficiency anemia, unspecified iron deficiency anemia type Marijuana use Cannabis abuse, unspecified Coronary artery disease involving apache coronary artery of apache heart without angina pectoris Gastro-esophageal reflux disease without esophagitis Esophageal reflux documented in this encounter Advance Directives * Full Code (Latest Code Status on File) Date Activated Date Inactivated Comments 07/30/2016 5:33 PM 07/31/2016 2:56 PM This order r eflects the patients wishes and were consensually agreed upon. Care Teams Account Executive Trainee Relationship Specialty Start Date End Date Juvencio Abebe MD [address] [place] [address] PCP - General Family Medicine 05/05/24 documented as of this encounter
[2024-05-28 12:17] LABS: A calco-baum cmplx NotReported Not Detected (NotDetected); Bact fragilis Not Reported Not Detected (NotDetected); Blood Culture Id Panel See PCR Comment (NotDetected); C auris Not Reported Not Detected (NotDetected); Calbicans Not Reported Not Detected (NotDetected); Candida glabrata Not Reported Not Detected (NotDetected); Candida krusei Not Reported Not Detected (NotDetected); Cneoformans/gatti Not Reported Not Detected (NotDetected); Cparapsilosis Not Reported Not Detected (NotDetected); E cloacae compx Not Reported Not Detected (NotDetected); Efaecalis Not Reported Not Detected (NotDetected); Efaecium Not Reported Not Detected (NotDetected); Enterobacterales Not Reported Not Detected (NotDetected); Escherichia coli Not Reported Not Detected (NotDetected); H influenzae Not Reported Not Detected (NotDetected); K aerogenes Not Reported Not Detected (NotDetected); Koxytoca Not Reported Not Detected (NotDetected); Kpneumoniae grp Not Reported Not Detected (NotDetected); Lmonocyt Not Reported Not Detected (NotDetected); N meningitidis Not Reported Not Detected (NotDetected); P aeruginosa Not Reported Not Detected (NotDetected); Proteus spp Not Reported Not Detected (NotDetected); Salmonella spp Not Reported Not Detected (NotDetected); Staph lugdunensis Not Reported Not Detected (NotDetected); Staph spp. Not Reported DETECTED (NotDetected); Staphaureus Not Reported Not Detected (NotDetected); Staphepi Not Reported Not Detected (NotDetected); Stenmaltophilia Not Reported Not Detected (NotDetected); Strep agal(GrpB) Not Reported Not Detected (NotDetected); Strep pneum Not Reported Not Detected (NotDetected); Strep pyog (GrpA) Not Reported Not Detected (NotDetected); Strep spp Not Reported Not Detected (NotDetected)
[2024-05-28 12:22] LABS: Staphylococcus spp. DETECTED (NotDetected)
[2024-05-28] MEDS ORDERED: VANCOMYCIN CONSULT ACTIVE PRN (12:46)
[2024-05-28] MEDS: PIPERACILLIN/TAZOBACTAM 4.5 GM/100 ML BAG IV ONE (14:05)
[2024-05-28] MEDS: VANCOMYCIN HCL 2,250 MG in SODIUM CHLORIDE 0.9% 500 ML IV ONE (14:05)
--- NOTE | 2024-05-28 15:00 | Pharmacy Report ---
Pharmacy Glycemic Short Note 2 - Date of Service May 28, 2024 - Glycemic Short BSG Results (Last 24 hours): 05/27/24 05/28/24 05/28/24 20:42 01:35 08:02 Glucose 119 H POC Glucose 156 H 120 H 05/28/24 12:05 Glucose POC Glucose 105 H OUTPATIENT ANTIDIABETIC REGIMEN: * LANTUS 25 UNITS BID ASSESSMENT: 05/28 * BSGS [phone] mg/dL since admission with no novolog required * Limited intake at this time, loosened novolog parameters * Will change lantus to scale if continues to trend down for a further 20% reduction 05/27 59 year old male came to the hospital because of hypoxia, nausea and vomiting. patient is DM type 2 PLAN FOR INPATIENT GLYCEMIC CONTROL: * Hold outpatient oral diabetes medications * Basal insulin * Lantus 16 units sq this AM, 10/16 units this PM * Bolus insulin * NovoLog per scale ACHS or Q6hrs while NPO * Goal Range: Low 110 mg/dL - High 160 mg/dL * Correction Factor: 25 mg/dL/unit * Nutritional / Prandial insulin per carb ratio of 1 unit per 7 grams CHO consumed
--- NOTE | 2024-05-28 15:17 | Pharmacy Report ---
Pharmacy PK ABX Note - Date of Service May 28, 2024 - Assessment and Plan Assessment 59 year old M receiving vancomycin empirically. Pertinent microbiologic data includes: blood cultures growing GPC (07/09 currently), BCID2 indicating staph species. Patient admitted earlier this month and grew staph epi 2/ and strep mitis / bcx. His urine was also positive for E. faecalis. He was treated with dapto and discharged on po Augmentin. Plan Vancomycin * Loading dose: 2250 mg IV x 1 * Maintenance dose: 1250 mg IV every 12 hours * Regimen is predicted to achieve target AUC/SHIELA of 400-600 mg/L.hr * Will order level if therapy is anticipated to extend past 48 hour current duration. Pharmacy will continue to follow and will adjust dose/frequency as necessary. Thank you. Pharmacy has transitioned to AUC monitoring for vancomycin. AUC/SHIELA is the preferred PK/PD target and is associated with decreased risk of nephrotoxicity compared to traditional trough targets.
--- NOTE | 2024-05-28 16:12 | Hospitalist Progress Note ---
Date of Service May 28, 2024 Assessment & Plan (1) Nausea and vomiting: (2) Hypoxia: (3) Elevated troponin: Plan Mr. Hardy is a 59-year-old male with history of NSTEMI, peripheral artery disease, diabetes type 2, hypertension, RCA stenosis, Kdrpnzw-Rfbwl-Gxqdo disease, bladder cancer, ongoing chemotherapy, status post resection, history of supraglottic cancer, hypothyroidism, presenting with nausea and vomiting. Patient found with stap epi bacteremia and UA + for e faecalis on recent admission and completed course of abx po--augmentin 2000mg bid 05/19. Patient reports feeling subjectively poor, but cannot localizing any symptoms. UA without sign of infection, CXR with no acute findings, / Bcx positive--given recent history will start empiric coverage and monitor for 48 hours while cultures result #Probably sepsis,unclear eitology #Immunocompromised on chemotherapy #Recent Complicated UTI #Recent Staph epidermidis/strep mitis/oralis bacteremia Criteria tachycardia, transient tachypnea and WBC>12k. 05/06 Urine Cx currently growing E faecalis 05/06 Blood cultures 1/4 bottles currently growing strep mitis/oralis, 2 out of 4 bottles growing staph epidermidis; Repeat blood cultures ordered on 05/08/2024, NGTD Repeat Blood culutures 07/09 GPC--contaminant v true? -No portacath--removed 02/2024 -Edentulous, gums appear pink and healthy -No localizing features -Start empiric antibiotics iso wbc, recent history Follow infectious work up and cultures Low threshold for ID consult #Stool Retention Large amount of stool burden in the rectum/colon on CTAP. passed stool since admission x2 continue miralax daily #Hypoxia *resolved no further o2 requirement CTM #Generalized weakness #hx of Recurrent falls #Charcot Luma Tooth disease PT/OT ordered #Hypertension Continue Metoprolol 50mg/25mg continue lisinopril 30mg qam # DMTII A1C 8.2 Patient reports he has not been taking his usual insulin Lantus 40 units in a.m., 25 units at at bedtime due to weakness 16 bid for now, SSI continue to monitor #Mild troponin elevation History of NSTEMI earlier this year History of peripheral arterial disease, RCA stenosis Denies chest pain, cardiac symptoms EKG no signs of acute ischemia or infarct Echocardiogram 55-60%, no vegetations noted limited echo ordered #Abnormal CT AB/P #Urachal remnant #Bladder cancer Addendum: Upon further review, note is made of wall thickening of the anterior superior aspect of the bladder. There is an associated elongated density which extends toward the umbilicus. This suggests a urachal remnant. The bladder wall thickening is nonspecific and could be correlated with urinalysis and cystoscopy . Nonemergent Urology consultation is recommended. no umbilical discharge or abdominal pain on palpation Currently undergoing chemotherapy 5 out of 6 sessions, 04/26 last session no port in place Follows with [facility] urology group Missed appointment last Thursday due to weakness Will need followup #History of supraglottic cancer Resolved as per patient #Hypothyroidism Patient supposed to be taking levothyroxine 25 mcg daily but has not been taking this medication for unknown reasons TSH in am Diet: DMII, HH DVT prophylaxis: heparin SQ Dispo: PT/OT ordered for further recs, recommending acute rehab Admission and Anticipated Discharge Date Admission Date: May 27, 2024 Subjective Patient reports feeling generally poor unable to discern why or any localizing symptoms States he feels febrile then chilled Physical Exam Constitutional: diffuse sweating, lethargic Respiratory: normal respiratory effort, lungs clear to auscultation Cardiovascular: RRR, no murmur, no edema Gastrointestinal (Abdomen): normal bowel sounds, soft, nontender, no hepatosplenomegaly no umbilical discharge or erythema noted, no pain Results & Data Results & Data Vital Signs (Past 12 Hours) Vital Signs Temp Pulse Pulse Resp BP Pulse Ox O2 Del Method 05/28/24 15:51 81 05/28/24 15:01 36.4 C L 79 20 155/76 H 95 Room Air 05/28/24 11:53 Room Air 05/28/24 07:47 36.7 C 83 20 146/77 H 94 Room Air 05/28/24 07:16 84 Laboratory Results Short CBC 05/28/24 Range/Units 06:00 WBC 11.45 H (4.8-10.8) K/ul Hgb 11.8 L (14.0-18.0) g/dl Hct 34.5 L (42.0-52.0) % Plt Count 223 (130-400) K/uL BMP 05/28/24 01:35 Sodium 135 L Potassium 3.5 Chloride 100 Carbon Dioxide 27 BUN 22 Creatinine 0.93 Glucose 119 H Calcium 8.9 Diagnostic Findings Chest X-Ray 05/28/24 07:00 XR chest 1V portable CLINICAL HISTORY: Repeat s/p IVF resuscitation COMPARISON STUDY: Chest radiograph and chest CT May 27, 2024. FINDINGS: Lung volumes are normal. Left basilar densities represent atelectasis. There is no pneumothorax or pleural effusion. Cardiac size is normal. Mediastinal contours are normal. There is no evidence for pulmonary edema. IMPRESSION: No acute cardiopulmonary findings. No evidence for pulmonary edema. ACT 112: Negative or not required by law. Electronically signed by: Rolando Knowles M.D. 05/28/2024 7:34 AM Medications Administered Home Medications Medication Instructions Recorded Confirmed Last Taken insulin glargine 100 unit/mL (3 25 unit subcut HS 08/06/23 05/27/24 02/08/24 21:00 mL) subcutaneous pen (Lantus 25 units Solostar U-100 Insulin) lisinopril 30 mg tablet 30 mg PO QAM 08/06/23 05/27/24 02/08/24 07:30 metoprolol succinate 50 mg 50 mg PO QAM 08/06/23 05/27/24 02/09/24 05:30 tablet,extended release 24 hr tamsulosin 0.4 mg capsule 0.4 mg PO PM 08/06/23 05/27/24 02/08/24 21:00 metoprolol succinate 25 mg 25 mg PO QPM #30 tabs 08/09/23 05/27/24 02/08/24 21:00 tablet,extended release 24 hr ferrous sulfate 325 mg (65 mg 325 mg PO UD 09/07/23 05/27/24 02/08/24 21:00 iron) tablet (Iron (ferrous sulfate)) insulin glargine 100 unit/mL (3 25 unit (0.25 mL) subcut QAM #0 mL 05/12/24 05/27/24 02/08/24 07:30 mL) subcutaneous pen (Lantus 40 units Solostar U-100 Insulin) Active Medications Generic Name Dose Route Start Last Admin Trade Name Freq PRN Reason Stop Dose Admin Docusate Sodium 100 mg 05/27/24 21:00 05/28/24 08:37 Docusate Sodium 100 Mg Cap PO 06/26/24 20:59 100 mg BID LAURENT Administration Ferrous Sulfate 325 mg 05/27/24 20:00 05/27/24 20:26 Ferrous Sulfate 325 Mg Tab PO 06/26/24 19:59 325 mg [id number] LAURENT Administration Heparin Sodium (Porcine) 5,000 units 05/27/24 21:00 05/28/24 08:37 Heparin Sod 5,000 Unit/0.5 Ml Vial SQ 06/26/24 20:59 5,000 units Q12 LAURENT Administration Insulin Aspart 0 units 05/27/24 19:35 05/28/24 13:38 Insulin Aspart Per Unit Charge SC 06/26/24 19:34 Not Given ACHS LAURENT Lisinopril 30 mg 05/28/24 09:00 05/28/24 08:34 Lisinopril 10 Mg Tab PO 06/27/24 08:59 30 mg QAM LAURENT Administration Metoprolol Succinate 50 mg 05/28/24 09:00 05/28/24 08:34 Metoprolol Succ 50mg Ext Rel Tab PO 06/27/24 08:59 50 mg QAM LAURENT Administration Metoprolol Succinate 25 mg 05/27/24 21:00 05/27/24 20:26 Metoprolol Succ 25mg Ext Rel Tab PO 06/26/24 20:59 25 mg QPM LAURENT Administration Polyethylene Glycol 17 gm 05/28/24 09:00 05/28/24 08:34 Polyethylene (Miralax) 17 Gm Pack PO 06/27/24 08:59 Not Given DAILY LAURENT Tamsulosin HCl 0.4 mg 05/27/24 21:00 05/27/24 20:26 Tamsulosin Hcl 0.4 Mg Cap PO 06/26/24 20:59 0.4 mg PM LAURENT Administration (1) Nausea and vomiting Vomiting type: unspecified Qualified Code(s): R11.2 - Nausea with vomiting, unspecified
--- OUTSIDE RECORDS SUMMARY | 2024-05-28 18:33 | External Medical Summary | Summary of Care ---
Author Name Unknown Organization [facility] Address [address] [place] [address] Phone [phone] Care Team Providers Care Sugar Trucker Name Role Phone Juvencio Abebe MD Primary Care Provider + [phone] Encounter Details Date Type Department Care Team (Late st Contact Info) Description 05/27/2024 Orders Only [facility] at [facility] [address] [place] [address] Genoveva Fisher PA-C [address] [place] [address] Allergies No known active allergiesdocumented as of this encounter (statuses as of 05/27/2024) Medications Lantus SoloStar 100 UNIT/ML Subcutaneous Solution Pen-injector Inject 25 Units under the skin in the morning and 25 Units before bedtime. 15 mL 4 Active Ondansetron HCl 4 MG Oral [...] in the morning. 30 Capsule 4 Active Metoprolol Succinate ER 25 MG Oral Tablet Extended Release 24 Hour (Toprol XL) Take 1 Tablet by mouth every evening. 30 Tablet 4 Active Metoprolol Succinate ER 50 MG Oral Tablet Extended Release 24 Hour (toPROL XL) Take 1 Tablet by mouth in the morning. 30 Tablet 4 Active Ferrous Sulfate 324 (65 Fe) MG Oral Tablet Delayed Release Take 1 Tablet by mouth once a day on Thursday, Thursday, and Thursday only. 39 Tablet 3 4 Active Metoprolol Succinate ER 25 MG Oral Tablet Extended Release 24 Hour (Toprol XL) Take 1 Tablet by mouth every evening. 30 Tablet 4 05/27/20 24 Discontinu ed(Refill) Metoprolol Succinate ER 50 MG Oral Tablet Extended Release 24 Hour (toPROL XL) Take 1 Tablet by mouth in the morning. 30 Tablet 4 05/27/20 24 Discontinu ed(Refill) Tamsulosin HCl 0.4 MG Oral Capsule (Flomax) Take 1 Capsule by mouth in the morning. 30 Capsule 4 05/27/20 24 Discontinu ed(Refill) Ferrous Sulfate 324 (65 Fe) MG Oral Tablet Delayed Release Take 1 Tablet by mouth once a day on Thursday, Thursday, and Thursday only. 39 Tablet 3 4 05/27/20 24 Discontinu ed(Refill) documented as of this encounter [...] cancer 05/13/2024 Coronary artery disease invo lving [place] coronary artery of [place] heart without angina pectoris 05/13/2024 HTN, goal [...] Signed by Stevan Cook MD on 05/24/2013 Qezkqam-Bzyth-Wierx disease 10/29/2011 documented as of this encounter [...] No 08/10/2023 Does the household have a [facility] source of income? (Household - [...] this encounter Medical Devices Implanted Type Area Preschool Assistant Teacher Device Identifier Shelf Expiration Date Model / Serial / Lot Patch Xenosure [id number] - [id number] Implanted:Qty: 1 on 07/30/2016 by Ailyn Williamson MD at OR [facility] [place] Right: Carotid [employer] 12/31/2018 E0.8P8 / / [id number] Description:portion used documented as of this encounter Advance Directives * Full Code (Latest Code Status on File) Date Activated Date Inactivated Comments 07/30/2016 5:33 PM 07/31/2016 2:56 PM This order r eflects the patients wishes and were consensually agreed upon. Care Teams Sugar Trucker Relationship Specialty Start Date End Date Juvencio Abebe MD [address] [place] [id number] PCP - General Family Medicine 05/05/24 documented as of this encounter
--- OUTSIDE RECORDS SUMMARY | 2024-05-28 18:33 | External Medical Summary | Summary of Care ---
Author Name Unknown Organization [facility] Address [address] [place] [address] Phone [phone] Care Team Providers Care Train Brake Operator Name Role Phone Juvencio Abebe MD Primary Care Provider + [phone] Reason for Visit * Reason Onset Date Comments Detention Visit - Transfer to ER 05/27/2024 Encounter Details Date Type Department Care Team (Latest Contact Info) Description 05/27/2024 6:00 AM EST Detention Visit [facility] at [facility] [address] [place] [address] Genoveva Fisher PA-C [address] [place] [address] Fever, unspecified fever cause*; Nausea and vomiting, unspecified vomiting type; Chills; Tachycardia; Type 2 diabetes mellitus with hemoglobin A1c goal of less than 8.0% (HCC); Hypertensive urgency; Prostate cancer ([facility]); Malignant neoplasm of supraglottis ([facility]); Marijuana use; History of alcohol use; Pressure injury of left foot, unstageable ([facility]); Uyhkrgs-Bwbzm-Uuohd disease Allergies No known active allergiesdocumented as [...] Thursday only. 39 Tablet 3 4 Active documented as of this encounter [...] cancer 05/13/2024 Coronary artery disease invo lving [place] coronary artery of [place] heart without angina pectoris 05/13/2024 HTN, goal below 140/90 2024 Type 2 diabetes mellitus wit h hemoglobin A1c goal of less than 8.0% 2024 Renal calculus 2024 History of tobacco use 2024 Marijuana use 2024 History of alcohol use 2024 History of carotid endarterectomy 2024 Iron deficiency anemia 2024 Food insecurity 08/17/2023 Overview: Per [facility] Protocol Asymptomatic stenosis of right carotid artery 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:Clinical:Stage III(T3, N1, M0) - Signed by Stevan Cook MD on 05/24/2013 Bzvuygk-Kjebc-Pqgcv disease 10/29/2011 documented as of this encounter [...] of Assessment Author No 07/30/2016 10:41 PM EST Badman, Ilda M, RN documented as of this encounter Mental [...] encounter Medical Devices Implanted Type Area Business Development Specialist Device Identifier Shelf Expiration Date Model / Serial / Lot Patch Xenosure [id number] - [id number] Implanted:Qty: 1 on 07/30/2016 by Ailyn Williamson MD at OR [facility] [place] Right: Carotid [employer] 12/31/2018 E0.8P8 / / [id number] Description:portion used documented as of this encounter Visit Diagnoses Diagnosis Fever, unspecified fever cause- Primary Nausea and vomiting, unspecified vomiting type Chills Chills (without fever) Tachycardia Tachycardia, unspecified Type 2 diabetes mellitus with hemoglobin A1c goal of less than 8.0% (HCC) Hypertensive urgency Unspecified essential hypertension Prostate cancer (HCC) Malignant neoplasm of prostate Malignant neoplasm of supraglottis (HCC) Malignant neoplasm of supraglottis Marijuana use Cannabis abuse, unspecified History of alcohol use Pressure injury of left foot, unstageable (HCC) Fceznog-Dewiy-Rydrv disease Peroneal muscular atrophy documented in this encounter Advance Directives * Full Code (Latest Code Status on File) Date Activated Date Inactivated Comments 07/30/2016 5:33 PM 07/31/2016 2:56 PM This order r eflects the patients wishes and were consensually agreed upon. Care Teams Train Brake Operator Relationship Specialty Start Date End Date Juvencio Abebe MD [address] [place] [id number] PCP - General Family Medicine 05/05/24 documented as of this encounter
[2024-05-28] MEDS: PIPERACILLIN/TAZOBACTAM 4.5 GM/100 ML BAG IV SCH (20:14)
[2024-05-28] MEDS: LANTUS PER UNIT CHARGE SQ SCH (21:16)
[2024-05-28 22:08] LABS: Adenovirus F 40/41 PCR Not Detected (NotDetected); Astrovirus PCR Not Detected (NotDetected); Campylobacter PCR Not Detected (NotDetected); Cryptosporidium PCR Not Detected (NotDetected); Cyclospora cayetanensis PCR Not Detected (NotDetected); Entamoeba histolytica PCR Not Detected (NotDetected); Enteroaggregative E.coli(EAEC) Not Detected (NotDetected); Enteropathogenic E.coli (EPEC) Not Detected (NotDetected); Enterotoxigenic E.coli (ETEC) Not Detected (NotDetected); Giardia lamblia PCR Not Detected (NotDetected); Norovirus GI/GII PCR Not Detected (NotDetected); Plesiomonas shigelloides PCR Not Detected (NotDetected); Rotavirus A PCR Not Detected (NotDetected); Salmonella PCR Not Detected (NotDetected); Sapovirus PCR Not Detected (NotDetected); Shiga-like Toxin E.coli (STEC) Not Detected (NotDetected); Shigella/Enteroinvasive E.coli Not Detected (NotDetected); Vibrio cholerae PCR Not Detected (NotDetected); Vibrio species PCR Not Detected (NotDetected); Yersinia enterocolitica PCR Not Detected (NotDetected)
[2024-05-29] MEDS: VANCOMYCIN HCL 1,250 MG in SODIUM CHLORIDE 0.9% 250 ML IV SCH (01:10)
[2024-05-29 07:50] LABS: Hematocrit (blood only) 33.4 % (42.0-52.0); Hemoglobin 11.4 g/dl (14.0-18.0); Mean Corpuscular Hemoglobin 30.2 pg (25.0-34.0); Mean Corpuscular Hgb Conc 34.1 g/dL (32.0-36.0); Mean Corpuscular Volume 88.6 fL (80.0-100.0); Mean Platelet Volume 11.5 fL (9.4-12.4); Platelet Count 219 K/uL (130-400); RDW Coefficient of Variation 13.5 % (11.5-14.5); Red Blood Count 3.77 M/uL (4.70-6.10); White Blood Count 6.48 K/ul (4.8-10.8)
[2024-05-29 08:12] LABS: Calcium 8.4 mg/dl (8.6-10.3); Magnesium 1.7 mg/dl (1.7-2.4); Potassium 3.5 mmol/L (3.5-5.1)
[2024-05-29 08:18] LABS: BUN Creatinine Ratio 22.4 (10-20); Creatinine Clr Calc Pharmacy 99.2 ml/min; Phosphorus 2.6 mg/dl (2.5-4.9)
[2024-05-29 08:46] LABS: Thyroid Stimulating Hormone 9.936 uIu/ml (0.300-4.500)
[2024-05-29 09:04] LABS: T4 Free Thyroxine 0.92 ng/dl (0.61-1.60)
[2024-05-29] MEDS: lisinopril 40 MG TAB PO SCH (09:51)
--- NOTE | 2024-05-29 12:52 | XRay Report ---
KUB CLINICAL HISTORY: stool burden COMPARISON STUDY: CT of the abdomen and pelvis May 27, 2024. FINDINGS: A moderate to large amount stool within the colon and rectum is similar to prior CT. There is no radiographic evidence for a bowel obstruction. Extensive vascular calcification is incidentally noted. There is no evidence for free air although sensitivity is diminished on supine exam. IMPRESSION: 1. Moderate to large amount of stool within the colon and rectum, similar to prior CT. 2. No radiographic evidence for a bowel obstruction. ACT 112: Negative or not required by law. Electronically signed by: Rolando Knowles M.D. 05/29/2024 12:51 PM
--- NOTE | 2024-05-29 13:48 | Pharmacy Report ---
Pharmacy Glycemic Short Note 2 - Date of Service May 29, 2024 - Glycemic Short BSG Results (Last 24 hours): 05/28/24 05/28/24 05/29/24 17:09 20:30 07:14 Glucose 112 H POC Glucose 104 H 137 H 05/29/24 05/29/24 07:52 12:10 Glucose POC Glucose 138 H 115 H OUTPATIENT ANTIDIABETIC REGIMEN: * LANTUS 25 UNITS BID ASSESSMENT: 05/29 * Patient with continued limited intake, no novolog administered in the past 24 hours * [phone] mg/dL yesterday; Fasting 138 mg/dL today- will continue current lantus scale 05/28 * BSGS [phone] mg/dL since admission with no novolog required * Limited intake at this time, loosened novolog parameters * Will change lantus to scale if continues to trend down for a further 20% reduction 05/27 59 year old male came to the hospital because of hypoxia, nausea and vomiting. patient is DM type 2 PLAN FOR INPATIENT GLYCEMIC CONTROL: * Hold outpatient oral diabetes medications * Basal insulin * Lantus 10 units BSG <140 mg/dL, 15 units >= 140 mg/dL * Bolus insulin * NovoLog per scale ACHS or Q6hrs while NPO * Goal Range: Low 110 mg/dL - High 160 mg/dL * Correction Factor: 25 mg/dL/unit * Nutritional / Prandial insulin per carb ratio of 1 unit per 7 grams CHO consumed
[2024-05-29] MEDS: SPIRONOLACTONE 25 MG TAB PO SCH (14:03)
--- NOTE | 2024-05-29 15:09 | Electrocardiogram Report ---
Test Reason : Blood Pressure : */* mmHG Vent. Rate : 80 BPM Atrial Rate : 80 BPM P-R Int : 190 ms QRS Dur : 100 ms QT Int : 392 ms P-R-T Axes : 58 59 59 degrees QTcB Int : 452 ms Normal sinus rhythm Increased R/S ratio in V1, consider early transition or posterior infarct Abnormal ECG When compared with ECG of 28-May-2024 05:41, No significant change was found Confirmed by [place] ([id number]) on 05/29/2024 3:08:53 PM Referred By: Addie Palacios Confirmed By: [place]
--- NOTE | 2024-05-29 15:28 | Hospitalist Progress Note ---
Date of Service May 29, 2024 Assessment & Plan (1) Nausea and vomiting: (2) Hypoxia: (3) Elevated troponin: Plan Mr. Hardy is a 59-year-old male with history of NSTEMI, peripheral artery disease, diabetes type 2, hypertension, RCA stenosis, Gdtffbd-Rkgur-Fthrv disease, bladder cancer, ongoing chemotherapy, status post resection, history of supraglottic cancer, hypothyroidism, presenting with nausea and vomiting. Patient found with stap epi bacteremia and UA + for e faecalis on recent admission and completed course of abx po--augmentin 2000mg bid 05/19. Patient reports feeling subjectively poor, but cannot localizing any symptoms. UA without sign of infection, CXR with no acute findings, 2/4 Bcx positive--continue empiric coverage at this time. ID consult pending for tomorrow. #Probably sepsis,unclear eitology #Immunocompromised on chemotherapy #Recent Complicated UTI #Recent Staph epidermidis/strep mitis/oralis bacteremia Criteria tachycardia, transient tachypnea and WBC>12k. 05/06 Urine Cx currently growing E faecalis 05/06 Blood cultures 1/4 bottles currently growing strep mitis/oralis, 2 out of 4 bottles growing staph epidermidis; Repeat blood cultures ordered on 05/08/2024, NGTD Repeat Blood culutures 07/09 GPC--contaminant v true? -No portacath--removed 02/2024 -Edentulous, gums appear pink and healthy -No localizing features -Start empiric antibiotics iso wbc, recent history Follow infectious work up and cultures Low threshold for ID consult #Stool Retention Large amount of stool burden in the rectum/colon on CTAP. passed stool since admission x2 continue miralax daily #Hypoxia *resolved no further o2 requirement CTM #Generalized weakness #hx of Recurrent falls #Charcot Luma Tooth disease continue rehab with plans to return to [facility] #Hypertension Continue Metoprolol 50mg/25mg continue lisinopril 30mg qam # DMTII A1C 8.2 Patient reports he has not been taking his usual insulin Lantus 40 units in a.m., 25 units at at bedtime due to weakness 16 bid for now, SSI continue to monitor #Mild troponin elevation History of NSTEMI earlier this year History of peripheral arterial disease, RCA stenosis Denies chest pain, cardiac symptoms EKG no signs of acute ischemia or infarct Echocardiogram 55-60%, no vegetations noted limited echo stable, no remarked vegetations #Abnormal CT AB/P #Urachal remnant #Bladder cancer Addendum: Upon further review, note is made of wall thickening of the anterior s uperior aspect of the bladder. There is an associated elongated density which extends toward the umbilicus. This suggests a urachal remnant. The bladder wall thickening is nonspecific and could be correlated with urinalysis and cystoscopy. Nonemergent Urology consultation is recommended. no umbilical discharge or abdominal pain on palpation spoke to urology who suspects this is less likely related to any of the active problems, patient will keep routine OP follow up Currently undergoing chemotherapy 5 out of 6 sessions, 04/26 last session no port in place Follows with [facility] #History of supraglottic cancer Resolved as per patient #Hypothyroidism Patient supposed to be taking levothyroxine 25 mcg daily but has not been taking this medication for unknown reasons normal FT4 and elevated TSH iso illness Diet: DMII, HH DVT prophylaxis: heparin SQ Dispo: PT/OT ordered for further recs, recommending acute rehab Admission and Anticipated Discharge Date Admission Date: May 27, 2024 Subjective NAEO Feeling marginally improved and endorsing an appetite Physical Exam ENMT: edentulous, gums pink and moist Cardiovascular: RRR Gastrointestinal (Abdomen): normal bowel sounds, soft, nontender, no hepatosplenomegaly Skin: few scattered excoriations on BLE, dry, nothing cellulitic in appearance, dusky discoloration of BLE Results & Data Results & Data Vital Signs (Past 12 Hours) Vital Signs Temp Pulse Pulse Resp BP Pulse Ox O2 Del Method 05/29/24 15:18 61 20 126/64 91 Room Air 05/29/24 14:52 83 05/29/24 11:16 36.9 C 79 20 168/79 H 96 Room Air 05/29/24 09:50 Room Air 05/29/24 07:36 36.5 C 83 20 192/83 H 96 Room Air 05/29/24 07:28 75 Laboratory Results Short CBC 05/29/24 Range/Units 07:14 WBC 6.48 (4.8-10.8) K/ul Hgb 11.4 L (14.0-18.0) g/dl Hct 33.4 L (42.0-52.0) % Plt Count 219 (130-400) K/uL BMP 05/29/24 07:14 Sodium 137 Potassium 3.5 Chloride 103 Carbon Dioxide 25 BUN 22 Creatinine 0.98 Glucose 112 H Calcium 8.4 L Medications Administered Home Medications Medication Instructions Recorded Confirmed Last Taken insulin glargine 100 unit/mL (3 25 unit subcut HS 08/06/23 05/27/24 02/08/24 21:00 mL) subcutaneous pen (Lantus 25 units Solostar U-100 Insulin) lisinopril 30 mg tablet 30 mg PO QAM 08/06/23 05/27/24 02/08/24 07:30 metoprolol succinate 50 mg 50 mg PO QAM 08/06/23 05/27/24 02/09/24 05:30 tablet,extended release 24 hr tamsulosin 0.4 mg capsule 0.4 mg PO PM 08/06/23 05/27/24 02/08/24 21:00 metoprolol succinate 25 mg 25 mg PO QPM #30 tabs 08/09/23 05/27/24 02/08/24 21:00 tablet,extended release 24 hr ferrous sulfate 325 mg (65 mg 325 mg PO UD 09/07/23 05/27/24 02/08/24 21:00 iron) tablet (Iron (ferrous sulfate)) insulin glargine 100 unit/mL (3 25 unit (0.25 mL) subcut QAM #0 mL 05/12/24 05/27/24 02/08/24 07:30 mL) subcutaneous pen (Lantus 40 units Solostar U-100 Insulin) Active Medications Generic Name Dose Route Start Last Admin Trade Name Ebq PRN Reason Stop Dose Admin Docusate Sodium 100 mg 05/27/24 21:00 05/29/24 09:50 Docusate Sodium 100 Mg Cap PO 06/26/24 20:59 100 mg BID LAURENT Administration Ferrous Sulfate 325 mg 05/27/24 20:00 05/27/24 20:26 Ferrous Sulfate 325 Mg Tab PO 06/26/24 19:59 325 mg [email or web address] LAURENT Administration Heparin Sodium (Porcine) 5,000 units 05/27/24 21:00 05/29/24 09:50 Heparin Sod 5,000 Unit/0.5 Ml Vial SQ 06/26/24 20:59 5,000 units Q12 LAURENT Administration Piperacillin Sod/Tazobactam Sod 4.5 gm in 100 mls @ 25 mls/hr 05/28/24 20:00 05/29/24 14:03 Zosyn IV 05/30/24 19:59 25 mls/hr Q8H LAURENT Administration Protocol Vancomycin HCl 1,250 mg/ 275 mls @ 200 mls/hr 05/29/24 02:00 05/29/24 14:03 Sodium Chloride IV 05/31/24 01:59 200 mls/hr Q12H LAURENT Administration Insulin Aspart 0 units 05/27/24 19:35 05/29/24 13:34 Insulin Aspart Per Unit Charge SC 06/26/24 19:34 Not Given ACHS LAURENT Insulin Glargine 0 units 05/28/24 21:00 05/29/24 09:50 Lantus Per Unit Charge SQ 06/26/24 20:59 10 units BID LAURENT Administration Protocol Lisinopril 40 mg 05/29/24 09:00 05/29/24 09:51 Lisinopril 40 Mg Tab PO 06/28/24 08:59 40 mg QAM LAURENT Administration Metoprolol Succinate 50 mg 05/28/24 09:00 05/29/24 09:51 Metoprolol Succ 50mg Ext Rel Tab PO 06/27/24 08:59 50 mg QAM LAURENT Administration Metoprolol Succinate 25 mg 05/27/24 21:00 05/28/24 20:16 Metoprolol Succ 25mg Ext Rel Tab PO 06/26/24 20:59 25 mg QPM LAURENT Administration Polyethylene Glycol 17 gm 05/28/24 09:00 05/29/24 09:50 Polyethylene (Miralax) 17 Gm Pack PO 06/27/24 08:59 17 gm DAILY LAURENT Administration Spironolactone 25 mg 05/29/24 09:00 05/29/24 14:03 Spironolactone 25 Mg Tab PO 06/28/24 08:59 25 mg QAM LAURENT Administration Tamsulosin HCl 0.4 mg 05/27/24 21:00 05/28/24 20:15 Tamsulosin Hcl 0.4 Mg Cap PO 06/26/24 20:59 0.4 mg PM LAURENT Administration (1) Nausea and vomiting Vomiting type: unspecified Qualified Code(s): R11.2 - Nausea with vomiting, unspecified
[2024-05-29] MEDS: LACTULOSE SYRUP 30 GM/45 ML UDP PO STA (16:12)
[2024-05-30] MEDS: INFLUENZA VACC TS2024-25(6m+)/PF (IIV3) 0.5mL Syr IM ONE (08:53)
[2024-05-30 11:52] LABS: Hematocrit (blood only) 35.9 % (42.0-52.0); Hemoglobin 12.4 g/dl (14.0-18.0); Mean Corpuscular Hemoglobin 30.4 pg (25.0-34.0); Mean Corpuscular Hgb Conc 34.5 g/dL (32.0-36.0); Mean Platelet Volume 11.9 fL (9.4-12.4); Platelet Count 206 K/uL (130-400); RDW Coefficient of Variation 13.4 % (11.5-14.5); RDW Standard Deviation 43.3 fL (36.4-46.3); Red Blood Count 4.08 M/uL (4.70-6.10); White Blood Count 7.09 K/ul (4.8-10.8)
--- NOTE | 2024-05-30 12:33 | Hospitalist Progress Note ---
Date of Service May 30, 2024 Assessment & Plan (1) Nausea and vomiting: (2) Hypoxia: (3) Elevated troponin: Plan Mr. Hardy is a 59-year-old male with history of NSTEMI, peripheral artery disease, diabetes type 2, hypertension, RCA stenosis, Qejqokg-Jmdbk-Pfwuu disease, bladder cancer, ongoing chemotherapy, status post resection, history of supraglottic cancer, hypothyroidism, presenting with nausea and vomiting. Patient found with stap epi bacteremia and UA + for e faecalis on recent admission and completed course of abx po--augmentin 2000mg bid 05/19. Patient reports feeling subjectively poor, but cannot localizing any symptoms. UA without sign of infection, CXR with no acute findings, 2/4 Bcx positive--continue empiric coverage at this time. ID consult pending #Probably sepsis,unclear eitology #Immunocompromised on chemotherapy #Recent Complicated UTI #Recent Staph epidermidis/strep mitis/oralis bacteremia Criteria tachycardia, transient tachypnea and WBC>12k. 05/06 Urine Cx currently growing E faecalis 05/06 Blood cultures 1/4 bottles currently growing strep mitis/oralis, 2 out of 4 bottles growing staph epidermidis; Repeat blood cultures ordered on 05/08/2024, NGTD Repeat Blood culutures / GPC--contaminant v true? -No portacath--removed 02/2024 -Edentulous, gums appear pink and healthy -No localizing features -Continue vancomycin -ID consulted, 2/4 blood cultures + #Stool Retention Large amount of stool burden in the rectum/colon on CTAP. passed stool since admission x2 continue miralax daily #Hypoxia *resolved no further o2 requirement CTM #Generalized weakness #hx of Recurrent falls #Charcot Luma Tooth disease continue rehab with plans to return to the [facility] #Hypertension Continue Metoprolol 50mg/25mg continue lisinopril 30mg qam # DMTII A1C 8.2 Patient reports he has not been taking his usual insulin Lantus 40 units in a.m., 25 units at at bedtime due to weakness 16 bid for now, SSI continue to monitor #Mild troponin elevation History of NSTEMI earlier this year History of peripheral arterial disease, RCA stenosis Denies chest pain, cardiac symptoms EKG no signs of acute ischemia or infarct Echocardiogram 55-60%, no vegetations noted limited echo stable, no remarked vegetations #Abnormal CT AB/P #Urachal remnant #Bladder cancer Addendum: Upon further review, note is made of wall thickening of the anterior superior aspect of the bladder. There is an associated elongated density which extends toward the umbilicus. This suggests a urachal remnant. The bladder wall thickening is nonspecific and could be correlated with urinalysis and cystoscopy. Nonemergent Urology consultation is recommended. no umbilical discharge or abdominal pain on palpation spoke to urology who suspects this is less likely related to any of the active problems, patient will keep routine OP follow up Currently undergoing chemotherapy 5 out of 6 sessions, 04/26 last session no port in place Follows with [facility] #History of supraglottic cancer Resolved as per patient #Hypothyroidism Patient supposed to be taking levothyroxine 25 mcg daily but has not been taking this medication for unknown reasons normal FT4 and elevated TSH iso illness Diet: DMII, HH DVT prophylaxis: heparin SQ Dispo: PT/OT :return to the [facility] Admission and Anticipated Discharge Date Admission Date: May 27, 2024 Subjective NAEO Patient agitated and ready to get back to rehab reports feeling better and wants to go "back" denies concerns and endorses significant frustration at this time with continued admission Explained need for continue admission until ID makes suggestions Physical Exam Constitutional: WD/WN, vitals as above (sitting on edge of bed) Respiratory: normal respiratory effort, lungs clear to auscultation Cardiovascular: RRR, no murmur, no edema Musculoskeletal: no cyanosis or clubbing, extremities motor strength 5/5 Results & Data Results & Data Vital Signs (Past 12 Hours) Vital Signs Temp Pulse Pulse Resp BP BP Pulse Ox 05/30/24 11:14 36.8 C 80 17 149/76 H 97 05/30/24 08:00 05/30/24 07:45 36.7 C 67 17 186/75 H 96 05/30/24 07:00 75 05/30/24 02:53 36.8 C 78 19 152/78 H 94 O2 Del Method 05/30/24 11:14 Room Air 05/30/24 08:00 Room Air 05/30/24 07:45 Room Air 05/30/24 07:00 05/30/24 02:53 Room Air Laboratory Results Short CBC 05/30/24 Range/Units 11:07 WBC 7.09 (4.8-10.8) K/ul Hgb 12.4 L (14.0-18.0) g/dl Hct 35.9 L (42.0-52.0) % Plt Count 206 (130-400) K/uL Medications Administered Home Medications Medication Instructions Recorded Confirmed Last Taken insulin glargine 100 unit/mL (3 25 unit subcut HS 08/06/23 05/27/24 02/08/24 21:00 mL) subcutaneous pen (Lantus 25 units Solostar U-100 Insulin) lisinopril 30 mg tablet 30 mg PO QAM 08/06/23 05/27/24 02/08/24 07:30 metoprolol succinate 50 mg 50 mg PO QAM 08/06/23 05/27/24 02/09/24 05:30 tablet,extended release 24 hr tamsulosin 0.4 mg capsule 0.4 mg PO PM 08/06/23 05/27/24 02/08/24 21:00 metoprolol succinate 25 mg 25 mg PO QPM #30 tabs 08/09/23 05/27/24 02/08/24 21:00 tablet,extended release 24 hr ferrous sulfate 325 mg (65 mg 325 mg PO UD 09/07/23 05/27/24 02/08/24 21:00 iron) tablet (Iron (ferrous sulfate)) insulin glargine 100 unit/mL (3 25 unit (0.25 mL) subcut QAM #0 mL 05/12/24 05/27/24 02/08/24 07:30 mL) subcutaneous pen (Lantus 40 units Solostar U-100 Insulin) Active Medications Generic Name Dose Route Start Last Admin Trade Name Freq PRN Reason Stop Dose Admin Docusate Sodium 100 mg 05/27/24 21:00 05/30/24 08:53 Docusate Sodium 100 Mg Cap PO 06/26/24 20:59 100 mg BID LAURENT Administration Ferrous Sulfate 325 mg 05/27/24 20:00 05/30/24 08:56 Ferrous Sulfate 325 Mg Tab PO 06/26/24 19:59 325 mg [email or web address] LAURENT Administration Heparin Sodium (Porcine) 5,000 units 05/27/24 21:00 05/30/24 08:54 Heparin Sod 5,000 Unit/0.5 Ml Vial SQ 06/26/24 20:59 5,000 units Q12 LAURENT Administration Vancomycin HCl 1,250 mg/ 275 mls @ 200 mls/hr 05/29/24 02:00 05/30/24 04:23 Sodium Chloride IV 05/31/24 01:59 Infused Q12H LAURENT Infusion Insulin Aspart 0 units 05/27/24 19:35 05/30/24 12:25 Insulin Aspart Per Unit Charge SC 06/26/24 19:34 Not Given ACHS [facility] Insulin Glargine 0 units 05/28/24 21:00 05/30/24 08:53 Lantus Per Unit Charge SQ 06/26/24 20:59 10 units BID LAURENT Administration Protocol Lisinopril 40 mg 05/29/24 09:00 05/30/24 08:57 Lisinopril 40 Mg Tab PO 06/28/24 08:59 40 mg QAM LAURENT Administration Metoprolol Succinate 50 mg 05/28/24 09:00 05/30/24 08:56 Metoprolol Succ 50mg Ext Rel Tab PO 06/27/24 08:59 50 mg QAM LAURENT Administration Metoprolol Succinate 25 mg 05/27/24 21:00 05/29/24 21:51 Metoprolol Succ 25mg Ext Rel Tab PO 06/26/24 20:59 25 mg QPM LAURENT Administration Polyethylene Glycol 17 gm 05/28/24 09:00 05/30/24 08:56 Polyethylene (Miralax) 17 Gm Pack PO 06/27/24 08:59 Not Given DAILY LAURENT Spironolactone 25 mg 05/29/24 09:00 05/30/24 08:56 Spironolactone 25 Mg Tab PO 06/28/24 08:59 25 mg QAM LAURENT Administration Tamsulosin HCl 0.4 mg 05/27/24 21:00 05/29/24 21:51 Tamsulosin Hcl 0.4 Mg Cap PO 06/26/24 20:59 0.4 mg PM LAURENT Administration (1) Nausea and vomiting Vomiting type: unspecified Qualified Code(s): R11.2 - Nausea with vomiting, unspecified
--- NOTE | 2024-05-30 13:45 | Pharmacy Report ---
Pharmacy Glycemic Short Note 2 - Date of Service May 30, 2024 - Glycemic Short BSG Results (Last 24 hours): 05/29/24 05/29/24 05/30/24 16:49 20:15 08:13 POC Glucose 141 H 156 H 80 05/30/24 12:20 POC Glucose 97 OUTPATIENT ANTIDIABETIC REGIMEN: * Lantus 25 units SC BID HbA1c: 8.3% (05/07/24) ASSESSMENT: 05/30: * Blood sugars overall trending lower today, so will loosen Novolog and reduce basal today * Minimal PO intake based on documented carbs at meals 05/29 * Patient with continued limited intake, no novolog administered in the past 24 hours * [phone] mg/dL yesterday; Fasting 138 mg/dL today- will continue current lantus scale 05/28 * BSGS 521-400-220-105 mg/dL since admission with no novolog required * Limited intake at this time, loosened novolog parameters * Will change lantus to scale if continues to trend down for a further 20% reduction 05/27 * 59 year old male came to the hospital because of hypoxia, nausea and vomiting. PLAN FOR INPATIENT GLYCEMIC CONTROL: * Hold outpatient oral diabetes medications * Basal insulin * Lantus 10 units SC qAM * Lantus 0-5-10 units SC HS (see EHR for details) * Bolus insulin * NovoLog per scale ACHS or Q6hrs while NPO * Goal Range: Low 110 mg/dL - High 160 mg/dL * Correction Factor: 25 mg/dL/unit * Nutritional / Prandial insulin per carb ratio of 1 unit per 8 grams CHO consumed
[2024-05-30] MEDS: VANCOMYCIN LEVEL ONE (14:30)
--- NOTE | 2024-05-30 17:12 | Infectious Disease Consult ---
Date of Service May 30, 2024 Telehealth Information I performed this visit using a real-time telehealth connection between my location and the patients location ([facility]). After connecting through interactive tele-video, patient was identified by name and date of and/or wristband check.Patient (or authorized healthcare sales service representative) was informed that this was a telemedicine visit and it was being conducted confidentially over secure lines. My office door was closed and no one else was present in the room with me.Patient (or authorized healthcare sales service representative) provided consent to proceed with the visit, expressed an understanding of privacy and security of the telemedicine visit, and gave permission to have a hospital sales service representative in the room in order to assist with the visit and to conduct portions of the visit, as needed. I informed the patient (or authorized healthcare sales service representative) that I reviewed their record and presented the opportunity for them to ask any questions regarding the visit today. The patient agreed to participate. Assessment & Plan (1) Food poisoning: (2) Gastroenteritis: (3) Blood culture positive for microorganism: Plan The anaerobic Gram-positive cocci growing in 1 of 4 bottles and the Staph hominis growing in 1 of 4 bottles are likely contamination and do not warrant any treatment at this point. Therefore, I would recommend stopping vancomycin and monitoring off of antibiotics at this point. Please send for 1 set of blood culture today. If the patient remained hemodynamically stable and afebrile as well as the blood culture sent today remained negative in the next 24 hours, there will be no further need for antibiotics. History of Present Illness History of Present Illness Mr. Hardy is a 59-year-old man with medical history of Charcot Luma tooth disease, type 2 diabetes, diabetic polyneuropathy, supraglottic cancer status post radiation and chemotherapy, history of tracheostomy, history of peripheral vascular disease, history of carotid artery stenosis status post carotid endarterectomy, HTN, CAD and history of bladder cancer status post surgical resection and chemotherapy who was admitted to [facility] on 05/27/2024 because of nausea and vomiting of around 1 day duration. He was recently discharged from the hospital on 05/12 after being hospitalized for around 6 days for complicated urinary tract infection. He reported that 1 night prior to presentation, he had dinner which included steak with gravy and mashed potatoes, and shortly after, he started having significant nausea and vomiting. Next morning, he started having fever as well and became short of breath and hence the current admission. On presentation, he was afebrile, but tachycardic at around 98 and requiring 3 L of oxygen via nasal cannula. Initial workup showed leukocytosis of 13 (ANC 12.5), elevated troponin of 40 with follow-up readings of 65 and 71 respectively, negative respiratory viral panel and shortly after admission 2 of 4 bottles of blood culture coming back positive for Staph hominis. ID team was consulted for further recommendations and to help guide antibiotic treatment. Allergies Allergy/AdvReac Type Severity Reaction Status Date / Time No Known Allergies Allergy Verified 02/09/24 07:01 Home Medications Medication Instructions Recorded Confirmed Type insulin glargine 100 unit/mL (3 25 unit subcut HS 08/06/23 05/27/24 History mL) subcutaneous pen (Lantus Solostar U-100 Insulin) lisinopril 30 mg tablet 30 mg PO QAM 08/06/23 05/27/24 History metoprolol succinate 50 mg 50 mg PO QAM 08/06/23 05/27/24 History tablet,extended release 24 hr tamsulosin 0.4 mg capsule 0.4 mg PO PM 08/06/23 05/27/24 History metoprolol succinate 25 mg 25 mg PO QPM #30 tabs 08/09/23 05/27/24 Rx tablet,extended release 24 hr ferrous sulfate 325 mg (65 mg 325 mg PO UD 09/07/23 05/27/24 History iron) tablet (Iron (ferrous sulfate)) insulin glargine 100 unit/mL (3 25 unit (0.25 mL) subcut QAM #0 mL 05/12/24 05/27/24 Rx mL) subcutaneous pen (Lantus Solostar U-100 Insulin) Patient History Medical History Weakness generalized History of carotid artery disease Left CEA listed per PAT RN phone interview but per review of [facility] records, Right CEA was done in 2018 (not left) Arthritis History of kidney stones Hematuria Ongoing issue Anemia NSTEMI (non-ST elevated myocardial infarction) 07/2023- medically managed Follows with [facility] Hypothyroidism Bladder cancer Follows with PCP 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 (A-port placed for chemo and feeding tube placed - subsequent removal) Insulin dependent type 2 diabetes mellitus HLD (hyperlipidemia) HTN (hypertension) Xoggocf-Lhbmj-Qijvy disease Surgical History History of esophagogastroduodenoscopy (EGD) History of colonoscopy History of removal of Port-a-Cath History of cystoscopy stone removal H/O transurethral resection of bladder tumor (TURBT) x2 History of tooth extraction History of cataract surgery R/L History of intravascular stent placement Bilateral legs PH Darrell Hx of tracheostomy (~2011) Subsequent reversal- 04/2012 History of bladder surgery Tumor removed, Dr. Hall - PHD Cysto, TURBT (09/22/23): LMA supreme + iGel attempted, unable to seal for ventilation > MAC#3, ETT [address] [facility] History of laryngoscopy History of carotid endarterectomy Left side listed per PAT RN phone interview but per review of [facility] records, Right CEA was done in 2018 (not left) Hx of hammer toe correction Multiple toes (x7) Family History Mother Coronary heart disease 50-60s CABG Father Coronary heart disease NM in 40s Other No family history of adverse response to anesthesia Social History Smoking Status: Former smoker Tobacco Type: Cigarettes Cigarettes Per Day: 2 PPD; Second Hand Exposure: No; Do You Dip or Chew Tobacco: No; Hx Alcohol Use: Yes Alcohol type: hard liquor Alcohol Intake Frequency: 2-4 x/Month Hx Substance Use: Yes Non-Prescribed Medications: Marijuana Last Used Substance: Unknown Last Used Substance Other:: this morning>advised Preferred Language: Mauritanian Communication Ability: Effective Agents' Records Clerk Required: No Beliefs That Will Affect Care: None marital status: Single Current Living Situation: Rehab Current Living Situation Comment: lives with dad and daughter current occupational status: disabled Feels Safe at Home: Yes Assistive Devices: Brace/Splint/Immobilizer, Special Shoe and Walker Review of Systems Negative except for what was mentioned in the H&P Physical Exam Could not be performed as the visit was conducted via TeleMed Results & Data Vital Signs (Past 12 Hours) Vital Signs Temp Pulse Pulse Resp BP BP Pulse Ox 05/30/24 14:57 36.7 C 78 18 175/88 H 98 05/30/24 11:14 36.8 C 80 17 149/76 H 97 05/30/24 08:00 05/30/24 07:45 36.7 C 67 17 186/75 H 96 05/30/24 07:00 75 O2 Del Method 05/30/24 14:57 Room Air 05/30/24 11:14 Room Air 05/30/24 08:00 Room Air 05/30/24 07:45 Room Air 05/30/24 07:00 Laboratory Results Microbiology: 05/27: 1 of 4 bottles of blood culture growing anaerobic Gram-positive cocci 05/27: 1 of 4 bottles of blood culture growing staph hominis
[2024-05-31 07:05] LABS: Creatinine Clr Calc Pharmacy 109.1 ml/min
[2024-05-31 07:41] VITALS: BP 130/79; RESP 17; TEMP 98.4; O2SAT 97
[2024-05-31 11:41] VITALS: PULSE 86
--- NOTE | 2024-05-31 12:13 | Discharge Summary ---
Discharge Summary Date of Service May 31, 2024 Principal Dx & Hospital Course #1 = Principal Diagnosis (1) Nausea and vomiting: (2) Hypoxia: (3) Elevated troponin: Plan Mr. Hardy is a 59-year-old male with history of NSTEMI, peripheral artery disease, diabetes type 2, hypertension, RCA stenosis, Hirhguo-Ypodb-Jzfvu disease, bladder cancer, ongoing chemotherapy, status post resection, history of supraglottic cancer, hypothyroidism, presenting with nausea and vomiting. Patient found with stap epi bacteremia and UA + for e faecalis on recent admission and completed course of abx po--augmentin 2000mg bid 05/19. Patient reports feeling subjectively poor, but cannot localizing any symptoms. UA without sign of infection, CXR with no acute findings, 2/4 Bcx positive--continue empiric coverage at this time. ID consult felt that blood cultures were contaminant and patient did not require any further antibiotics. Patient started on bowel regimen, and daily BM seemed to aid in appetite. On day of discharge, patient was eager to return to rehab. #Probably sepsis,unclear eitology #Immunocompromised on chemotherapy #Recent Complicated UTI #Recent Staph epidermidis/strep mitis/oralis bacteremia Criteria tachycardia, transient tachypnea and WBC>12k. 05/06 Urine Cx currently growing E faecalis 05/06 Blood cultures 1/4 bottles currently growing strep mitis/oralis, 2 out of 4 bottles growing staph epidermidis; Repeat blood cultures ordered on 05/08/2024, NGTD Repeat Blood culutures / GPC--contaminant v true? -No portacath--removed 02/2024 -Edentulous, gums appear pink and healthy -No localizing features -ID consulted, 2/4 blood cultures + -Contaminant all abx discontinued #Stool Retention Large amount of stool burden in the rectum/colon on CTAP. passed stool since admission x2 continue miralax daily #Hypoxia *resolved no further o2 requirement CTM #Generalized weakness #hx of Recurrent falls #Charcot Luma Tooth disease continue rehab with plans to return to [facility] #Hypertension Continue Metoprolol 50mg/25mg continue lisinopril 30mg qam # DMTII A1C 8.2 Patient reports he has not been taking his usual insulin Lantus 40 units in a.m., 25 units at at bedtime due to weakness 16 bid for now, SSI continue to monitor #Mild troponin elevation History of NSTEMI earlier this year History of peripheral arterial disease, RCA stenosis Denies chest pain, cardiac symptoms EKG no signs of acute ischemia or infarct Echocardiogram 55-60%, no vegetations noted limited echo stable, no remarked vegetations started spironolactone daily #Abnormal CT AB/P #Urachal remnant #Bladder cancer Addendum: Upon further review, note is made of wall thickening of the anterior superior aspect of the bladder. There is an associated elongated density which extends toward the umbilicus. This suggests a urachal remnant. The bladder wall thickening is nonspecific and could be correlated with urinalysis and cystoscopy. Nonemergent Urology consultation is recommended. no umbilical discharge or abdominal pain on palpation spoke to urology who suspects this is less likely related to any of the active problems, patient will keep routine OP follow up Currently undergoing chemotherapy 5 out of 6 sessions, 04/26 last session no port in place [facility]s [facility] #History of supraglottic cancer Resolved as per patient #Hypothyroidism Patient supposed to be taking levothyroxine 25 mcg daily but has not been taking this medication for unknown reasons normal FT4 and elevated TSH iso illness Notes For Next Care Provider Medication Changes From Visit Started spironolactone 25mg daily Added miralax and docusate for regimen while on chronic opioids Admission HPI Per Admitting Provider Christian Hardy III is a 59y/o M with PMHx significant for insulin-dependent DM type II, acquired hypothyroidism, diabetic polyneuropathy, 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 due to nausea and vomiting. History obtained from the patient and associated chart review. Of note, patient was recently admitted under our service (05/06/2024-05/12/2024) prior to being discharged to [facility] for rehabilitation services. He had presented at the time of generalized weakness and was found to have a c omplicated UTI in addition to bacteremia. Urine culture from 05/06/2024 grew Enterococcus faecalis and 2/4 blood cultures grew Staphylococcus epidermis. 1/4 blood cultures grew Streptococcus mitis/oralis grp (repeat blood cultures on 05/08/2024 were negative). He was seen and evaluated by infectious disease. He was on IV antibiotics before being transitioned to a high-dose oral Augmentin course at time of discharge. He completed the Augmentin course on 05/19/2024. Patient has been experiencing nausea and vomiting since last night after dinner, he reports approximately 15 or more episodes of vomiting with his last one being earlier this morning around 11AM. Denies any abdominal pain or fever, but does endorse some mild chills. However, according to documentation from [facility], the patient reportedly had a fever of 102F this morning. He has been tolerating some sips of water since this morning. He denies any hematemesis or diarrhea. His WBC count is elevated at 13k on admission. Also of note, his troponin was initially elevated at 40.1 --> repeat troponin bumped up to 65.6; patient denies any chest pain or cardiac symptoms at this time. He was noted to be mildly hypoxic (unsure of exact SpO2) per EMS en route to the ED and was placed on 2L via nasal cannula. Patient denies ever being short of breath. He is now saturating well on room air in the ED. He has a mild cough but it is nonproductive. He denies any sinus or chest congestion. He reports that he has been feeling good up until now following his most recent discharge as per above. He does have chronic back pain at baseline for which he is on chronic opioids for. He endorses regular bowel movements over the past couple of days although his CTAP notes a good amount of stool retention. Last bowel movement was this morning. Admission Exam Per Admitting Provider General: NAD, sitting up in bed, pleasant, appears rather tired but conversing appropriately. A+Ox3, euthymic affect. HEENT: Normocephalic, atraumatic. Conjunctivae normal, anicteric sclerae. External ear and nose normal, oropharynx somewhat dry. Respiratory: Normal respiratory effort, lungs clear to auscultation throughout, no wheeze/rales/rhonchi. No accessory muscle use. Cardiovascular: Regular rate, rhythm, normal peripheral pulses, 1-2+ BLE edema. Vessels: No JVD. Abdomen/GI: Normal bowel sounds, mildly distended but soft, nontender to palpat ion in all quadrants. Extremities/Musculoskeletal: No cyanosis or clubbing, extremities motor strength not tested, moves all extremities. Neurologic: No overt focal deficits, CN's II-XI not formally tested but appear grossly intact bilaterally. Skin: No rashes, mildly pale skin coloration, warm/dry. Discharge Exam Constitutional WD/WN, vitals as above Respiratory normal respiratory effort, lungs clear to auscultation Cardiovascular RRR, no murmur, no edema Gastrointestinal (Abdomen) normal bowel sounds, soft, nontender, no hepatosplenomegaly Updated Medication List Medication Instructions Recorded Confirmed Type insulin glargine 100 unit/mL (3 25 unit subcut HS 08/06/23 05/27/24 History mL) subcutaneous pen (Lantus Solostar U-100 Insulin) lisinopril 30 mg tablet 30 mg PO QAM 08/06/23 05/27/24 History metoprolol succinate 50 mg 50 mg PO QAM 08/06/23 05/27/24 History tablet,extended release 24 hr tamsulosin 0.4 mg capsule 0.4 mg PO PM 08/06/23 05/27/24 History metoprolol succinate 25 mg 25 mg PO QPM #30 tabs 08/09/23 05/27/24 Rx tablet,extended release 24 hr ferrous sulfate 325 mg (65 mg 325 mg PO UD 09/07/23 05/27/24 History iron) tablet (Iron (ferrous sulfate)) insulin glargine 100 unit/mL (3 25 unit (0.25 mL) subcut QAM #0 mL 05/12/24 05/27/24 Rx mL) subcutaneous pen (Lantus Solostar U-100 Insulin) docusate sodium 100 mg capsule 100 mg PO BID 30 days #60 caps 05/31/24 Rx polyethylene glycol 3350 17 gram 17 g PO DAILY 30 days #30 ea 05/31/24 Rx oral powder packet (Miralax) spironolactone 25 mg tablet 25 mg PO QAM 30 days #30 tabs 05/31/24 Rx Hospital Stay Data Consultations 05/27/24 14:41 ED Decision to Admit Stat 05/29/24 13:23 Consult Infectious Diseases Routine Diagnostic Imagining Performed 05/27/24 12:07 CT abd pelvis IV con only Stat 05/27/24 16:46 CT angio chest PE protocol Stat 05/27/24 16:53 US venous doppler LE BI Stat Pending Results Patient Have Any Pending Studies at Discharge: No Discharge Instructions Given to Patient (Per Discharging Provider) You were admitted for abdominal pain and found to be constipated. You were started on a daily bowel regimen -Please continue daily Miralax -Please continue docusate two times a day You were also started on an additional blood pressure medication -Please continue Spironolactone 25mg daily All other home medications are the same Total Time Total Time Spent Total Time Spent (In Minutes): 35
== END 2024-05-31 11:56 | DRG 872 ==
LOC: ED 11:35 → 2N 15:39 → SUATTDRO 15:39 → 2N 18:15